=== PATIENT | female | born 1960 | race Caucasian/White ===

== ENCOUNTER 2018-10-07 18:42 | Observation (INO) | payer SELFPAY ==
[2018-10-07 23:13] LABS: Absolute Lymphocytes (CBC) 2.6 K/uL (0.7-4.9); Absolute Monocytes 0.4 K/uL (0.1-1.3); Absolute Neutrophil 4.9 K/uL (1.8-8.0); Basophils % 0.6 % (0-1.3); Eosinophils % 3.3 % (0-4.4); Hematocrit 40.5 % (36.0-45.0); Lymphocytes % 31.6 % (15.3-44.8); Monocytes % 4.4 % (3.3-12.3); RBC Red Blood Cell Count 4.73 M/uL (3.86-4.86)
[2018-10-07 23:21] LABS: Protime INR 0.96
[2018-10-07 23:35] LABS: ALT/SGPT 34 U/L (12-78); AST/SGOT 21 U/L (15-37); Alkaline Phosphatase 144 U/L (45-117); BUN Blood Urea Nitrogen 27 mg/dL (7-18); Bicarbonate 27 mmol/L (21-32); Bilirubin Direct < 0.1 mg/dL (0-0.2); Bilirubin Total 0.2 mg/dL (0.2-1.0); Glucose Level 121 mg/dL (74-106); Magnesium 2.2 mg/dL (1.8-2.4); NT PRO-BNP 126 pg/mL (<125); Protein, Total 7.8 g/dL (6.4-8.2); Sodium Level 139 mmol/L (136-145); Troponin (Emerg Dept Use Only) < 0.02 ng/mL (0.0-0.045)
[2018-10-08] MEDS ORDERED: NA CHLORIDE 0.9% 1,000 ML ONE (01:49)
--- NOTE | 2018-10-08 01:54 | ER ---
Nurse's Notes [facility] Name: Rena Santiago Age: 58 yrs Sex: Female : 1960 Arrival Date: 10/07/2018 Time: 18:43 Bed 14 Private MD: Chelita Rod Diagnosis: Chest pain, unspecified;Cardiac murmur, unspecified Presentation: 10/07 18:58 Presenting complaint: Patient states: " I was walking across the room and all of a ph sudden I got really SOB, my head is feeling weird." Pt reports dizziness, headache, and nausea, denies chest pain or wekaness. Transition of care: patient was not received from another setting of care. Onset of symptoms was October 07, 2018. Risk Assessment: Do you want to hurt yourself or someone else? Patient reports no desire to harm self or others. Initial Sepsis Screen: Does the patient meet any 2 criteria? No. Patient's initial sepsis screen is negative. Does the patient have a suspected source of infection? No. Patient's initial sepsis screen is negative. Care prior to arrival: None. 18:58 Method Of Arrival: Ambulatory 18:58 Acuity: JAYDA 3 ph Triage Assessment: 19:05 General: Appears in no apparent distress. comfortable, obese, well groomed, Behavior is ph calm, cooperative, appropriate for age, Denies fever, feeling ill. Pain: Denies pain. Neuro: Level of Consciousness is awake, alert, obeys commands, Oriented to person, place, time, situation, Reports dizziness, since 1630 headache frontal area. Cardiovascular: Reports lightheadedness, nausea, shortness of breath, denies chest pain at this time Denies syncope, vomiting, Capillary refill < 3 seconds in bilateral fingers Patient's skin is warm and dry. Respiratory: Reports shortness of breath at rest Onset: The symptoms/episode began/occurred today, the patient has mild shortness of breath Denies cough, pain with respiration. GI: Reports nausea, Patient currently denies abdominal pain, vomiting. Derm: Skin is intact, is healthy with good turgor, Skin is pink, warm \\T\\ dry. Historical: - Allergies: 21:45 No Known Allergies; jb4 - PMHx: 19:03 Anxiety; Depression; Hypertension; Hyperlipidemia; ph - PSHx: 19:03 Tonsillectomy; Appendectomy; ph - Immunization history:: Adult Immunizations unknown. - Social history:: Smoking status: Patient/guardian denies using tobacco. - Ebola Screening: : No symptoms or risks identified at this time. Screenin:45 Abuse screen: Denies threats or abuse. Nutritional screening: No deficits noted. jb4 Tuberculosis screening: No symptoms or risk factors identified. Fall Risk None identified. Assessment: 21:45 General: Appears in no apparent distress. comfortable, Behavior is calm, cooperative, jb4 appropriate for age. Pain: Complains of pain in headache Pain does not radiate. Pain currently is 6 out of 10 on a pain scale. Neuro: Level of Consciousness is awake, alert, obeys commands, Oriented to person, place, time, situation. Cardiovascular: Heart tones S1 S2 present Murmur present Patient's skin is warm and dry. Rhythm is sinus rhythm. Respiratory: Airway is patent Respiratory effort is even, unlabored, Respiratory pattern is regular, symmetrical, Breath sounds are clear bilaterally. GI: No signs and/or symptoms were reported involving the gastrointestinal system. : No signs and/or symptoms were reported regarding the genitourinary system. EENT: No signs and/or symptoms were reported regarding the EENT system. Derm: Skin is intact, Skin is pink, warm \\T\\ dry. Musculoskeletal: Circulation, motion, and sensation intact. 22:33 Reassessment: Patient appears in no apparent distress at this time. Patient and/or jb4 family updated on plan of care and expected duration. Pain level reassessed. Patient is alert, oriented x 3, equal unlabored respirations, skin warm/dry/pink. 23:46 Reassessment: Patient appears in no apparent distress at this time. Patient and/or jb4 family updated on plan of care and expected duration. Pain level reassessed. Patient is alert, oriented x 3, equal unlabored respirations, skin warm/dry/pink. 10/08 00:56 Reassessment: Patient appears in no apparent distress at this time. Patient and/or jb4 family updated on plan of care and expected duration. Pain level reassessed. Patient is alert, oriented x 3, equal unlabored respirations, skin warm/dry/pink. 01:58 Reassessment: Patient appears in no apparent distress at this time. Patient and/or jb4 family updated on plan of care and expected duration. Pain level reassessed. Patient is alert, oriented x 3, equal unlabored respirations, skin warm/dry/pink. 03:01 Reassessment: Patient appears in no apparent distress at this time. Patient and/or jb4 family updated on plan of care and expected duration. Pain level reassessed. Patient is alert, oriented x 3, equal unlabored respirations, skin warm/dry/pink. Vital Signs: 10/07 19:04 BP 103 / 73; Pulse 82; Resp 18; Temp 98.2; Pulse Ox 97% on R/A; Weight 99.79 kg; Height ph 5 ft. 3 in. (160.02 cm); 21:55 BP 154 / 64; Pulse 77; Resp 16; Pulse Ox 100% on R/A; jb4 23:00 BP 157 / 52; Pulse 72; Resp 18; Pulse Ox 98% on R/A; jb4 10/08 00:24 BP 139 / 55; Pulse 76; Resp 16; Pulse Ox 98% on R/A; jb4 01:30 BP 126 / 97; Pulse 74; Resp 16; Pulse Ox 99% on R/A; jb4 03:02 BP 155 / 70; Pulse 72; Resp 18; Temp 98.0(O); Pulse Ox 98% on R/A; jb4 10/07 19:04 Body Mass Index 38.97 (99.79 kg, 160.02 cm) ph ED Course: 10/07 18:43 Patient arrived in ED. as 18:44 Chelita Rod MD is Private Physician. as 19:01 Triage completed. ph 19:05 Arm band placed on. EKG completed in triage. Results shown to MD. ph 21:44 Dhruv Malloy MD is Attending Physician. gs 21:45 Patient has correct armband on for positive identification. Bed in low position. Call 4 light in reach. Side rails up X 1. Pulse ox on. NIBP on. 22:00 Initial lab(s) drawn, by me, by EMS personnel. Inserted saline lock: 20 gauge in right jb4 antecubital area, using aseptic technique. Blood collected. 22:18 Girma Knox, JACQUELINE is Primary Nurse. 4 22:59 Radiology exam delayed due to lab results not completed at this time. (BUN/Creatinine). vm2 23:20 X-ray completed. Portable x-ray completed in exam room. Patient tolerated procedure kw well. 23:21 XRAY Chest (1 view) In Process Unspecified. EDMS 05 00:17 CT Head Brain wo Cont In Process Unspecified. EDMS 00:39 CT Aorta for Dissection In Process Unspecified. EDMS 01:03 CT completed. Patient tolerated procedure well. Patient moved to CT via stretcher. Patient moved back from CT. 01:53 Crystal Campbell MD is Hospitalizing Provider. gs 03:10 No provider procedures requiring assistance completed. Patient admitted, IV remains in jb4 place. Administered Medications: 01:41 Drug: NS 0.9% 1000 ml Route: IV; Rate: 1 bolus; Site: right antecubital; jb4 03:33 Follow up: Response: No adverse reaction; IV Status: Infusion continued upon admission; jb4 IV Intake: 500ml Intake: 03:33 IV: 500ml; Total: 500ml. jb4 Outcome: 01:53 Decision to Hospitalize by Provider. 03:10 Admitted to Tele accompanied by nurse, via stretcher, room 404, with chart, Report jb4 called to JACQUELINE Reis 03:10 Condition: stable 03:10 Discharge instructions given to patient, family, Instructed on the need for admit, Demonstrated understanding of instructions. 03:33 Patient left the ED. jb4 Signatures: Dispatcher [employer] EDGeovanni Purdy Amelia as Whitley, Kimberlee kw Hall, Patricia, RN RN ph Bryson, James, RN RN [facility] Sharri Henry [facility] Dhruv Malloy MD MD Corrections: (The following items were deleted from the chart) 10/07 22:46 21:45 Cardiovascular: Heart tones S1 S2 present Patient's skin is warm and dry. jb4 jb4 23:47 21:45 Cardiovascular: Heart tones S1 S2 present Murmur present Patient's skin is warm jb4 and dry. jb4
--- NOTE | 2018-10-08 01:54 | EDPHYS ---
Physician Documentation [facility] Name: Rena Santiago Age: 58 yrs Sex: Female : 1960 Arrival Date: 10/07/2018 Time: 18:43 Bed 14 Private MD: Chelita Rod ED Physician Dhruv Malloy HPI: 10/08 03:32 This 58 yrs old Female presents to ER via Ambulatory with complaints of gs Shortness Of Breath. 03:32 The patient has shortness of breath at rest. Onset: The symptoms/episode began/occurred gs acutely, just prior to arrival. Duration: The symptoms are intermittent. The patient's shortness of breath has no apparent modifying factors. Associated signs and symptoms: Pertinent positives: chest pain. Severity of symptoms: At their worst the symptoms were severe in the emergency department the symptoms have improved markedly. The patient has not experienced similar symptoms in the past. says felt flushed, hot flash, mild headache, tingling in arms. Historical: - Allergies: 10/07 21:45 No Known Allergies; jb4 - PMHx: 19:03 Anxiety; Depression; Hypertension; Hyperlipidemia; ph - PSHx: 19:03 Tonsillectomy; Appendectomy; ph - Immunization history:: Adult Immunizations unknown. - Social history:: Smoking status: Patient/guardian denies using tobacco. - Ebola Screening: : No symptoms or risks identified at this time. ROS: 10/08 03:32 All other systems are negative. gs Exam: 03:32 Head/Face: Normocephalic, atraumatic. Eyes: Pupils equal round and reactive to light, gs extra-ocular motions intact. Lids and lashes normal. Conjunctiva and sclera are non-icteric and not injected. Cornea within normal limits. Periorbital areas with no swelling, redness, or edema. ENT: Nares patent. No nasal discharge, no septal abnormalities noted. Tympanic membranes are normal and external auditory canals are clear. Oropharynx with no redness, swelling, or masses, exudates, or evidence of obstruction, uvula midline. Mucous membranes moist. Neck: Trachea midline, no thyromegaly or masses palpated, and no cervical lymphadenopathy. Supple, full range of motion without nuchal rigidity, or vertebral point tenderness. No Meningismus. Chest/axilla: Normal chest wall appearance and motion. Nontender with no deformity. No lesions are appreciated. Respiratory: Lungs have equal breath sounds bilaterally, clear to auscultation and percussion. No rales, rhonchi or wheezes noted. No increased work of breathing, no retractions or nasal flaring. Abdomen/GI: Soft, non-tender, with normal bowel sounds. No distension or tympany. No guarding or rebound. No evidence of tenderness throughout. Back: No spinal tenderness. No costovertebral tenderness. Full range of motion. Skin: Warm, dry with normal turgor. Normal color with no rashes, no lesions, and no evidence of cellulitis. MS/ Extremity: Pulses equal, no cyanosis. Neurovascular intact. Full, normal range of motion. Neuro: Awake and alert, GCS 15, oriented to person, place, time, and situation. Cranial nerves II-XII grossly intact. Motor strength 5/5 in all extremities. Sensory grossly intact. Cerebellar exam normal. Normal gait. 03:32 Constitutional: The patient appears alert, awake. 03:32 Cardiovascular: Rate: normal, Rhythm: regular, Pulses: no pulse deficits are appreciated, Heart sounds: murmur, systolic, grade 3 over 6, Edema: is not appreciated. 03:32 ECG was reviewed by the Attending Physician. Vital Signs: 10/07 19:04 BP 103 / 73; Pulse 82; Resp 18; Temp 98.2; Pulse Ox 97% on R/A; Weight 99.79 kg; Height ph 5 ft. 3 in. (160.02 cm); 21:55 BP 154 / 64; Pulse 77; Resp 16; Pulse Ox 100% on R/A; jb4 23:00 BP 157 / 52; Pulse 72; Resp 18; Pulse Ox 98% on R/A; jb4 10/08 00:24 BP 139 / 55; Pulse 76; Resp 16; Pulse Ox 98% on R/A; jb4 01:30 BP 126 / 97; Pulse 74; Resp 16; Pulse Ox 99% on R/A; jb4 03:02 BP 155 / 70; Pulse 72; Resp 18; Temp 98.0(O); Pulse Ox 98% on R/A; jb4 10/07 19:04 Body Mass Index 38.97 (99.79 kg, 160.02 cm) ph MDM: 10/07 22:42 Patient medically screened. 10/08 03:32 Differential diagnosis: CHF exacerbation, Chronic Obstructive Pulmonary Disease gs Myocardial Infarction TAD. Data reviewed: vital signs, nurses notes, old medical records, lab test result(s), EKG, radiologic studies. Counseling: I had a detailed discussion with the patient and/or guardian regarding: the historical points, exam findings, and any diagnostic results supporting the discharge/admit diagnosis, the need for further work-up and treatment in the hospital. 10/07 22:44 Order name: Basic Metabolic Panel 10/07 22:44 Order name: CBC with Diff 10/07 22:44 Order name: LFT's; Complete Time: 01:22 10/07 22:44 Order name: Magnesium; Complete Time: :22 10/07 22:44 Order name: NT PRO-BNP; Complete Time: :22 10/07 22:44 Order name: PT-INR; Complete Time: 01:22 10/07 22:44 Order name: Troponin (emerg Dept Use Only); Complete Time: 01:22 10/07 22:44 Order name: XRAY Chest (1 view) 10/07 22:44 Order name: CT Aorta for Dissection 10/07 22:45 Order name: Basic Metabolic Panel; Complete Time: 01:22 [facility] 10/07 22:45 Order name: CBC with Automated Diff; Complete Time: 01:22 [facility] 10/08 01:54 Order name: Troponin (emerg Dept Use Only) 10/08 02:35 Order name: Lipid Profile [facility] 10/08 02:36 Order name: Troponin I [facility] 10/07 22:44 Order name: EKG; Complete Time: 22:45 10/07 22:44 Order name: Cardiac monitoring; Complete Time: 23:12 10/07 22:44 Order name: EKG - Nurse/Tech; Complete Time: 23:11 10/07 22:44 Order name: IV Saline Lock; Complete Time: 23:11 10/07 22:44 Order name: Labs collected and sent; Complete Time: 23:11 10/07 22:44 Order name: O2 Per Protocol; Complete Time: 23:11 10/07 22:44 Order name: O2 Sat Monitoring; Complete Time: 23:11 10/07 22:44 Order name: CT Head Brain wo Cont gs 10/08 02:36 Order name: CONS Physician Consult [facility] 10/08 02:36 Order name: Heart Healthy [facility] 10/08 02:36 Order name: Echo with Doppler [facility] 10/08 02:36 Order name: EKG Electrocardiogram [facility] EC:32 Rate is 81 beats/min. Rhythm is regular. CT interval is normal. QRS interval is normal. QT interval is normal. Q waves are Old in leads V1, V2. T waves are Normal. No ST changes noted. Clinical impression: NSR w/ Non-specific ST/T Changes and Abnormal EKG without significant change. Interpreted by me. Administered Medications: 01:41 Drug: NS 0.9% 1000 ml Route: IV; Rate: 1 bolus; Site: right antecubital; jb4 03:33 Follow up: Response: No adverse reaction; IV Status: Infusion continued upon admission; jb4 IV Intake: 500ml Disposition: 03:32 Critical Care:. Disposition: 10/08/18 01:53 Hospitalization ordered by Crystal Campbell for Observation. Preliminary diagnosis are Chest pain, unspecified, Cardiac murmur, unspecified. - Bed requested for Telemetry/MedSurg (observation). - Status is Observation. jb4 - Condition is Stable. - Problem is new. - Symptoms have improved. UTI on Admission? No Critical care time excluding procedures: 03:32 Critical care time: Bedside Care: 10 minutes, Consultation: 10 minutes, Family gs Intervention: 10 minutes. Total time: 30 minutes Signatures: Dispatcher [employer] [facility] Maddy Lockett RN RN mw Hall, Patricia, RN RN ph Bryson, James, RN RN jb4 Dhruv Malloy MD MD Corrections: (The following items were deleted from the chart) 02:41 01:53 Hospitalization Ordered by Crystal Campbell MD for Observation. Preliminary ivanna diagnosis is Chest pain, unspecified; Cardiac murmur, unspecified. Bed requested for Telemetry/MedSurg (observation). Status is Observation. Condition is Stable. Problem is new. Symptoms have improved. UTI on Admission? No. gs 03:33 02:41 10/08/2018 01:53 Hospitalization Ordered by Crystal Campbell MD for Observation. jb4 Preliminary diagnosis is Chest pain, unspecified; Cardiac murmur, unspecified. Bed requested for Telemetry/MedSurg (observation). Status is Observation. Condition is Stable. Problem is new. Symptoms have improved. UTI on Admission? No. mw
[2018-10-08] MEDS ORDERED: MORPHINE 4 MG/ML SYR IV PRN (02:28)
[2018-10-08] MEDS ORDERED: ACETAMINOPHEN 500 MG TAB PO PRN (02:28)
[2018-10-08] MEDS ORDERED: ALPRAZOLAM 0.25 MG TABLET PO PRN (02:28)
[2018-10-08 04:01] VITALS: O2SAT 98
[2018-10-08 04:38] VITALS: BMI 50.8
[2018-10-08 04:43] LABS: Urine Appearance CLEAR; Urine Bilirubin NEGATIVE (NEG); Urine Blood NEGATIVE (NEG); Urine Color YELLOW; Urine Glucose NEGATIVE (NEG); Urine Protein NEGATIVE (NEG); Urine Specific Gravity >=1.030 (1.005-1.030); Urine Urobilinogen 0.2 mg/dL (0.2-1.0)
[2018-10-08 04:45] LABS: Urine Microscopic Reflex NO UMIC
--- NOTE | 2018-10-08 06:45 | RAD REPORT ---
EXAM DESCRIPTION: RAD - Chest Single View - 10/07/2018 11:21 pm CLINICAL HISTORY: Chest pain COMPARISON: March 2017 TECHNIQUE: AP portable chest image was obtained 2309 hours . FINDINGS: Lungs are clear. Heart and vasculature are normal. No measurable pleural effusion and no p neumothorax. No acute bony abnormality seen. No acute aortic findings suspected. IMPRESSION: No acute cardiopulmonary process. No significant change from comparison.
--- NOTE | 2018-10-08 06:52 | EKG ---
Test Date: 2018-10-07 Test Time: 19:06:16 Pivot Maker: NELLY MEASUREMENT RESULTS: Intervals: Rate: 81 WV: 180 QRSD: 76 QT: 374 QTc: 434 Harrod: P: 47 WV: 180 QRS: 26 T: 77 INTERPRETIVE STATEMENTS: Normal sinus rhythm Normal ECG Compared to ECG 07/10/2015 15:37:27 no significant change from previous ECG Electronically Signed On 10-08-18 06:52:07 CDT by Timur Ramos
[2018-10-08 08:56] LABS: HDL Cholesterol 45 mg/dL (40-60); LDL Cholesterol, Calculated 119 (<130); Troponin I < 0.02 ng/mL (0.0-0.045)
[2018-10-08] MEDS ORDERED: ASPIRIN EC 81 MG TAB PO SCH (09:00)
[2018-10-08] MEDS ORDERED: METOPROLOL TAR 50 MG TAB PO SCH (09:00)
[2018-10-08] MEDS ORDERED: ENOXAPARIN 40 MG/0.4 ML SQ SCH (09:00)
[2018-10-08] MEDS ORDERED: REGADENOSON 0.4 MG/5 ML SYR IV ONE (10:51)
--- NOTE | 2018-10-08 12:24 | RAD REPORT ---
EXAM DESCRIPTION: CT - Head Brain Wo Cont - 10/08/2018 3:34 am CLINICAL HISTORY: HEADACHE COMPARISON: None Available. TECHNIQUE: Multiple helical axial tomographic images were obtained of the head without intravenous c ontrast. Coronal and sagittal reformatted images were obtained. This exam was performed according to our departmental dose-optimization program, which includes automated exposure control, adjustment of the mA and/or kV according to patient size and/or use of iterative reconstruction technique. FINDINGS: There is mild, patchy hypoattenuation in the cerebral matter which is nonspecific but sugg estive of chronic microvascular ischemic changes. There is no acute intracranial hemorrhage. No mass. No midline shift. No ventriculomegaly. Carrasquillo-white matter differentiation is maintained. Paranasal sinuses are clear. Mastoid air cells and middle ear spaces are clear. Orbits and orbital co ntents are unremarkable. Osseous structures are unremarkable. Surrounding soft tissues are unremarkable. IMPRESSION: No acute intracranial process. Electronically signed by: Dion Robledo MD 10/08/2018 12:28 AM CDT Due to temporary technical issues with the PACS/Fluency reporting system, reports are being signed by the in house radiologist as a courtesy to ensure prompt reporting. The interpreting radiologist is f ully responsible for the content of the report.
--- NOTE | 2018-10-08 12:26 | RAD REPORT ---
EXAM DESCRIPTION: CT - Angio Aorta For Dissection - 10/08/2018 3:35 am CLINICAL HISTORY: The patient is 58 years old and is Female; CHEST PAIN TECHNIQUE: Axial computed tomographic angiography images of the chest, abdomen and pelvis with intra venous contrast using CT angiography protocol. Sagittal and coronal reformatted images were created and reviewed. This CT exam was performed using one or more of the following dose reduction techniq ues: automated exposure control, adjustment of the mA and/or kV according to patient size, and/or u se of iterative reconstruction technique. MIP reconstructed images were created and reviewed. COMPARISON: No relevant prior studies available. FINDINGS: VASCULATURE: AORTA: Minimal atherosclerosis of the aorta is present. No aortic aneurysm. No dissection. PULMONARY ARTERIES: There are no obvious filling defects identified within the pulmonary arterie s to suggest pulmonary embolism. GREAT VESSELS OF AORTIC ARCH: No acute findings. No dissection. No arterial occlusion or sig nificant stenosis. CELIAC TRUNK AND MESENTERIC ARTERIES: No acute findings. No occlusion or significant stenosis. RENAL ARTERIES: No acute findings. No occlusion or significant stenosis. ILIAC ARTERIES: No acute findings. No occlusion or significant stenosis. CHEST: LUNGS: Unremarkable. No mass. No consolidation. PLEURAL SPACE: Unremarkable. No significant effusion. No pneumothorax. HEART: Unremarkable. No cardiomegaly. No significant pericardial effusion. ABDOMEN: LIVER: There is a diffuse decrease in hepatic parenchymal density, consistent with fatty infiltr ation. GALLBLADDER AND BILE DUCTS: Unremarkable. No calcified stones. No ductal dilation. PANCREAS: Unremarkable. No ductal dilation. No mass. SPLEEN: Unremarkable. No splenomegaly. ADRENALS: Unremarkable. No mass. KIDNEYS AND URETERS: Unremarkable. No hydronephrosis. No solid mass. STOMACH AND BOWEL: The stomach is minimally distended. The small bowel is relatively normal in c aliber. Stool is present throughout the colon. There is no mucosal thickening or evidence of bowel ob struction. PELVIS: APPENDIX: No findings to suggest acute appendicitis. BLADDER: The bladder is well distended. REPRODUCTIVE: Calcified uterine fibroid is present. The ovaries are unremarkable. CHEST, ABDOMEN and PELVIS: INTRAPERITONEAL SPACE: Unremarkable. No significant fluid collection. No free air. BONES/JOINTS: Minimal degenerative change of the spine is present. No acute fracture. No dis location. SOFT TISSUES: Unremarkable. LYMPH NODES: There is mild haziness of the mesenteric fat in the mid abdomen, with several subce ntimeter mesenteric lymph nodes noted in this region. IMPRESSION: 1. No evidence of aortic dissection. 2. Mild haziness of the mesenteric fat in the mid abdomen, which is nonspecific but can be seen wit h mesenteric panniculitis. 3. No evidence of pulmonary embolism. Electronically signed by: Sandra Tracy MD 10/08/2018 12:52 AM CDT Due to temporary technical issues with the PACS/Fluency reporting system, reports are being signed by the in house radiologist as a courtesy to ensure prompt reporting. The interpreting radiologist is f ully responsible for the content of the report.
--- NOTE | 2018-10-08 13:56 | CON ---
Date of Consultation: 10/08/[address] The patient admitted to Dr. Campbell's service on 10/08/2018. I saw the patient on 10/08/2018. Reason For Consultation: Chest pain. History Of Present Illness: Ms. Santiago is a 58-year-old woman with history of hypertension, depressio n, dyslipidemia, gastroesophageal reflux disease, obesity. She came in with multiple symptoms includ ing sharp stabbing chest pain that lasted for a few seconds, but she also got what felt like a hot fl flip, shortness of breath, headache. No nausea or vomiting. Denied PND, orthopnea, pedal edema, palp itations, or syncope. Past Medical History: As stated above. Allergies: NONE. Review of Systems: Negative. Social History: Negative for tobacco. Family History: Negative for heart disease. Medications: At home include Norvasc, aspirin, Prilosec, and Zoloft. Physical Examination: Vital Signs: She weighed 287 pounds. HEENT: Negative. Neck: Supple with no bruit. Chest: Clear to auscultation and percussion. Cardiac: Exam revealed a regular rhythm and rate without any murmurs, gallops, or rubs. Abdomen: Benign. Extremities: No clubbing, cyanosis, or edema. Diagnostic Data: Her EKG was normal chest x-ray was normal. CPK was normal. BNP and troponin were normal. Impression And Plan: Atypical chest pain in a patient with multiple cardiac risk factors including h ypertension, dyslipidemia, and obesity. I think an echocardiogram and a Lexiscan which were ordered by Dr. Campbell are very appropriate. I will see what those shows prior to making final decisions. Her chest pain certainly does not sound cardiac. It sounds more musculoskeletal. Her other symptoms inc luding headache and flushing sensation could be certainly related to blood pressure issues. WALESKA/MACHELLE Voice ID: [id number] Report ID: [id number]
--- NOTE | 2018-10-08 14:09 | P.SSS ---
Patient History Date of Service: 10/08/18 History of Present Illness: 58-year-old female with significant past medical history who was admitted to the hospital for chest pain ACS rule out. Please refer to the admission H and P for further information on history of present illness Allergies No Known Allergies Allergy (Verified 07/10/15 17:42) Home Medications: Amlodipine [Norvasc*] 10 mg PO DAILY 07/10/15 Ascorbic Acid [Vitamin C*] 1,000 mg PO DAILY 07/10/15 Aspirin [Aspirin EC 81 MG] 81 mg PO DAILY 07/10/15 Multivitamin [Multivitamins] 1 pill PO DAILY 07/10/15 Sertraline [Zoloft*] 100 mg PO DAILY 07/10/15 Omeprazole [Prilosec] 20 mg PO DAILY #30 capsule. 07/12/15 - Past Medical/Surgical History Has patient received pneumonia vaccine in the past: No Diabetic: No -: htn -: high cholesterol -: ovarian cyst removal -: appendectomy -: tonsillectomy - Family History Mother -: Hypertension, Cancer, Other (see notes) Notes: esophageal cancer Father -: Hypertension, Diabetes, Other (see notes) Notes: mds - Social History Smoking Status: Never smoker Alcohol use: Yes CD- Drugs: No Caffeine use: Yes Place of Residence: Home Review of Systems 10-point ROS is otherwise unremarkable Physical Examination - Vital Signs Temperature: 97.8 F Blood Pressure: 167/70 Pulse: 76 Respirations: 19 Pulse Ox (%): 95 - Physical Exam General: Alert, In no apparent distress HEENT: Atraumatic, PERRLA, Mucous membr. moist/pink, EOMI, Sclerae nonicteric Neck: Supple, 2+ carotid pulse no bruit, No LAD, Without JVD or thyroid abnormality Respiratory: Clear to auscultation bilaterally, Normal air movement Cardiovascular: Regular rate/rhythm, Normal S1 S2 Gastrointestinal: Normal bowel sounds, No tenderness Musculoskeletal: No tenderness Integumentary: No rashes Neurological: Normal gait, Normal speech, Normal strength at 5/5 x4 extr, Normal tone, Normal affect Lymphatics: No axilla or inguinal lymphadenopathy - Studies Laboratory Data (last 24 hrs) 10/07/18 23:02: PT 11.4, INR 0.96 10/07/18 23:02: WBC 8.1, Hgb 13.7, Hct 40.5, Plt Count 300 10/07/18 23:02: Sodium 139, Potassium 4.0, BUN 27 H, Creatinine 0.96, Glucose 121 H, Magnesium 2.2, Total Bilirubin 0.2, AST 21, ALT 34, Alkaline Phosphatase 144 H Treatment Summary: Overall during the hospital stay patient remained stable Patient was initially admitted to the hospital for atypical chest pain. Troponin x2 were negative. EKG was negative for any acute abnormality. Cardiology was consulted. Patient had an echocardiogram done and stress test done here in the hospital. Echocardiogram and stress test were both within normal limits. Patient at that time was discharged home and was asked to follow up with primary care provider in about 1-2 days post discharge. Patient has atypical chest pain was most likely secondary to musculoskeletal pain verses GERD. Patient did have elevated triglycerides and was asked to control it with diet and exercise. Patient stated that she rather do diet and exercise before starting any medication at this time. - Disposition Disposition: ROUTINE DISCHARGE Condition: GOOD Patient Discharge Instructions: Please f.u with PCP and Cardiology. No New medication Diet: Regular Activity: Ad leslie
--- NOTE | 2018-10-08 14:17 | RAD REPORT ---
EXAM DESCRIPTION: NM - Rest Stress Cardiac Imaging - 10/08/2018 2:04 pm CLINICAL HISTORY: Chest pain COMPARISON: July 2015 TECHNIQUE: The patient was administered approximately 10 mCi of Tc 99m Sestamibi prior to resting SP ECT imaging of the heart. The patient was then administered approximately 30 mCi of Tc 99m Sestamibi following exercise or pharmacologic stress. Multiplanar SPECT images were reviewed. FINDINGS: The end diastolic volume is 107 ml, the end systolic volume is 39 ml, and the ejection fra ction is 64 %. Volumes and ejection fraction are similar to the comparison. No stress-induced ischemia confirmed. Minimal focus of decreased activity along the inferior wall rebeca r the apex on stress imaging is believed to be attenuation artifact. Diminished activity on the anter ior wall midportion does not change between rest and stress imaging. This could be a small focus of s carring or breast attenuation artifact. This anterior wall finding is similar to the comparison stud y. IMPRESSION: No stress-induced ischemic changes confirmed. Small fixed defect anterior wall does not change between stress and rest imaging and has not changed from July 2015. Very small focus of diminished activity inferior wall near the apex on the stress sequences not suspe cted to be true ischemia. Ventricular volumes and ejection fraction are normal range in similar to 2016.
[2018-10-08 16:27] VITALS: BP 180/74; TEMP 97.6
--- NOTE | 2018-10-09 01:20 | P.HP ---
Certification for Inpatient Patient admitted to: Observation With expected LOS: <2 Midnights Patient will require the following post-hospital care: None Practitioner: I am a practitioner with admitting privileges, knowledge of patient current condition, hospital course, and medical plan of care. Services: Services provided to patient in accordance with Admission requirements found in Title 42 Section 412.3 of the Code of Federal Regulations Patient History Date of Service: 10/08/18 Reason for admission: Chest pain rule out acute coronary syndrome History of Present Illness: Patient is a 58-year-old female came to the hospital with chest pain. Pain was mainly in the sternal region. She said it started suddenly and it was not improving so after an hour she came into the ER for further evaluation. She did not have any shortness of breath. She had no nausea. She had no diaphoresis. She does have some risk factors for coronary artery disease. Her BMI is greater than 50. She will be admitted to the hospital to be ruled out for an acute coronary syndrome. As she is ruled out will go ahead and proceed with further cardiac studies as needed. Allergies No Known Allergies Allergy (Verified 07/10/15 17:42) Home Medications: Amlodipine [Norvasc] 10 mg PO DAILY 10/08/18 Ascorbic Acid [Vitamin C] 1,000 mg PO DAILY 10/08/18 Aspirin [Aspirin EC 81 MG] 81 mg PO DAILY 10/08/18 Cyclobenzaprine [Flexeril] 5 mg PO TID PRN 10/08/18 Hydroxyzine HCl [Atarax] 25 mg PO DAILY 10/08/18 Lovastatin 20 mg PO BEDTIME 10/08/18 Meloxicam [Mobic] 15 mg PO DAILY 10/08/18 Multivitamin [Daily Multiple Vitamin] 1 each PO DAILY 10/08/18 Celio/Poly/Dexa Opth [Maxitrol Ophth Susp] 3 - 4 drops EACH EYE DAILY 10/08/18 Omeprazole [Prilosec] 20 mg PO DAILY 10/08/18 Sertraline [Zoloft] 100 mg PO DAILY 10/08/18 - Past Medical/Surgical History Has patient received pneumonia vaccine in the past: No Diabetic: No -: htn -: high cholesterol -: ovarian cyst removal -: appendectomy -: tonsillectomy - Family History Mother Medical History: Hypertension, Cancer, Other (see notes) Notes: esophageal cancer Father Medical History: Hypertension, Diabetes, Other (see notes) Notes: mds - Social History Smoking Status: Never smoker Alcohol use: Yes CD- Drugs: No Caffeine use: Yes Place of Residence: Home Review of Systems 10-point ROS is otherwise unremarkable Physical Examination - Vital Signs Temperature: 97.6 F Blood Pressure: 180/74 Pulse: 66 Respirations: 17 Pulse Ox (%): 97 - Physical Exam General: Alert, In no apparent distress, Oriented x3 HEENT: Atraumatic, PERRLA, Mucous membr. moist/pink, EOMI, Sclerae nonicteric Neck: Supple, 2+ carotid pulse no bruit, No LAD, Without JVD or thyroid abnormality Respiratory: Clear to auscultation bilaterally, Normal air movement Cardiovascular: Regular rate/rhythm, Normal S1 S2, No murmurs Gastrointestinal: Normal bowel sounds, Soft and benign, Non-distended, No tenderness Musculoskeletal: No clubbing, No swelling, No tenderness Integumentary: No rashes Neurological: Normal gait, Normal speech, Normal strength at 5/5 x4 extr, Normal tone, Sensation intact, Cranial nerves 3-12 intact, Normal affect Lymphatics: No axilla or inguinal lymphadenopathy Assessment & Plan - Problems (Diagnosis) (1) Chest pain, rule out acute myocardial infarction Status: Acute (2) HTN (hypertension) Onset Date: 07/11/15 Status: Acute (3) Hyperlipemia Onset Date: 07/11/15 Status: Acute - Plan 1. Serial troponins and EKG 2. Appreciate Cardiology consultation 3. Echocardiogram and stress test if cardiology is agreeable 4. Anti-platelet therapy, anti coagulation, beta-nasima, statin, and O2 as needed 5. IV morphine for pain 6. Nitro p.r.n. Discharge Plan: Home Plan to discharge in: 24 Hours - Advance Directives Does patient have a Living Will: No Does patient have a Durable POA for Healthcare: No - Code Status/Comfort Care Code Status Assessed: Yes Code Status: Full Code Critical Care: No Time Spent Managing PTS Care (In Minutes): 45
--- NOTE | 2018-10-09 09:28 | TREADPHA ---
DX: CHEST PAIN Date of Study: 10/08/18 Ht: 5 3 Wt: 287 lb 1.6 oz Consulting Physician: GENO MEDICATIONS: TYLENOL, XANAX, ASPIRIN, LOVENOX, LOPRESSOR HISTORY: 58 YEAR OLD FEMALE, COMPLAINTS OF CHEST PAIN, HISTORY: ANXIETY, DEPRESSION, HYPERTENSION, HYPERLIPIDEMIA. NON-SMOKER, OCCASONAL DRINKER PHYSICIAL EXAMINATION: RESTING B.P.: 168/69 RESTING H.R.: 82 RESTING EKG: NORMAL PROTOCOL: LEXISCAN EXERCISE TIME: 3:30 B.P. AT PEAK STRESS: 165/83 IMPRESSION: LEXISCAN INJECTED, FOLLOWED BY CARDIOLITE PER PROTOCOL, SEE NUCLEAR MEDICNE REPORT. NO SUPRA VENTRICULAR TACHYCARDIA, VENTRICULAR TACHYCARDIA. NO PREMATURE ATRIAL COMPLEXES, PREMATURE VENTRICULAR COMPLEXES. PATIENT REPORTES NO CHEST PAIN.
--- NOTE | 2018-10-09 16:40 | ECHO ---
HEIGHT: 5 ft 3 in WEIGHT: 287 lb 1.6 oz DATE OF STUDY: 10/09/[address]: Crystal Campbell MD 2-DIMENSIONAL: YES M.MODE: YES DOPPLER: YES COLOR FLOW: YES TDS: YES PORTABLE: NO DEFINITY: NO BUBBLE STUDY: NO DIAGNOSIS: CHEST PAIN. RULE OUT ACUTE CORONARY SYNDROME CARDIAC HISTORY: CATHERIZATION: NO SURGERY: NO PROSTHETIC VALVE: NO PACEMAKER: NO MEASUREMENTS (cm) DIASTOLIC (NORMALS) SYSTOLIC (NORMALS) IVSd (0.6-1.2) LA Diam (1.9-4.0) LVEF 55-60% LVIDd (3.5-5.7) LVIDs (2.0-3.5) %FS % LVPWd (0.6-1.2) Ao Diam (2.0-3.7) 2 DIMENSIONAL ASSESSMENT: RIGHT ATRIUM: NORMAL LEFT ATRIUM: NORMAL RIGHT VENTRICLE: NORMAL LEFT VENTRICLE: NORMAL TRICUSPID VALVE: NORMAL MITRAL VALVE: MITRAL ANNULAR CALCIFICATION PULMONIC VALVE: NORMAL AORTIC VALVE: NORMAL PERICARDIAL EFFUSION: NONE AORTIC ROOT: NORMAL LEFT VENTRICULAR WALL MOTION: NORMAL DOPPLER/COLOR FLOW: NORMAL COMMENTS: TECHNICALLY DIFFICULT STUDY. GROSSLY NORMAL LEFT VENTRICULAR EJECTION FRACTION AND SIZE. NO EFFUSION. MITRAL ANNULAR CALFICATION. TECHNOLOGIST: SANDRA EDWARDS
== END 2018-10-08 18:52 | disposition home or self-care (01) ==
LOC: ER 18:42 → ERHOLD 10-08 02:57 → 4TH 10-08 03:07
PROVIDERS: ADMIT Hospitalist; ATTEND Hospitalist
DX: R07.89 Other chest pain (principal); I10 Essential (primary) hypertension; E78.5 Hyperlipidemia, unspecified; Z79.82 Long term (current) use of aspirin
CPT/HCPCS: 36415; 70450; 71045; 71275; 74175; 78452; 80048; 80061; 80076; 81003; 83735; 83880; 84484; 85025; 85610; 93005; 93017; 93306; 96360; 96361; 99285; A9500; G0378; J1650; J2785; J7030; Q9967

== ENCOUNTER 2019-01-19 19:14 | Emergency (ER) | payer SELFPAY ==
--- NOTE | 2019-01-19 20:49 | ER ---
Nurse's Notes [facility] Name: Rena Santiago Age: 58 yrs Sex: Female : 1960 Arrival Date: 01/19/2019 Time: 19:17 Bed 26 Private MD: Chelita Rod Diagnosis: Edema, unspecified Presentation: 01/19 19:26 Presenting complaint: Patient states: right ankle to right knee swelling and pain since ak1 this morning. pt stated her fingers on her right hand had swelling this morning too. Transition of care: patient was not received from another setting of care. Onset of symptoms was January 19, 2019. Risk Assessment: Do you want to hurt yourself or someone else? Patient reports no desire to harm self or others. Initial Sepsis Screen: Does the patient meet any 2 criteria? No. Patient's initial sepsis screen is negative. Does the patient have a suspected source of infection? No. Patient's initial sepsis screen is negative. Care prior to arrival: None. 19:26 Method Of Arrival: Ambulatory ak1 19:26 Acuity: JAYDA 3 ak1 Triage Assessment: 19:28 General: Appears in no apparent distress. Behavior is calm, cooperative. ak1 Historical: - Allergies: 19:28 No Known Allergies; ak1 - Home Meds: 19:28 lisinopril-hydrochlorothiazide 10-12.5 mg Oral tab 1 tab once daily [Active]; ak1 lovastatin 20 mg Oral tab 1 tab once daily [Active]; sertraline 100 mg Oral tab 2 tabs once daily [Active]; meloxicam 15 mg Oral tab 1 tab once daily [Active]; hydroxyzine HCl 25 mg Oral tab 1 tab BID [Active]; amlodipine 10 mg tab 1 tab once daily [Active]; - PMHx: 19:28 Anxiety; Depression; Hyperlipidemia; Hypertension; ak1 - PSHx: 19:28 Tonsillectomy; Appendectomy; ak1 - Immunization history:: Adult Immunizations unknown. - Social history:: Smoking status: Patient/guardian denies using tobacco. - Ebola Screening: : No symptoms or risks identified at this time. Screenin:29 Abuse screen: Denies threats or abuse. Denies injuries from another. Nutritional ak1 screening: No deficits noted. Tuberculosis screening: No symptoms or risk factors identified. Fall Risk None identified. Assessment: 19:40 General: Appears in no apparent distress. uncomfortable, Behavior is calm, cooperative, rr5 appropriate for age. 19:40 Pain: Complains of pain in right hand and right leg Pain radiates to right foot and rr5 right leg Pain currently is 8 out of 10 on a pain scale. Quality of pain is described as aching, Pain began gradually, Is intermittent. Neuro: Level of Consciousness is awake, alert, obeys commands, Oriented to person, place, time, situation, Appropriate for age. Cardiovascular: Capillary refill < 3 seconds Patient's skin is warm and dry. Respiratory: Airway is patent Respiratory effort is even, unlabored, Respiratory pattern is regular, symmetrical. GI: No signs and/or symptoms were reported involving the gastrointestinal system. : No signs and/or symptoms were reported regarding the genitourinary system. EENT: No signs and/or symptoms were reported regarding the EENT system. Derm: Skin is intact, Skin temperature is warm. Musculoskeletal: Circulation, motion, and sensation intact. Capillary refill < 3 seconds, Swelling present in right hand and right leg Reports pain in right hand and right leg. 20:15 Reassessment: Ultrasound at bedside performed. rr5 21:05 Reassessment: Patient appears in no apparent distress at this time. Patient is alert, rr5 oriented x 3, equal unlabored respirations, skin warm/dry/pink. discharge instruction given and explained without complaints made, verbalized understanding. Vital Signs: 19:28 BP 124 / 108; Pulse 106; Resp 20; Temp 97.8; Pulse Ox 100% on R/A; Weight 108.86 kg; ak1 Height 5 ft. 3 in. (160.02 cm); Pain 8/10; 20:15 BP 139 / 70; Pulse 92; Resp 19; Pulse Ox 98% on R/A; rr5 21:00 BP 125 / 85; Pulse 95; Resp 17; Pulse Ox 99% on R/A; rr5 19:28 Body Mass Index 42.51 (108.86 kg, 160.02 cm) ak1 ED Course: 19:17 Patient arrived in ED. mr 19:17 Chelita Rod MD is Private Physician. mr 19:27 Triage completed. ak1 19:28 Arm band placed on Patient placed in waiting room, Patient notified of wait time. ak1 19:40 Patient has correct armband on for positive identification. Placed in gown. Bed in low rr5 position. Call light in reach. 19:40 No provider procedures requiring assistance completed. Patient did not have IV access rr5 during this emergency room visit. 19:44 Lior Lynch, RN is Primary Nurse. rr5 20:00 Dhruv Malloy MD is Attending Physician. 20:37 US Extremity Venous Unilateral Ltd In Process Unspecified. EDMS Administered Medications: No medications were administered Outcome: 20:47 Discharge ordered by . gs 21:00 Discharged to home via wheelchair. rr5 21:00 Condition: stable 21:00 Discharge instructions given to patient, Instructed on discharge instructions, follow up and referral plans. Demonstrated understanding of instructions, follow-up care. 21:07 Patient left the ED. rr5 Signatures: Dispatcher [employer] EDNV MarshallMary arcos mr TorresShanika RN RN ak1 Dhruv Malloy MD MD Lior Lynch, RN RN rr5
--- NOTE | 2019-01-19 20:49 | EDPHYS ---
Physician Documentation [facility] Name: Rena Santiago Age: 58 yrs Sex: Female : 1960 Arrival Date: 01/19/2019 Time: 19:17 Bed 26 Private MD: Chelita Rod ED Physician Dhruv Malloy HPI: 01/19 21:02 This 58 yrs old Female presents to ER via Ambulatory with complaints of Leg gs Swelling. 21:02 The complaints affect the right montes, anterior aspect of right ankle and dorsum of gs right foot. Onset: The symptoms/episode began/occurred yesterday. Modifying factors: The symptoms are alleviated by nothing. the symptoms are aggravated by nothing. Associated signs and symptoms: Pertinent positives: calf tenderness, Pertinent negatives fever, rash, tingling. Severity of symptoms: At their worst the symptoms were moderate, in the emergency department the symptoms are unchanged. The patient has not experienced similar symptoms in the past. Historical: - Allergies: 19:28 No Known Allergies; ak1 - Home Meds: 19:28 lisinopril-hydrochlorothiazide 10-12.5 mg Oral tab 1 tab once daily [Active]; ak1 lovastatin 20 mg Oral tab 1 tab once daily [Active]; sertraline 100 mg Oral tab 2 tabs once daily [Active]; meloxicam 15 mg Oral tab 1 tab once daily [Active]; hydroxyzine HCl 25 mg Oral tab 1 tab BID [Active]; amlodipine 10 mg tab 1 tab once daily [Active]; - PMHx: 19:28 Anxiety; Depression; Hyperlipidemia; Hypertension; ak1 - PSHx: 19:28 Tonsillectomy; Appendectomy; ak1 - Immunization history:: Adult Immunizations unknown. - Social history:: Smoking status: Patient/guardian denies using tobacco. - Ebola Screening: : No symptoms or risks identified at this time. ROS: 21:02 All other systems are negative. gs Exam: 21:02 Head/Face: Normocephalic, atraumatic. Eyes: Pupils equal round and reactive to light, gs extra-ocular motions intact. Lids and lashes normal. Conjunctiva and sclera are non-icteric and not injected. Cornea within normal limits. Periorbital areas with no swelling, redness, or edema. ENT: Nares patent. No nasal discharge, no septal abnormalities noted. Tympanic membranes are normal and external auditory canals are clear. Oropharynx with no redness, swelling, or masses, exudates, or evidence of obstruction, uvula midline. Mucous membranes moist. Neck: Trachea midline, no thyromegaly or masses palpated, and no cervical lymphadenopathy. Supple, full range of motion without nuchal rigidity, or vertebral point tenderness. No Meningismus. Chest/axilla: Normal chest wall appearance and motion. Nontender with no deformity. No lesions are appreciated. Cardiovascular: Regular rate and rhythm with a normal S1 and S2. No gallops, murmurs, or rubs. Normal PMI, no JVD. No pulse deficits. Respiratory: Lungs have equal breath sounds bilaterally, clear to auscultation and percussion. No rales, rhonchi or wheezes noted. No increased work of breathing, no retractions or nasal flaring. Abdomen/GI: Soft, non-tender, with normal bowel sounds. No distension or tympany. No guarding or rebound. No evidence of tenderness throughout. Back: No spinal tenderness. No costovertebral tenderness. Full range of motion. Skin: Warm, dry with normal turgor. Normal color with no rashes, no lesions, and no evidence of cellulitis. Neuro: Awake and alert, GCS 15, oriented to person, place, time, and situation. Cranial nerves II-XII grossly intact. Motor strength 5/5 in all extremities. Sensory grossly intact. Cerebellar exam normal. Normal gait. 21:02 Constitutional: The patient appears alert, awake, obese. 21:02 Musculoskeletal/extremity: Pulses: are normal with no appreciated deficits, Sensation intact. DVT Exam: pain, of the right leg, swelling, of the right leg, tenderness, of the right leg. Vital Signs: 19:28 BP 124 / 108; Pulse 106; Resp 20; Temp 97.8; Pulse Ox 100% on R/A; Weight 108.86 kg; ak1 Height 5 ft. 3 in. (160.02 cm); Pain 8/10; 20:15 BP 139 / 70; Pulse 92; Resp 19; Pulse Ox 98% on R/A; rr5 21:00 BP 125 / 85; Pulse 95; Resp 17; Pulse Ox 99% on R/A; rr5 19:28 Body Mass Index 42.51 (108.86 kg, 160.02 cm) ak1 MDM: 20:06 Patient medically screened. gs 21:02 Differential diagnosis: DVT,PERIPHERAL EDEMA, DRUG ADVERSE EFFECT. Data reviewed: vital gs signs, nurses notes. Counseling: I had a detailed discussion with the patient and/or guardian regarding: the historical points, exam findings, and any diagnostic results supporting the discharge/admit diagnosis, radiology results, the need for outpatient follow up. Response to treatment: the patient's symptoms have markedly improved after treatment. 01/19 20:07 Order name: US Extremity Venous Unilateral Ltd; Complete Time: 21:00 Administered Medications: No medications were administered Disposition: 01/19/19 20:47 Discharged to Home. Impression: Edema, unspecified. - Condition is Stable. - Discharge Instructions: Peripheral Edema. - Medication Reconciliation Form, Thank You Letter, Antibiotic Education, Prescription Opioid Use form. - Follow up: Private Physician; When: 2 - 3 days; Reason: Re-evaluation by your physician. Signatures: Dispatcher [employer] EDOK Shanika Torres RN RN ak1 Dhruv Malloy MD MD Lior Lynch RN RN rr5 Corrections: (The following items were deleted from the chart) 21:07 20:47 01/19/2019 20:47 Discharged to Home. Impression: Edema, unspecified. Condition is rr5 Stable. Forms are Medication Reconciliation Form, Thank You Letter, Antibiotic Education, Prescription Opioid Use. Follow up: Private Physician; When: 2 - 3 days; Reason: Re-evaluation by your physician.
--- NOTE | 2019-01-19 20:57 | RAD REPORT ---
EXAM DESCRIPTION: US - Extremity Venous Uni Ltd - 01/19/2019 8:38 pm CLINICAL HISTORY: Right knee pain and swelling COMPARISON: None. TECHNIQUE: Real-time sonographic evaluation of the right lower extremity deep venous systems was per formed. FINDINGS: Normal compressibility, flow augmentation, phasic flow and spontaneous flow are identified in the right lower extremity common femoral, superficial femoral, popliteal and posterior tibial vei ns. No intraluminal filling defects seen. IMPRESSION: No DVT in the right lower extremity.
[2019-01-19 22:06] VITALS: TEMP 97.8
[2019-01-19 22:09] VITALS: BP 125/85; O2SAT 99
== END 2019-01-19 21:07 | disposition home or self-care (01) ==
LOC: ER 19:14
DX: R60.9 Edema, unspecified (principal); I10 Essential (primary) hypertension; E78.5 Hyperlipidemia, unspecified; F32.9 Major depressive disorder, single episode, unspecified; F41.9 Anxiety disorder, unspecified
CPT/HCPCS: 93971; 99283

== ENCOUNTER 2019-03-31 16:37 | Emergency (ER) | payer SELFPAY ==
[2019-03-31] MEDS ORDERED: ACETAMINOPHEN 500 MG TAB ONE (17:19)
[2019-03-31 17:36] LABS: Absolute Lymphocytes (CBC) 1.4 K/uL (0.7-4.9); Basophils % 0.3 % (0-1.3); Hematocrit 37.5 % (36.0-45.0); Lymphocytes % 10.5 % (15.3-44.8); RBC Red Blood Cell Count 4.39 M/uL (3.86-4.86)
[2019-03-31 17:39] LABS: Protime INR 1.11
[2019-03-31 17:52] LABS: Urine Blood TRACE (NEG); Urine Glucose NEGATIVE (NEG); Urine Protein NEGATIVE (NEG); Urine Specific Gravity <1.005 (1.005-1.030)
[2019-03-31 17:52] LABS: Urine Bacteria 20-50 /HPF (<20); Urine Culture Reflex Order NOT NEEDED; Urine Mucus 1+ /HPF (NONE SEEN)
[2019-03-31] MEDS ORDERED: CEFTRIAXONE/SWI 1gm 1 GM/10 ML SYR ONE (17:59)
[2019-03-31] MEDS ORDERED: NA CHLORIDE 0.9% 1,000 ML ONE ×2 (17:59→19:05)
[2019-03-31 18:07] LABS: ALT/SGPT 25 U/L (12-78); AST/SGOT 15 U/L (15-37); Albumin 3.8 g/dL (3.4-5.0); Alkaline Phosphatase 104 U/L (45-117); BUN Blood Urea Nitrogen 13 mg/dL (7-18); Bicarbonate 23 mmol/L (21-32); Bilirubin Direct 0.1 mg/dL (0-0.2); Bilirubin Total 0.6 mg/dL (0.2-1.0); CKMB Creatine Kinase MB < 1.0 ng/mL (0.3-3.6); Creatine Phosphokinase 49 U/L (26-192); Glucose Level 121 mg/dL (74-106); Lipase 37 U/L (73-393); Potassium 3.8 mmol/L (3.5-5.1); Protein, Total 8.2 g/dL (6.4-8.2); Sodium Level 127 mmol/L (136-145); Troponin (Emerg Dept Use Only) < 0.02 ng/mL (0.0-0.045)
--- NOTE | 2019-03-31 18:59 | RAD REPORT ---
EXAM DESCRIPTION: CT - Abdomen Pelvis W Contrast - 03/31/2019 6:34 pm CLINICAL HISTORY: r/o pyelonephritis;Flank pain COMPARISON: None. TECHNIQUE: Biphasic, helical CT imaging of the abdomen and pelvis was performed following 100 ml non -ionic IV contrast. Oral contrast was given. All CT scans are performed using dose optimization technique as appropriate and may include automated exposure control or mA/KV adjustment according to patient size. FINDINGS: No suspicious findings in the lung bases. Fatty infiltration of the liver is present. No focal liver lesion. Spleen and pancreas show no suspic ious findings. Gallbladder and biliary tree are also without suspicious finding. No hydronephrosis or obstructing calculus. Heterogeneous enhancement of the left renal parenchyma is present. There is a minimal amount of stranding in the perinephric fat. No abscess or focal mass lesi on. No nonobstructing calculi. No bladder wall thickening or abnormal enhancement seen. Uterus and ov autumn show no suspicious findings. Calcified fibroid along the left lateral fundus of the uterus note d. No adrenal abnormalities. No dilated bowel loops or bowel wall thickening. No free air, free fluid or inflammatory stranding. No hernia, mass or bulky lymphadenopathy. Prominent bony degenerative change. Detail is somewhat limited by large body habitus. IMPRESSION: Mild left-sided pyelonephritis. No abscess or other complicating factor.
--- NOTE | 2019-03-31 19:10 | EDPHYS ---
Physician Documentation [facility] Name: Rena Santiago Age: 59 yrs Sex: Female : 1960 Arrival Date: 03/31/2019 Time: 16:41 Bed 5 Private MD: Chelita Rod ED Physician Parth Rios HPI: 03/31 18:12 This 59 yrs old Female presents to ER via Ambulatory with complaints of kb Fever, Urinary Problem. 18:14 The patient presents with urinary symptoms, dysuria. Onset: The symptoms/episode kb began/occurred 3 day(s) ago. Modifying factors: The symptoms are alleviated by nothing, the symptoms are aggravated by urinating. Associated signs and symptoms: Pertinent positives: dysuria, fever. Severity of symptoms: At their worst the symptoms were moderate, in the emergency department the symptoms are unchanged. The patient has not experienced similar symptoms in the past. The patient has not recently seen a physician. Pt reports bloated feeling started 3 days ago, then dysuria. Started running fever last night. Historical: - Allergies: 17:01 No Known Allergies; aa5 - PMHx: 17:01 Anxiety; Depression; Hyperlipidemia; Hypertension; aa5 - PSHx: 17:01 Tonsillectomy; Appendectomy; aa5 - Immunization history:: Flu vaccine is not up to date. - Social history:: Smoking status: Patient/guardian denies using tobacco. - Ebola Screening: : No symptoms or risks identified at this time. ROS: 18:13 ENT: Negative for injury, pain, and discharge, Neck: Negative for injury, pain, and kb swelling, Cardiovascular: Negative for chest pain, palpitations, and edema, Respiratory: Negative for shortness of breath, cough, wheezing, and pleuritic chest pain, Abdomen/GI: Negative for abdominal pain, nausea, vomiting, diarrhea, and constipation, Back: Negative for injury and pain, MS/Extremity: Negative for injury and deformity, Skin: Negative for injury, rash, and discoloration, Neuro: Negative for headache, weakness, numbness, tingling, and seizure. 18:13 Constitutional: Positive for chills, fever. 18:13 : Positive for urinary symptoms, burning with urination. Exam: 18:12 Constitutional: This is a well developed, well nourished patient who is awake, alert, kb and in no acute distress. Head/Face: Normocephalic, atraumatic. ENT: Nares patent. No nasal discharge, no septal abnormalities noted. Tympanic membranes are normal and external auditory canals are clear. Oropharynx with no redness, swelling, or masses, exudates, or evidence of obstruction, uvula midline. Mucous membranes moist. Neck: Trachea midline, no thyromegaly or masses palpated, and no cervical lymphadenopathy. Supple, full range of motion without nuchal rigidity, or vertebral point tenderness. No Meningismus. Chest/axilla: Normal chest wall appearance and motion. Nontender with no deformity. No lesions are appreciated. Cardiovascular: Regular rate and rhythm with a normal S1 and S2. No gallops, murmurs, or rubs. Normal PMI, no JVD. No pulse deficits. Respiratory: Lungs have equal breath sounds bilaterally, clear to auscultation and percussion. No rales, rhonchi or wheezes noted. No increased work of breathing, no retractions or nasal flaring. Abdomen/GI: Soft, non-tender, with normal bowel sounds. No distension or tympany. No guarding or rebound. No evidence of tenderness throughout. Skin: Warm, dry with normal turgor. Normal color with no rashes, no lesions, and no evidence of cellulitis. MS/ Extremity: Pulses equal, no cyanosis. Neurovascular intact. Full, normal range of motion. Neuro: Awake and alert, GCS 15, oriented to person, place, time, and situation. Cranial nerves II-XII grossly intact. Motor strength 5/5 in all extremities. Sensory grossly intact. Cerebellar exam normal. Normal gait. 18:12 Back: CVA tenderness, that is mild, that is moderate, is noted bilaterally. Vital Signs: 17:01 BP 135 / 110; Pulse 112; Resp 22; Temp 102.7(O); Pulse Ox 97% on R/A; Weight 108.86 kg aa5 (R); Height 5 ft. 3 in. (160.02 cm) (R); Pain 0/10; 17:45 BP 140 / 85; Pulse 98; Resp 20; Pulse Ox 98% on R/A; ph 18:48 BP 151 / 47; Pulse 88; Resp 18; Temp 99.3; Pulse Ox 98% on R/A; ph 19:07 BP 129 / 54; Pulse 89; Resp 18 S; Pulse Ox 99% on R/A; jd3 17:01 Body Mass Index 42.51 (108.86 kg, 160.02 cm) aa5 MDM: 17:02 Patient medically screened. kb 18:12 Data reviewed: vital signs, nurses notes. Data interpreted: Pulse oximetry: on room air kb is 97 %. Interpretation: normal. 19:09 Counseling: I had a detailed discussion with the patient and/or guardian regarding: the kb historical points, exam findings, and any diagnostic results supporting the discharge/admit diagnosis, lab results, radiology results, the need for outpatient follow up, a family practitioner, to return to the emergency department if symptoms worsen or persist or if there are any questions or concerns that arise at home. 03/31 17:01 Order name: Urine Microscopic Only; Complete Time: 17:54 kb 03/31 17:06 Order name: Urine Culture kb 03/31 17:06 Order name: Basic Metabolic Panel; Complete Time: 18:07 kb 03/31 17:06 Order name: Blood Culture Adult (2) kb 03/31 17:06 Order name: CBC with Diff; Complete Time: 17:43 kb 03/31 17:06 Order name: Ckmb; Complete Time: 18:07 kb 03/31 17:06 Order name: CPK; Complete Time: 18:07 kb 03/31 17:06 Order name: Lactate; Complete Time: 18:07 kb 03/31 17:06 Order name: LFT's; Complete Time: 18:07 kb 03/31 17:06 Order name: Lipase; Complete Time: 18:07 kb 03/31 17:06 Order name: Procalcitonin; Complete Time: 18:12 kb 03/31 17:06 Order name: Protime (+inr); Complete Time: 17:58 kb 03/31 17:06 Order name: Ptt, Activated; Complete Time: 17:58 kb 03/31 17:06 Order name: Troponin (emerg Dept Use Only); Complete Time: 18:07 kb 03/31 17:01 Order name: Urine Dipstick-Ancillary (obtain specimen); Complete Time: 17:20 kb 03/31 17:06 Order name: Accucheck; Complete Time: 18:05 kb 03/31 17:06 Order name: Cardiac monitoring; Complete Time: 17:20 kb 03/31 17:06 Order name: EKG - Nurse/Tech; Complete Time: 17:19 kb 03/31 17:06 Order name: IV Saline Lock - Large Bore; Complete Time: 17:56 kb 03/31 17:06 Order name: Labs collected and sent; Complete Time: 17:56 kb 03/31 17:06 Order name: O2 Per Protocol; Complete Time: 17:19 kb 03/31 17:06 Order name: O2 Sat Monitoring; Complete Time: 17:19 kb 03/31 17:23 Order name: Urine Dipstick--Ancillary (enter results); Complete Time: 17:54 bd 03/31 17:58 Order name: EKG Electrocardiogram EDMS 03/31 18:08 Order name: CT Abd/Pelvis - IV Contrast Only; Complete Time: 19:08 kb Administered Medications: 17:30 Drug: Tylenol 1000 mg Route: PO; ph 18:53 Follow up: Response: No adverse reaction; Temperature is decreased ph 17:45 Drug: NS 0.9% (30 ml/kg) 30 ml/kg Route: IV; Rate: bolus; Site: left antecubital; ph 20:25 Follow up: Response: No adverse reaction; IV Status: Completed infusion; IV Intake: jd3 2000ml 18:04 Drug: Rocephin 1 grams Route: IV; Rate: calculated rate; Site: left hand; ph 18:54 Follow up: Response: No adverse reaction; IV Status: Completed infusion ph Disposition: 04/01 07:32 Co-signature as Attending Physician, Parth Rios MD I agree with the assessment and hanh plan of care. Disposition: 03/31/19 19:09 Discharged to Home. Impression: Urinary tract infection, site not specified, Acute tubulo-interstitial nephritis. - Condition is Stable. - Discharge Instructions: Pyelonephritis, Adult, [id number], Urinary Tract Infection, Adult, Ulbl-im-Hker. - Prescriptions for Cipro 500 mg Oral Tablet - take 1 tablet by ORAL route every 12 hours for 10 days; 20 tablet. - Work release form, Medication Reconciliation Form, Thank You Letter, Antibiotic Education, Prescription Opioid Use form. - Follow up: Emergency Department; When: As needed; Reason: Worsening of condition. Follow up: Private Physician; When: 2 - 3 days; Reason: Recheck today's complaints, Continuance of care, Re-evaluation by your physician. Signatures: Dispatcher [employer] Deb Cummings, PAYROLL SERVICES ANALYST-C PAYROLL SERVICES ANALYST-Parth Timmons MD MD cha Calderon, Audri, RN RN aa5 Kylee Mcdermott, RN RN ph Won Rothman RN RN jd3 Corrections: (The following items were deleted from the chart) 03/31 20:25 19:09 03/31/2019 19:09 Discharged to Home. Impression: Urinary tract infection, site jd3 not specified; Acute tubulo-interstitial nephritis. Condition is Stable. Forms are Medication Reconciliation Form, Thank You Letter, Antibiotic Education, Prescription Opioid Use. Follow up: Emergency Department; When: As needed; Reason: Worsening of condition. Follow up: Private Physician; When: 2 - 3 days; Reason: Recheck today's complaints, Continuance of care, Re-evaluation by your physician. kb
--- NOTE | 2019-03-31 19:10 | ER ---
Nurse's Notes [facility] Name: Rena Santiago Age: 59 yrs Sex: Female : 1960 Arrival Date: 03/31/2019 Time: 16:41 Bed 5 Private MD: Chelita Rod Diagnosis: Urinary tract infection, site not specified;Acute tubulo-interstitial nephritis Presentation: 03/31 16:59 Presenting complaint: Patient states: "I've been running a fever and I started with aa5 burning with urination since Friday". pt also c/o urinary urgency. Transition of care: patient was not received from another setting of care. Onset of symptoms was March 2019. Risk Assessment: Do you want to hurt yourself or someone else? Patient reports no desire to harm self or others. Care prior to arrival: None. 16:59 Method Of Arrival: Ambulatory aa5 16:59 Acuity: JAYDA 2 aa5 16:59 Initial Sepsis Screen: Does the patient meet any 2 criteria? RR > 20 per min. Temp aa5 <36.0*C (96.8*F)) or > 38.3*C (100.9*F). Yes Does the patient have a suspected source of infection? Yes: Dysuria/Frequency/Urgency/UTI. Triage Assessment: 17:04 General: Appears in no apparent distress. comfortable, Behavior is calm, cooperative, bp appropriate for age. Pain: Denies pain. EENT: No deficits noted. Neuro: No deficits noted. Cardiovascular: Rhythm is sinus tachycardia. Respiratory: No deficits noted. GI: No signs and/or symptoms were reported involving the gastrointestinal system. : Reports burning with urination, urinary frequency. Derm: No deficits noted. Musculoskeletal: No deficits noted. Historical: - Allergies: 17:01 No Known Allergies; aa5 - PMHx: 17:01 Anxiety; Depression; Hyperlipidemia; Hypertension; aa5 - PSHx: 17:01 Tonsillectomy; Appendectomy; aa5 - Immunization history:: Flu vaccine is not up to date. - Social history:: Smoking status: Patient/guardian denies using tobacco. - Ebola Screening: : No symptoms or risks identified at this time. Screenin:05 Abuse screen: Denies threats or abuse. Denies injuries from another. Nutritional bp screening: No deficits noted. Tuberculosis screening: No symptoms or risk factors identified. Fall Risk None identified. Assessment: 17:04 General: SEE TRIAGE NOTE. bp 18:00 Reassessment: ALL CURRENT ORDERS COMPLETE, PT RETURNED FROM CT. bp 18:59 Reassessment: Patient appears in no apparent distress at this time. Patient and/or ph family updated on plan of care and expected duration. Pain level reassessed. Patient is alert, oriented x 3, equal unlabored respirations, skin warm/dry/pink. Pt resting comfortably, temp decreased to 99.3 and heart rate down, negative lactate returned from lab, spoke w/ ERP about sepsis protocol bolus, pt to receive 2 liters NS total for low sodium and chloride levels, awaiting CT results. 19:08 General: Appears in no apparent distress. comfortable, Behavior is calm, cooperative, jd3 appropriate for age. Pain: Complains of pain in suprapubic area Pain does not radiate. Quality of pain is described as aching, pt refused pain medication. Neuro: Level of Consciousness is awake, alert, obeys commands, Oriented to person, place, time, situation. Cardiovascular: Denies chest pain, Capillary refill < 3 seconds Patient's skin is warm and dry. Respiratory: Airway is patent Respiratory effort is even, unlabored, Respiratory pattern is regular, symmetrical, Denies cough, shortness of breath. GI: No signs and/or symptoms were reported involving the gastrointestinal system. : No signs and/or symptoms were reported regarding the genitourinary system. EENT: No signs and/or symptoms were reported regarding the EENT system. Derm: No signs and/or symptoms reported regarding the dermatologic system. Musculoskeletal: Circulation, motion, and sensation intact. Range of motion: intact in all extremities. 20:23 Reassessment: Patient appears in no apparent distress at this time. Patient and/or jd3 family updated on plan of care and expected duration. Pain level reassessed. Patient is alert, oriented x 3, equal unlabored respirations, skin warm/dry/pink. reported understanding of discharge instructions. Patient states feeling better. Vital Signs: 17:01 BP 135 / 110; Pulse 112; Resp 22; Temp 102.7(O); Pulse Ox 97% on R/A; Weight 108.86 kg aa5 (R); Height 5 ft. 3 in. (160.02 cm) (R); Pain 0/10; 17:45 BP 140 / 85; Pulse 98; Resp 20; Pulse Ox 98% on R/A; ph 18:48 BP 151 / 47; Pulse 88; Resp 18; Temp 99.3; Pulse Ox 98% on R/A; ph 19:07 BP 129 / 54; Pulse 89; Resp 18 S; Pulse Ox 99% on R/A; jd3 17:01 Body Mass Index 42.51 (108.86 kg, 160.02 cm) aa5 ED Course: 16:41 Patient arrived in ED. mr 16:41 Chelita Rod MD is Private Physician. mr 16:59 Arm band placed on. aa5 17:00 Triage completed. aa5 17:00 [facility]-C [facility] kb 17:00 Parth Rios MD is Attending Physician. kb 17:03 Mac Forrester, JACQUELINE is Primary Nurse. bp 17:05 Patient has correct armband on for positive identification. Bed in low position. Call bp light in reach. Side rails up X2. 17:19 Urine collected: clean catch specimen, cloudy. dh3 17:40 Inserted saline lock: 22 gauge in left hand, using aseptic technique. ph 18:19 Inserted saline lock: 22 gauge in left antecubital area, using aseptic technique. ph 18:35 CT Abd/Pelvis - IV Contrast Only In Process Unspecified. EDMS 20:24 No provider procedures requiring assistance completed. IV discontinued, intact, jd3 bleeding controlled, No redness/swelling at site. Pressure dressing applied. Administered Medications: 17:30 Drug: Tylenol 1000 mg Route: PO; ph 18:53 Follow up: Response: No adverse reaction; Temperature is decreased ph 17:45 Drug: NS 0.9% (30 ml/kg) 30 ml/kg Route: IV; Rate: bolus; Site: left antecubital; ph 20:25 Follow up: Response: No adverse reaction; IV Status: Completed infusion; IV Intake: jd3 2000ml 18:04 Drug: Rocephin 1 grams Route: IV; Rate: calculated rate; Site: left hand; ph 18:54 Follow up: Response: No adverse reaction; IV Status: Completed infusion ph Intake: 20:25 IV: 2000ml; Total: 2000ml. jd3 Outcome: 19:09 Discharge ordered by . kb 20:24 Discharged to home ambulatory. jd3 20:24 Condition: stable 20:24 Discharge instructions given to patient, Instructed on discharge instructions, follow up and referral plans. medication usage, Demonstrated understanding of instructions, follow-up care, medications, Prescriptions given X 1. 20:25 Patient left the ED. jd3 Signatures: Dispatcher [employer] EDMS Deb Baird, IMPLANT COORDINATOR-C IMPLANT COORDINATOR-Kailey Mary MarshallChristy, RN RN aa5 Kylee Mcdermott, RN RN Gabriel, Dominga counts include [facility] beds at the [facility] Won Rothman RN RN jd3 Mac Forrester RN RN bp Corrections: (The following items were deleted from the chart) 17:02 16:59 Acuity: JAYDA 3 aa5 aa5 18:44 18:00 Inserted saline lock: 22 gauge in left hand, using aseptic technique. ph ph 18:45 18:04 NS 0.9% (30 ml/kg) 30 ml/kg IV at bolus in left antecubital ph ph
[2019-03-31 20:50] VITALS: TEMP 99.3
[2019-03-31 20:51] VITALS: BP 129/54; O2SAT 99
--- NOTE | 2019-04-01 09:59 | EKG ---
Test Date: 2019-03-31 Test Time: 17:11:32 Brine Tank Separator Operator: ARASH MEASUREMENT RESULTS: Intervals: Rate: 99 SC: 150 QRSD: 100 QT: 332 QTc: 426 [place]: P: 40 SC: 150 QRS: 65 T: 92 INTERPRETIVE STATEMENTS: Normal sinus rhythm Incomplete right bundle branch block Possible Anterior infarct, age undetermined Abnormal ECG Compared to ECG 10/07/2018 19:06:16 Incomplete right bundle-branch block now present Myocardial infarct finding now present Electronically Signed On 04-01-19 09:57:17 CDT by Jason Haynes
== END 2019-03-31 20:25 | disposition home or self-care (01) ==
LOC: ER 16:37
DX: N39.0 Urinary tract infection, site not specified (principal); N10 Acute pyelonephritis; I10 Essential (primary) hypertension
CPT/HCPCS: 36415; 74177; 80048; 80076; 81003; 81015; 82550; 82553; 83605; 83690; 84145; 84484; 85025; 85610; 85730; 87040; 87086; 87088; 93005; 99284; J0696; J7030; Q9967

== ENCOUNTER 2019-12-07 09:07 | Emergency (ER) | payer OTHER, SELFPAY ==
--- NOTE | 2019-12-07 09:44 | ER ---
Nurse's Notes [facility] Name: Rena Santiago Age: 59 yrs Sex: Female : 1960 Arrival Date: 12/07/2019 Time: 09:08 Bed 7 Private MD: Chelita Rod Diagnosis: Urinary tract infection, site not specified;Fever presenting with conditions classified elsewhere Presentation: 12/06 09:38 Chief complaint: Patient states: FATIGUE, FEVER AND URINARY INCONTINENCE x3 DAYS. bp Coronavirus screen: Surgical mask placed on patient. Patient moved to private room, placed in contact and droplet isolation with eye protection until further assessment. Patient reports a cough. Patient reports shortness of breath or difficulty breathing. Patient reports a measured and/or subjective temperature greater than 100.4F. Ebola Screen: No symptoms or risks identified at this time. Initial Sepsis Screen: Does the patient meet any 2 criteria? HR > 90 bpm. No. Patient's initial sepsis screen is negative. Does the patient have a suspected source of infection? No. Patient's initial sepsis screen is negative. Risk Assessment: Do you want to hurt yourself or someone else? Patient reports no desire to harm self or others. Onset of symptoms is unknown. 09:38 Method Of Arrival: Ambulatory bp 09:38 Acuity: JAYDA 4 bp 09:38 Note TMAX 103 AT HOME. bp Triage Assessment: 09:42 General: Appears in no apparent distress. uncomfortable, obese, Behavior is bp cooperative, appropriate for age, anxious. Pain: Complains of pain in pelvis. EENT: No deficits noted. Neuro: No deficits noted. Cardiovascular: No deficits noted. Respiratory: No deficits noted. GI: No signs and/or symptoms were reported involving the gastrointestinal system. : Reports. Derm: No deficits noted. Musculoskeletal: No deficits noted. Historical: - Allergies: 09:42 No Known Allergies; bp - Home Meds: 09:42 amlodipine 10 mg tab 1 tab once daily [Active]; hydroxyzine HCl 25 mg Oral tab 1 tab bp BID [Active]; lisinopril-hydrochlorothiazide 10-12.5 mg Oral tab 1 tab once daily [Active]; lovastatin 20 mg Oral tab 1 tab once daily [Active]; meloxicam 15 mg Oral tab 1 tab once daily [Active]; sertraline 100 mg Oral tab 2 tabs once daily [Active]; - PMHx: 09:42 Anxiety; Depression; Hyperlipidemia; Hypertension; bp - Immunization history:: Adult Immunizations up to date. - Social history:: Smoking status: Patient denies any tobacco usage or history of. Screenin:43 Abuse screen: Denies threats or abuse. Denies injuries from another. Nutritional bp screening: No deficits noted. Tuberculosis screening: No symptoms or risk factors identified. Fall Risk None identified. Assessment: :43 General: SEE TRIAGE NOTE. bp Vital Signs: 09:38 BP 143 / 72; Pulse 96; Resp 18; Temp 99.7; Pulse Ox 97% ; bp 10:30 BP 133 / 90; Pulse 82; Resp 17; Temp 98.1; Pulse Ox 98% ; bp ED Course: :08 Patient arrived in ED. ag5 09:08 Chelita Rod MD is Private Physician. ag5 09:14 Emily Delacruz FNP-C [facility]. snw 09:14 Jose Luna MD is Attending Physician. snw 09:29 Mac Forrester, JACQUELINE is Primary Nurse. bp 09:41 Triage completed. bp 09:42 Chelita Rod MD is Referral Physician. snw 09:43 Arm band placed on. bp 09:43 Patient has correct armband on for positive identification. Bed in low position. Call bp light in reach. Side rails up X2. 09:43 No provider procedures requiring assistance completed. Patient did not have IV access bp during this emergency room visit. Administered Medications: 09:50 Drug: Rocephin (cefTRIAXone) 1 grams Route: IM; Site: right gluteus; bp 09:50 Drug: Phenergan 25 mg Route: PO; bp 09:50 Drug: Pyridium 200 mg Route: PO; bp 09:50 Drug: HYDROcodone-acetaminophen (5 mg-500 mg) 1 tabs Route: PO; bp 09:50 Drug: Tylenol 500 mg Route: PO; bp Outcome: :43 Discharge ordered by . snw 10:42 Discharged to home ambulatory. hb 10:42 Condition: stable 10:42 Discharge instructions given to patient, Instructed on discharge instructions, follow up and referral plans. medication usage, Demonstrated understanding of instructions, follow-up care, medications, Prescriptions given X 3. 10:42 Patient left the ED. hb Addendum: 12/10/2019 08:28 Addendum: Culture Results: Positive urine culture. No further action required. Bacteria e b sensitive to prescribed antibiotic. 12/11/2019 13:58 Addendum: COVID-19 Result: Negative result given to RN to notify pt. Notified pt of e b negative COVID 19 swab results. Pt advised that even with a negative test result they should remain in isolation until symptom free for 3 days without medication. Pt also advised to return to the ED for worsening symptoms. Signatures: Emily Winn, LEARNING AND DEVELOPMENT CONSULTANT-C LEARNING AND DEVELOPMENT CONSULTANT-Csnw Kezia Cavanaugh RN RN hb Mac Forrester RN RN bp Kristina Ferrer Ajare ag5 Corrections: (The following items were deleted from the chart) 12/06 10:31 09:38 BP 143 / 72; Pulse 96bpm; Resp 18bpm; Pulse Ox 97%; Temp 103F; bp bp
--- NOTE | 2019-12-07 09:44 | EDPHYS ---
Physician Documentation [facility] Name: Rena Santiago Age: 59 yrs Sex: Female : 1960 Arrival Date: 12/07/2019 Time: 09:08 Bed 7 Private MD: Chelita Rod ED Physician Jose Luna HPI: 12/06 09:41 This 59 yrs old Female presents to ER via Unassigned with complaints of snw Possible UTI. 09:41 Onset: The symptoms/episode began/occurred suddenly, 4 day(s) ago, and became worse and snw became persistent. Associated signs and symptoms: Pertinent positives: fever, nausea, back pain, fatigue, malaise, poor po, incontinence. The patient has not experienced similar symptoms in the past. The patient has not recently seen a physician, the patient's primary care provider is Dr. Vasquez. Historical: - Allergies: 09:42 No Known Allergies; bp - Home Meds: 09:42 amlodipine 10 mg tab 1 tab once daily [Active]; hydroxyzine HCl 25 mg Oral tab 1 tab bp BID [Active]; lisinopril-hydrochlorothiazide 10-12.5 mg Oral tab 1 tab once daily [Active]; lovastatin 20 mg Oral tab 1 tab once daily [Active]; meloxicam 15 mg Oral tab 1 tab once daily [Active]; sertraline 100 mg Oral tab 2 tabs once daily [Active]; - PMHx: 09:42 Anxiety; Depression; Hyperlipidemia; Hypertension; bp - Immunization history:: Adult Immunizations up to date. - Social history:: Smoking status: Patient denies any tobacco usage or history of. ROS: 09:38 Eyes: Negative for injury, pain, redness, and discharge, ENT: Negative for injury, snw pain, and discharge, Neck: Negative for injury, pain, and swelling, Cardiovascular: Negative for chest pain, palpitations, and edema. 09:38 Abdomen/GI: Negative for abdominal pain, nausea, vomiting, diarrhea, and constipation. 09:38 MS/Extremity: Negative for injury and deformity, Skin: Negative for injury, rash, and discoloration, Neuro: Negative for headache, weakness, numbness, tingling, and seizure, Psych: Negative for depression, anxiety, suicide ideation, homicidal ideation, and hallucinations. 09:38 Constitutional: Positive for body aches, fatigue, malaise, poor PO intake, temp to 103. 09:38 Respiratory: Positive for shortness of breath, on exertion. 09:38 Back: Positive for pain at rest, low middle back . 09:38 : Positive for urinary symptoms, urinary frequency, small amounts, burning with urination. Exam: 09:38 Head/Face: Normocephalic, atraumatic. Eyes: Pupils equal round and reactive to light, snw extra-ocular motions intact. Lids and lashes normal. Conjunctiva and sclera are non-icteric and not injected. Cornea within normal limits. Periorbital areas with no swelling, redness, or edema. ENT: Nares patent. No nasal discharge, no septal abnormalities noted. Tympanic membranes are normal and external auditory canals are clear. Oropharynx with no redness, swelling, or masses, exudates, or evidence of obstruction, uvula midline. Mucous membranes moist. Neck: Trachea midline, no thyromegaly or masses palpated, and no cervical lymphadenopathy. Supple, full range of motion without nuchal rigidity, or vertebral point tenderness. No Meningismus. Chest/axilla: Normal chest wall appearance and motion. Nontender with no deformity. No lesions are appreciated. Cardiovascular: Regular rate and rhythm with a normal S1 and S2. No gallops, murmurs, or rubs. Normal PMI, no JVD. No pulse deficits. Respiratory: Lungs have equal breath sounds bilaterally, clear to auscultation and percussion. No rales, rhonchi or wheezes noted. No increased work of breathing, no retractions or nasal flaring. Abdomen/GI: Soft, non-tender, with normal bowel sounds. No distension or tympany. No guarding or rebound. No evidence of tenderness throughout. Back: No spinal tenderness. No costovertebral tenderness. Full range of motion. Skin: Warm, dry with normal turgor. Normal color with no rashes, no lesions, and no evidence of cellulitis. MS/ Extremity: Pulses equal, no cyanosis. Neurovascular intact. Full, normal range of motion. Neuro: Awake and alert, GCS 15, oriented to person, place, time, and situation. Cranial nerves II-XII grossly intact. Motor strength 5/5 in all extremities. Sensory grossly intact. Cerebellar exam normal. Normal gait. Psych: Awake, alert, with orientation to person, place and time. Behavior, mood, and affect are within normal limits. 09:38 Constitutional: The patient appears alert, awake, obese, short of breath on walking to exam room Vital Signs: 09:38 BP 143 / 72; Pulse 96; Resp 18; Temp 99.7; Pulse Ox 97% ; bp 10:30 BP 133 / 90; Pulse 82; Resp 17; Temp 98.1; Pulse Ox 98% ; bp MDM: 09:43 Patient medically screened. snw 09:46 Data reviewed: vital signs, nurses notes. Data interpreted: Pulse oximetry: on room air snw is 97 %. Interpretation: normal. Counseling: I had a detailed discussion with the patient and/or guardian regarding: the historical points, exam findings, and any diagnostic results supporting the discharge/admit diagnosis, lab results, the need for outpatient follow up, to return to the emergency department if symptoms worsen or persist or if there are any questions or concerns that arise at home. Special discussion: I have referred the patient to see his PCP for further evaluation of high blood pressure. Based on the history and exam findings, there is no indication for further emergent testing or inpatient evaluation. I discussed with the patient/guardian the need to see the primary care provider for further evaluation of the symptoms. 12/06 09:34 Order name: Urine Culture [facility] 12/06 09:34 Order name: COVID-19 [facility] 12/06 09:36 Order name: Urine Dipstick--Ancillary (enter results); Complete Time: 10:32 em1 12/06 09:34 Order name: Urine Dipstick-Ancillary (obtain specimen); Complete Time: 10:22 snw Administered Medications: 09:50 Drug: Rocephin (cefTRIAXone) 1 grams Route: IM; Site: right gluteus; bp 09:50 Drug: Phenergan 25 mg Route: PO; bp 09:50 Drug: Pyridium 200 mg Route: PO; bp 09:50 Drug: HYDROcodone-acetaminophen (5 mg-500 mg) 1 tabs Route: PO; bp 09:50 Drug: Tylenol 500 mg Route: PO; bp Disposition: 12/07/19 09:43 Discharged to Home. Impression: Urinary tract infection, site not specified, Fever presenting with conditions classified elsewhere. - Condition is Stable. - Discharge Instructions: Dysuria, Fever, Adult, Hypertension, Urinary Tract Infection, Adult, Rehydration, Adult. - Prescriptions for Pyridium 200 mg Oral Tablet - take 1 tablet by ORAL route every 8 hours As needed; 6 tablet. Zofran 4 mg Oral Tablet - take 1 tablet by ORAL route every 12 hours As needed; 6 tablet. cefpodoxime 200 mg Oral Tablet - take 1 tablet by ORAL route every 12 hours for 10 days with food; 20 tablet. - Work release form, Medication Reconciliation Form, Thank You Letter, Antibiotic Education, Prescription Opioid Use form. - Follow up: Chelita Rod MD; When: Tomorrow; Reason: Recheck today's complaints, Continuance of care, Re-evaluation by your physician. Follow up: Emergency Department; When: As needed; Reason: Worsening of condition. Addendum: 12/09/2019 21:10 Co-signature as Attending Physician, Jose Luna MD Did not see or evaluate patient. p s1 I was available in the ED for consultation. Signature for administrative purposes. . Signatures: Dispatcher [employer] EDMS Emily Winn, CIRCUIT BREAKER MECHANIC-C CIRCUIT BREAKER MECHANIC-Csnw Kezia Cavanaugh RN RN Mac Swan, RN RN bp Jose Luna MD MD ps1 Corrections: (The following items were deleted from the chart) 12/06 10:42 09:43 12/07/2019 09:43 Discharged to Home. Impression: Urinary tract infection, site hb not specified; Fever presenting with conditions classified elsewhere. Condition is Stable. Forms are Medication Reconciliation Form, Thank You Letter, Antibiotic Education, Prescription Opioid Use. Follow up: Chelita Rod; When: Tomorrow; Reason: Recheck today's complaints, Continuance of care, Re-evaluation by your physician. Follow up: Emergency Department; When: As needed; Reason: Worsening of condition. snw
[2019-12-07] MEDS ORDERED: PHENAZOPYRIDINE 100MG TAB PO ONE (10:10)
[2019-12-07] MEDS ORDERED: HYDROCODONE/APAP 5/325 MG TAB ONE (10:11)
[2019-12-07] MEDS ORDERED: LIDOCAINE 1% MPF 2 ML AMPULE ONE (10:11)
[2019-12-07] MEDS ORDERED: PROMETHAZINE 25 MG TABLET ONE (10:11)
[2019-12-07] MEDS ORDERED: CEFTRIAXONE 1000 MG/VIAL ONE (10:12)
[2019-12-07] MEDS ORDERED: ACETAMINOPHEN 500 MG TAB ONE (10:12)
[2019-12-07 10:32] LABS: Urine Blood 2+ (NEG); Urine Glucose NEGATIVE (NEG); Urine Protein 1+ (NEG); Urine Specific Gravity 1.025 (1.005-1.030)
[2019-12-07 11:20] VITALS: BP 133/90; TEMP 98.1; O2SAT 98
== END 2019-12-07 10:42 | disposition home or self-care (01) ==
LOC: ER 09:07
DX: N39.0 Urinary tract infection, site not specified (principal); Z20.828 Contact with and (suspected) exposure to other viral communicable diseases; I10 Essential (primary) hypertension; F34.1 Dysthymic disorder; E78.5 Hyperlipidemia, unspecified
CPT/HCPCS: 87088; 87086; 87077; 87186; 81003; 96372; 99283; U0001; J2001; Q0169

== ENCOUNTER 2020-01-24 08:59 | Inpatient (IN) | payer SELFPAY ==
[2020-01-24] MEDS ORDERED: CEFTRIAXONE/SWI 1gm 1 GM/10 ML SYR ONE (09:43)
[2020-01-24] MEDS ORDERED: ACETAMINOPHEN 500 MG TAB ONE (09:47)
[2020-01-24 09:54] LABS: Absolute Lymphocytes (CBC) 1.1 K/uL (0.7-4.9); Basophils % 0.2 % (0-1.3); Hematocrit 31.8 % (36.0-45.0); Lymphocytes % 9.6 % (15.3-44.8); MPV 9.3 fL (7.6-11.3); RBC Red Blood Cell Count 3.69 M/uL (3.86-4.86)
[2020-01-24 09:57] LABS: Protime INR 1.14
[2020-01-24 10:14] LABS: ALT/SGPT 41 U/L (12-78); AST/SGOT 34 U/L (15-37); Albumin 2.8 g/dL (3.4-5.0); Alkaline Phosphatase 121 U/L (45-117); Amylase 19 U/L (25-115); BUN Blood Urea Nitrogen 30 mg/dL (7-18); Bicarbonate 25 mmol/L (21-32); Bilirubin Direct 0.2 mg/dL (0-0.2); Bilirubin Total 0.6 mg/dL (0.2-1.0); CKMB Creatine Kinase MB < 1.0 ng/mL (0.3-3.6); Creatine Phosphokinase 131 U/L (26-192); Glucose Level 146 mg/dL (74-106); Lipase 50 U/L (73-393); Potassium 2.8 mmol/L (3.5-5.1); Protein, Total 7.9 g/dL (6.4-8.2); Sodium Level 128 mmol/L (136-145); Troponin (Emerg Dept Use Only) 0.23 ng/mL (0.0-0.045)
--- NOTE | 2020-01-24 10:30 | EDPHYS ---
Physician Documentation [facility] Name: Rena Santiago Age: 59 yrs Sex: Female : 1960 Arrival Date: 01/24/2020 Time: 09:02 Bed 5 Private MD: Chelita Rod ED Physician Mookie Carrero HPI: 01/23 09:31 This 59 yrs old Female presents to ER via Ambulatory with complaints of Chest kdr Pain, Breathing Difficulty. 09:31 The patient or guardian reports chest pain that is located primarily in the substernal kdr area. Onset: this morning, Awoke her from sleep. The pain does not radiate. Associated signs and symptoms: Pertinent positives: nausea, shortness of breath, Pertinent negatives: abdominal pain, cough, diaphoresis, dizziness, lower extremity pain, lower extremity swelling, lightheadedness, near syncope, palpitations, recent travel, syncope, vomiting. The chest pain is described as aching, dull, a pressure. Duration: The patient or guardian reports multiple episodes, that are intermittent, that wax and wane, with no pattern. Severity of pain: At its worst the pain was mild just prior to arrival, moderate in the emergency department the pain is unchanged. The patient has not experienced similar symptoms in the past. has had fever and SOB without cough since Friday and only today had the CP. 10:26 The patient awoke at 4:30 AM today with the pain. kdr Historical: - Allergies: 09:13 No Known Allergies; hb - PMHx: 09:13 Anxiety; Depression; Hyperlipidemia; Hypertension; hb - Immunization history:: Adult Immunizations up to date. - Social history:: Smoking status: Patient denies any tobacco usage or history of. ROS: 09:31 Constitutional: Negative for chills, and weight loss - hsa had fever intermittently kdr since Friday Eyes: Negative for injury, pain, redness, and discharge, ENT: Negative for injury, pain, and discharge, Neck: Negative for injury, pain, and swelling, Abdomen/GI: Negative for abdominal pain, nausea, vomiting, diarrhea, and constipation, Back: Negative for injury and pain, : Negative for injury, bleeding, discharge, and swelling, MS/Extremity: Negative for injury and deformity, Skin: Negative for injury, rash, and discoloration, Neuro: Negative for headache, weakness, numbness, tingling, and seizure activity. Psych: Negative for depression, anxiety, suicide ideation, homicidal ideation, and hallucinations, Allergy/Immunology: Negative for hives, rash, and allergies, Endocrine: Negative for neck swelling, polydipsia, polyuria, polyphagia, and marked weight changes, Hematologic/Lymphatic: Negative for swollen nodes, abnormal bleeding, and unusual bruising. 09:31 Cardiovascular: Positive for chest pain, of the mid-sternal area, Negative for edema, orthopnea, palpitations, paroxysmal nocturnal dyspnea. 09:31 Respiratory: Positive for shortness of breath, at rest. Negative for cough, hemoptysis, orthopnea, pleurisy. Exam: 09:30 Constitutional: This is a well developed, well nourished patient who is awake, alert, kdr and in no acute distress. Head/Face: Normocephalic, atraumatic. Eyes: Pupils equal round and reactive to light, extra-ocular motions intact. Lids and lashes normal. Conjunctiva and sclera are non-icteric and not injected. Cornea within normal limits. Periorbital areas with no swelling, redness, or edema. Neck: Trachea midline, no thyromegaly or masses palpated, and no cervical lymphadenopathy. Supple, full range of motion without nuchal rigidity, or vertebral point tenderness. No Meningismus. Chest/axilla: Normal chest wall appearance and motion. Nontender with no deformity. No lesions are appreciated. Respiratory: Lungs have equal breath sounds bilaterally, clear to auscultation and percussion. No rales, rhonchi or wheezes noted. No increased work of breathing, no retractions or nasal flaring. Abdomen/GI: Soft, non-tender, with normal bowel sounds. No distension or tympany. No guarding or rebound. No evidence of tenderness throughout. Back: No spinal tenderness. No costovertebral tenderness. Full range of motion. Skin: Warm, dry with normal turgor. Normal color with no rashes, no lesions, and no evidence of cellulitis. MS/ Extremity: Pulses equal, no cyanosis. Neurovascular intact. Full, normal range of motion. Neuro: Awake and alert, GCS 15, oriented to person, place, time, and situation. Cranial nerves II-XII grossly intact. Motor strength 5/5 in all extremities. Sensory grossly intact. Cerebellar exam normal. Normal gait. Psych: Awake, alert, with orientation to person, place and time. Behavior, mood, and affect are within normal limits. 09:30 Cardiovascular: Rate: normal, Rhythm: regular, Pulses: no pulse deficits are appreciated, Heart sounds: murmur, systolic, grade 2 over 6, Edema: is not appreciated. 09:30 ECG was reviewed by the Attending Physician. Vital Signs: 09:10 BP 126 / 67; Pulse 93; Resp 16; Temp 103.2(O); Pulse Ox 99% on R/A; Weight 117.93 kg; hb Height 5 ft. 3 in. (160.02 cm); Pain 7/10; 10:49 BP 124 / 60; Pulse 84; Resp 18; Temp 100.0(O); Pulse Ox 96% on R/A; em 11:30 BP 112 / 60; Pulse 77; Resp 18; Pulse Ox 97% on R/A; em 12:30 BP 123 / 68; Pulse 76; Resp 18; Pulse Ox 96% on R/A; em 13:33 BP 111 / 94; Pulse 77; Resp 18; Temp 99.1(O); Pulse Ox 97% on R/A; Pain 0/10; em 09:10 Body Mass Index 46.06 (117.93 kg, 160.02 cm) hb MDM: 09:30 Data reviewed: vital signs, nurses notes, lab test result(s), EKG, radiologic studies. kdr Counseling: I had a detailed discussion with the patient and/or guardian regarding: the historical points, exam findings, and any diagnostic results supporting the discharge/admit diagnosis, lab results, radiology results. 10:29 Patient medically screened. kdr 10:34 Physician consultation: Cyrstal Campbell MD was called at 10:34, was contacted at 10:34, kdr regarding admission, and will see patient in inpatient room, shortly. 01/23 09:25 Order name: Amylase, Serum; Complete Time: 10:17 kdr 01/23 09:25 Order name: Basic Metabolic Panel; Complete Time: 10:17 kdr 01/23 09:25 Order name: Blood Culture Adult (2) kdr 01/23 09:25 Order name: CBC with Diff; Complete Time: 10:17 kdr 01/23 09:25 Order name: Ckmb; Complete Time: 10:17 kdr 01/23 09:25 Order name: CPK; Complete Time: 10: [facility] 01/23 09:25 Order name: Lactate; Complete Time: 10: [facility] 01/23 09:25 Order name: LFT's; Complete Time: 10: [facility] 01/23 09:25 Order name: Lipase; Complete Time: 10: [facility] 01/23 09:25 Order name: Procalcitonin; Complete Time: 10:33 [facility] 01/23 09:25 Order name: Protime (+inr); Complete Time: 10: [facility] 01/23 09:25 Order name: Ptt, Activated; Complete Time: 10: [facility] 01/23 09:25 Order name: Troponin (emerg Dept Use Only); Complete Time: 10: [facility] 01/23 09:25 Order name: Urine Microscopic Only [facility] 01/23 09:25 Order name: Chest Single View XRAY [facility] 01/23 11:32 Order name: Urine Dipstick--Ancillary (enter results) 01/23 12:01 Order name: Urine Culture [facility] 01/23 12:12 Order name: Echo with Doppler [facility] 01/23 12:12 Order name: Basic Metabolic Panel [facility] 01/23 12:12 Order name: Basic Metabolic Panel [facility] 01/23 12:12 Order name: CBC with Automated Diff [facility] 01/23 12:12 Order name: CBC with Automated Diff [facility] 01/23 12:12 Order name: Lipid Profile [facility] 01/23 12:12 Order name: Lipid Profile [facility] 01/23 12:12 Order name: Troponin I [facility] 01/23 12:12 Order name: Troponin I [facility] 01/23 12:12 Order name: Troponin I [facility] 01/23 09:25 Order name: Accucheck; Complete Time: 09:31 [facility] 01/23 09:25 Order name: Cardiac monitoring; Complete Time: 09:31 [facility] 01/23 09:25 Order name: EKG - Nurse/Tech; Complete Time: 09:31 [facility] 01/23 09:25 Order name: IV Saline Lock - Large Bore; Complete Time: 09:47 [facility] 01/23 09:25 Order name: Labs collected and sent; Complete Time: 09:47 [facility] 01/23 09:25 Order name: O2 Per Protocol; Complete Time: 09:30 [facility] 01/23 09:25 Order name: O2 Sat Monitoring; Complete Time: 09:30 kdr 01/23 09:25 Order name: Urine Dipstick-Ancillary (obtain specimen); Complete Time: 11:41 kdr 01/23 11:29 Order name: Straight Cath - Urine; Complete Time: 11:29 em 01/23 12:12 Order name: CONS Physician Consult [facility] 01/23 12:12 Order name: Heart Healthy [facility] 01/23 12:12 Order name: EKG Electrocardiogram [facility] 01/23 12:12 Order name: EKG Electrocardiogram [facility] EC: Rate is 87 beats/min. Rhythm is regular, Sinus Rhythm with Right bundle branch block. kdr QRS Alligator is Normal. MN interval is normal. QRS interval is normal. QT interval is normal. Clinical impression: NSR w/ Non-specific ST/T Changes. Administered Medications: 09:40 Drug: Tylenol 1000 mg Route: PO; em 10:51 Follow up: Response: No adverse reaction; Temperature is decreased em 09:47 Drug: Rocephin - (cefTRIAXone) 1 grams Route: IVPB; Infused Over: 30 mins; Site: right em antecubital; 10:51 Follow up: Response: No adverse reaction; IV Status: Completed infusion; IV Intake: 10mlem 10:28 Drug: Pepcid 20 mg Route: IVP; Site: right antecubital; em 10:51 Follow up: Response: No adverse reaction em 10:29 Drug: Aspirin Chewable Tablet 324 mg Route: PO; em 10:51 Follow up: Response: No adverse reaction em 10:30 Drug: Potassium Chloride 20 mEq Route: IV; Rate: calculated rate; Site: right em antecubital; 13:35 Follow up: Response: No adverse reaction; IV Status: Completed infusion; IV Intake: em 100ml 10:30 Drug: Potassium Chloride 40 mEq Route: PO; em 10:51 Follow up: Response: No adverse reaction em 11:40 Drug: NS 0.9% 250 ml Route: IV; Rate: bolus; Site: right antecubital; em 13:35 Follow up: IV Status: Completed infusion; IV Intake: 250ml em Disposition: 01/24/20 10:29 Hospitalization ordered by Crystal Campbell for Observation. Preliminary diagnosis are Non-ST elevation (NSTEMI) myocardial infarction, Dehydration, Renal Insuuficiency, Hypokalemia, Fever, unspecified. - Bed requested for Telemetry/MedSurg (observation). - Status is Observation. em - Condition is Fair. - Problem is new. - Symptoms have improved. Signatures: Dispatcher [employer] [facility] Mookie Carrero MD MD [facility] Mitchell Vega, RN RN Kezia Cavanaugh, RN RN Warren Petty RN RN ja1 Corrections: (The following items were deleted from the chart) 10:30 10:29 Hospitalization Ordered by Crystal Campbell MD for Observation. Preliminary kdr diagnosis is Non-ST elevation (NSTEMI) myocardial infarction; Dehydration; Renal Insuuficiency; Hypokalemia. Bed requested for Telemetry/MedSurg (observation). Status is Observation. Condition is Fair. Problem is new. Symptoms have improved. kdr 11:09 09:27 TROPONIN (EMERG DEPT USE ONLY)+[id number].LAB.BRZ ordered. [facility] 13:22 10:30 01/24/2020 10:29 Hospitalization Ordered by Crystal Campbell MD for Observation. ja1 Preliminary diagnosis is Non-ST elevation (NSTEMI) myocardial infarction; Dehydration; Renal Insuuficiency; Hypokalemia; Fever, unspecified. Bed requested for Telemetry/MedSurg (observation). Status is Observation. Condition is Fair. Problem is new. Symptoms have improved. kdr 14:32 13:22 01/24/2020 10:29 Hospitalization Ordered by Crystal Campbell MD for Observation. em Preliminary diagnosis is Non-ST elevation (NSTEMI) myocardial infarction; Dehydration; Renal Insuuficiency; Hypokalemia; Fever, unspecified. Bed requested for Telemetry/MedSurg (observation). Status is Observation. Condition is Fair. Problem is new. Symptoms have improved. ja1
--- NOTE | 2020-01-24 10:30 | ER ---
Nurse's Notes [facility] Name: Rena Santiago Age: 59 yrs Sex: Female : 1960 Arrival Date: 01/24/2020 Time: 09:02 Bed 5 Private MD: Chelita Rod Diagnosis: Non-ST elevation (NSTEMI) myocardial infarction;Dehydration;Renal Insuuficiency;Hypokalemia;Fever, unspecified Presentation: 01/23 09:10 Chief complaint: Malaise, subjective fever, and nausea x 4 days, substernal chest pain hb and SOB upon waking today. Denies cough. Coronavirus screen: difficulty breathing, fatigue, fever, shortness of breath, Client presents with at least one sign or symptom that may indicate coronavirus-19. Standard/surgical mask placed on the client. Provider contacted for isolation considerations. Ebola Screen: No symptoms or risks identified at this time. Initial Sepsis Screen: Does the patient meet any 2 criteria? Temp <36.0*C (96.8*F)) or > 38.3*C (100.9*F). HR > 90 bpm. Does the patient have a suspected source of infection? No. Patient's initial sepsis screen is negative. Risk Assessment: Do you want to hurt yourself or someone else? Patient reports no desire to harm self or others. Onset of symptoms was January 20, 2020. 09:10 Method Of Arrival: Ambulatory hb 09:10 Acuity: JAYDA 2 hb Historical: - Allergies: 09:13 No Known Allergies; hb - PMHx: 09:13 Anxiety; Depression; Hyperlipidemia; Hypertension; hb - Immunization history:: Adult Immunizations up to date. - Social history:: Smoking status: Patient denies any tobacco usage or history of. Screenin:25 Abuse screen: Denies threats or abuse. Nutritional screening: No deficits noted. em Tuberculosis screening: No symptoms or risk factors identified. Fall Risk None identified. Assessment: 09:25 General: Appears in no apparent distress. comfortable, Behavior is calm, cooperative, em appropriate for age. Pain: Complains of pain in mid-sternal area Pain does not radiate. Pain currently is 7 out of 10 on a pain scale. Pain began 4 hours ago. Neuro: Level of Consciousness is awake, alert, obeys commands, Oriented to person, place, time, situation, Appropriate for age. Cardiovascular: Reports shortness of breath, Capillary refill < 3 seconds Patient's skin is warm and dry. Rhythm is sinus rhythm. Respiratory: Reports shortness of breath at rest Airway is patent Respiratory effort is even, unlabored, Respiratory pattern is regular, symmetrical, Breath sounds are clear bilaterally. Denies cough. GI: Abdomen is round non-distended, Reports nausea, Patient currently denies vomiting. : Reports. Derm: Skin is intact, is healthy with good turgor, Skin is pink, warm \T\ dry. Musculoskeletal: Capillary refill < 3 seconds, Range of motion: intact in all extremities. 10:00 Reassessment: unable to give UA at this time, pt states she can't go. em 10:51 Reassessment: Patient appears in no apparent distress at this time. Patient and/or em family updated on plan of care and expected duration. Pain level reassessed. Patient is alert, oriented x 3, equal unlabored respirations, skin warm/dry/pink. 11:30 Reassessment: Patient and/or family updated on plan of care and expected duration. Pain em level reassessed. Patient is alert, oriented x 3, equal unlabored respirations, skin warm/dry/pink. 12:30 Reassessment: Patient appears in no apparent distress at this time. Patient and/or em family updated on plan of care and expected duration. Pain level reassessed. Patient is alert, oriented x 3, equal unlabored respirations, skin warm/dry/pink. 13:30 Reassessment: Patient appears in no apparent distress at this time. Patient and/or em family updated on plan of care and expected duration. Pain level reassessed. Patient is alert, oriented x 3, equal unlabored respirations, skin warm/dry/pink. Vital Signs: 09:10 BP 126 / 67; Pulse 93; Resp 16; Temp 103.2(O); Pulse Ox 99% on R/A; Weight 117.93 kg; hb Height 5 ft. 3 in. (160.02 cm); Pain 7/10; 10:49 BP 124 / 60; Pulse 84; Resp 18; Temp 100.0(O); Pulse Ox 96% on R/A; em 11:30 BP 112 / 60; Pulse 77; Resp 18; Pulse Ox 97% on R/A; em 12:30 BP 123 / 68; Pulse 76; Resp 18; Pulse Ox 96% on R/A; em 13:33 BP 111 / 94; Pulse 77; Resp 18; Temp 99.1(O); Pulse Ox 97% on R/A; Pain 0/10; em 09:10 Body Mass Index 46.06 (117.93 kg, 160.02 cm) hb ED Course: 09:02 Patient arrived in ED. mr 09:02 Chelita Rod MD is Private Physician. mr 09:12 Triage completed. hb 09:13 Arm band placed on. hb 09:15 Mookie Carrero MD is Attending Physician. kdr 09:15 Mitchell Vega, RN is Primary Nurse. em 09:25 Patient has correct armband on for positive identification. Placed in gown. Bed in low em position. Call light in reach. Side rails up X2. classroom monitor on. Pulse ox on. NIBP on. 09:29 EKG done, by ED staff, reviewed by Mookie Carrero MD. Patient maintains SpO2 saturation em greater than 95% on room air. 09:40 Initial lab(s) drawn, by md, sent to lab. First set of blood cultures drawn by me. 3 Inserted saline lock: 20 gauge in right antecubital area, using aseptic technique. Blood collected. 09:42 Second set of blood cultures drawn by md. dh3 10:28 Crystal Campbell MD is Hospitalizing Provider. kdr 10:54 Mitchell Vega, RN is Primary Nurse. em 10:59 Chest Single View XRAY In Process Unspecified. EDMS 11:35 Straight cath inserted, using sterile technique, 14 Fr. Returned cloudy urine. Patient 3 tolerated well. returned 30mL. 11:40 Bladder scan completed. 27mL. dh3 14:03 No provider procedures requiring assistance completed. Patient admitted, IV remains in em place. Administered Medications: 09:40 Drug: Tylenol 1000 mg Route: PO; em 10:51 Follow up: Response: No adverse reaction; Temperature is decreased em 09:47 Drug: Rocephin - (cefTRIAXone) 1 grams Route: IVPB; Infused Over: 30 mins; Site: right em antecubital; 10:51 Follow up: Response: No adverse reaction; IV Status: Completed infusion; IV Intake: 10mlem 10:28 Drug: Pepcid 20 mg Route: IVP; Site: right antecubital; em 10:51 Follow up: Response: No adverse reaction em 10:29 Drug: Aspirin Chewable Tablet 324 mg Route: PO; em 10:51 Follow up: Response: No adverse reaction em 10:30 Drug: Potassium Chloride 20 mEq Route: IV; Rate: calculated rate; Site: right em antecubital; 13:35 Follow up: Response: No adverse reaction; IV Status: Completed infusion; IV Intake: em 100ml 10:30 Drug: Potassium Chloride 40 mEq Route: PO; em 10:51 Follow up: Response: No adverse reaction em 11:40 Drug: NS 0.9% 250 ml Route: IV; Rate: bolus; Site: right antecubital; em 13:35 Follow up: IV Status: Completed infusion; IV Intake: 250ml em Intake: 10:51 IV: 10ml; Total: 10ml. em 13:35 IV: 250ml; Total: 260ml. em 13:35 IV: 100ml; Total: 360ml. em Outcome: 10:29 Decision to Hospitalize by Provider. kdr 14:03 Admitted to Med/surg accompanied by tech, via wheelchair, room 221, with chart, Report em called to JACQUELINE NICHOLS 14:03 Condition: improved 14:03 Instructed on discharge instructions, Demonstrated understanding of instructions. 14:32 Patient left the ED. em Signatures: Dispatcher [employer] EDMS Mookie Carrero MD MD [facility] Marshall, Mitchell Vega RN RN em Baxter, Heather, RN RN Dominga Rios formerly [facility] Corrections: (The following items were deleted from the chart) 11:40 11:35 Straight cath inserted, using sterile technique, 14 Fr. Returned cloudy urine. dh3 Patient tolerated well. 3
[2020-01-24] MEDS ORDERED: POTASSIUM CL SA 10 MEQ TAB PO ONE ×2 (10:34→18:00)
[2020-01-24] MEDS ORDERED: ASPIRIN 81 MG CHEWABLE TABLET ONE (10:34)
[2020-01-24] MEDS ORDERED: FAMOTIDINE 20 MG/2 ML VIAL IV ONE (10:35)
[2020-01-24] MEDS ORDERED: KCL 20 MEQ/100 mL IVPB 20 MEQ/100 ML BAG IV ONE (10:35)
[2020-01-24] MEDS ORDERED: NA CHLORIDE 0.9% 250 ML ONE (11:18)
--- NOTE | 2020-01-24 11:26 | RAD REPORT ---
EXAM DESCRIPTION: RAD - Chest Single View - 01/24/2020 10:59 am CLINICAL HISTORY: Fever;Chest pain Chest pain. COMPARISON: Chest Single View dated 10/07/2018; Chest Pa And Lat (2 Views) dated 03/24/2017; CHEST SIN GLE VIEW dated 07/10/2015; CHEST PA AND LAT 2 VIEW dated 10/07/2014 FINDINGS: Portable technique limits examination quality. The lungs are grossly clear. The heart is normal in size. No displaced fractures. IMPRESSION: No acute intrathoracic process suspected.
[2020-01-24 11:59] LABS: Urine Bacteria >50 /HPF (<20); Urine Culture Reflex Order REFLEXED; Urine RBC <5 /HPF (NONE SEEN)
[2020-01-24 12:00] LABS: Urine Blood 2+ (NEG); Urine Glucose NEGATIVE (NEG); Urine Protein 1+ (NEG); Urine Specific Gravity 1.015 (1.005-1.030); Urine pH 5.5 (5.0-7.0)
[2020-01-24] MEDS ORDERED: ALPRAZOLAM 0.25 MG TABLET PO PRN (12:08)
[2020-01-24 14:49] VITALS: BMI 44.2
--- NOTE | 2020-01-24 15:37 | P.HP ---
Certification for Inpatient Patient admitted to: Observation With expected LOS: <2 Midnights Patient will require the following post-hospital care: None Practitioner: I am a practitioner with admitting privileges, knowledge of patient current condition, hospital course, and medical plan of care. Services: Services provided to patient in accordance with Admission requirements found in Title 42 Section 412.3 of the Code of Federal Regulations Patient History Date of Service: 01/24/20 Reason for admission: CP r/o ACS History of Present Illness: PATIENT IS A 59-YEAR-OLD FEMALE WHO PRESENTS TO THE HOSPITAL WITH CHEST DISCOMFORT. PAIN IS MAINLY IN THE STERNAL REGION AND SHE SAID IT RADIATES TO THE BACK. SHE STATES SHE NEVER HAD PAIN LIKE THIS BEFORE. SHE HAD A STRESS TEST DONE A FEW YEARS AGO WHICH SHE SAID WAS UNREMARKABLE. SHE COMES INTO THE EMERGENCY ROOM WITH PAIN NOT IMPROVING. DECISION WAS MADE TO ADMIT THE PATIENT TO THE HOSPITAL FOR FURTHER EVALUATION. PATIENT HAS SOME SHORTNESS OF BREATH ASSOCIATED WITH PAIN. SHE DENIES ANY DIAPHORESIS. SHE DID NOT HAVE ANY LIGHTHEADEDNESS OR PALPITATIONS. SHE DOES NOT HAVE A HISTORY OF HEART DISEASE. SHE DOES HAVE HYPERTENSION. SHE DOES HAVE A FAMILY HISTORY OF HEART DISEASE WELL. SHE WILL NEED TO BE ADMITTED AND WILL EITHER DO STRESS TEST. WILL DISCUSS WITH CARDIOLOGY REGARDING FURTHER PLAN OF CARE. Allergies No Known Allergies Allergy (Verified 07/10/15 17:42) Home Medications: Amlodipine [Norvasc] 10 mg PO DAILY 10/08/18 Aspirin [Aspirin EC 81 MG] 81 mg PO DAILY 10/08/18 Cyclobenzaprine [Flexeril] 5 mg PO TID PRN 10/08/18 Hydroxyzine HCl [Atarax] 25 mg PO DAILY PRN 10/08/18 Lovastatin 20 mg PO BEDTIME 10/08/18 Meloxicam [Mobic] 15 mg PO DAILY 10/08/18 Multivitamin [Daily Multiple Vitamin] 1 each PO DAILY 10/08/18 Omeprazole [Prilosec] 20 mg PO DAILY 10/08/18 Sertraline [Zoloft] 100 mg PO DAILY 10/08/18 - Past Medical/Surgical History Diabetic: No -: htn -: high cholesterol -: ovarian cyst removal -: appendectomy -: tonsillectomy - Family History Mother Medical History: Hypertension, Cancer, Other (see notes) Notes: esophageal cancer Father Medical History: Hypertension, Diabetes, Other (see notes) Notes: mds - Social History Smoking Status: Never smoker Review of Systems 10-point ROS is otherwise unremarkable Physical Examination - Vital Signs Temperature: 98 F Blood Pressure: 140/80 Pulse: 80 Respirations: 16 Pulse Ox (%): 98 - Physical Exam General: Alert, In no apparent distress, Oriented x3 HEENT: Atraumatic, PERRLA, Mucous membr. moist/pink, EOMI, Sclerae nonicteric Neck: Supple, 2+ carotid pulse no bruit, No LAD, Without JVD or thyroid abnormality Respiratory: Clear to auscultation bilaterally, Normal air movement Cardiovascular: Regular rate/rhythm, Normal S1 S2, No murmurs Gastrointestinal: Normal bowel sounds, Soft and benign, Non-distended, No tenderness Musculoskeletal: No clubbing, No swelling, No tenderness Integumentary: No rashes Neurological: Normal gait, Normal speech, Normal strength at 5/5 x4 extr, Normal tone, Normal affect Lymphatics: No axilla or inguinal lymphadenopathy - Studies Laboratory Data (last 24 hrs) 01/24/20 09:40: PT 13.4 H, INR 1.14, APTT 34.9 01/24/20 09:40: WBC 11.7 H, Hgb 11.1 L, Hct 31.8 L, Plt Count 188 01/24/20 09:40: Sodium 128 L, Potassium 2.8 L*, BUN 30 H, Creatinine 1.44 H, Glucose 146 H, Total Bilirubin 0.6, AST 34, ALT 41, Alkaline Phosphatase 121 H, Amylase 19 L, Lipase 50 L Assessment & Plan - Problems (Diagnosis) (1) Chest pain, rule out acute myocardial infarction Current Visit: No Status: Acute (2) HTN (hypertension) Onset Date: 07/11/15 Current Visit: No Status: Acute (3) Hyperlipemia Onset Date: 07/11/15 Current Visit: No Status: Acute - Plan 1. SERIAL TROPONINS AND EKG 2. CARDIOLOGY CONSULTATION 3. ECHOCARDIOGRAM AND ADDITIONAL TESTING PENDING CARDIOLOGY EVALUATION 4. ANTI-PLATELET THERAPY, ANTI COAGULATION, BETA-MARIANO, STATIN, AND O2 NEEDED 5. IV MORPHINE FOR PAIN 6. NITRO P.R.N. Discharge Plan: Home Plan to discharge in: Greater than 2 days - Advance Directives Does patient have a Living Will: No Does patient have a Durable POA for Healthcare: No - Code Status/Comfort Care Code Status Assessed: Yes Code Status: Full Code Critical Care: No Time Spent Managing PTS Care (In Minutes): 45
[2020-01-24] MEDS: METOPROLOL TAR 25 MG TAB PO SCH ×2 (16:28→21:10)
[2020-01-24] MEDS: ACETAMINOPHEN 500 MG TAB PO PRN (17:51)
[2020-01-24] MEDS ORDERED: NITROGLYCERIN 1 GM PKT TD ONE (18:00)
[2020-01-24] MEDS: D5W 1,000 ML with NA BICARB 8.4% 50 MEQ IV SCH ×2 (18:27)
[2020-01-24] MEDS: ACETYLCYST 20% 800 MG/4 ML VIAL PO SCH (18:28)
[2020-01-24] MEDS: HEPARIN/D5W 25,000 UNIT/500 ML BAG IV SCH (18:43)
[2020-01-24] MEDS ORDERED: HEPARIN 5000 UNIT/ML 1 ML VIAL IV ONE (19:00)
[2020-01-25] MEDS: ACETAMINOPHEN 500 MG TAB PO PRN ×2 (01:07→08:45)
[2020-01-25 04:43] LABS: Absolute Lymphocytes (CBC) 1.3 K/uL (0.7-4.9); Basophils % 0.2 % (0-1.3); Hematocrit 29.6 % (36.0-45.0); Lymphocytes % 10.4 % (15.3-44.8); MPV 9.8 fL (7.6-11.3); RBC Red Blood Cell Count 3.41 M/uL (3.86-4.86)
[2020-01-25 04:54] LABS: Potassium 3.2 mmol/L (3.5-5.1)
[2020-01-25] MEDS: METOPROLOL TAR 25 MG TAB PO SCH ×2 (05:02→20:53)
[2020-01-25] MEDS: ASPIRIN EC 81 MG TAB PO SCH (05:02)
[2020-01-25] MEDS: ACETYLCYST 20% 800 MG/4 ML VIAL PO SCH ×2 (05:20→20:53)
[2020-01-25] MEDS: CEFTRIAXONE/SWI 1gm 1 GM/10 ML SYR IV SCH (08:07)
[2020-01-25] MEDS: D5W 1,000 ML with NA BICARB 8.4% 50 MEQ IV SCH ×2 (08:13)
[2020-01-25] MEDS ORDERED: ENOXAPARIN 40 MG/0.4 ML SQ SCH (09:00)
[2020-01-25] MEDS ORDERED: CEFTRIAXONE 1 GM/NS 50 ML 1 GM/50 ML BAG IV SCH (09:00)
[2020-01-25] MEDS ORDERED: Levofloxacin500mg IV 500 MG/100 ML BAG IV SCH (13:00)
[2020-01-25] MEDS: HEPARIN/D5W 25,000 UNIT/500 ML BAG IV SCH (17:50)
[2020-01-25] MEDS: ACETAMINOPHEN 500 MG TAB PO SCH (17:51)
[2020-01-25] MEDS: MORPHINE 4 MG/ML SYR IV PRN (20:53)
[2020-01-26] MEDS: ACETAMINOPHEN 500 MG TAB PO SCH ×3 (00:11→10:08)
[2020-01-26] MEDS: D5W 1,000 ML with NA BICARB 8.4% 50 MEQ IV SCH ×4 (00:51→16:14)
[2020-01-26] MEDS: MORPHINE 4 MG/ML SYR IV PRN (00:51)
[2020-01-26] MEDS: METOPROLOL TAR 25 MG TAB PO SCH (06:31)
[2020-01-26] MEDS: ASPIRIN EC 81 MG TAB PO SCH (06:31)
[2020-01-26] MEDS: ACETYLCYST 20% 800 MG/4 ML VIAL PO SCH (06:32)
[2020-01-26] MEDS ORDERED: HEPA 1000U/500MLS 1,000 UNIT/500 ML BAG IV ONE (06:58)
[2020-01-26] MEDS ORDERED: LIDOCAINE 1% 20 ML MDV ONE (06:58)
[2020-01-26 06:59] LABS: Platelet Estimate ADEQ; Platelets, Giant NOTED
[2020-01-26] MEDS ORDERED: ATROPINE SULF 1 MG/10 ML SYR IV ONE (06:59)
[2020-01-26] MEDS ORDERED: NA CHLORIDE 0.9% 0 ML ONE (06:59)
[2020-01-26] MEDS ORDERED: NA CHLORIDE 0.9% 500 ML ONE (07:02)
[2020-01-26] MEDS ORDERED: MIDAZOLAM HCL 2 MG/2 ML INJ ONE ×2 (07:30→07:38)
[2020-01-26] MEDS ORDERED: FENTANYL CITR 100 MCG/2 ML ONE (07:31)
--- NOTE | 2020-01-26 07:35 | EKG ---
Test Date: 2020-01-24 Test Time: 09:29:12 Envelope Patternmaker: SMOOTH MEASUREMENT RESULTS: Intervals: Rate: 87 ID: [id number] QRSD: 102 QT: 362 QTc: 435 [place]: P: 14 ID: [id number] QRS: 50 T: 47 INTERPRETIVE STATEMENTS: Normal sinus rhythm Incomplete right bundle branch block Borderline ECG Compared to ECG 03/31/2019 17:11:32 Myocardial infarct finding no longer present Electronically Signed On 01-26-20 07:32:44 CDT by Jason Haynes
[2020-01-26] MEDS: CEFTRIAXONE/SWI 1gm 1 GM/10 ML SYR IV SCH (09:00)
--- NOTE | 2020-01-26 09:13 | P.PN ---
Subjective Date of Service: 01/25/20 PATIENT SPIKED TEMP OF A 103. CARDIAC CATHETERIZATION WAS PLACED ON HOLD. WILL RE-ATTEMPT TOMORROW. Review of Systems 10-point ROS is otherwise unremarkable Physical Examination - Vital Signs Temperature: 99.0 F Blood Pressure: 139/67 Pulse: 65 Respirations: 14 Pulse Ox (%): 94 - Physical Exam General: Alert, In no apparent distress, Oriented x3 Respiratory: Clear to auscultation bilaterally, Normal air movement Cardiovascular: Regular rate/rhythm, Normal S1 S2 Gastrointestinal: Normal bowel sounds, Soft and benign, Non-distended, No tenderness Musculoskeletal: No clubbing, No swelling, No tenderness Neurological: Normal speech, Normal tone, Normal affect - Studies Medications List Reviewed: Yes Assessment & Plan - Problems (Diagnosis) (1) Chest pain, rule out acute myocardial infarction Current Visit: No Status: Acute (2) HTN (hypertension) Onset Date: 07/11/15 Current Visit: No Status: Acute (3) Hyperlipemia Onset Date: 07/11/15 Current Visit: No Status: Acute (4) Pyelonephritis Current Visit: Yes Status: Acute - Plan 1. SERIAL TROPONINS AND EKG 2. CARDIOLOGY CONSULTATION APPRECIATED 3. CONTINUE WITH IV ANTIBIOTIC THERAPY 4. ANTI-PLATELET THERAPY, ANTI COAGULATION, BETA-MARIANO, STATIN, AND O2 NEEDED 5. IV MORPHINE FOR PAIN 6. NITRO P.R.N. Discharge Plan: Home Plan to discharge in: Greater than 2 days - Advance Directives Does patient have a Living Will: No Does patient have a Durable POA for Healthcare: No - Code Status/Comfort Care Code Status: Full Code Critical Care: No Time Spent Managing PTS Care (In Minutes): 30
--- NOTE | 2020-01-26 09:16 | P.PN ---
Subjective Date of Service: 01/26/20 PATIENT IS SCHEDULED TO HAVE CARDIAC CATHETERIZATION THIS MORNING. PATIENT STILL FEBRILE LAST NIGHT OF 101. Review of Systems 10-point ROS is otherwise unremarkable Physical Examination - Vital Signs Temperature: 99.0 F Blood Pressure: 139/67 Pulse: 65 Respirations: 14 Pulse Ox (%): 94 - Physical Exam General: Alert, In no apparent distress, Oriented x3 Respiratory: Clear to auscultation bilaterally, Normal air movement Cardiovascular: Regular rate/rhythm, Normal S1 S2, No murmurs Gastrointestinal: Normal bowel sounds, Soft and benign, Non-distended, No tenderness Musculoskeletal: No clubbing, No swelling, No tenderness - Studies Medications List Reviewed: Yes Assessment & Plan - Problems (Diagnosis) (1) Chest pain, rule out acute myocardial infarction Current Visit: No Status: Acute (2) HTN (hypertension) Onset Date: 07/11/15 Current Visit: No Status: Acute (3) Hyperlipemia Onset Date: 07/11/15 Current Visit: No Status: Acute (4) Pyelonephritis Current Visit: Yes Status: Acute - Plan CONTINUE WITH PLAN OF CARE MENTIONED BELOW 1. SCHEDULED FOR CARDIAC CATHETERIZATION IN THE MORNING 2. CARDIOLOGY CONSULTATION APPRECIATED 3. CONTINUE WITH IV ANTIBIOTIC THERAPY 4. ANTI-PLATELET THERAPY, ANTI COAGULATION, BETA-MARIANO, STATIN, AND O2 NEEDED 5. IV MORPHINE FOR PAIN 6. NITRO P.R.N. Discharge Plan: Home Plan to discharge in: Greater than 2 days - Advance Directives Does patient have a Living Will: No Does patient have a Durable POA for Healthcare: No - Code Status/Comfort Care Code Status: Full Code Critical Care: No Time Spent Managing PTS Care (In Minutes): 30
[2020-01-26] MEDS ORDERED: Levofloxacin 250mg IV 250 MG/50 ML BAG IV SCH (13:00)
[2020-01-26 17:39] VITALS: O2SAT 97
--- NOTE | 2020-01-27 00:48 | PN ---
Date of Progress Note: 01/25/2020 Ms. Santiago is a 59-year-old, came in with acute coronary syndrome. Has a history of hypertension, dys lipidemia, and obesity. Creatinine is 1.37. Troponin was 0.14. Her D-dimer was 1007. Catheterizat ion was planned for today, 01/25/2020. However, the patient developed a temperature of 103, was foun d to have UTI. She was started on antibiotics. We will delay the catheterization at least 1 more da y. WALESKA/ALISEL Voice ID: [id number] Report ID: [id number]
--- NOTE | 2020-01-27 05:28 | OP ---
Date of Procedure: 01/26/2020 Surgeon: Jason Haynes MD Scheduler Conveyor: Celi Alan. The patient will be at 4 hours of bedrest. Medication will be continued as is, it should include asp irin, beta blockers, and statin. Procedure: Left heart catheterization, selective coronary arteriogram. Indication: Non-ST elevation myocardial infarction. Ms. Santiago is a 59-year-old woman has a history of hypertension, dyslipidemia, was admitted with non-S T elevation myocardial infarction. Her creatinine is 1.37. She had a UTI with fever yesterday, elizabeth poornima with antibiotics. The case was delayed until today. She is doing much better today. Afebrile, asymptomatic. Procedure In Detail: Brought to the veterinarian laboratory animal care as an inpatient. Prepped and draped in the routine nisha rile fashion. Given Versed and fentanyl for sedation. A 6-Mosotho sheath introduced in the right com mon femoral artery using the Seldinger technique, after 10 cc of xylocaine successfully. Angiography there was normal, StarClose was used to close the case. A 6-Mosotho catheters, JL4 and JR4 was used to do the coronary arteriogram. She had a normal RCA. She had some plaquing in the circumflex. She was right dominant. Her left main had about 30% stenosis. She had a very long ostial LAD all the w ay to the mid LAD, 80% to 90% stenosis with very good target vessel distally. Complications: There were no complications. Estimated Blood Loss: 5 mL. Anesthesia: Total conscious sedation was 30 minutes. Final Diagnosis: Severe coronary artery disease. Plan: For her to undergo a CULVER to the LAD. She will be sent to [facility] today for further treatment and for her surgery. The case was discussed with her in detail. She will be going to Dr. Girma spencer today as a transfer. She has not had any Plavix. She has been on heparin, which will be stoppe dAmerico GALEANO/MACHELLE Voice ID: [id number] Report ID: [id number]
--- NOTE | 2020-01-27 08:28 | ECHO ---
HEIGHT: 5 ft 3 in WEIGHT: 250 lb 0 oz DATE OF STUDY: 01/26/[address]: Crystal Campbell MD 2-DIMENSIONAL: YES M.MODE: YES DOPPLER: YES COLOR FLOW: YES TDS: YES PORTABLE: NO DEFINITY: NO BUBBLE STUDY: NO DIAGNOSIS: CHEST PAIN CARDIAC HISTORY: CATHERIZATION: YES SURGERY: NO PROSTHETIC VALVE: NO PACEMAKER: NO MEASUREMENTS (cm) DIASTOLIC (NORMALS) SYSTOLIC (NORMALS) IVSd 1.1 (0.6-1.2) LA Diam 3.3 (1.9-4.0) LVEF 63% LVIDd 4.1 (3.5-5.7) LVIDs 2.7 (2.0-3.5) %FS 34% LVPWd 1.2 (0.6-1.2) Ao Diam 2.6 (2.0-3.7) 2 DIMENSIONAL ASSESSMENT: RIGHT ATRIUM: NORMAL LEFT ATRIUM: NORMAL RIGHT VENTRICLE: NORMAL LEFT VENTRICLE: NORMAL TRICUSPID VALVE: NORMAL MITRAL VALVE: MITRAL ANNULAR CALCIFICATION PULMONIC VALVE: NORMAL AORTIC VALVE: STENOTIC PERICARDIAL EFFUSION: NONE AORTIC ROOT: NORMAL LEFT VENTRICULAR WALL MOTION: NORMAL. DOPPLER/COLOR FLOW: SEVERE AORTIC STENOSIS - 0.8 CENTIMETERS SQUARED. COMMENTS: SEVERE AORTIC STENOSIS - 0.8 CENTIMETERS SQUARED. NORMAL LEFT VENTRICULAR SIZE AND FUNCTION. NO WALL MOTION ABNORMALITY. NO EFFUSION. TECHNOLOGIST: SANDRA EDWARDS
[2020-01-29 00:46] VITALS: BP 139/67; TEMP 99
--- NOTE | 2020-01-29 00:47 | P.DS ---
Discharge Date: 01/26/20 Disposition: TRANSFER TO [facility] Discharge Condition: GOOD Reason for Admission: CP r/o ACS Consultations: CARDIOLOGY CONSULTATION - Problems (1) Chest pain, rule out acute myocardial infarction Status: Acute (2) HTN (hypertension) Onset Date: 07/11/15 Status: Acute (3) Hyperlipemia Onset Date: 07/11/15 Status: Acute (4) Pyelonephritis Status: Acute Brief History of Present Illness: PATIENT IS A 59-YEAR-OLD FEMALE WHO PRESENTS TO THE HOSPITAL WITH CHEST DISCOMFORT. PAIN IS MAINLY IN THE STERNAL REGION AND SHE SAID IT RADIATES TO THE BACK. SHE STATES SHE NEVER HAD PAIN LIKE THIS BEFORE. SHE HAD A STRESS TEST DONE A FEW YEARS AGO WHICH SHE SAID WAS UNREMARKABLE. SHE COMES INTO THE EMERGENCY ROOM WITH PAIN NOT IMPROVING. DECISION WAS MADE TO ADMIT THE PATIENT TO THE HOSPITAL FOR FURTHER EVALUATION. PATIENT HAS SOME SHORTNESS OF BREATH ASSOCIATED WITH PAIN. SHE DENIES ANY DIAPHORESIS. SHE DID NOT HAVE ANY LIGHTHEADEDNESS OR PALPITATIONS. SHE DOES NOT HAVE A HISTORY OF HEART DISEASE. SHE DOES HAVE HYPERTENSION. SHE DOES HAVE A FAMILY HISTORY OF HEART DISEASE WELL. SHE WILL NEED TO BE ADMITTED AND WILL EITHER DO STRESS TEST. WILL DISCUSS WITH CARDIOLOGY REGARDING FURTHER PLAN OF CARE. Hospital Course: PATIENT HAS DONE WELL DURING HOSPITAL STAY. HOWEVER, CARDIAC CATHETERIZATION REVEALED MULTIVESSEL DISEASE. RECOMMENDATION FOR CORONARY ARTERY BYPASS GRAFTING. PATIENT WILL GET TRANSFER TO TERTIARY CARE FACILITY TO GET THIS DONE. CARDIOLOGY HAS MADE ARRANGEMENTS WITH [facility] AND WE WILL BE TR ANSFERRING PATIENT SHORTLY. Vital Signs/Physical Exam: Temp Pulse Resp BP Pulse Ox 99.0 F 65 14 139/67 94 01/29/20 00:46 01/29/20 00:46 01/29/20 00:46 01/29/20 00:46 01/29/20 00:46 General: Alert, In no apparent distress, Oriented x3 Laboratory Data at Discharge: WBC 12.6 K/uL (4.3-10.9) H 01/25/20 04:16 Hgb 10.3 g/dL (12.0-15.0) L 01/25/20 04:16 Hct 29.6 % (36.0-45.0) L 01/25/20 04:16 Plt Count 211 K/uL (152-406) 01/26/20 06:20 PT 13.4 SECONDS (9.5-12.5) H 01/24/20 09:40 INR 1.14 01/24/20 09:40 APTT 50.1 SECONDS (24.3-36.9) H 01/26/20 02:00 Sodium 129 mmol/L (136-145) L 01/25/20 04:16 Potassium 3.2 mmol/L (3.5-5.1) L 01/25/20 04:16 BUN 25 mg/dL (7-18) H 01/25/20 04:16 Creatinine 1.37 mg/dL (0.55-1.3) H 01/25/20 04:16 Glucose 151 mg/dL (74-106) H 01/25/20 04:16 Total Bilirubin 0.6 mg/dL (0.2-1.0) 01/24/20 09:40 AST 34 U/L (15-37) 01/24/20 09:40 ALT 41 U/L (12-78) 01/24/20 09:40 Alkaline Phosphatase 121 U/L (45-117) H 01/24/20 09:40 Troponin I 0.14 ng/mL (0.0-0.045) H 01/24/20 22:00 Triglycerides Cancelled 01/25/20 06:00 Cholesterol Cancelled 01/25/20 06:00 HDL Cholesterol Cancelled 01/25/20 06:00 Cholesterol/HDL Ratio Cancelled 01/25/20 06:00 Amylase 19 U/L (25-115) L 01/24/20 09:40 Lipase 50 U/L (73-393) L 01/24/20 09:40 Home Medications: Amlodipine [Norvasc] 10 mg PO DAILY 10/08/18 Aspirin [Aspirin EC 81 MG] 81 mg PO DAILY 10/08/18 Cyclobenzaprine [Flexeril] 5 mg PO TID PRN 10/08/18 Hydroxyzine HCl [Atarax] 25 mg PO DAILY PRN 10/08/18 Lovastatin 20 mg PO BEDTIME 10/08/18 Meloxicam [Mobic] 15 mg PO DAILY 10/08/18 Multivitamin [Daily Multiple Vitamin] 1 each PO DAILY 10/08/18 Omeprazole [Prilosec] 20 mg PO DAILY 10/08/18 Sertraline [Zoloft] 100 mg PO DAILY 10/08/18 Patient Discharge Instructions: Transfer to [facility] for Coronary artery bypass grafting Diet: AHA Activity: Fall precautions Time spent managing pt's care (in minutes): 25
== END 2020-01-26 17:56 | disposition short-term general hospital (02) | DRG 281 ==
LOC: ER 08:59 → ERHOLD 12:08 → 2ND 14:07 → OBSVTOIN 01-25 08:14
PROVIDERS: ADMIT Hospitalist; ATTEND Hospitalist
PROC: 4A023N7 Measurement of Cardiac Sampling and Pressure, Left Heart, Percutaneous Approach (ICD-10-PCS; principal; 2020-01-26)
PROC: B2111ZZ Fluoroscopy of Multiple Coronary Arteries using Low Osmolar Contrast (ICD-10-PCS; 2020-01-26)
DX: I21.4 Non-ST elevation (NSTEMI) myocardial infarction (principal); N10 Acute pyelonephritis; E78.5 Hyperlipidemia, unspecified; I25.10 Atherosclerotic heart disease of native coronary artery without angina pectoris; I10 Essential (primary) hypertension; Z79.899 Other long term (current) drug therapy; Z90.49 Acquired absence of other specified parts of digestive tract; Z79.82 Long term (current) use of aspirin
CPT/HCPCS: 36415; 51702; 71045; 80048; 80061; 80076; 81003; 81015; 82150; 82550; 82553; 83605; 83690; 84132; 84145; 84484; 85025; 85049; 85379; 85610; 85730; 87040; 87077; 87086; 87088; 87186; 93005; 93306; 93454; 96365; 96366; 96367; 96375; 99285; C1893; G0378; J0583; J0696; J1644; J2250; J3010; J3480; J7040; J7050; U0003

== ENCOUNTER 2020-02-17 20:15 | Emergency (ER) | payer SELFPAY ==
--- OUTSIDE RECORDS SUMMARY | 2020-02-17 20:19 | XMS REPORT | Clinical Summary ---
:1960 Author Organization [facility] Address [address] [place] [address] Care Team Providers Name Role Phone Pieter Chi Unavailable Allergies No Known Allergies Medications Medication Sig Dispensed Refills Start Date End Date Status amLODIPine (NORVASC) Take 10 mg by 0 Active 10 MG tablet mouth daily. aspirin 81 MG EC Take 81 mg by 0 Active tablet mouth daily. cyclobenzaprine Take 5 mg by 0 A ctive (FLEXERIL) 5 MG mouth 3 tablet (three) times daily as needed for Muscle spasms. lovastatin (MEVACOR) Take 20 mg by 0 Active 20 MG mouth tabletIndications: nightly. high cholesterol multivitamin per Take 1 tablet 0 Active tablet by mouth daily. omeprazole (PRILOSEC) Take 20 mg by 0 Active 20 MG capsule mouth daily. sertraline (ZOLOFT) Take 100 mg 0 Active 100 MG tablet by mouth daily. clopidogreL (PLAVIX) Take 1 tablet 30 tablet 1 02/14/202001/31 Active 75 mg tablet (75 mg total) 1 by mouth daily. furosemide (LASIX) 40 Take 1 tablet 5 tablet 0 02/14/2020 Active MG tablet (40 mg total) 0 by mouth daily for 5 days. ferrous sulfate 325 Take 1 tablet 60 tablet 1 02/14/202002/13 Active (65 FE) MG tablet (325 mg 1 total) by mouth 2 (two) times daily. gabapentin Take 1 90 capsule 1 02/14/2020 Active (NEURONTIN) 300 MG capsule (300 1 capsule mg total) by mouth 3 (three) times daily. HYDROcodone-acetamino Take 1 tablet 30 tablet 0 02/14/2020 Active phen (NORCO 5-325) by mouth 0 5-325 mg per tablet every 6 (six) hours as needed for up to 10 days. Max Daily Amount: 4 tablets metoprolol tartrate Take 1 tablet 60 tablet 1 02/14/202002/13 Active (LOPRESSOR) 25 MG (25 mg total) 1 tablet by mouth 2 (two) times daily. mINOCYCLine Take 1 14 capsule 0 02/14/2020 Active (MINOCIN,DYNACIN) 100 capsule (100 0 MG capsule mg total) by mouth every 12 (twelve) hours for 7 days. hydrOXYzine (ATARAX) Take 25 mg by 0 02/13 Discontinued 25 MG tablet mouth daily 0 as needed for Anxiety. meloxicam (MOBIC) 15 Take 15 mg by 0 02/13 Discontinued MG tabletIndications: mouth daily. 0 rheumatoid arthritis Active Problems Problem Noted Date Transient ischemic attack 02/08/2020 Acute prerenal azotemia 02/08/2020 Hyponatremia 02/08/2020 s/p AVR (tissue) and ACBx1 (CULVER to LAD) by 02/05/20. 02/05/2020 S/P carotid endarterectomy by Jarod -01/31/202019 Severe aortic stenosis Essential hypertension Coronary artery disease involving [place] coronary kain ry of [place] heart without angina pectoris Diastolic dysfunction Acute respiratory insufficiency Acute blood loss anemia Hyperglycemia Morbid obesity with BMI of 45.0-49.9, adult Vasogenic shock Encounters Date Type Specialty Care Team Description 02/05/2020 Anesthesia Event Girma Padgett 02/05/2020 Surgery Girma Olivera REPLACEMENT,V YANN Martínez MD AORTIC 01/31/2020 Surgery Girma Olivera ENDARTERECTOM Y,QUAN Martínez MD TID 01/31/2020 Anesthesia Event Kulwant Baird Jr., MD 01/26/2020 - Hospital Encounter Cardiology Aureliano Harrison ACS (acut e coronary syndrome) (HCC) (Primary Dx); 02/14/2020 MD Patrick Acute encephalopathy; Rao Gonzalez, Acute blood loss anemia; Acute prerenal azotemia; Acute respirato ry insufficiency; Coronary artery disease involving [place] coronary artery of [place] heart without angina pectoris; Hyponatremia; S/P AVR (aortic valve replacement); Transient ische jairo attack 01/26/2020 Orders Only General Internal Medicine after 02/16/2019 Social History Tobacco Use Types Packs/Day Years Used Date Never Assessed Sex Assigned at Date Recorded Not on file Job Start Date Occupation Industry Not on file Not on file Not on file Travel History Travel Start Travel End No recent travel history available. Last Filed Vital Signs Vital Sign Reading Time Taken Blood Pressure 121/58 02/14/2020 7:32 AM CDT Pulse 77 02/14/2020 7:32 AM CDT Temperature 37.4 C (99.4 F) 02/14/2020 7:32 AM CDT Respiratory Rate 20 02/14/2020 7:32 AM CDT Oxygen Saturation 93% 02/14/2020 7:32 AM CDT Inhaled Oxygen Concentration 21% 02/13/2020 1:09 PM CDT Weight 123.7 kg (272 lb 12.8 oz) 02/14/2020 1: 35 AM CDT Height 160 cm (5' 3") 01/27/2020 1:15 AM CDT Body Mass Index 48.32 02/14/2020 1:35 AM CDT Plan of Treatment Date Type Specialty Care Team Description 02/22/2020 Video - Telemedicine Cardiology Aureliano Harrison MD [address] [facility] [address] [place] [address] [phone] Rao Gonzalez MD [address] [facility] [address] [place] [address] [phone] Eleanor Gomes, DIMITRIS [address] [facility] [place], [place] [id number] 02/22/2020 Office Visit Cardiology Girma Olivera MD [address] [facility] [phone] [place], [place] [address] [phone] Health Maintenance Due Date Last Done Comments BREAST CANCER SCREENING 1960 COLON CANCER SCREENING COLONOSCOPY 1960 PNEUMOCOCCAL VACCINE 2-64 YEARS AT 02/19/1964 RISK (1 of 1 - PPSV23) CERVICAL CANCER SCREENING PAP ONLY 1979 (Age 21-65) INFLUENZA VACCINE (#1) 2020 07/12/2015 LIPID PANEL 02/03/2023 02/04/2020, 01/30/2020, 01/27/2020 Implants Implanted Type Area Evening Or Night Nurse Supervisor Device Shelf Model / Identifier Expiration Serial / Lot Date Patch Periph Vascu-Grd 0.8x8cm [id number] - [id number] IMPLANTS Le ft: SYNOVIS LIFE 08/24/2024 [id number] / Implanted: Qty: 1 on 01/31/2020 by Girma Olivera MD Carotid TECH:SURG / Artery INNOV [id number] Vlv Aort Inspiris Resilia 23mm [id number] - [id number] IMPLANTS Ao rta CHUNG [id number] 04/06/2024 [id number] / Implanted: Qty: 1 on 02/05/2020 by Girma Olivera MD LIFESCI [id number] / Material Bone Hemostasis 2.5g [id number] - [id number] IMPLANTS N/A : VALDEZ:BIOSCI [id number] 04/01/2024 [id number] / Implanted: Qty: 4 on 02/05/2020 by Girma Olivera MD Sternum / [id number] W Pledget Pre Punched Sft 7x8mm [id number] - [id number] IMPLANTS Aorta COVIDIEN:US [id number] 05/01/2024 [id number] / Implanted: Qty: 3 on 02/05/2020 by Girma Olivera MD SURG:SYNETURE / [id number] Sternal Zipfix Ndl Strl [id number] - [id number] IMPLANTS Sternum SYNTHES:SYNTHE 07/02/2023 [id number] / Implanted: Qty: 2 on 02/05/2020 by Girma Olivera MD [facility] / [id number] Supple Periguard Pericardium W/ [place] Processing Patch N/A: SYNOVIS 09/08/2023 [id number] / Implanted: Qty: 1 on 02/05/2020 by Girma Olivera MD Aorta SURGICAL / INNOVATIONS [id number] Procedures Procedure Name Priority Date/Time Associated Comments Diagnosis REPORT OF PROCEDURE - 02/16/2020 ENDOSCOPY SCAN 11:00 AM CDT RHYTHM STRIP - SCAN 02/16/2020 11:00 AM CDT XR CHEST 1 VIEW Routine 02/14/2020 Results for PORTABLE/BEDSIDE 10:38 AM CDT this proced ure are in the results section. MAGNESIUM Routine 02/14/2020 Results for 4:59 AM CDT this procedure are in the results section. BASIC METABOLIC PANEL Routine 02/14/2020 Result s for (7) 4:59 AM CDT this procedure are in the results section. POCT-GLUCOSE METER Routine 02/13/2020 Results f or 10:10 PM CDT this procedure are in the results section. CBC (HEMOGRAM ONLY) Routine 02/13/2020 Results for 2:42 AM CDT this procedure are in the results section. PHOSPHORUS Routine 02/12/2020 Results for 4:49 AM CDT this procedure are in the results section. MAGNESIUM Routine 02/12/2020 Results for 4:49 AM CDT this procedure are in the results section. CBC (HEMOGRAM ONLY) Routine 02/12/2020 Results for 4:49 AM CDT this procedure are in the results section. BASIC METABOLIC PANEL Routine 02/12/2020 Result s for (7) 4:49 AM CDT this procedure are in the results section. RHYTHM STRIP - SCAN 02/11/2020 12:00 PM CDT POCT-GLUCOSE METER Routine 02/11/2020 Results f or 7:01 AM CDT this procedure are in the results section. CBC (HEMOGRAM ONLY) Routine 02/11/2020 Results for 5:04 AM CDT this procedure are in the results section. PHOSPHORUS Routine 02/11/2020 Results for 5:03 AM CDT this procedure are in the results section. MAGNESIUM Routine 02/11/2020 Results for 5:03 AM CDT this procedure are in the results section. BASIC METABOLIC PANEL Routine 02/11/2020 Result s for (7) 5:03 AM CDT this procedure are in the results section. POCT-GLUCOSE METER Routine 02/10/2020 Results f or 9:23 PM CDT this procedure are in the results section. POCT-GLUCOSE METER Routine 02/10/2020 Results f or 3:43 PM CDT this procedure are in the results section. POCT-GLUCOSE METER Routine 02/10/2020 Results f or 11:03 AM CDT this procedure are in the results section. POCT-GLUCOSE METER Routine 02/10/2020 Results f or 8:00 AM CDT this procedure are in the results section. PHOSPHORUS Routine 02/10/2020 Results for 6:14 AM CDT this procedure are in the results section. MAGNESIUM Routine 02/10/2020 Results for 6:14 AM CDT this procedure are in the results section. CBC (HEMOGRAM ONLY) Routine 02/10/2020 Results for 6:14 AM CDT this procedure are in the results section. BASIC METABOLIC PANEL Routine 02/10/2020 Result s for (7) 6:14 AM CDT this procedure are in the results section. SARS-COV2/RT-PCR ([facility] & Routine 02/09/2020 Res ults for REF LABS) 11:04 PM CDT this procedure are in the results section. POCT-GLUCOSE METER Routine 02/09/2020 Results f or 11:01 PM CDT this procedure are in the results section. POCT-GLUCOSE METER Routine 02/09/2020 Results f or 5:41 PM CDT this procedure are in the results section. POCT-GLUCOSE METER Routine 02/09/2020 Results f or 12:47 PM CDT this procedure are in the results section. POCT-GLUCOSE METER Routine 02/09/2020 Results f or 7:35 AM CDT this procedure are in the results section. CBC (HEMOGRAM ONLY) Routine 02/09/2020 Results for 5:05 AM CDT this procedure are in the results section. PHOSPHORUS Routine 02/09/2020 Results for 5:05 AM CDT this procedure are in the results section. MAGNESIUM Routine 02/09/2020 Results for 5:05 AM CDT this procedure are in the results section. BASIC METABOLIC PANEL Routine 02/09/2020 Result s for (7) 5:05 AM CDT this procedure are in the results section. POCT-GLUCOSE METER Routine 02/08/2020 Results f or 10:03 PM CDT this procedure are in the results section. TRANSFUSION SERVICE 02/08/2020 REPORT - SCAN 6:21 PM CDT POCT-GLUCOSE METER Routine 02/08/2020 Results f or 4:53 PM CDT this procedure are in the results section. POCT-GLUCOSE METER Routine 02/08/2020 Results f or 11:44 AM CDT this procedure are in the results section. POCT-GLUCOSE METER Routine 02/08/2020 Results f or 8:04 AM CDT this procedure are in the results section. POCT-GLUCOSE METER Routine 02/08/2020 Results f or 6:00 AM CDT this procedure are in the results section. CBC (HEMOGRAM ONLY) Routine 02/08/2020 Results for 2:57 AM CDT this procedure are in the results section. CALCIUM, IONIZED Routine 02/08/2020 Results for 2:57 AM CDT this procedure are in the results section. BLOOD GAS, ARTERIAL Routine 02/08/2020 Results for 2:57 AM CDT this procedure are in the results section. PHOSPHORUS Routine 02/08/2020 Results for 2:57 AM CDT this procedure are in the results section. MAGNESIUM Routine 02/08/2020 Results for 2:57 AM CDT this procedure are in the results section. BASIC METABOLIC PANEL Routine 02/08/2020 Result s for (7) 2:57 AM CDT this procedure are in the results section. XR CHEST 1 VIEW Routine 02/08/2020 Results for PORTABLE/BEDSIDE 1:13 AM CDT this proced ure are in the results section. PREPARE LEUKO-REDUCED Routine 02/07/2020 Result s for RBC 11:54 PM CDT this procedure are in the results section. TRANSFUSION SERVICE 02/07/2020 REPORT - SCAN 6:01 PM CDT POCT-GLUCOSE METER Routine 02/07/2020 Results f or 1:39 PM CDT this procedure are in the results section. CT BRAIN/STROKE TEST Routine 02/07/2020 Results for DESIGN 12:27 PM CDT this procedure are in the results section. CT/CTA CAROTID STAT 02/07/2020 Results for 12:27 PM CDT this procedure are in the results section. CTA BRAIN STAT 02/07/2020 Results for 12:27 PM CDT this procedure are in the results section. CBC (HEMOGRAM ONLY) Routine 02/07/2020 Results for 4:40 AM CDT this procedure are in the results section. CALCIUM, IONIZED Routine 02/07/2020 Results for 4:40 AM CDT this procedure are in the results section. BLOOD GAS, ARTERIAL Routine 02/07/2020 Results for 4:40 AM CDT this procedure are in the results section. PHOSPHORUS Routine 02/07/2020 Results for 4:40 AM CDT this procedure are in the results section. MAGNESIUM Routine 02/07/2020 Results for 4:40 AM CDT this procedure are in the results section. BASIC METABOLIC PANEL Routine 02/07/2020 Result s for (7) 4:40 AM CDT this procedure are in the results section. XR CHEST 1 VIEW Routine 02/07/2020 Results for PORTABLE/BEDSIDE 1:53 AM CDT this proced ure are in the results section. PREPARE CRYOPRECIPITATE STAT 02/06/2020 Resu lts for 11:54 PM CDT this procedure are in the results section. PREPARE PLATELETS Routine 02/06/2020 Results fo r 11:54 PM CDT this procedure are in the results section. PREPARE RBC STAT 02/06/2020 Results for 11:54 PM CDT this procedure are in the results section. POCT-GLUCOSE METER Routine 02/06/2020 Results f or 6:13 PM CDT this procedure are in the results section. TRANSFUSION SERVICE 02/06/2020 REPORT - SCAN 6:01 PM CDT POCT-GLUCOSE METER Routine 02/06/2020 Results f or 3:56 PM CDT this procedure are in the results section. CBC (HEMOGRAM ONLY) STAT 02/06/2020 Results for 2:12 PM CDT this procedure are in the results section. BASIC METABOLIC PANEL Routine 02/06/2020 Result s for (7) 2:12 PM CDT this procedure are in the results section. MAGNESIUM Routine 02/06/2020 Results for 2:12 PM CDT this procedure are in the results section. TRANSFUSE LEUKO-REDUCED Routine 02/06/2020 RED BLOOD CELLS 10:18 AM CDT CBC W/PLT COUNT & AUTO Routine 02/06/2020 Resul ts for DIFFERENTIAL 4:20 AM CDT this procedure are in the results section. CALCIUM, IONIZED Routine 02/06/2020 Results for 4:20 AM CDT this procedure are in the results section. BLOOD GAS, ARTERIAL Routine 02/06/2020 Results for 4:20 AM CDT this procedure are in the results section. PHOSPHORUS Routine 02/06/2020 Results for 4:20 AM CDT this procedure are in the results section. MAGNESIUM Routine 02/06/2020 Results for 4:20 AM CDT this procedure are in the results section. BASIC METABOLIC PANEL Routine 02/06/2020 Result s for (7) 4:20 AM CDT this procedure are in the results section. CBC W/PLT COUNT & AUTO Routine 02/06/2020 Resul ts for DIFFERENTIAL 4:20 AM CDT this procedure are in the results section. XR CHEST 1 VIEW Routine 02/06/2020 Results for PORTABLE/BEDSIDE 12:42 AM CDT this proced ure are in the results section. LACTIC ACID, ARTERIAL STAT 02/05/2020 Result s for 10:24 PM CDT this procedure are in the results section. CALCIUM, IONIZED Routine 02/05/2020 Results for 10:24 PM CDT this procedure are in the results section. BLOOD GAS, ARTERIAL Routine 02/05/2020 Results for 10:24 PM CDT this procedure are in the results section. MAGNESIUM Routine 02/05/2020 Results for 10:23 PM CDT this procedure are in the results section. BASIC METABOLIC PANEL Routine 02/05/2020 Result s for (7) 10:23 PM CDT this procedure are in the results section. BLOOD GAS, ARTERIAL RAMIREZ 02/05/2020 Results for 8:39 PM CDT this procedure are in the results section. 2D ECHO W/ DOPPLER STAT(After 02/05/2020 Results f or (CW/PW/COLOR) Hours Page 7:50 PM CDT this procedure Staff) are in the results section. OXYGEN SATURATION, STAT 02/05/2020 Results f or MEASURED 7:18 PM CDT this procedure are in the results section. HGB/HCT (H&H) - STAT LAB STAT 02/05/2020 Res ults for 7:17 PM CDT this procedure are in the results section. GLUCOSE-STAT LAB STAT 02/05/2020 Results for 7:17 PM CDT this procedure are in the results section. POTASSIUM-STAT LAB STAT 02/05/2020 Results f or 7:17 PM CDT this procedure are in the results section. SODIUM NA-STAT LAB STAT 02/05/2020 Results f or 7:17 PM CDT this procedure are in the results section. BLOOD GAS, ARTERIAL STAT 02/05/2020 Results for 7:17 PM CDT this procedure are in the results section. LACTIC ACID, ARTERIAL STAT 02/05/2020 Result s for 7:17 PM CDT this procedure are in the results section. PT/APTT STAT 02/05/2020 Results for 7:17 PM CDT this procedure are in the results section. CALCIUM, IONIZED STAT 02/05/2020 Results for 7:17 PM CDT this procedure are in the results section. RRL CRITICAL LABS STAT 02/05/2020 Results fo r (ABG,NA,K,H&H,GLUCOSE) 7:17 PM CDT this procedure are in the results section. PREPARE PLASMA Routine 02/05/2020 Results for 6:17 PM CDT this procedure are in the results section. TRANSFUSION SERVICE 02/05/2020 REPORT - SCAN 6:00 PM CDT CBC (HEMOGRAM ONLY) STAT 02/05/2020 Results for 3:48 PM CDT this procedure are in the results section. XR CHEST 1 VIEW STAT 02/05/2020 Results for PORTABLE/BEDSIDE 3:45 PM CDT this proced ure are in the results section. LACTIC ACID, ARTERIAL STAT 02/05/2020 Result s for 3:43 PM CDT this procedure are in the results section. OXYGEN SATURATION, STAT 02/05/2020 Results f or MEASURED 3:43 PM CDT this procedure are in the results section. CALCIUM, IONIZED STAT 02/05/2020 Results for 3:43 PM CDT this procedure are in the results section. FIBRINOGEN STAT 02/05/2020 Results for 3:43 PM CDT this procedure are in the results section. APTT STAT 02/05/2020 Results for 3:43 PM CDT this procedure are in the results section. PROTHROMBIN TIME/INR STAT 02/05/2020 Results for 3:43 PM CDT this procedure are in the results section. BLOOD GAS, ARTERIAL STAT 02/05/2020 Results for 3:43 PM CDT this procedure are in the results section. PHOSPHORUS STAT 02/05/2020 Results for 3:43 PM CDT this procedure are in the results section. MAGNESIUM STAT 02/05/2020 Results for 3:43 PM CDT this procedure are in the results section. BASIC METABOLIC PANEL STAT 02/05/2020 Result s for (7) 3:43 PM CDT this procedure are in the results section. POCT-ACT Routine 02/05/2020 Results for 2:22 PM CDT this procedure are in the results section. HGB/HCT (H&H) - STAT LAB STAT 02/05/2020 Res ults for 2:15 PM CDT this procedure are in the results section. GLUCOSE-STAT LAB STAT 02/05/2020 Results for 2:15 PM CDT this procedure are in the results section. POTASSIUM-STAT LAB STAT 02/05/2020 Results f or 2:15 PM CDT this procedure are in the results section. SODIUM NA-STAT LAB STAT 02/05/2020 Results f or 2:15 PM CDT this procedure are in the results section. BLOOD GAS, ARTERIAL STAT 02/05/2020 Results for 2:15 PM CDT this procedure are in the results section. CALCIUM, IONIZED STAT 02/05/2020 Results for 2:15 PM CDT this procedure are in the results section. RRL CRITICAL LABS STAT 02/05/2020 Results fo r (ABG,NA,K,H&H,GLUCOSE) 2:15 PM CDT this procedure are in the results section. TRANSFUSE Routine 02/05/2020 CRYOPRECIPITATE 1:37 PM CDT TRANSFUSE LEUKO-REDUCED Routine 02/05/2020 RED BLOOD CELLS 1:37 PM CDT TISSUE EXAM AP Routine 02/05/2020 Results for 1:35 PM CDT this procedure are in the results section. POCT-ACT Routine 02/05/2020 Results for 1:34 PM CDT this procedure are in the results section. TRANSFUSE LEUKO-REDUCED Routine 02/05/2020 PLATELETS 1:29 PM CDT TRANSFUSE LEUKO-REDUCED Routine 02/05/2020 PLATELETS 1:27 PM CDT HGB/HCT (H&H) - STAT LAB Routine 02/05/2020 Res ults for 1:26 PM CDT this procedure are in the results section. GLUCOSE-STAT LAB Routine 02/05/2020 Results for 1:26 PM CDT this procedure are in the results section. POTASSIUM-STAT LAB Routine 02/05/2020 Results f or 1:26 PM CDT this procedure are in the results section. SODIUM NA-STAT LAB Routine 02/05/2020 Results f or 1:26 PM CDT this procedure are in the results section. BLOOD GAS, ARTERIAL Routine 02/05/2020 Results for 1:26 PM CDT this procedure are in the results section. PLATELET COUNT Routine 02/05/2020 Results for 1:26 PM CDT this procedure are in the results section. THROMBOELASTOGRAPH (TEG) STAT 02/05/2020 Res ults for 1:26 PM CDT this procedure are in the results section. FIBRINOGEN STAT 02/05/2020 Results for 1:26 PM CDT this procedure are in the results section. APTT STAT 02/05/2020 Results for 1:26 PM CDT this procedure are in the results section. PROTHROMBIN TIME/INR STAT 02/05/2020 Results for 1:26 PM CDT this procedure are in the results section. CALCIUM, IONIZED Routine 02/05/2020 Results for 1:26 PM CDT this procedure are in the results section. RRL CRITICAL LABS Routine 02/05/2020 Results fo r (ABG,NA,K,H&H,GLUCOSE) 1:26 PM CDT this procedure are in the results section. CBC W/PLT COUNT & AUTO Routine 02/05/2020 Resul ts for DIFFERENTIAL 1:26 PM CDT this procedure are in the results section. CBC W/PLT COUNT & AUTO STAT Add-on 02/05/2020 Resul ts for DIFFERENTIAL 1:26 PM CDT this procedure are in the results section. POCT-ACT Routine 02/05/2020 Results for 1:06 PM CDT this procedure are in the results section. POCT-ACT Routine 02/05/2020 Results for 12:41 PM CDT this procedure are in the results section. HGB/HCT (H&H) - STAT LAB STAT 02/05/2020 Res ults for 12:39 PM CDT this procedure are in the results section. GLUCOSE-STAT LAB STAT 02/05/2020 Results for 12:39 PM CDT this procedure are in the results section. POTASSIUM-STAT LAB STAT 02/05/2020 Results f or 12:39 PM CDT this procedure are in the results section. SODIUM NA-STAT LAB STAT 02/05/2020 Results f or 12:39 PM CDT this procedure are in the results section. BLOOD GAS, ARTERIAL STAT 02/05/2020 Results for 12:39 PM CDT this procedure are in the results section. RRL CRITICAL LABS STAT 02/05/2020 Results fo r (ABG,NA,K,H&H,GLUCOSE) 12:39 PM CDT this procedure are in the results section. POCT-ACT Routine 02/05/2020 Results for 12:17 PM CDT this procedure are in the results section. HGB/HCT (H&H) - STAT LAB STAT 02/05/2020 Res ults for 12:13 PM CDT this procedure are in the results section. GLUCOSE-STAT LAB STAT 02/05/2020 Results for 12:13 PM CDT this procedure are in the results section. POTASSIUM-STAT LAB STAT 02/05/2020 Results f or 12:13 PM CDT this procedure are in the results section. SODIUM NA-STAT LAB STAT 02/05/2020 Results f or 12:13 PM CDT this procedure are in the results section. BLOOD GAS, ARTERIAL STAT 02/05/2020 Results for 12:13 PM CDT this procedure are in the results section. RRL CRITICAL LABS STAT 02/05/2020 Results fo r (ABG,NA,K,H&H,GLUCOSE) 12:13 PM CDT this procedure are in the results section. POCT-ACT Routine 02/05/2020 Results for 11:45 AM CDT this procedure are in the results section. HGB/HCT (H&H) - STAT LAB STAT 02/05/2020 Res ults for 11:44 AM CDT this procedure are in the results section. GLUCOSE-STAT LAB STAT 02/05/2020 Results for 11:44 AM CDT this procedure are in the results section. POTASSIUM-STAT LAB STAT 02/05/2020 Results f or 11:44 AM CDT this procedure are in the results section. SODIUM NA-STAT LAB STAT 02/05/2020 Results f or 11:44 AM CDT this procedure are in the results section. BLOOD GAS, ARTERIAL STAT 02/05/2020 Results for 11:44 AM CDT this procedure are in the results section. RRL CRITICAL LABS STAT 02/05/2020 Results fo r (ABG,NA,K,H&H,GLUCOSE) 11:44 AM CDT this procedure are in the results section. POCT-ACT Routine 02/05/2020 Results for 11:13 AM CDT this procedure are in the results section. HGB/HCT (H&H) - STAT LAB STAT 02/05/2020 Res ults for 11:10 AM CDT this procedure are in the results section. GLUCOSE-STAT LAB STAT 02/05/2020 Results for 11:10 AM CDT this procedure are in the results section. POTASSIUM-STAT LAB STAT 02/05/2020 Results f or 11:10 AM CDT this procedure are in the results section. SODIUM NA-STAT LAB STAT 02/05/2020 Results f or 11:10 AM CDT this procedure are in the results section. BLOOD GAS, ARTERIAL STAT 02/05/2020 Results for 11:10 AM CDT this procedure are in the results section. RRL CRITICAL LABS STAT 02/05/2020 Results fo r (ABG,NA,K,H&H,GLUCOSE) 11:10 AM CDT this procedure are in the results section. POCT-ACT Routine 02/05/2020 Results for 10:42 AM CDT this procedure are in the results section. HGB/HCT (H&H) - STAT LAB STAT 02/05/2020 Res ults for 10:40 AM CDT this procedure are in the results section. GLUCOSE-STAT LAB STAT 02/05/2020 Results for 10:40 AM CDT this procedure are in the results section. POTASSIUM-STAT LAB STAT 02/05/2020 Results f or 10:40 AM CDT this procedure are in the results section. SODIUM NA-STAT LAB STAT 02/05/2020 Results f or 10:40 AM CDT this procedure are in the results section. BLOOD GAS, ARTERIAL STAT 02/05/2020 Results for 10:40 AM CDT this procedure are in the results section. [facility] CRITICAL LABS STAT 02/05/2020 Results fo r (ABG,NA,K,H&H,GLUCOSE) 10:40 AM CDT this procedure are in the results section. POCT-ACT Routine 02/05/2020 Results for 10:25 AM CDT this procedure are in the results section. ANESTHESIA HEIDI Routine 02/05/2020 Results for 9:56 AM CDT this procedure are in the results section. HGB/HCT (H&H) - STAT LAB Routine 02/05/2020 Res ults for 9:25 AM CDT this procedure are in the results section. GLUCOSE-STAT LAB Routine 02/05/2020 Results for 9:25 AM CDT this procedure are in the results section. POTASSIUM-STAT LAB Routine 02/05/2020 Results f or 9:25 AM CDT this procedure are in the results section. SODIUM NA-STAT LAB Routine 02/05/2020 Results f or 9:25 AM CDT this procedure are in the results section. BLOOD GAS, ARTERIAL Routine 02/05/2020 Results for 9:25 AM CDT this procedure are in the results section. CALCIUM, IONIZED Routine 02/05/2020 Results for 9:25 AM CDT this procedure are in the results section. [facility] CRITICAL LABS Routine 02/05/2020 Results fo r (ABG,NA,K,H&H,GLUCOSE) 9:25 AM CDT this procedure are in the results section. HEIDI 02/05/2020 Aortic valve 8:00 AM CDT stenosis, etiology of cardiac valve disease unspecified Coronary artery disease with angina pectoris, unspecified vessel or lesion type, unspecified whether [place] or transplanted heart (HCC) BYPASS,AORTO CORONARY 02/05/2020 Aortic valve TERESA/SVG 8:00 AM CDT stenosis, etiology of cardiac valve disease unspecified Coronary artery disease with angina pectoris, unspecified vessel or lesion type, unspecified whether [place] or transplanted heart (HCC) REPLACEMENT,VALVE AORTIC 02/05/2020 Aortic valve 8:00 AM CDT stenosis, etiology of cardiac valve disease unspecified Coronary artery disease with angina pectoris, unspecified vessel or lesion type, unspecified whether [place] or transplanted heart (HCC) CBC W/PLT COUNT & AUTO Routine 02/05/2020 Resul ts for DIFFERENTIAL 4:05 AM CDT this procedure are in the results section. PHOSPHORUS Routine 02/05/2020 Results for 4:05 AM CDT this procedure are in the results section. MAGNESIUM Routine 02/05/2020 Results for 4:05 AM CDT this procedure are in the results section. BASIC METABOLIC PANEL Routine 02/05/2020 Result s for (7) 4:05 AM CDT this procedure are in the results section. CBC W/PLT COUNT & AUTO Routine 02/05/2020 Resul ts for DIFFERENTIAL 4:05 AM CDT this procedure are in the results section. SCREEN, URINE STAT 02/05/2020 Resu lts for 3:54 AM CDT this procedure are in the results section. SARS-COV2/RT-PCR ([facility] & Routine 02/04/2020 Res ults for REF LABS) 4:19 PM CDT this procedure are in the results section. TYPE AND SCREEN, Routine 02/04/2020 Results for AUTOMATED 2:13 PM CDT this procedure are in the results section. APTT Routine 02/04/2020 Results for 2:13 PM CDT this procedure are in the results section. PROTHROMBIN TIME/INR Routine 02/04/2020 Results for 2:13 PM CDT this procedure are in the results section. LIPID PANEL Routine 02/04/2020 Results for 2:13 PM CDT this procedure are in the results section. HEMOGLOBIN A1C Routine 02/04/2020 Results for 2:13 PM CDT this procedure are in the results section. CBC W/PLT COUNT & AUTO Routine 02/04/2020 Resul ts for DIFFERENTIAL 3:43 AM CDT this procedure are in the results section. PHOSPHORUS Routine 02/04/2020 Results for 3:43 AM CDT this procedure are in the results section. MAGNESIUM Routine 02/04/2020 Results for 3:43 AM CDT this procedure are in the results section. BASIC METABOLIC PANEL Routine 02/04/2020 Result s for (7) 3:43 AM CDT this procedure are in the results section. CBC W/PLT COUNT & AUTO Routine 02/04/2020 Resul ts for DIFFERENTIAL 3:43 AM CDT this procedure are in the results section. CBC W/PLT COUNT & AUTO Routine 02/03/2020 Resul ts for DIFFERENTIAL 11:49 AM CDT this procedure are in the results section. MAGNESIUM Routine 02/03/2020 Results for 11:49 AM CDT this procedure are in the results section. BASIC METABOLIC PANEL Routine 02/03/2020 Result s for (7) 11:49 AM CDT this procedure are in the results section. CBC W/PLT COUNT & AUTO Routine 02/03/2020 Resul ts for DIFFERENTIAL 11:49 AM CDT this procedure are in the results section. TROPONIN I Routine 02/03/2020 Results for 11:49 AM CDT this procedure are in the results section. XR CHEST 1 VIEW Routine 02/03/2020 Results for PORTABLE/BEDSIDE 5:12 AM CDT this proced ure are in the results section. TROPONIN I Routine 02/02/2020 Results for 8:34 AM CDT this procedure are in the results section. XR CHEST 1 VIEW Routine 02/02/2020 Results for PORTABLE/BEDSIDE 5:09 AM CDT this proced ure are in the results section. LACTIC ACID, ARTERIAL Routine 02/02/2020 Result s for 4:23 AM CDT this procedure are in the results section. CBC W/PLT COUNT & AUTO Routine 02/02/2020 Resul ts for DIFFERENTIAL 1:58 AM CDT this procedure are in the results section. MAGNESIUM Routine 02/02/2020 Results for 1:58 AM CDT this procedure are in the results section. PHOSPHORUS Routine 02/02/2020 Results for 1:58 AM CDT this procedure are in the results section. BASIC METABOLIC PANEL Routine 02/02/2020 Result s for (7) 1:58 AM CDT this procedure are in the results section. CBC W/PLT COUNT & AUTO Routine 02/02/2020 Resul ts for DIFFERENTIAL 1:58 AM CDT this procedure are in the results section. CALCIUM, IONIZED Routine 02/02/2020 Results for 1:58 AM CDT this procedure are in the results section. TROPONIN I Routine 02/02/2020 Results for 1:58 AM CDT this procedure are in the results section. TRANSFUSION SERVICE 02/01/2020 REPORT - SCAN 6:13 PM CDT TROPONIN I Routine 02/01/2020 Results for 5:53 PM CDT this procedure are in the results section. ECG 12-LEAD Routine 02/01/2020 Results for 1:25 PM CDT this procedure are in the results section. XR CHEST 1 VIEW Routine 02/01/2020 Results for PORTABLE/BEDSIDE 4:54 AM CDT this proced ure are in the results section. (CELLAVISION MANUAL Routine 02/01/2020 Results for DIFF) 3:13 AM CDT this procedure are in the results section. CBC W/PLT COUNT & AUTO Routine 02/01/2020 Resul ts for DIFFERENTIAL 3:13 AM CDT this procedure are in the results section. BLOOD GAS, ARTERIAL Routine 02/01/2020 Results for 3:13 AM CDT this procedure are in the results section. LACTIC ACID, ARTERIAL Routine 02/01/2020 Result s for 3:13 AM CDT this procedure are in the results section. MAGNESIUM Routine 02/01/2020 Results for 3:13 AM CDT this procedure are in the results section. PHOSPHORUS Routine 02/01/2020 Results for 3:13 AM CDT this procedure are in the results section. BASIC METABOLIC PANEL Routine 02/01/2020 Result s for (7) 3:13 AM CDT this procedure are in the results section. CBC W/PLT COUNT & AUTO Routine 02/01/2020 Resul ts for DIFFERENTIAL 3:13 AM CDT this procedure are in the results section. CALCIUM, IONIZED Routine 02/01/2020 Results for 3:13 AM CDT this procedure are in the results section. POCT-GLUCOSE METER Routine 02/01/2020 Results f or 12:54 AM CDT this procedure are in the results section. ECG 12-LEAD Routine 01/31/2020 Results for 8:01 PM CDT this procedure are in the results section. BLOOD GAS, ARTERIAL Routine 01/31/2020 Results for 6:24 PM CDT this procedure are in the results section. (CELLAVISION MANUAL Routine 01/31/2020 Results for DIFF) 6:18 PM CDT this procedure are in the results section. CBC W/PLT COUNT & AUTO Routine 01/31/2020 Resul ts for DIFFERENTIAL 6:18 PM CDT this procedure are in the results section. MAGNESIUM Routine 01/31/2020 Results for 6:18 PM CDT this procedure are in the results section. PT/APTT Routine 01/31/2020 Results for 6:18 PM CDT this procedure are in the results section. PHOSPHORUS Routine 01/31/2020 Results for 6:18 PM CDT this procedure are in the results section. BASIC METABOLIC PANEL Routine 01/31/2020 Result s for (7) 6:18 PM CDT this procedure are in the results section. CBC W/PLT COUNT & AUTO Routine 01/31/2020 Resul ts for DIFFERENTIAL 6:18 PM CDT this procedure are in the results section. CALCIUM, IONIZED Routine 01/31/2020 Results for 6:18 PM CDT this procedure are in the results section. TRANSFUSION SERVICE 01/31/2020 REPORT - SCAN 6:00 PM CDT TISSUE EXAM AP Routine 01/31/2020 Results for 3:39 PM CDT this procedure are in the results section. ENDARTERECTOMY,CAROTID 01/31/2020 Aortic valve 1:49 PM CDT stenosis, etiology of cardiac valve disease unspecified Coronary artery disease involving [place] coronary artery of [place] heart without angina pectoris Special Needs (ICU BED) ABORH, MANUAL STAT 01/31/2020 3:31 AM CDT Res ults for this procedure are i n the results section . PHOSPHORUS STAT Add-on 01/31/2020 3:31 AM CDT Resu lts for this procedure are i n the results section . MAGNESIUM STAT Add-on 01/31/2020 3:31 AM CDT Resu lts for this procedure are i n the results section . APTT Routine 01/31/2020 3:31 AM CDT Resu lts for this procedure are i n the results section . BASIC METABOLIC PANEL Routine 01/31/2020 3:31 AM CDT Results for this (7) procedure are i n the results section . ECG 12-LEAD Routine 01/30/2020 6:20 PM CDT Procedure Note - Interface, External Ris In - 01/30/2020 6:30 PM CDT Ventricular Rate 77 BPM Atrial Rate 77 BPM P-R Interval 182 ms QRS Duration 94 ms Q-T Interval 400 ms QTC Calculation(Bazett) 452 ms P Drain 20 degrees R Drain 27 degrees T Drain 72 degrees Normal sinus rhythm Incomplete right bundle bran ch block Borderline ECG When compared with ECG of 21:17, No significant change was fo und ECG 12-LEAD Routine 01/30/2020 6:20 PM CDT Resu lts for this procedure are i n the results section . CBC W/PLT COUNT & AUTO Routine 01/30/2020 6:12 PM CDT Results for this DIFFERENTIAL procedure are i n the results section . TYPE AND SCREEN, AUTOMATED Routine 01/30/2020 6:12 PM CDT Results for this procedure are i n the results section . APTT Routine 01/30/2020 6:12 PM CDT Resu lts for this procedure are i n the results section . PROTHROMBIN TIME/INR Routine 01/30/2020 6:12 PM CDT Results for this procedure are i n the results section . CBC W/PLT COUNT & AUTO Routine 01/30/2020 6:12 PM CDT Results for this DIFFERENTIAL procedure are i n the results section . LIPID PANEL Routine 01/30/2020 6:12 PM CDT Resu lts for this procedure are i n the results section . HEMOGLOBIN A1C AP Routine 01/30/2020 6:12 PM CDT Re sults for this procedure are i n the results section . COMPREHENSIVE METABOLIC Routine 01/30/2020 6:12 PM CDT Results for this PANEL procedure are i n the results section . MAGNESIUM Routine 01/30/2020 6:12 PM CDT Resu lts for this procedure are i n the results section . SARS-COV2/RT-PCR ([facility] & Routine 01/30/2020 5:18 AM CDT Results for this REF LABS) procedure are i n the results section . APTT Routine 01/30/2020 3:42 AM CDT Resu lts for this procedure are i n the results section . BASIC METABOLIC PANEL (7) Routine 01/30/2020 3:42 AM CDT Results for this procedure are i n the results section . APTT Routine 01/29/2020 8:20 PM CDT Resu lts for this procedure are i n the results section . APTT Routine 01/29/2020 2:36 PM CDT Resu lts for this procedure are i n the results section . CT/CTA CAROTID Routine 01/29/2020 9:22 AM CDT Re sults for this procedure are i n the results section . CBC W/PLT COUNT & AUTO Routine 01/29/2020 5:44 AM CDT Results for this DIFFERENTIAL procedure are i n the results section . APTT Routine 01/29/2020 5:44 AM CDT Resu lts for this procedure are i n the results section . BASIC METABOLIC PANEL (7) Routine 01/29/2020 5:44 AM CDT Results for this procedure are i n the results section . CBC W/PLT COUNT & AUTO Routine 01/29/2020 5:44 AM CDT Results for this DIFFERENTIAL procedure are i n the results section . CREATININE, RANDOM URINE Routine 01/28/2020 2:43 PM CDT Results for this procedure are i n the results section . OSMOLALITY, SERUM Routine 01/28/2020 2:43 PM CDT Results for this procedure are i n the results section . OSMOLALITY, URINE Routine 01/28/2020 2:43 PM CDT Results for this procedure are i n the results section . SODIUM, RANDOM URINE Routine 01/28/2020 2:43 PM CDT Results for this procedure are i n the results section . APTT Routine 01/28/2020 7:13 AM CDT Resu lts for this procedure are i n the results section . CBC W/PLT COUNT & AUTO Routine 01/28/2020 1:39 AM CDT Results for this DIFFERENTIAL procedure are i n the results section . APTT Routine 01/28/2020 1:39 AM CDT Resu lts for this procedure are i n the results section . MAGNESIUM Routine 01/28/2020 1:39 AM CDT Resu lts for this procedure are i n the results section . BASIC METABOLIC PANEL (7) Routine 01/28/2020 1:39 AM CDT Results for this procedure are i n the results section . CBC W/PLT COUNT & AUTO Routine 01/28/2020 1:39 AM CDT Results for this DIFFERENTIAL procedure are i n the results section . US RENAL COMPLETE Routine 01/28/2020 12:28 AM CDT Results for this procedure are i n the results section . XR CHEST 1 VIEW Routine 01/27/2020 7:32 PM CDT R esults for this PORTABLE/BEDSIDE procedure a re in the results section . APTT Routine 01/27/2020 5:59 PM CDT Resu lts for this procedure are i n the results section . CAROTID DOPPLER BILATERAL Routine 01/27/2020 4:54 PM CDT Results for this procedure are i n the results section . 2D ECHO W/ DOPPLER STAT 01/27/2020 11:14 AM CDT Results for this (CW/PW/COLOR) procedure are in the results section . APTT Routine 01/27/2020 10:49 AM CDT Resu lts for this procedure are i n the results section . CBC W/PLT COUNT & AUTO Routine 01/27/2020 4:00 AM CDT Results for this DIFFERENTIAL procedure are i n the results section . TSH/FREE T4 IF INDICATED Add-On 01/27/2020 4:00 AM CDT Results for this procedure are i n the results section . VITAMIN B12 AND FOLATE Routine 01/27/2020 4:00 AM CDT Results for this procedure are i n the results section . IRON, TIBC, % SAT. (WITHOUT Routine 01/27/2020 4:00 AM CDT Results for this FERRITIN) procedure are i n the results section . FERRITIN Routine 01/27/2020 4:00 AM CDT Resu lts for this procedure are i n the results section . TROPONIN I Routine 01/27/2020 4:00 AM CDT Resu lts for this procedure are i n the results section . LIPID PANEL Routine 01/27/2020 4:00 AM CDT Resu lts for this procedure are i n the results section . HEMOGLOBIN A1C Routine 01/27/2020 4:00 AM CDT Re sults for this procedure are i n the results section . MAGNESIUM Routine 01/27/2020 4:00 AM CDT Resu lts for this procedure are i n the results section . BASIC METABOLIC PANEL (7) Routine 01/27/2020 4:00 AM CDT Results for this procedure are i n the results section . CBC W/PLT COUNT & AUTO Routine 01/27/2020 4:00 AM CDT Results for this DIFFERENTIAL procedure are i n the results section . APTT Routine 01/27/2020 3:59 AM CDT Resu lts for this procedure are i n the results section . PROTHROMBIN TIME/INR Routine 01/27/2020 3:59 AM CDT Results for this procedure are i n the results section . PLATELET AGGREGATION: AP Routine 01/27/2020 3:59 AM CDT Results for this FUNCTION SCREEN procedure ar e in the results section . SARS-COV2/RT-PCR ([facility] & Routine 01/26/2020 10:38 PM CDT Results for this REF LABS) procedure are i n the results section . URINALYSIS W/ REFLEX URINE Routine 01/26/2020 10:37 PM CDT Results for this CULTURE procedure are i n the results section . URINE CULTURE Routine 01/26/2020 10:37 PM CDT Res ults for this procedure are i n the results section . ECG 12-LEAD Routine 01/26/2020 9:17 PM CDT Procedure Note - Interface, External Ris In - 01/26/2020 9:27 PM CDT Ventricular Rate 77 BPM Atrial Rate 77 BPM P-R Interval 152 ms QRS Duration 114 ms Q-T Interval 402 ms QTC Calculation(Bazett) 454 ms P Drain 16 degrees R Drain 72 degrees T Drain 63 degrees Normal sinus rhythm Incomplete right bundle bran ch block Borderline ECG No previous ECGs available ECG 12-LEAD Routine 01/26/2020 9:17 PM CDT Resu lts for this procedure are i n the results section . APTT Routine 01/26/2020 9:00 PM CDT Resu lts for this procedure are i n the results section . TROPONIN I Routine 01/26/2020 9:00 PM CDT Resu lts for this procedure are i n the results section . MAGNESIUM Routine 01/26/2020 9:00 PM CDT Resu lts for this procedure are i n the results section . BASIC METABOLIC PANEL (7) Routine 01/26/2020 9:00 PM CDT Results for this procedure are i n the results section . after 02/16/2019 Results EKG-SCANNED (02/16/2020 11:00 AM CDT) Narrative Performed At This result has an attachment that is no t available. RHYTHM STRIP - SCAN (02/16/2020 11:00 AM CDT)Only the most recent of2 results within the time period is included. Narrative Performed At This result has an attachment that is no t available. XR chest 1 view portable / bedside (02/14/2020 10:38 AM CDT)Only the most recent of9 resultswithin the time period is included. Specimen Narrative Performed At FINAL REPORT [facility] CLINICAL HISTORY: fever TECHNIQUE: 1 view of the chest. COMPARISON: 02/08/2020 IMPRESSION: The right central line has been removed. Left upper lung opacities have decreased. Left mid and lower lung bandlike opacities are unchanged. There is blunting of the left costophrenic angle. The right lung remains clear. The cardiomedi astinal silhouette is magnified by technique with sternotomy w ires. Signed: Jolly Ferguson MD Report Verified Date/Time:02/14/2020 10:54:04 Reading Location: [facility] Reading Room Procedure Note Interface, External Ris In - 02/14/2020 11:01 AM CDT FINAL REPORT CLINICAL HISTORY: fever TECHNIQUE: 1 view of the chest. COMPARISON: 02/08/2020 IMPRESSION: The right central line has been removed. Left upper lung opacities have decreased. Left mid and lower lung bandlike opacities are unchanged. There is blunting of the left costophrenic angle. The right lung remains clear. The cardiomedi astinal silhouette is magnified by technique with sternotomy w ires. Signed: Jolly Ferguson MD Report Verified Date/Time: 02/14/2020 1 0:54:04 Reading Location: [facility] Reading Room Performing Organization Address City/[facility] Phone Number RIS Magnesium (02/14/2020 4:59 AM CDT)Only the most recent of22 resultswithin the time period is included. Magnesium 1.9 1.6 - 2.6 mg/dL [facility] Specimen Blood Narrative Performed At [facility] Performing Organization Address City/State/Zipcode Phone Number [place] [phone] [place] [address] CENTER Basic Metabolic Panel (02/14/2020 4:59 AM CDT)Only the most recent of23 results within the time period is included. Sodium 134 (L) 136 - 145 meq/L [facility] Potassium 3.9 3.5 - 5.1 meq/L [facility] Chloride 98 98 - 107 meq/L [facility] CO2 24 22 - 29 meq/L [facility] BUN 9 7 - 21 mg/dL [facility] Creatinine 0.84 0.57 - 1.25 mg/dL [facility] Glucose 88 70 - 105 mg/dL [facility] Calcium 8.5 8.4 - 10.2 mg/dL [facility] EGFR 69Comment: ESTIMATED GFR IS mL/min/1.73 sq m [facility] NOT ACCURATE CREATININE ME DICAL CENTER CLEARANCE IN PREDICTING GLOMERULAR FILTRATION RATE. ESTIMATED GFR IS NOT APPLICABLE FOR DIALYSIS PATIENTS. Specimen Blood Narrative Performed At [facility] Performing Organization Address City/State/Zipcode Phone Number [address] [address] CENTER POC-Glucose meter (02/13/2020 10:10 PM CDT)Only the most recent of19 results within the time period is included. POC-Glucose Meter 106Comment: : TESTED AT 70 - 110 mg/dL [address], [id number]: [facility]/Home Visit Field Care Manager ID = [id number] for TIKA DAWN Specimen Blood Performing Organization Address City/[facility]/Zipcode Phone Number [address] [address] [place] CBC (Hemogram only) (02/13/2020 2:42 AM CDT)Only the most recent of9 results within the time period is included. WBC 7.8 3.5 - 10.5 K/L [facility] RBC 2.83 (L) 3.93 - 5.22 M/L [facility] Hemoglobin 8.3 (L) 11.2 - 15.7 GM/DL [facility] Hematocrit 26.6 (L) 34.1 - 44.9 % [facility] MCV 94.0 79.4 - 94.8 fL [facility] MCH 29.3 25.6 - 32.2 pg [facility] MCHC 31.2 (L) 32.2 - 35.5 GM/DL [facility] RDW 14.6 (H) 11.7 - 14.4 % [facility] Platelets 368 150 - 450 K/CU MM [facility] MPV 10.7 9.4 - 12.3 fL [facility] nRBC 0 0 - 0 /100 WBC [facility] Specimen Blood Performing Organization Address City/State/Zipcode Phone Number [address] [address] CENTER Phosphorus (02/12/2020 4:49 AM CDT)Only the most recent of14 resultswithin the time period is included. Phosphorus 3.8 2.3 - 4.7 mg/dL [facility] Specimen Blood Narrative Performed At [facility] - BABITA Kim [facility] Performing Organization Address City/State/Zipcode Phone Number [address] [address] CENTER SARS-CoV2/RT-PCR (Asymptomatic ONLY) (02/09/2020 11:04 PM CDT)Only the most recent of4 resultswithin the time period is included. SARS-COV2/RT-PCR Negative Not Detected, Negative, [facility] See external report for MEDICAL CENTER linked test SARS-COV-[address] [facility] Specimen Other Narrative Performed At Negative result for this test determines that [facility] SARS-CoV-2 RNA was not present in the specimen above the Limit of Detection (LOD).However, Negative results do not preclude SARS-CoV-2 infection and should not be used as the sole basis for treatment or patient management decisions. Negative results must be combined with clinical observations, patient history, and epidemiological information. A false negative result may occur if a specimen is improperly collected, transported or handled.A false negative result should be considered if patient's recent exposures or clinical presentation indicate that COVID-19 (SARS-CoV-2) is likely and diagnostic tests for other causes of illness are negative.Re-testing should be considered in cases of suspected false negatives. The limit of detection for this assay is 800 copies/mL. This SARS CoV-2 test is a real-time RT-PCR test intended for the qualitative detection of nucleic acid from SARS-CoV-2 in a nasopharyngeal swab specimen collected from individuals suspected of COVID-19 by their healthcare provider. This test has not been Food and Drug Administration (FDA) cleared or approved.This is a modified version of an approved Emergency Use Authorization (EUA) and is in the process of review by the FDA. Once authorized by the FDA, the issued EUA will be effective until the declaration that circumstances exist justifying the authorization of the emergency use of in vitro diagnostic tests for detection and/or diagnosis of COVID-19 is terminated under Section 564(b)(2) of the Act or the EUA is revoked under Section 564(g) of the Act. Fact Sheet for Healthcare Providers: https://www.Zesty.itembase/sites/default/files/pro duct/documents/Fact_Sheet_HC_Providers_Lyra_SA RS-CoV-2.pdf Fact Sheet for Healthcare Patients: https://www.Zesty.itembase/sites/default/files/pro duct/documents/Fact_Sheet_Patients_Lyra_SARS-C oV-2.pdf Performing Laboratory: [address] [place] [address] Performing Organization Address City/State/Zipcode Phone Number [facility] [address] [place] [address] CENTER TRANSFUSION SERVICE REPORT - SCAN (02/08/2020 6:21 PM CDT)Only the most recent of6 resultswithin the time period is included. Narrative Performed At This result has an attachment that is no t available. Calcium, Ionized (02/08/2020 2:57 AM CDT)Only the most recent of12 results within the time period is included. Calcium, Ion 1.10 (L) 1.12 - 1.27 mmol/L [facility] pH, Blood 7.48 [facility] [facility] Specimen Blood Performing Organization Address [facility] Centercode Phone Number [address] [address] [place] Blood gas, arterial (02/08/2020 2:57 AM CDT)Only the most recent of17 results within the time period is included. pH, Arterial 7.48 (H) 7.35 - 7.45 [facility] pCO2, Arterial 32 (L) 35 - 45 mmHg [facility] pO2, Arterial 80 80 - 90 mmHg [facility] O2 Sat, Arterial 96.9 96.0 - 97.0 % [facility] HCO3, Arterial 23 21 - 29 mmol/L [facility] Base Excess, Arterial 0.1 -2.0 - 3.0 mmol/L [facility] Patient Temperature 36.5 C [facility] FIO2 32.0 % [facility] Specimen Blood, Arterial Performing Organization Address [facility] Phone Number [address] [address] [place] Prepare Leuko-Red RBC (02/07/2020 11:54 PM CDT) CROSSMATCH COMPATIBLE SAFETRACE TX Unit ABO O Pos SAFETRACE TX UNIT NUMBER [id number] SAFETRACE TX Status TX_TIMEINCHART SAFETRACE TX Blood Bank Product RED BLOOD CELLS SAFETRACE TX PRODUCT CODE [id number] SAFETRACE TX Specimen Other Performing Organization Address [facility] Cent[facility]ode Phone Number SAFETRACE TX CT brain/stroke test design (02/07/2020 12:27 PM CDT) Specimen Narrative Performed At FINAL REPORT [facility], BRAIN/STROKE PROTOCOL INDICATION: Ataxia, stroke suspected TECHNIQUE: Noncontrast axial imaging was obtained from the vertex to the skull base. Axial images were recons tructed using a bone algorithm. DOSE REDUCTION: Dose modulation, iterati ve reconstruction, and/or weight-based adjustment of the mA/kV was utilized to reduce the radiation dose to as low as reasonably a chievable. COMPARISON: None. FINDINGS: Intracranial: No intracranial hemorrhage or abnormal extra-axial collection. No evidence of acute territo rial infarct. No mass effect. No hydrocephalus. Osseous structures: No fracture. No susp icious lesion. Paranasal sinuses and mastoid air cells: No evidence of sinusitis. Mastoids are clear. Orbital contents: Globes are intact. IMPRESSION: No acute intracranial hemorrhage or CT e vidence of territorial infarct. If there is persistent clinical concern for intracranial pathology, MR examination is recommended for furthe r characterization. The findings were discussed with the cara efeogy resident on 02/07/2020 12:26 PM. Signed: Alisson Patino MD Report Verified Date/Time:02/07/2020 12:26:21 Procedure Note Interface, External Ris In - 02/07/2020 12:28 PM CDT FINAL REPORT CT, BRAIN/STROKE PROTOCOL INDICATION: Ataxia, stroke suspected TECHNIQUE: Noncontrast axial imaging was obtained from the vertex to the skull base. Axial images were recons tructed using a bone algorithm. DOSE REDUCTION: Dose modulation, iterati ve reconstruction, and/or weight-based adjustment of the mA/kV was utilized to reduce the radiation dose to as low as reasonably a chievable. COMPARISON: None. FINDINGS: Intracranial: No intracranial hemorrhage or abnormal extra-axial collection. No evidence of acute territo rial infarct. No mass effect. No hydrocephalus. Osseous structures: No fracture. No susp icious lesion. Paranasal sinuses and mastoid air cells: No evidence of sinusitis. Mastoids are clear. Orbital contents: Globes are intact. IMPRESSION: No acute intracranial hemorrhage or CT e vidence of territorial infarct. If there is persistent clinical concern for intracranial pathology, MR examination is recommended for furthe r characterization. The findings were discussed with the cara rology resident on 02/07/2020 12:26 PM. Signed: Alisson Patino MD Report Verified Date/Time: 02/07/2020 1 2:26:21 Performing Organization Address City/State/Zipcode Phone Number [facility] CTA carotid (02/07/2020 12:27 PM CDT)Only the most recent of2 resultswithin the time period is included. Specimen Narrative Performed At FINAL REPORT [facility] CLINICAL HISTORY: Unlisted Reason for Ex am new stroke symptoms TECHNIQUE: Contiguous contrast-enhanced axial images through the neck followed by axial images through the hea d with coronal and sagittal reformations to assess the arterial circ ulation. 3-D reconstructions were performed using a volume rendered t echnique separately on a workstation. This exam was performed according to the departmental dose optimization program which includes auto mated exposure control, adjustment of the mA and/or kV according to the patient size, and/or use of an iterative reconstruction techn ique. Stenosis evaluation reported in complian ce with NASCET criteria. COMPARISON: Same day noncontrast head CT . FINDINGS: CTA head: There is no CT evidence of acute infarct or hemorrhage. There is no hydrocephalus or midline shift. The skul l is intact. There is no evidence of intracranial ane urysm. No major branch vessel occlusion or high-grade focal stenosis. Atherosclerosis of the bilateral cavernous and paraclinoid ICAs without flow-limiting stenosis. The major intradural venous sinuses are patent. CTA neck: Great vessel origins: No occlusion or hi gh-grade stenosis. Carotid arteries: Medialized retropharyn geal course of the right internal carotid artery. Atherosclerosis at the bifurcation results in less than 50% focal stenosis. No sign ificant stenosis of the left ICA. Vertebral arteries: No occlusion or high -grade stenosis. No fracture or suspicious osseous lesion . There has been a recent sternotomy with overlying soft tissue ai r. Small left apical pneumothorax. Bilateral pleural effusion s. IMPRESSION: 1.No proximal branch arterial occlusion or high-grade focal stenosis. 2.Recent sternotomy with small left apic al pneumothorax. Signed: Alisson Patino MD Report Verified Date/Time:02/07/2020 12:38:47 Procedure Note Interface, External Ris In - 02/07/2020 12:41 PM CDT FINAL REPORT CLINICAL HISTORY: Unlisted Reason for Ex am new stroke symptoms TECHNIQUE: Contiguous contrast-enhanced axial images through the neck followed by axial images through the hea d with coronal and sagittal reformations to assess the arterial circ ulation. 3-D reconstructions were performed using a volume rendered t echnique separately on a workstation. This exam was performed according to the departmental dose optimization program which includes auto mated exposure control, adjustment of the mA and/or kV according to the patient size, and/or use of an iterative reconstruction techn ique. Stenosis evaluation reported in complian ce with NASCET criteria. COMPARISON: Same day noncontrast head CT . FINDINGS: CTA head: There is no CT evidence of acute infarct or hemorrhage. There is no hydrocephalus or midline shift. The skul l is intact. There is no evidence of intracranial ane urysm. No major branch vessel occlusion or high-grade focal stenosis. Atherosclerosis of the bilateral cavernous and paraclinoid ICAs without flow-limiting stenosis. The major intradural venous sinuses are patent. CTA neck: Great vessel origins: No occlusion or hi gh-grade stenosis. Carotid arteries: Medialized retropharyn geal course of the right internal carotid artery. Atherosclerosis at the bifurcation results in less than 50% focal stenosis. No sign ificant stenosis of the left ICA. Vertebral arteries: No occlusion or high -grade stenosis. No fracture or suspicious osseous lesion . There has been a recent sternotomy with overlying soft tissue ai r. Small left apical pneumothorax. Bilateral pleural effusion s. IMPRESSION: 1.No proximal branch arterial occlusion or high-grade focal stenosis. 2.Recent sternotomy with small left apic al pneumothorax. Signed: Alisson Patino MD Report Verified Date/Time: 02/07/2020 1 2:38:47 Performing Organization Address City/State/Zipcode Phone Number [facility] CTA brain (02/07/2020 12:27 PM CDT) Specimen Narrative Performed At FINAL REPORT [facility] CLINICAL HISTORY: Unlisted Reason for Ex am new stroke symptoms TECHNIQUE: Contiguous contrast-enhanced axial images through the neck followed by axial images through the hea d with coronal and sagittal reformations to assess the arterial circ ulation. 3-D reconstructions were performed using a volume rendered t echnique separately on a workstation. This exam was performed according to the departmental dose optimization program which includes auto mated exposure control, adjustment of the mA and/or kV according to the patient size, and/or use of an iterative reconstruction techn ique. Stenosis evaluation reported in complian ce with NASCET criteria. COMPARISON: Same day noncontrast head CT . FINDINGS: CTA head: There is no CT evidence of acute infarct or hemorrhage. There is no hydrocephalus or midline shift. The skul l is intact. There is no evidence of intracranial ane urysm. No major branch vessel occlusion or high-grade focal stenosis. Atherosclerosis of the bilateral cavernous and paraclinoid ICAs without flow-limiting stenosis. The major intradural venous sinuses are patent. CTA neck: Great vessel origins: No occlusion or hi gh-grade stenosis. Carotid arteries: Medialized retropharyn geal course of the right internal carotid artery. Atherosclerosis at the bifurcation results in less than 50% focal stenosis. No sign ificant stenosis of the left ICA. Vertebral arteries: No occlusion or high -grade stenosis. No fracture or suspicious osseous lesion . There has been a recent sternotomy with overlying soft tissue ai r. Small left apical pneumothorax. Bilateral pleural effusion s. IMPRESSION: 1.No proximal branch arterial occlusion or high-grade focal stenosis. 2.Recent sternotomy with small left apic al pneumothorax. Signed: Alisson Patino MD Report Verified Date/Time:02/07/2020 12:38:47 Procedure Note Interface, External Ris In - 02/09/2020 8:06 AM CDT FINAL REPORT CLINICAL HISTORY: Unlisted Reason for Ex am new stroke symptoms TECHNIQUE: Contiguous contrast-enhanced axial images through the neck followed by axial images through the hea d with coronal and sagittal reformations to assess the arterial circ ulation. 3-D reconstructions were performed using a volume rendered t echnique separately on a workstation. This exam was performed according to the departmental dose optimization program which includes auto mated exposure control, adjustment of the mA and/or kV according to the patient size, and/or use of an iterative reconstruction techn ique. Stenosis evaluation reported in complian ce with NASCET criteria. COMPARISON: Same day noncontrast head CT . FINDINGS: CTA head: There is no CT evidence of acute infarct or hemorrhage. There is no hydrocephalus or midline shift. The skul l is intact. There is no evidence of intracranial ane urysm. No major branch vessel occlusion or high-grade focal stenosis. Atherosclerosis of the bilateral cavernous and paraclinoid ICAs without flow-limiting stenosis. The major intradural venous sinuses are patent. CTA neck: Great vessel origins: No occlusion or hi gh-grade stenosis. Carotid arteries: Medialized retropharyn geal course of the right internal carotid artery. Atherosclerosis at the bifurcation results in less than 50% focal stenosis. No sign ificant stenosis of the left ICA. Vertebral arteries: No occlusion or high -grade stenosis. No fracture or suspicious osseous lesion . There has been a recent sternotomy with overlying soft tissue ai r. Small left apical pneumothorax. Bilateral pleural effusion s. IMPRESSION: 1.No proximal branch arterial occlusion or high-grade focal stenosis. 2.Recent sternotomy with small left apic al pneumothorax. Signed: Alisson Patino MD Report Verified Date/Time: 02/07/2020 1 2:38:47 Performing Organization Address City/State/[facility] Cent[facility]ode Phone Number GE RIS Prepare PLT (02/06/2020 11:54 PM CDT) Unit ABO B Pos SAFETRACE TX UNIT NUMBER [id number] SAFETRACE TX Status TX_TIMEINCHART SAFETRACE TX Blood Bank Product PLATELETS SAFETRACE TX PRODUCT CODE [id number] SAFETRACE TX Unit ABO O Pos SAFETRACE TX UNIT NUMBER [id number] SAFETRACE TX Status TX_TIMEINCHART SAFETRACE TX Blood Bank Product PLATELETS SAFETRACE TX PRODUCT CODE [id number] SAFETRACE TX Performing Organization Address City/State/[facility] Centercode Phone Number SAFETRACE TX Prepare cryoprecipitate (02/06/2020 11:54 PM CDT) Unit ABO A Pos SAFETRACE TX UNIT NUMBER [id number] SAFETRACE TX Status TX_TIMEINCHART SAFETRACE TX Blood Bank Product CRYOPRECIPITATE SAFETRACE TX PRODUCT CODE [id number] SAFETRACE TX Performing Organization Address [facility] Phone Number SAFETRACE TX Prepare RBC (02/06/2020 11:54 PM CDT) CROSSMATCH COMPATIBLE SAFETRACE TX Unit ABO O Pos SAFETRACE TX UNIT NUMBER [id number] SAFETRACE TX Status TX_TIMEINCHART SAFETRACE TX Blood Bank Product RED BLOOD CELLS SAFETRACE TX PRODUCT CODE [id number] SAFETRACE TX CROSSMATCH COMPATIBLE SAFETRACE TX Unit ABO O Pos SAFETRACE TX UNIT NUMBER [id number] SAFETRACE TX Status RETURNED FROM ISSUE SAFETRACE TX Blood Bank Product RED BLOOD CELLS SAFETRACE TX PRODUCT CODE [id number] SAFETRACE TX CROSSMATCH COMPATIBLE SAFETRACE TX Unit ABO O Pos SAFETRACE TX UNIT NUMBER [id number] SAFETRACE TX Status RETURNED FROM ISSUE SAFETRACE TX Blood Bank Product RED BLOOD CELLS SAFETRACE TX PRODUCT CODE [id number] SAFETRACE TX CROSSMATCH COMPATIBLE SAFETRACE TX Unit ABO O Pos SAFETRACE TX UNIT NUMBER [id number] SAFETRACE TX Status RETURNED FROM ISSUE SAFETRACE TX Blood Bank Product RED BLOOD CELLS SAFETRACE TX PRODUCT CODE [id number] SAFETRACE TX Performing Organization Address [facility] Phone Number SAFETRACE TX Transfuse Leuko-Red RBC (02/06/2020 10:18 AM CDT)Only the most recent of3 resultswithin the time period is included.CBC with platelet count + automated diff (02/06/2020 4:20 AM CDT)Only the most recent of12 resultswithin the time period is included. WBC 9.6 3.5 - 10.5 K/L [facility] RBC 2.36 (L) 3.93 - 5.22 M/L [facility] Hemoglobin 7.2 (L) 11.2 - 15.7 GM/DL [facility] Hematocrit 22.1 (L) 34.1 - 44.9 % [facility] MCV 93.6 79.4 - 94.8 fL [facility] MCH 30.5 25.6 - 32.2 pg [facility] MCHC 32.6 32.2 - 35.5 GM/DL [facility] RDW 14.5 (H) 11.7 - 14.4 % [facility] Platelets 248 150 - 450 K/CU MM [facility] MPV 10.4 9.4 - 12.3 fL [facility] nRBC 0 0 - 0 /100 WBC [facility] % Neutros 87 % [facility] % Lymphs 7 % [facility] % Monos 6 % [facility] % Eos 0 % [facility] % Baso 0 % [facility] # Neutros 8.34 (H) 1.56 - 6.13 K/L [facility] # Lymphs 0.65 (L) 1.18 - 3.74 K/L [facility] # Monos 0.54 (H) 0.24 - 0.36 K/L [facility] # Eos 0.00 (L) 0.04 - 0.36 K/L [facility] # Baso 0.03 0.01 - 0.08 K/L [facility] Immature Granulocytes-Relative 1 0 - 1 % C [facility] Specimen Blood Performing Organization Address City/State/Zipcode Phone Number [facility] [address] [place] [address] CENTER Lactic Acid, Arterial (02/05/2020 10:24 PM CDT)Only the most recent of5 results within the time period is included. Lactate, Art 0.9Comment: Specimen 0.5 - 2.2 mmol/L [facility] slightly hemolyzed [facility] Specimen Blood, Arterial Narrative Performed At [facility] - [id number] [facility] Performing Organization Address City/State/Zipcode Phone Number [facility] [address] [place] [address] CENTER 2D Echo W/Doppler(CW/PW/Color) (02/05/2020 7:50 PM CDT) Ejection Fraction [facility] Specimen Narrative Performed At Transthoracic Echocardiography Report (T TE) [facility] Demographics Patient Name Carrie SANTIAGO of Study 02/05/2020 ANA CRISTINA [id number] Gender Female Visit Number [id number] RaceCauc [id number] Room Number 2C22 Number Date of Birth1960 Referring Physician MD Lalo Freeman MD Age59 year(s) Take Down Inspector Murray william, Physician Fellow Layo Lisa MD Procedure Type of Study TTE procedure:2DECHO W DOPPLER(CW/PW/COLOR) (STAT) Indications:Hypotension or hemodynamic instability. Clinical History HGB 8.7 HCT 26.0 % CAD, HTN, S/P SAVR AND ACB X1 02/05/2020 Contrast Medium: Definity. Amount - 3 ml Height: 64 inches Weight: 120.66 kg (266 lbs) BSA: 2.21 m^2 BMI: 45.66 kg/m^2 HR: 65 bpm BP: 100/33 mmHg Summary TECHNICALLY DIFFICULT STUDY Parasternal long axis measurements not possible. LV endocardium is adequately visualized with IV ultrasound enhancing agent. The left ventricle is chamber size (by vol index) is normal (female - LVED vol - 29-61ml/m2). All of the LV segments contract normally . LVEF by Blanca's method of disk assessment is increased (>70%) . LV diastolic function is indeterminate. A biologic AoV prosthesis is poorly visualized . Prosthetic AoV regurgitaton is not demonstrated . AoV prosthesis function appears normal . Mean AVR gradient = 11mmHg. Unable to obtain DOI due to poor LVOT signial. Estimated peak systolic PA pressure is cannot be determined due to inadequate TR velocity signal . Signature Findings Technical Quality: Technically difficult exam. Rhythm/BPRegular sinus rhythm during the exam. Left Ventricle Parasternal long axis measurements not possible. LV en docardium is adequately visualized with IV ul trasound enhancing agent. The left ventr icle is ch teena size (by vol index) is normal (fem bethany - LV ED vol - 29-61ml/m2). All of the LV segm ents co ntract normally . LVEF by Blanca's meth od of di sk assessment is increased (>70%) . LV diastolic function is indeterminate. Left AtriumLA size is normal (16-34 ml/m2) . Right VentricleThe right ventricle is not well visualized but ap pears normal in size. Right Atrium RA size is partially visualized but appears normal. Atrial SeptumNormal interatrial septum by available views. Aortic Valve A biologic AoV prosthesis is poorly visualized . Pr osthetic AoV regurgitaton is not demonst rated . Ao V prosthesis function appears normal . M taisha AVR gr adient = 11mmHg. Unable to obtain DOI du e to poor LV OT signial. Mitral Valve Moderate mitral annular calcification. Tricuspid ValveTV is not well visualized. Es timated peak systolic PA pressure is can not be de termined due to inadequate TR velocity s ignal . Pulmonic Valve PV is not well visualized. AortaThe aorta is not well visualized. PericardiumNo significant pericardial effusion is visualized. IVC/SVC/PA/PV/PleuralThe estimated RA pressure by IVC dynamics 11-15mmHg . Chambers/Structures Left Atrium LA Volume: 59.29 ml LA Area: 21.38 cm^2 LA Vol. Index: 27 ml/m^2 Left Ventricle LVEDV Blanca's:89.65 ml LVESV Blanca's:22.65 ml LVEF Blanca's: 74.7 % LVEDVI: 4 1 ml/m^2 LVESVI: 1 0 ml/m^2 Right Ventricle TAPSE: 2 cm Doppler/Quantitative Measurements Mitral Valve MV Robert. Peak: Tissue Doppler E' Septal Velocity: 0.05 m/s E' Lateral Velocity: 0.1 m/s Aortic Valve Peak Velocity: 2.55 m/sMean Velocity: 1.53 m/s Peak Gradient: 25.92 mmHgMean Gradient: 11.75 mmHg AV VTI: 43.65 cm Procedure Note Interface, External Ris In - 02/06/2020 4:16 PM CDT Transthoracic Echocardiography Report (TTE) Demographics Patient Name RENA SANTIAGO Date of Study 02/05/2020 ANA CRISTINA Gende r Female Visit Number [id number] Race Room Number 2C22 Number Date of 1960 Refer ring Physician MD Lalo Freeman MD Age 59 year(s) Sonog rapher Gilbert Torres MD Fellow Layo Lisa MD Procedure Type of Study TTE procedure:2DECHO W DOPPLE R(CW/PW/COLOR) (STAT) Indications:Hypotension or hemodynamic i nstability. Clinical History HGB 8.7 HCT 26.0 % CAD, HTN, S/P SAVR AND ACB X1 02/05/2020 Contrast Medium: Definity. Amount - 3 ml Height: 64 inches Weight: 120.66 kg (266 lbs) BSA: 2.21 m^2 BMI: 45.66 kg/m^2 HR: 65 bpm BP: 100/33 mmHg Summary TECHNICALLY DIFFICULT STUDY Parasternal long axis measurements not possible. LV endocardium is adequately visualized with IV ultrasoun d enhancing agent. The left ventricle is chamber size (by vol index) is normal (female - LVED vol - 29-61ml/m2). All of the LV segmen ts contract normally . LVEF by Blanca's method of disk assessment is increased (>70%) . LV diastolic function is indeterminate. A biologic AoV prosthesis is poorly vis ualized . Prosthetic AoV regurgitaton is not demonstrated . AoV prosthesis function appears normal . Mean AVR gradient = 11mmHg. Unable to obtain DOI due to poor LVOT signial. Estimated peak systolic PA pressure is cannot be determined due to inadequate TR velocity signal . Signature Findings Technical Quality: Technically difficult exam. Rhythm/BP Regular sinus rh ythm during the exam. Left Ventricle Parasternal long axis measurements not possible. LV endocardium is a dequately visualized with IV ultrasound enhan cing agent. The left ventricle is chamber size (by vol index) is normal (female - LVED vol - 29-61 ml/m2). All of the LV segments contract normall y . LVEF by Blanca's method of disk assessment is increased (>70%) . LV diastolic fun ction is indeterminate. Left Atrium LA size is sahil l (16-34 ml/m2) . Right Ventricle The right ventri ana is not well visualized but appears normal i n size. Right Atrium RA size is parti ally visualized but appears normal. Atrial Septum Normal interatri al septum by available views. Aortic Valve A biologic AoV p rosthesis is poorly visualized . Prosthetic AoV r egurgitaton is not demonstrated . AoV prosthesis f unction appears normal . Mean AVR gradient = 11mmH g. Unable to obtain DOI due to poor LVOT signial. Mitral Valve Moderate mitral annular calcification. Tricuspid Valve TV is not well v isualized. Estimated peak s ystolic PA pressure is cannot be determined due t o inadequate TR velocity signal . Pulmonic Valve PV is not well v isualized. Aorta The aorta is not well visualized. Pericardium No significant p ericardial effusion is visualized. IVC/SVC/PA/PV/Pleural The estimated RA pressure by IVC dynamics 11-15mmHg . Chambers/Structures Left Atrium LA Volume: 59.29 ml LA Area: 21.38 cm^2 LA Vol. Index: 27 ml/m^2 Left Ventricle LVEDV Blanca's:89.65 ml LVESV Blanca's:22.65 ml LVEF Blanca's: 74.7 % LVEDVI: 41 ml/m^2 LVESVI: 10 ml/m^2 Right Ventricle TAPSE: 2 cm Doppler/Quantitative Measurements Mitral Valve MV Robert. Peak: Tissue Doppler E' Septal Velocity: 0.05 m/s E' Lateral Velocity: 0.1 m/s Aortic Valve Peak Velocity: 2.55 m/s Me an Velocity: 1.53 m/s Peak Gradient: 25.92 mmHg Me an Gradient: 11.75 mmHg AV VTI: 43.65 cm Performing Organization Address City/[facility] Cent[facility]ode Phone Number [facility] Oxygen saturation, measured (02/05/2020 7:18 PM CDT)Only the most recent of2 resultswithin the time period is included. O2 Saturation (Measured) 53.9 % [facility] Specimen Blood Performing Organization Address City/[facility] Center[facility]il Phone Number [address] [address] CENTER Potassium-Stat Lab (02/05/2020 7:17 PM CDT)Only the most recent of9 results within the time period is included. Potassium 5.0 3.6 - 5.5 meq/L [facility] Specimen Blood, Arterial Performing Organization Address [facility] Centercode Phone Number [address] [address] CENTER Sodium Na-Stat Lab (02/05/2020 7:17 PM CDT)Only the most recent of9 results within the time period is included. Sodium 136 136 - 145 meq/L [facility] Specimen Blood, Arterial Performing Organization Address [facility] Phone Number [address] [address] [place] Glucose-Stat Lab (02/05/2020 7:17 PM CDT)Only the most recent of9 resultswithin the time period is included. Glucose 139 (H) 70 - 110 mg/dL [facility] Specimen Blood, Arterial Performing Organization Address [facility] Phone Number [address] [address] [place] PT/aPTT (02/05/2020 7:17 PM CDT)Only the most recent of2 resultswithin the time period is included. Protime 15.5 (H) 11.9 - 14.2 seconds [facility] INR 1.26 <=5.90 [facility] PTT 65.6 (H) 22.5 - 36.0 seconds [facility] Specimen Blood Narrative Performed At Effective 10/28/2018: PT Reference Range [facility] Change New: 11.9-14.2Previous: 11.7-14.7 RECOMMENDED COUMADIN/WARFARIN INR THERAPY RANGES STANDARD DOSE: 2.0-3.0Includes: PROPHYLAXIS for venous thrombosis, systemic embolization; TREATMENT for venous thrombosis and/or pulmonary embolus. HIGH RISK: Target INR is 2.5-3.5 for patients wiht mechanical heart valves. Performing Organization Address [facility] Phone Number [address] [address] [place] HGB/HCT (H&H)-Stat Lab (02/05/2020 7:17 PM CDT)Only the most recent of9 resultswithin the time period is included. Hemoglobin 8.7 (L) 12.0 - 15.0 g/dL [facility] Hematocrit 26.0 (L) 36.0 - 45.0 % [facility] Specimen Blood, Arterial Performing Organization Address [facility] Phone Number [address] [address] CENTER Prepare plasma (02/05/2020 6:17 PM CDT) Unit ABO O Pos SAFETRACE TX UNIT NUMBER [id number] SAFETRACE TX Status RETURNED FROM ISSUE SAFETRACE TX Blood Bank Product FFP SAFETRACE TX PRODUCT CODE [id number] SAFETRACE TX Unit ABO O Pos SAFETRACE TX UNIT NUMBER [id number] SAFETRACE TX Status RETURNED FROM ISSUE SAFETRACE TX Blood Bank Product FFP SAFETRACE TX PRODUCT CODE [id number] SAFETRACE TX Performing Organization Address [facility] Phone Number SAFETRACE TX aPTT (02/05/2020 3:43 PM CDT)Only the most recent of15 resultswithin the time period is included. PTT 53.9 (H) 22.5 - 36.0 seconds [facility] Specimen Blood Performing Organization Address [facility] Phone Number [address] [phone] CENTER Prothrombin time/INR (02/05/2020 3:43 PM CDT)Only the most recent of5 results within the time period is included. Protime 15.8 (H) 11.9 - 14.2 seconds [facility] INR 1.30 <=5.90 [facility] Specimen Blood Narrative Performed At Effective 10/28/2018: PT Reference Range [facility] Change New: 11.9-14.2Previous: 11.7-14.7 RECOMMENDED COUMADIN/WARFARIN INR THERAPY RANGES STANDARD DOSE: 2.0-3.0Includes: PROPHYLAXIS for venous thrombosis, systemic embolization; TREATMENT for venous thrombosis and/or pulmonary embolus. HIGH RISK: Target INR is 2.5-3.5 for patients wiht mechanical heart valves. Performing Organization Address [facility]/Zipcode Phone Number [address] [address] CENTER Fibrinogen (02/05/2020 3:43 PM CDT)Only the most recent of2 resultswithin the time period is included. Fibrinogen 521 (H) 225 - 434 mg/dl [facility] Specimen Blood Performing Organization Address City/[facility]/Zipcode Phone Number [address] [address] CENTER POC ACTIVATED CLOTTING TIME (02/05/2020 2:22 PM CDT)Only the most recent of9 resultswithin the time period is included. Activated Clotting Time 125Comment: : 74-137 sec [facility] seconds, Baseline: [facility]ED [facility] [address], [id number]: [facility]/Home Visit Field Care Manager ID = [id number] for JOHANNA DAVISON Specimen Blood Performing Organization Address [facility] Phone Number [address] [address] CENTER Transfuse cryoprecipitate (02/05/2020 1:37 PM CDT)Tissue Exam (02/05/2020 1:35 PM CDT)Only the most recent of2 resultswithin the time period is included. Case Report Surgical Pathology Report Case: [id number] [facility] Authorizing Provider:Girma Ashley MD Collected: 02/05/2020 01:[address] [facility] Ordering Location: [address] Received:02/08/2020 08:28 AM Service Pathologist: Steve Walker MD Specimen:Aortic Valv e, AORTIC VALVE LEAFLET DIAGNOSIS HEART, AORTIC VALVE, VALVULECTOMY: [facility] TWO FUSED LEAFLETS WITH NODULAR CALCIFIC ATHEROS CLEROTIC THICKENING [facility] ONE SEPARATE LEAFLET WITH FO EDVIN FENESTRATION AND NODULAR CALCIFIC ATHEROSCLEROTIC THICKENING Signing Pathologist Direct Phone Line: [phone] CPT Code(s) 69599; 97163 [facility] ER CLINICAL HISTORY Aortic valve stenosis, [facility] Vincenzo [facility] etiology of cardiac valve [facility] disease unspecified, coronary artery disease with angina pectoris SPECIMEN SOURCE Aortic valve [facility] GROSS DESCRIPTION Received in formalin labeled C [facility] with the patient's name, [facility] accession number and "aortic valve leaflet" are two fused aortic cusps measuring 3.0 x 1.3 x 0.2 cm, and a 2.2 x 1.2 x 0.3 cm unfused aortic cusp displaying a 0.3 cm fenestration. The surface is smooth to focally nodular and devoid of vegetations. The cut surface is abernathy-yellow, focally calcified and fibrous. Cigarette Tipper sections are submitted in A1 following decalcification. PA/pl MICROSCOPIC DESCRIPTION Performed [facility] Specimen Tissue Performing Organization Address City/[facility] Phone Number [address] [address] CENTER Transfuse Leuko-Red PLT (02/05/2020 1:29 PM CDT)Only the most recent of2 resultswithin the time period is included.Thromboelastograph (TEG) (02/05/2020 1:26 PM CDT) TEG Activated Clotting Time 6.8 4.0 - 7.0 minutes [facility] TEG Fibrinogen Activity 79.9 (H) 61.0 - 73.0 degrees [facility] TEG Platelet Aggregation 73.5 (H) 55.0 - 65.0 MM [facility] TEG-H Activated Clotting Time 6.8 4.0 - 7.0 minutes [facility] TEG-H Fibrinogen Activity 80.3 (H) 61.0 - 73.0 degrees [facility] TEG-H Platelet Aggregation 77.0 (H) 55.0 - 65.0 MM [facility] Specimen Blood Performing Organization Address City/[facility] Phone Number [address] [address] CENTER Platelet count (02/05/2020 1:26 PM CDT) Platelets 253 150 - 450 K/CU MM [facility] Specimen Blood Narrative Performed At [facility] - [id number] [facility]ENTER Performing Organization Address City/State/Zipcode Phone Number [address] [address] C[address] HEIDI (02/05/2020 9:56 AM CDT) Narrative Performed At Girma Varner MD 02:30 PM HEIDI Date: 02/05/2020 9:56 AM Sex: Female Locat ion: OR Requesting Physician: Girma Olivera MD Examiner: Girma Varner MD Rutherford, Lerin Elise Intubated Sedated Patient screened for esoph disease: Yes Insertion: easy Probe Type: multiplane Modalities: 2D, CFM, CWD and PWD Pre Intervention Summary: Aorta: No aneu rysm, no dissection, no mobile plaques, there are plaques <.03cm presen t in the descending AV: trileaflet morphology, heavily calcified, severe a ortic stenosis, SUSAN .72 cm2,Peak gradient of 60 mmHg, mo derate aortic regurgitation by AI/LVOT diameter, LVOT 1.94, Annulus 2.0, sinus 2.87, STJ 2.49, ascending 3.37 LV: normal chamber size , no LVH, normal systolic func tion (EF 55-60% by Blanca's), no RWMA, no thrombus MV: normal morphology, mild mitral regur gitation by vena contracta, no mitral stenosis LA: no AVERY thrombus, normal size and fun ction PV: limited visualization RV: normal sized chamber, normal functio n by TAPSE, no thrombus TV: normal morphology, mild tricuspid re gurgitation by qualitative assessment RA: no thrombus No PFO by color dopper flow. No pericard ial effusion All findings communicated to surgical te am. Post Intervention Summary:S/p inspirus 23 mmbi oprosthetic with aortic root enlargement Aorta: No aneurysm, no dissection, no mo bile plaques, there are plaques <.03cm present in the descending AV: bioprosthetic valve is seated well, trileaflet, op ening well. There is a small perivalvular leak at the non-coronary cusp. Gutiérrez rgical team aware. Mean gradient 9 mmHg, SUSAN 1.42 cm2, no r egurgitation LV: normal chamber size , no LVH, normal systolic function (EF normal, unchanged by qualitative assessment), no RWMA, no thrombus normal sized chamber, normal function, n o thrombus No pericardial effusion. Findings communicated to surgical team. Procedure Note Girma Varner MD - 02/05/2020 9 :56 AM CDT HEIDI Date: 02/05/2020 9:56 AM Sex: Female Locat ion: OR Requesting Physician: Girma Olivera MD Examiner: Girma Varner MD Rutherford, Lerin Elise Intubated Sed ated Patient screened for esoph disease: Yes Insertion: easy Probe Type: multiplane Modalities: 2D, CFM, CWD and PWD Pre Intervention Summary: Aorta: No aneu rysm, no dissection, no mobile plaques, there are plaques <.03cm present in the descending AV: trileaflet morphology, heavily calci fied, severe aortic stenosis, SUSAN .72 cm2, Peak gradient of 60 mmHg, moderate aortic regurgitation by AI/LVOT diameter, LVOT 1.94, Annulus 2.0, sinus 2.87, STJ 2.49, ascending 3.37 LV: normal chamber size , no LVH, normal systolic function (EF 55-60% by Blanca's), no RWMA, no thrombus MV: normal morphology, mild mitral regur gitation by vena contracta, no mitral stenosis LA: no AVERY thrombus, normal size and fun ction PV: limited visualization RV: normal sized chamber, normal functio n by TAPSE, no thrombus TV: normal morphology, mild tricuspid re gurgitation by qualitative assessment RA: no thrombus No PFO by color dopper flow. No pericard ial effusion All findings communicated to surgical te am. Post Intervention Summary: S/p inspirus 23 mm bioprosthetic with aortic root enlargement Aorta: No aneurysm, no dissection, no mo bile plaques, there are plaques <.03cm present in the descending AV: bioprosthetic valve is seated well, trileaflet, opening well. There is a small perivalvular leak at the non-coronary cusp. Surgical team aware. Mean gradient 9 mmHg, SUSAN 1.42 cm2, no regurgitation LV: normal chamber size , no LVH, normal systolic function (EF normal, unchanged by qualitative assessment), no RWMA, no thrombus normal sized chamber, normal function, n o thrombus No pericardial effusion. Findings communicated to surgical team. Screen, urine (02/05/2020 3:54 AM CDT) Preg Test, Ur Negative [facility] Specimen Urine Performing Organization Address [facility] Phone Number [address] [address] CENTER Type and screen, automated (02/04/2020 2:13 PM CDT)Only the most recent of2 resultswithin the time period is included. ABO/RH AUTOMATED (BEAKER) O POSITIVE [facility] Ab Scrn NEGATIVE [facility] Specimen Blood Performing Organization Address [facility] Phone Number [address] [address] Hemoglobin A1c (02/04/2020 2:13 PM CDT)Only the most recent of3 resultswithin the time period is included. Hemoglobin A1C 5.8 4.3 - 6.1 % [facility] Specimen Blood Performing Organization Address City/[facility] Phone Number [address] [address] CENTER Lipid panel (02/04/2020 2:13 PM CDT)Only the most recent of3 resultswithin the time period is included. Triglycerides 169 mg/dL [facility] Cholesterol 143 mg/dL [facility] HDL 30 mg/dL [facility] LDL Calculated 79 mg/dL [facility] Specimen Blood Narrative Performed At Triglyceride Reference Range: [facility] Low Risk <150 [id number] High Risk 200-499 Very High Risk>=500 Cholesterol Reference Range: Low Risk <200 [id number] High Risk>240 HDL Cholesterol Reference Range: Low Risk >=60 High Risk <40 LDL Cholesterol Reference Range: Optimal<100 Near Tblsbyo014-205 [id number] Pakv244-881 Very High >=190 [facility] - [id number] Performing Organization Address [facility] Phone Number [facility] [address] [place] [address] [place] Troponin I (02/03/2020 11:49 AM CDT)Only the most recent of6 resultswithin the time period is included. Troponin I 0.01 0.00 - 0.03 ng/mL [facility] Specimen Blood Narrative Performed At Troponin I (TnI) levels must be interpreted [facility] in the context of the presenting symptoms and the clinical findings. Elevated TnI levels indicate myocardial damage, but are not specific for ischemic heart disease. Elevated TnI levels are seen in patients with other cardiac conditions (including myocarditis and congestive heart failure), and slight TnI elevations occur in patients with other conditions, including sepsis, renal failure, acidosis, acute neurological disease, and persistent tachyarrhythmia. [facility] - [id number] Performing Organization Address [facility] Phone Number [address] [address] [place] ECG 12 lead (02/01/2020 1:25 PM CDT)Only the most recent of4 resultswithin the time period is included. Specimen Narrative Performed At Ventricular Rate 70 BPM GE MUSE Atrial Rate 70 BPM P-R Interval 196 ms QRS Duration 98 ms Q-T Interval 418 ms QTC Calculation(Bazett) 451 ms P Drain 58 degrees R Drain 42 degrees T Drain 71 degrees Normal sinus rhythm Normal ECG When compared with ECG of 31-JAN-2020 20 :01, No significant change was found Confirmed by Cricket Sinha ([id number]) on 02/03/2020 5:21:11 P M Procedure Note Interface, External Ris In - 02/03/2020 5:21 PM CDT Ventricular Rate 70 BPM Atrial Rate 70 BPM P-R Interval 196 ms QRS Duration 98 ms Q-T Interval 418 ms QTC Calculation(Bazett) 451 ms P Drain 58 degrees R Drain 42 degrees T Drain 71 degrees Normal sinus rhythm Normal ECG When compared with ECG of 31-JAN-2020 20 :01, No significant change was found Confirmed by Cricket Sinha ([id number]) on 2019 5:21:11 PM Performing Organization Address City/State/Zipcode Phone Number GE MUSE Manual Differential (02/01/2020 3:13 AM CDT)Only the most recent of2 results within the time period is included. % Neutros 78 % [facility] % Lymphs 7 % [facility] % Monos 5 % [facility] % Bands 10 0 - 10 % [facility] # Neutros 9.59 (H) 1.56 - 6.13 K/ul [facility] # Lymphs 0.86 (L) 1.18 - 3.74 K/ul [facility] # Monos 0.62 (H) 0.24 - 0.36 K/uL [facility] # Bands 1.23 (H) 0.00 - 0.80 K/uL [facility] Total Counted [address] [facility] WBC Morphology Normal [facility] Giant Platelet Present [facility] Anisocytosis 2+ moderate [facility] Microcytes 2+ moderate [facility] Artifact Present [facility] Platelet Conc Increased [facility] Specimen Blood Narrative Performed At [facility] - Antony Lagos [facility] User comments: Slide comments: Performing Organization Address City/State/Zipcode Phone Number [facility] [place] [phone] CENTER ABORH, manual (01/31/2020 3:31 AM CDT) ABO Grouping O [facility] Rh Factor POS [facility] Specimen Blood Performing Organization Address City/State/Zipcode Phone Number [address] [phone] Comprehensive metabolic panel (01/30/2020 6:12 PM CDT) Protein, Total 7.3 6.0 - 8.3 gm/dL [facility] Albumin 3.6 3.5 - 5.0 g/dL [facility] Alkaline Phosphatase 232 (H) 40 - 150 U/L [facility] Total Bilirubin 0.3 0.2 - 1.2 mg/dL [facility] Sodium 137 136 - 145 meq/L [facility] Potassium 3.8 3.5 - 5.1 meq/L [facility] Chloride 102 98 - 107 meq/L [facility] CO2 25 22 - 29 meq/L [facility] BUN 8 7 - 21 mg/dL [facility] Creatinine 0.78 0.57 - 1.25 mg/dL [facility] Glucose 112 (H) 70 - 105 mg/dL [facility] Calcium 9.4 8.4 - 10.2 mg/dL [facility] AST 36 (H) 5 - 34 U/L [facility] ALT 41 6 - 55 U/L [facility] EGFR 75Comment: ESTIMATED GFR mL/min/1.73 sq m [facility] IS NOT ACCURATE [facility] CREATININE CLEARANCE IN PREDICTING GLOMERULAR FILTRATION RATE. ESTIMATED GFR IS NOT APPLICABLE FOR DIALYSIS PATIENTS. Specimen Blood Narrative Performed At [facility] - DB [facility] Performing Organization Address City/[facility]/Zipcode Phone Number [address] [address] CENTER Sodium, random urine (01/28/2020 2:43 PM CDT) Sodium Urine 21 meq/L [facility] Specimen Urine Narrative Performed At Reference Range: No Normals [facility] ID - DB Performing Organization Address [facility] Phone Number [address] [address] [place] Osmolality, urine (01/28/2020 2:43 PM CDT) Osmolality, Ur 159 50-1,200 mOsm/kg mOsm/kg [facility] Specimen Urine Performing Organization Address [facility] Phone Number [address] [address] [place] Creatinine, random urine (01/28/2020 2:43 PM CDT) Creatinine, Ur 37.6 mg/dL [facility] Specimen Urine Narrative Performed At Reference Range: No Normals [facility] ID - DB Performing Organization Address City/[facility]/Zipcode Phone Number [address] [address] CENTER Osmolality, serum (01/28/2020 2:43 PM CDT) Osmolality Serum 272 (L) 275 - 295 mOsm/kg [facility] Specimen Blood Performing Organization Address [facility] Phone Number [address] [address] CENTER US renal complete (01/28/2020 12:28 AM CDT) Specimen Narrative Performed At FINAL REPORT [facility] Ultrasound of the Kidneys Clinical History:left flank pain Comparison: None. Discussion: Sonographic evaluation of the kidneys wa s performed. Right kidney:11.9 x 4.4 x 4.9 cm cm, with cortical thickness of 1.2 cm.Normal cortical echogenicity.No mass.No shadowing calculus. No hydronephrosis. Left kidney: 13.5 x 6 x 5.3 cm, with cor tical thickness of 1.8 cm. Normal cortical echogenicity.No mass.No shadow ing calculus.No hydronephrosis. Limited doppler evaluation of bilateral main renal arteries and veins demonstrate patency. Bladder:Underdistended but otherwise unremarkable. Impression: Unremarkable exam. Signed: Km Zavaleta MD Report Verified Date/Time:01/28/2020 01:06:30 Procedure Note Interface, External Ris In - 01/28/2020 1:08 AM CDT FINAL REPORT Ultrasound of the Kidneys Clinical History: left flank pain Comparison: None. Discussion: Sonographic evaluation of the kidneys wa s performed. Right kidney: 11.9 x 4.4 x 4.9 cm cm, w ith cortical thickness of 1.2 cm. Normal cortical echogenicity. No m ass. No shadowing calculus. No hydronephrosis. Left kidney: 13.5 x 6 x 5.3 cm, with cor tical thickness of 1.8 cm. Normal cortical echogenicity. No mass. No shadowing calculus. No hydronephrosis. Limited doppler evaluation of bilateral main renal arteries and veins demonstrate patency. Bladder: Underdistended but otherwise u nremarkable. Impression: Unremarkable exam. Signed: Km Zavaleta MD Report Verified Date/Time: 01/28/2020 0 1:06:30 Performing Organization Address City/State/Zipcode Phone Number [facility] Carotid doppler bilateral (01/27/2020 4:54 PM CDT) [facility] SLE ECHO HEAR TLAB MKCKESSON CPACS Specimen Impressions Performed At Right [facility] ECHO HEARTLAB MKCKESSON CPACS 1. There is 50-69% diameter reduction (approximately 53% by 2-D measurement) in the internal carotid artery with heterogeneous plaque, a peak velocity of 198cm/sec and an ICA/CCA peak systolic velocity ratio of 2.31. 2. There is non-occluding plaque in the external carotid artery. 3. There is non-occluding plaque in the common carotid artery. 4. The vertebral artery flow is antegrad e. 5. The subclavian artery is patent with a velocity of 212 cm/sec. Left Impression 1. There is 70-99% diameter reduction (measurement could not be obtained due to heavy calcification) in the internal carotid artery with heterogeneous plaque, a peak velocity of 629 cm/sec and an ICA/CCA peak systolic velocity ratio of 9.83. 2. There is non-occluding plaque in the external carotid artery. 3. There is non-occluding plaque in the common carotid artery. 4. The vertebral artery flow is antegrad e. 5. The subclavian artery is patent with a velocity of 195 cm/sec. Conclusions Summary Carotid duplex scanning and color flow imaging were performed bilaterally. The arteries were adequately visualized. The right internal carotid artery had 50-69% hemodynamically significant stenosis (approximately 53% by 2-D measurement) with heterogeneous plaque. The left internal carotid artery had 70-99% hemodynamically significant stenosis (measurement was not obtained due to heavy calcifications) with heterogeneous plaque. The vertebral artery flow was antegrade bilaterally. The subclavian arteries were patent bilaterally where visualize d. Signature Velocities are measured in cm/s ; Diameters are measured in cm Carotid Right Measurements + +----+----+-----+ +---- + + !Location !PSV !EDV !Angle!%Stenosis 2D!%Stenosis Doppler!Tortuosity ! + +----+----+-----+ +---- + + !Prox CCA !99.1!18.8!60 !! ! ! + +----+----+-----+ +---- + + !Dist CCA !79.2!16.4!60 !! ! ! + +----+----+-----+ +---- + + !Prox ICA !183 !52.1!60 !! ! ! + +----+----+-----+ +---- + + !Dist ICA !151 !35.6!54 !! ! ! + +----+----+-----+ +---- + + !Prox ECA !156 !19.6!60 !! ! ! + +----+----+-----+ +---- + + !Vertebral!106 !25.5!0!! ! ! + +----+----+-----+ +---- + + !Prox Subclavian!212 !!60 !! ! ! + +----+----+-----+ +---- + + - Additional Measurements:ICAPSV/CCAPSV 2.31.ICAEDV/CCAEDV 2.77. Carotid Left Measurements + +----+----+-----+ +---- + + !Location !PSV !EDV !Angle!%Stenosis 2D!%Stenosis Doppler!Tortuosity ! + +----+----+-----+ +---- + + !Prox CCA !104 !10.2!60 !! ! ! + +----+----+-----+ +---- + + !Dist CCA !64!8.64!60 !! ! ! + +----+----+-----+ +---- + + !Prox ICA !629 !153 !60 !! ! ! + +----+----+-----+ +---- + + !Dist ICA !307 !59.9!60 !! ! ! + +----+----+-----+ +---- + + !Prox ECA !137 !14.1!60 !! ! ! + +----+----+-----+ +---- + + !Vertebral!47.5!12.6!60 !! ! ! + +----+----+-----+ +---- + + !Prox Subclavian!195 !!60 !! ! ! + +----+----+-----+ +---- + + - Additional Measurements:ICAPSV/CCAPSV 9.83.ICAEDV/CCAEDV 15. Narrative Performed At [facility] - Carotid Duplex Study [facility] Demographics Patient NameHayde SANTIAGOte of Study 01/27/2020 JAVIER PENA Age 59 Visit [id number] GenderFemale Date of 1960 Referring Girma Olivera MD Room Number 1126 Physician Take Down Inspector Mallory Armijo RVTPhysician MD Procedure Type of Study: Cerebral: Carotid, CAROTID DOPPLER, DEION ATERAL. Indications for Study:Carotid Bruit. Patient Status:Routine. Study Location:Vascular Lab. Technical Quality:Adequate visualization . Risk Factors History of Disease + +----+--------+ !Diagnosis !Date!Comments! + +----+--------+ !History/Risk Factors: !!CAD, HTN! + +----+--------+ Procedure Note Interface, External Ris In - 01/28/2020 7:35 AM CDT [facility] - Carotid Duplex Study Demographics Patient Name RENA SANTIAGO Da te of Study 01/27/2020 ANA CRISTINA Ag e 59 Visit Number [id number] Ge nder Female Accession Number [id number] Da te of 1960 Referring Girma Olivera MD Ro om Number [id number] Physician Take Down Inspector Destiney Palacios, In terpreting Greer Felix, T Ph ysician Procedure Type of Study: Cerebral: Carotid, CAROTID DOPPLER, DEION ATERAL. Indications for Study:Carotid Bruit. Patient Status:Routine. Study Location:Vascular Lab. Technical Quality:Adequate visualization . Risk Factors History of Disease + +----+--------+ !Diagnosis !Date!Comments! + +----+--------+ !History/Risk Factors: ! !CAD, HTN! + +----+--------+ Impressions Right Impression 1. There is 50-69% diameter reduction (a pproximately 53% by 2-D measurement) in the internal carotid artery with hete rogeneous plaque, a peak velocity of 198cm/sec and an ICA/CCA peak systolic v elocity ratio of 2.31. 2. There is non-occluding plaque in the external carotid artery. 3. There is non-occluding plaque in the common carotid artery. 4. The vertebral artery flow is antegrad e. 5. The subclavian artery is patent with a velocity of 212 cm/sec. Left Impression 1. There is 70-99% diameter reduction (m easurement could not be obtained due to heavy calcification) in the internal carotid artery with heterogeneous plaque, a peak velocity of 629 cm/sec an d an ICA/CCA peak systolic velocity ratio of 9.83. 2. There is non-occluding plaque in the external carotid artery. 3. There is non-occluding plaque in the common carotid artery. 4. The vertebral artery flow is antegrad e. 5. The subclavian artery is patent with a velocity of 195 cm/sec. Conclusions Summary Carotid duplex scanning and color flow imaging were performed bilaterally. The arteries were adequately visualized . The right internal carotid artery had 50-69% hemodynamically significant stenosis (approximately 53% by 2-D measurement) with heterogeneous plaque. The left internal carotid artery had 70-99% hemodynamically significant stenosis (measurement was not obtained due to heavy calcifications) w ith heterogeneous plaque. The vertebral artery flow was antegrade deion aterally. The subclavian arteries were patent bilaterally where visualize d. Signature Velocities are measured in cm/s ; Diamet ers are measured in cm Carotid Right Measurements + +----+----+-----+------- -----+ + + !Location !PSV !EDV !Angle!%Stenos is 2D!%Stenosis Doppler!Tortuosity ! + +----+----+-----+------- -----+ + + !Prox CCA !99.1!18.8!60 ! ! ! ! + +----+----+-----+------- -----+ + + !Dist CCA !79.2!16.4!60 ! ! ! ! + +----+----+-----+------- -----+ + + !Prox ICA !183 !52.1!60 ! ! ! ! + +----+----+-----+------- -----+ + + !Dist ICA !151 !35.6!54 ! ! ! ! + +----+----+-----+------- -----+ + + !Prox ECA !156 !19.6!60 ! ! ! ! + +----+----+-----+------- -----+ + + !Vertebral !106 !25.5!0 ! ! ! ! + +----+----+-----+------- -----+ + + !Prox Subclavian!212 ! !60 ! ! ! ! + +----+----+-----+------- -----+ + + - Additional Measurements:ICAPSV/CCAPS V 2.31.ICAEDV/CCAEDV 2.77. Carotid Left Measurements + +----+----+-----+------- -----+ + + !Location !PSV !EDV !Angle!%Stenos is 2D!%Stenosis Doppler!Tortuosity ! + +----+----+-----+------- -----+ + + !Prox CCA !104 !10.2!60 ! ! ! ! + +----+----+-----+------- -----+ + + !Dist CCA !64 !8.64!60 ! ! ! ! + +----+----+-----+------- -----+ + + !Prox ICA !629 !153 !60 ! ! ! ! + +----+----+-----+------- -----+ + + !Dist ICA !307 !59.9!60 ! ! ! ! + +----+----+-----+------- -----+ + + !Prox ECA !137 !14.1!60 ! ! ! ! + +----+----+-----+------- -----+ + + !Vertebral !47.5!12.6!60 ! ! ! ! + +----+----+-----+------- -----+ + + !Prox Subclavian!195 ! !60 ! ! ! ! + +----+----+-----+------- -----+ + + - Additional Measurements:ICAPSV/CCAPS V 9.83.ICAEDV/CCAEDV 15. Performing Organization Address City/State/Zipcode Phone Number [facility] [employer] of the [employer] [facility] 2D Echo W/Doppler(CW/PW/Color) (01/27/2020 11:14 AM CDT) Ejection Fraction [facility] [employer] [facility] Specimen Narrative Performed At Transthoracic Echocardiography Report (T TE) [facility] [employer] [facility] Demographics Patient Name Carrie SANTIAGO of Study 01/27/2020 ANA CRISTINA [id number] Gender Female Visit Number [id number] RaceCa [id number] Room Number 1126 Number Date of Birth1960 Referring Physician Rao Gonzalez MD Age59 year(s) Take Down Inspector Janette dahl [facility] [[email or web address]] Tomasa Rossi BRITTANY william Physician Procedure Type of Study TTE procedure:2DECHO W DOPPLER(CW/PW/COLOR) (STAT) Indications:Acute Chest Pain/ Suspected CAD. Clinical History CAD, HTN HGB 9.8 HCT 28.9 % Contrast Medium: Definity. Amount - 2 ml Height: 64 inches Weight: 124.28 kg (274 lbs) BSA: 2.24 m^2 BMI: 47.03 kg/m^2 HR: 76 bpm BP: 108/56 mmHg Summary The left ventricle is chamber size (by vol index) is normal (female - LVED vol - 29-61ml/m2). All of the LV segments contract normally . LVEF by Blanca's method of disk assessment is normal (>60%) . Grade 2 diastolic dysfunction (moderately increased LA pressure). Severe aortic stenosis. AoV area at rest by continuity equation is in the range of 0.96 cm2. AoV dimensionless obstructive index (DOI)) is 0.25 .Peak Grad; 99 mmHg ,Mean Grad; 61 mmHg . Unable to estimate peak systolic PA pressure; inadequate TR velocity signal. Previous Study No prior studies available for comparis on. Signature Findings Technical Quality: Technically adequate exam. Left Ventricle LV endocardium is adequately visualized with IV ul trasound enhancing agent. The left ventr icle is ch teena size (by vol index) is normal (fem bethany - LV ED vol - 29-61ml/m2). LV septal thicknes s is mi ldly increased (1.2-1.4cm). LV posterior wall th ickness is normal (0.6-1.1cm) . All of t he LV se gments contract normally . Global LV sys tolic fu nction normal . LVEF by Blanca's method of disk as sessment is normal (>60%) . Grade 2 burnett tolic dy sfunction (moderately increased LA press ure). Left AtriumLA size is normal (16-34 ml/m2) . Right VentricleRV chamber size appears normal by limited views . Gl obal RV systolic function is normal . Right Atrium RA size is normal. Aortic Valve Mild AoV cusp calcification. Ao V cusp mobility is decreased . Se donte aortic stenosis. Ao V area at rest by continuity equation is in the ra nge of 0.96 cm2. Ao V dimensionless obstructive index (DOI)) is 0.25 .P eak Grad; 99 mmHg ,Mean Grad; 61 mmHg . Mitral Valve Mild mitral annular calcification. Mi ld MV leaflet thickening. Tricuspid ValveThe tricuspid valve is not well visualized. Un able to estimate peak systolic PA pressu re; in adequate TR velocity signal. Pulmonic Valve PV is not well visualized. AortaAortic root size (SInus of Valsalva diameter) i s no rmal . PericardiumNo pericardial effusion is visualized. IVC/SVC/PA/PV/PleuralThe estimated RA pressure by IVC dynamics 5-10mmHg . Chambers/Structures Left Atrium LA Volume: 73.23 ml LA Area: 23.92 cm^2 LA Vol. Index: 33 ml/m^2 Left Ventricle LVIDd: 4.63 cm LVIDs: 3.18 cm LV Septum Diastolic: 1.06 cm LV PW Diastolic: 1.08 cmLV FS: 31.3 % LVEDV Blanca's:130.88 ml LVESV Blanca's:44.25 mlLVEDVI: 58 ml/m^2 LVEF Blanca's: 66.2 %LVESV I: 20 ml/m^2 LVOT Diameter: 2.22 cm Aorta Ao Root S of Stephanie.: 2.93 cmAscending Aorta: 3.76 cm Doppler/Quantitative Measurements Mitral Valve MV Peak E-Wave: 1.22 m/sMV Peak A-Wave: 1.06 m/s E/A Ratio: 1. 14 Peak Gradient: 5.92 mmHg Deceleration Time: 202.4 msec MV Robert. Peak: Tissue Doppler E' Lateral Velocity: 0.06 m/s E/E': 21.82 Aortic Valve Peak Velocity: 4.98 m/s Mean Velocity: 3.81 m/s Peak Gradient: 99.29 mmHg Mean Gradient: 61.7 mmHg AV Area (continuity): 0.96 cm^2 AV VTI: 120.78 cm AR P1/2t: 447.7 msecDecelerati on Time: 1543.9 msec AV DVI: 0.25 LVOT Peak Velocity: 1.15 m/s Peak Gradient: 5.32 mmHg Mean Velocity: 0.89 m/s Mean Gradient: 3.44 mmHg LVOT Diameter: 2.22 cmLVOT VTI: 29.92 cm LVOT Area: 3.87 cm^2LVOT SV:115.75 ml LVOT CO: 8.8 l/minLVOT CI: 3.93 l/min/m^2 Procedure Note Interface, External Ris In - 01/27/2020 1:43 PM CDT Transthoracic Echocardiography Report (TTE) Demographics Patient Name RENA SANTIAGO Date of Study 01/27/2020 ANA CRISTINA Gende r Female Visit Number [id number] Race Room Number 1126 Number Date of 1960 Refer ring Physician Rao Gonzalez MD Age 59 year(s) Sonog rapher Janette Renee, [facility] [[email or web address]] [employer] Member Mireille Rosis, [facility] Inter preting Eliseo Alcantara, Physi arin MCPHERSON Procedure Type of Study TTE procedure:2DECHO W DOPPLE R(CW/PW/COLOR) (STAT) Indications:Acute Chest Pain/ Suspected CAD. Clinical History CAD, HTN HGB 9.8 HCT 28.9 % Contrast Medium: Definity. Amount - 2 ml Height: 64 inches Weight: 124.28 kg (274 lbs) BSA: 2.24 m^2 BMI: 47.03 kg/m^2 HR: 76 bpm BP: 108/56 mmHg Summary The left ventricle is chamber size (by vol index) is normal (female - LVED vol - 29-61ml/m2). All of the LV segmen ts contract normally . LVEF by Blanca's method of disk assessment is normal (>60%) . Grade 2 diastolic dysfunction (moderate ly increased LA pressure). Severe aortic stenosis. AoV area at res t by continuity equation is in the range of 0.96 cm2. AoV dimensionless ob structive index (DOI)) is 0.25 .Peak Grad; 99 mmHg ,Mean Grad; 61 mmHg . Unable to estimate peak systolic PA pre ssure; inadequate TR velocity signal. Previous Study No prior studies available for comparis on. Signature Findings Technical Quality: Technically adequate exam. Left Ventricle LV endocardium i s adequately visualized with IV ultrasound enhan cing agent. The left ventricle is chamber size (by vol index) is normal (female - LVED vol - 29-61 ml/m2). LV septal thickness is mildly increased (1.2-1.4cm). LV posterior wall thickness is nor mal (0.6-1.1cm) . All of the LV segments contrac t normally . Global LV systolic function normal . LVEF by Blanca's method of disk assessment is no rmal (>60%) . Grade 2 diastolic dysfunction (mod erately increased LA pressure). Left Atrium LA size is sahil l (16-34 ml/m2) . Right Ventricle RV chamber size appears normal by limited views . Global RV systol ic function is normal . Right Atrium RA size is sahil l. Aortic Valve Mild AoV cusp ca lcification. AoV cusp mobilit y is decreased . Severe aortic st enosis. AoV area at rest by continuity equation is in the range of 0.96 cm 2. AoV dimensionles s obstructive index (DOI)) is 0.25 .Peak Grad; 99 m mHg ,Mean Grad; 61 mmHg . Mitral Valve Mild mitral emeli lar calcification. Mild MV leaflet thickening. Tricuspid Valve The tricuspid va lve is not well visualized. Unable to estima te peak systolic PA pressure; inadequate TR ve locity signal. Pulmonic Valve PV is not well v isualized. Aorta Aortic root size (SInus of Valsalva diameter) is normal . Pericardium No pericardial e ffusion is visualized. IVC/SVC/PA/PV/Pleural The estimated RA pressure by IVC dynamics 5-10mmHg . Chambers/Structures Left Atrium LA Volume: 73.23 ml LA Area: 23.92 cm^2 LA Vol. Index: 33 ml/m^2 Left Ventricle LVIDd: 4.63 cm LVIDs: 3.18 cm LV Septum Diastolic: 1.06 cm LV PW Diastolic: 1.08 cm LV FS: 31.3 % LVEDV Blanca's:130.88 ml LVESV Blanca's:44.25 ml LVEDVI: 58 ml/m^2 LVEF Blanca's: 66.2 % LVESVI: 20 ml/m^2 LVOT Diameter: 2.22 cm Aorta Ao Root S of Stephanie.: 2.93 cm Ascending Aorta: 3.76 cm Doppler/Quantitative Measurements Mitral Valve MV Peak E-Wave: 1.22 m/s M V Peak A-Wave: 1.06 m/s E /A Ratio: 1.14 P eak Gradient: 5.92 mmHg D eceleration Time: 202.4 msec MV Robert. Peak: Tissue Doppler E' Lateral Velocity: 0.06 m/s E /E': 21.82 Aortic Valve Peak Velocity: 4.98 m/s M taisha Velocity: 3.81 m/s Peak Gradient: 99.29 mmHg M taisha Gradient: 61.7 mmHg AV Area (continuity): 0.96 cm^2 AV VTI: 120.78 cm AR P1/2t: 447.7 msec D eceleration Time: 1543.9 msec AV DVI: 0.25 LVOT Peak Velocity: 1.15 m/s Pea k Gradient: 5.32 mmHg Mean Velocity: 0.89 m/s Hanh n Gradient: 3.44 mmHg LVOT Diameter: 2.22 cm LVO T VTI: 29.92 cm LVOT Area: 3.87 cm^2 LVO T SV:115.75 ml LVOT CO: 8.8 l/min LVO T CI: 3.93 l/min/m^2 Performing Organization Address City/[facility]/Zipcode Phone Number [facility] Vitamin B12 and Folate (01/27/2020 4:00 AM CDT) Vitamin B12 563 213 - 816 pg/mL [facility] Folate 15.50 >=7.00 ng/mL [facility] Specimen Blood Narrative Performed At [facility] - NTP [facility] Performing Organization Address City/State/Zipcode Phone Number [address] [address] CENTER TSH/Free T4 If Indicated (01/27/2020 4:00 AM CDT) TSH 2.001 0.350 - 4.940 uIU/mL [facility] Specimen Blood Narrative Performed At [facility] - [id number] [facility] ICAL [place] Performing Organization Address City/[facility]/Zipcode Phone Number [address] [address] CENTER Iron, TIBC, % sat. (without ferritin) (01/27/2020 4:00 AM CDT) Iron 25.0 (L) 40.0 - 160.0 ug/dL [facility] TIBC 179 (L) 250 - 450 ug/dL [facility] Iron % Saturation 14 (L) 20 - 55 % [facility] Specimen Blood Narrative Performed At [facility] - [facility] Performing Organization Address [facility] Phone Number [address] [address] CENTER Ferritin (01/27/2020 4:00 AM CDT) Ferritin 709.39 (H) 5.00 - 275.00 ng/mL [facility] Specimen Blood Narrative Performed At [facility] - [facility] Performing Organization Address City/[facility] Phone Number [address] [address] [place] Platelet Aggregation: Function Screen (01/27/2020 3:59 AM CDT) Pathologist: Braden Gonzalez M.D. [facility] (electonic signature) [facility] [place] Platelets 275 150 - 450 K/CU [facility] MM [facility] ADP 65 62 - 100 % [facility] Platelet Rich Plasma 300 200 - 300 k/cu [facility] mm [facility] Plt. Function Screen Normal aggregation [facility] Vincenzo [facility] Interpretation results with ADP. No [facility] evidence of platelet dysfunction or P2Y12 inhibitor effect. Specimen Blood Narrative Performed At Platelet Function Screen results may be [facility] falsely low with platelet counts <75,000/cu mm. [facility] - [id number] Performing Organization Address City/State/Zipcode Phone Number [facility] [address] [place] [address] CENTER Urinalysis w/Microscopic + Reflex to Culture (01/26/2020 10:37 PM CDT) Color, UA Light Yellow [facility] Clarity, UA Clear [facility] Specific Foley, UA 1.012 1.001 - 1.035 [facility] pH, UA 6.0 5.0 - 8.0 [facility] Protein, UA 20 mg/dL (A) Negative [facility] Glucose, UA Negative Negative [facility] Ketones, UA Negative Negative [facility] Bilirubin, UA Negative Negative [facility] Blood, UA Small (A) Negative [facility] Nitrite, UA Negative Negative [facility] Leukocytes, UA Large (A) Negative [facility] Urobilinogen, UA 0.2 0.2 - 1.0 mg/dL [facility] RBC, UA 2 /HPF [facility] WBC, UA 37 /HPF [facility] Mucus Rare [facility] Squam Epithel, UA 2 /HPF [facility] Specimen Source [facility] Specimen Urine Narrative Performed At [facility] - [auto] [facility] - aly Performing Organization Address City/[facility] Cent[facility] Phone Number [facility] [address] [place] [address] CENTER Urine culture (01/26/2020 10:37 PM CDT) Result No growth [facility] Specimen Urine Performing Organization Address City/[facility]/Zipcode Phone Number [facility] [address] [place] [address] CENTER after 02/16/2019 Insurance Payer Benefit Plan / Group Subscriber ID Type Phone A ddress CDC REVIEW CDC REVIEW xxxxxxxx [address] [place], [place] [phone] Guarantor Name Account Type Relation to Date of Phone Billing Patient Address Rena Santiago Personal/Family Self 1960 [address] [place] [address] Advance Directives For more information, please contact:[address] [phone] Code Status Date Activated Date Inactivated Comments Full Code 02/05/2020 2:59 PM 02/14/2020 2:56 PM This code status was determined by: Patient Full Code 01/26/2020 7:48 PM 02/05/2020 2:59 PM This code status was determined by: Patient
--- OUTSIDE RECORDS SUMMARY | 2020-02-17 20:24 | XMS REPORT | Continuity of Care Document ---
:1960 [facility] Organization [facility] t Address [address] [place] [address] Care Team Providers Name Role Phone MADDY QUICK Attending Clinician Unavailable Maddy Quick MD Attending Clinician Carlos MCPHERSON Attending Clinician Barney Padgett Attending Clinician Unavailable Tanya Olivera MD Attending Clinician Lior Baird MD Attending Clinician MADDY QUICK Admitting Clinician Unavailable Payers Payer Name Policy Type Policy Number Effective Date Expiration Date S ource CDC REVIEWCDC xxxxxxxx [facility] [id number] Center Problems Condition Condition Condition Status Onset Resolution Last Treating Co mments Source Name Details Category Date Date Treatment Clinician Date Transient Transient Disease Active 2019- [facility] ischemic [facility] attack attack 00:00: Medical 00 [place] Acute Acute Disease Active 2020-[address] [facility]emia 00:00: Medica l 00 Center Hyponatrem Hyponatrem Disease Active 2020-[address] ia ia 02-07 [facility] - 00:[facility]: Medical 00 Center s/p AVR s/p AVR Disease Active 2020-[address] [facility] (tissue) (tissue) 02-04 [facility] - and ACBx1 and ACBx1 00:00: Medi rl (CULVER to (CULVER to 00 Center LAD) by LAD) by Dr.Livesay Casey 02/05/20. 02/05/20. S/P S/P Disease Active 2020-[address] [facility] carotid carotid 8- [facility] - endarterec endarterec 00:00: Me dical dino by dino by 00 [place] Jarod Jarod -01/31/20 -01/31/20 Severe Severe Disease Active [facility] aortic aortic [facility] - stenosis stenosis Medica [facility] Essential Essential Disease Active [facility] hypertensi hypertensi kes - on on [facility] Center Coronary Coronary Disease Active [facility] t artery artery [facility] - disease disease Medical involving involving Cent [place] coronary coronary artery of artery of [place] heart heart without without angina angina pectoris pectoris Diastolic Diastolic Disease Active [facility] dysfunctio dysfunctio ke - n n [facility] Center Acute Acute Disease Active [facility] respirator respirator kes - y y Medical insufficie insufficie Ce nter ncy ncy Acute Acute Disease Active [facility] blood loss blood loss [facility] anemia anemia [facility] Hyperglyce Hyperglyce Disease Active [facility] elizabeth elizabeth [facility] Morbid Morbid Disease Active [facility] obesity obesity [facility] - with BMI with BMI Medica l of of Center 45.0-49.9, 45.0-49.9, adult adult Vasogenic Vasogenic Disease Active [facility] shock shock [facility] Allergies, Adverse Reactions, Alerts This patient has no known allergies or adverse reactions. Social History Social Habit Start Date Stop Date Quantity Comments Source Sex Assigned At [facility] Medications Ordered Filled Start Stop Current Ordering Indication Dosage Frequency Signature Comments Components Source Medication Medication Date Date Medication? Clinician (SIG) Name Name hydrOXYzine 2019- No 25mg Take [address] [facility] (ATARAX) 25 02-13 by mouth Az[place] es - MG tablet 10:13: 00:00 daily as Med ical 04 :00 needed for [place] Anxiety. 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 Medic al 04 :00 [place] clopidogreL 2020- Yes 75mg QD Take [address] [facility] (PLAVIX) 75 02-13 tablet (75 L ukes - mg tablet 00:00: 23:59 mg total) Me dical 00 :00 by mouth [place] daily. ferrous 2020- Yes 325mg Q.5D Take [address] [facility] sulfate 325 02-13 tablet [facility] - (65 FE) MG 00:00: 23:59 (325 mg Med ical tablet 00 :00 total) by Center mouth 2 (two) times daily. gabapentin 2020- Yes 300mg [id number] Take [address] [facility] (NEURONTIN) 02-13 [id number] capsule [facility] - 300 MG 00:00: 23:59 3D (300 mg Medical capsule 00 :00 total) by Center mouth 3 (three) times daily. metoprolol 2020- Yes 25mg Q.5D Take [address] tartrate 02-13 tablet (25 [facility] - (LOPRESSOR) 00:00: 23:59 mg total) Medical 25 MG 00 :00 by mouth 2 Center tablet (two) times daily. HYDROcodone 2019- Yes 1{tbl} Take [address] -acetaminop 02-13 tablet by Sue crawford (NORCO 00:00: 23:59 mouth Medic al 5-325) 00 :00 every 6 Center 5-325 mg (six) per tablet hours as needed for up to 10 days. Max Daily Amount: 4 tablets mINOCYCLine 2019- Yes 100mg Take [address] (MINOCIN,DY 02-13 capsule Luke s - NACIN) 100 00:00: 23:59 (100 mg Med ical MG capsule 00 :00 total) by Cent er mouth every 12 (twelve) hours for 7 days. furosemide 2019- Yes 40mg QD Take [address] [facility] [address] (LASIX) 40 02-13 tablet (40 Sue kes - MG tablet 00:00: 23:59 mg total) Me dical 00 :00 by mouth Center daily for 5 days. multivitami 2019- Yes 1{tbl} QD Take [address] n per 8- tablet by [facility] - tablet 22:53: mouth Medical 23 daily. Center omeprazole Yes 20mg QD Take [address] (PRILOSEC) - by mouth [facility] - 20 MG 22:53: daily. Medical capsule 23 Center sertraline Yes 100mg QD Take [address] (ZOLOFT) 8-26 mg by [facility] - 100 MG 22:53: mouth Medical tablet 23 daily. Center amLODIPine Yes 10mg QD Take [address] (NORVASC) 8-26 by mouth [facility] - 10 MG 22:53: daily. Medical tablet 22 [place] aspirin 81 2019-0 Yes 81mg QD Take [address] MG EC 8-26 by mouth [facility] - tablet 22:53: daily. Medical [address] [place] [address] cyclobenzap Yes 5mg Take [address] rine 8-26 by mouth 3 [facility] - (FLEXERIL) 22:53: (three) Medi rl 5 MG tablet 22 times Center daily as needed for Muscle spasms. lovastatin Yes high 20mg QD Take [address] (MEVACOR) 8-26 cholesterol by mouth [facility] - 20 MG 22:53: nightly. Medical tablet 22 Center Vital Signs Vital Name Observation Time Observation Value Comments Source Systolic blood 2020-02-14 07:32:00 121 mm[Hg] [facility] Diastolic blood 2020-02-14 07:32:00 58 mm[Hg] [facility] Heart rate 2020-02-14 07:32:00 77 /min [facility] Body temperature 2020-02-14 07:32:00 37.44 Kiara [facility] Respiratory rate 2020-02-14 07:32:00 20 /min [facility] Oxygen saturation in 2020-02-14 07:32:00 93 /min [facility] Arterial blood by Medical Ce nter Pulse oximetry Body weight Measured 2020-02-14 01:35:00 123.741 kg [facility] BMI 2020-02-14 01:35:00 48.32 kg/m2 [facility] Body height 2020-01-27 01:15:[address] [facility] Procedures Procedure Date / Time Performing Clinician Source Performed REPORT OF PROCEDURE - 2020-02-16 11:00:14 Provider, Default [facility] ENDOSCOPY SCAN Scanning [facility] RHYTHM STRIP - SCAN 2020-02-16 11:00:12 Provider, Default [facility] Scanning [facility] XR CHEST 1 VIEW 2020-02-14 10:38:00 Sally Gonzales V[facility] PORTABLE/BEDSIDE [facility] Center BASIC METABOLIC PANEL (7) 2020-02-14 04:59:00 Sally Gonzales V. [facility] MAGNESIUM 2020-02-14 04:59:00 Sally Gonzales V. [facility] POCT-GLUCOSE METER 2020-02-13 22:10:00 Rao Gonzalez [facility] CBC (HEMOGRAM ONLY) 2020-02-13 02:42:[address] [facility] BASIC METABOLIC PANEL (7) 2020-02-12 04:49:00 Darryn Olivera Klar[facility] CBC (HEMOGRAM ONLY) 2020-02-12 04:49:00 Jarod [facility] MAGNESIUM 2020-02-12 04:49:00 Darryn Olivera [facility] PHOSPHORUS 2020-02-12 04:49:00 Darryn Olivera [facility] RHYTHM STRIP - SCAN 2020-02-11 12:00:05 Abby Mackey [facility] POCT-GLUCOSE METER 2020-02-11 07:01:00 Rao Gonzalez [facility] CBC (HEMOGRAM ONLY) 2020-02-11 05:04:00 Jarod [facility] BASIC METABOLIC PANEL (7) 2020-02-11 05:03:00 Darryn Olivera CH, I [facility] MAGNESIUM 2020-02-11 05:03:00 JarodDarryn bucio [facility] PHOSPHORUS 2020-02-11 05:03:00 Jarod [facility] POCT-GLUCOSE METER 2020-02-10 21:23:00 Rao Gonzalez [facility] POCT-GLUCOSE METER 2020-02-10 15:43:00 Rao Gonzalez [facility] POCT-GLUCOSE METER 2020-02-10 11:03:00 Rao Gonzalez [facility] POCT-GLUCOSE METER 2020-02-10 08:00:00 Rao Gonzalez [facility] BASIC METABOLIC PANEL (7) 2020-02-10 06:14:00 Jarod [facility] CBC (HEMOGRAM ONLY) 2020-02-10 06:14:00 Jarod [facility] MAGNESIUM 2020-02-10 06:14:00 Jarod [facility] PHOSPHORUS 2020-02-10 06:14:00 Jarod [facility] SARS-COV2/RT-PCR ([facility] & REF 2020-02-09 23:04:00 Brody Kellogg [facility] POCT-GLUCOSE METER 2020-02-09 23:01:00 Carlos [facility] POCT-GLUCOSE METER 2020-02-09 17:41:00 Carlos [facility] POCT-GLUCOSE METER 2020-02-09 12:47:00 Carlos [facility] POCT-GLUCOSE METER 2020-02-09 07:35:00 Carlos [facility] BASIC METABOLIC PANEL (7) 2020-02-09 05:05:00 Rao Gonzalez [facility] MAGNESIUM 2020-02-09 05:05:00 Carlos [facility] PHOSPHORUS 2020-02-09 05:05:00 Carlos [facility] CBC (HEMOGRAM ONLY) 2020-02-09 05:05:[address] [facility] POCT-GLUCOSE METER 2020-02-08 22:03:00 Carlos [facility] TRANSFUSION SERVICE REPORT - 2020-02-08 18:21:37 Arpan Mackey lt [facility] POCT-GLUCOSE METER 2020-02-08 16:53:00 Carlos [facility] POCT-GLUCOSE METER 2020-02-08 11:44:00 Rao Gonzalez [facility] POCT-GLUCOSE METER 2020-02-08 08:04:00 Rao Gonzalez [facility] POCT-GLUCOSE METER 2020-02-08 06:00:00 Carlos [facility] BASIC METABOLIC PANEL (7) 2020-02-08 02:57:00 Nicholas Brown [facility] MAGNESIUM 2020-02-08 02:57:00 Nicholas Brown [facility] PHOSPHORUS 2020-02-08 02:57:00 Rao Gonzalez [facility] BLOOD GAS, ARTERIAL 2020-02-08 02:57:00 [facility], [facility] CALCIUM, IONIZED 2020-02-08 02:57:00 [facility], [facility] CBC (HEMOGRAM ONLY) 2020-02-08 02:57:[address] [facility] XR CHEST 1 VIEW 2020-02-08 01:13:00 [facility]/BEDSIDE [facility] PREPARE LEUKO-REDUCED RBC 2020-02-07 23:54:00 [facility] TRANSFUSION SERVICE REPORT - 2020-02-07 18:01:22 Arpan Mackey lt [facility] POCT-GLUCOSE METER 2020-02-07 13:39:00 Rao Gonzalez [facility] CTA BRAIN 2020-02-07 12:27:00 Nicholas Brown [facility] CT/CTA CAROTID 2020-02-07 12:27:00 Nicholas Brown [facility] CT BRAIN/STROKE TEST DESIGN 2020-02-07 12:27:00 KevinNicholas [facility] BASIC METABOLIC PANEL (7) 2020-02-07 04:40:00 Rao Gonzalez CH, I [facility] MAGNESIUM 2020-02-07 04:40:00 Carlos Rao [facility] PHOSPHORUS 2020-02-07 04:40:00 Rao Gonzalez [facility] BLOOD GAS, ARTERIAL 2020-02-07 04:40:00 [facility], [facility] CALCIUM, IONIZED 2020-02-07 04:40:00 [facility], [facility] CBC (HEMOGRAM ONLY) 2020-02-07 04:40:00 Zena [facility] XR CHEST 1 VIEW 2020-02-07 01:53:00 [facility]/BEDSIDE [facility] Center PREPARE RBC 2020-02-06 23:54:00 [facility] PREPARE PLATELETS 2020-02-06 23:54:00 [facility] PREPARE CRYOPRECIPITATE 2020-02-06 23:54:00 [facility] POCT-GLUCOSE METER 2020-02-06 18:13:00 Rao Gonzalez [facility] TRANSFUSION SERVICE REPORT - 2020-02-06 18:01:56 Arpan Mackey lt [facility] POCT-GLUCOSE METER 2020-02-06 15:56:00 Rao Gonzalez [facility] MAGNESIUM 2020-02-06 14:12:[address] [facility] BASIC METABOLIC PANEL (7) 2020-02-06 14:12:00 Van Freitas [facility] CBC (HEMOGRAM ONLY) 2020-02-06 14:12:00 Zena [facility] TRANSFUSE LEUKO-REDUCED RED 2020-02-06 10:18:57 [facility] CELLS [facility] BASIC METABOLIC PANEL (7) 2020-02-06 04:20:00 Rao Gonzalez [facility] MAGNESIUM 2020-02-06 04:20:00 Rao Gonzalez [facility] PHOSPHORUS 2020-02-06 04:20:00 Rao Gonzalez [facility] BLOOD GAS, ARTERIAL 2020-02-06 04:20:00 Uk, [facility] CALCIUM, IONIZED 2020-02-06 04:20:00 Uk, [facility] CBC W/PLT COUNT & AUTO 2020-02-06 04:20:00 Rao Gonzalez [facility] XR CHEST 1 VIEW 2020-02-06 00:42:00 Uk, [facility] PORTABLE/BEDSIDE Medical Center BLOOD GAS, ARTERIAL 2020-02-05 22:24:00 Uk, [facility] CALCIUM, IONIZED 2020-02-05 22:24:00 Uk, [facility] LACTIC ACID, ARTERIAL 2020-02-05 22:24:00 [facility], [facility] I [facility] BASIC METABOLIC PANEL (7) 2020-02-05 22:23:00 Uk, [facility] MAGNESIUM 2020-02-05 22:23:00 [facility], [facility] BLOOD GAS, ARTERIAL 2020-02-05 20:39:00 [facility], [facility] 2D ECHO W/ DOPPLER 2020-02-05 19:50:54 [facility], [facility] (CW/PW/COLOR) [facility] OXYGEN SATURATION, MEASURED 2020-02-05 19:18:00 [facility] CALCIUM, IONIZED 2020-02-05 19:17:00 [facility] PT/APTT 2020-02-05 19:17:00 [facility] LACTIC ACID, ARTERIAL 2020-02-05 19:17:00 [facility] BLOOD GAS, ARTERIAL 2020-02-05 19:17:00 [facility] SODIUM NA-STAT LAB 2020-02-05 19:17:00 [facility] POTASSIUM-STAT LAB 2020-02-05 19:17:00 [facility] GLUCOSE-STAT LAB 2020-02-05 19:17:00 [facility] HGB/HCT (H&H) - STAT LAB 2020-02-05 19:17:00 [facility] PREPARE PLASMA 2020-02-05 18:17:[address] [facility] TRANSFUSION SERVICE REPORT - 2020-02-05 18:00:29 Provider, Arpan chaney [facility] CBC (HEMOGRAM ONLY) 2020-02-05 15:48:00 [facility] XR CHEST 1 VIEW 2020-02-05 15:45:00 [facility]Jose [facility]BEDSIDE [facility] BASIC METABOLIC PANEL (7) 2020-02-05 15:43:00 Jose Ramon [facility] MAGNESIUM 2020-02-05 15:43:00 Chandrakant Jose Ramon [facility] PHOSPHORUS 2020-02-05 15:43:00 [facility] BLOOD GAS, ARTERIAL 2020-02-05 15:43:00 [facility] PROTHROMBIN TIME/INR 2020-02-05 15:43:00 Nicholas Brown [facility] APTT 2020-02-05 15:43:00 [facility] Nicholas [facility] FIBRINOGEN 2020-02-05 15:43:00 [facility] CALCIUM, IONIZED 2020-02-05 15:43:00 [facility] OXYGEN SATURATION, MEASURED 2020-02-05 15:43:00 [facility] LACTIC ACID, ARTERIAL 2020-02-05 15:43:00 [facility] POCT-ACT 2020-02-05 14:22:00 Carlos [facility] CALCIUM, IONIZED 2020-02-05 14:15:29 Darryn Varner [facility] BLOOD GAS, ARTERIAL 2020-02-05 14:15:29 Darryn Varner [facility] SODIUM NA-STAT LAB 2020-02-05 14:15:29 Darryn Varner [facility] POTASSIUM-STAT LAB 2020-02-05 14:15:29 Darryn Varner [facility] GLUCOSE-STAT LAB 2020-02-05 14:15:29 Darryn Varner [facility] HGB/HCT (H&H) - STAT LAB 2020-02-05 14:15:29 Darryn Varner [facility] TRANSFUSE CRYOPRECIPITATE 2020-02-05 13:37:45 Darryn Varner [facility] TRANSFUSE LEUKO-REDUCED RED 2020-02-05 13:37:[address] [facility] BLOOD CELLS [facility] TISSUE EXAM 2020-02-05 13:35:00 [facility] POCT-ACT 2020-02-05 13:34:00 Carlos [facility] TRANSFUSE LEUKO-REDUCED 2020-02-05 13:29:13 Darryn Varner [facility] PLATELETS [facility] TRANSFUSE LEUKO-REDUCED 2020-02-05 13:27:10 Darryn Varner [facility] PLATELETS [facility] CALCIUM, IONIZED 2020-02-05 13:26:34 Darryn Varner [facility] PROTHROMBIN TIME/INR 2020-02-05 13:26:34 Darryn Varner I [facility] APTT 2020-02-05 13:26:34 Darryn Varner [facility] FIBRINOGEN 2020-02-05 13:26:34 Darryn Varner [facility] THROMBOELASTOGRAPH (TEG) 2020-02-05 13:26:34 Darryn Varner [facility] PLATELET COUNT 2020-02-05 13:26:34 Darryn Varner [facility] BLOOD GAS, ARTERIAL 2020-02-05 13:26:34 Darryn Varner [facility] SODIUM NA-STAT LAB 2020-02-05 13:26:34 Darryn Varner [facility] POTASSIUM-STAT LAB 2020-02-05 13:26:34 Darryn Varner [facility] GLUCOSE-STAT LAB 2020-02-05 13:26:34 Darryn Varner [facility] HGB/HCT (H&H) - STAT LAB 2020-02-05 13:26:34 Darryn Varner [facility] CBC W/PLT COUNT & AUTO 2020-02-05 13:26:00 Chandrakant Jose Ramon [facility] POCT-ACT 2020-02-05 13:06:00 Carlos [facility] POCT-ACT 2020-02-05 12:41:00 Carlos [facility] BLOOD GAS, ARTERIAL 2020-02-05 12:39:23 Jarod [facility] SODIUM NA-STAT LAB 2020-02-05 12:39:23 Jarod, [facility] POTASSIUM-STAT LAB 2020-02-05 12:39:23 Jarod, [facility] GLUCOSE-STAT LAB 2020-02-05 12:39:23 Jarod [facility] HGB/HCT (H&H) - STAT LAB 2020-02-05 12:39:23 Jarod [facility] POCT-ACT 2020-02-05 12:17:00 Carlos [facility] BLOOD GAS, ARTERIAL 2020-02-05 12:13:45 Jarod [facility] SODIUM NA-STAT LAB 2020-02-05 12:13:45 Jarod [facility] POTASSIUM-STAT LAB 2020-02-05 12:13:45 Jarod, [facility] GLUCOSE-STAT LAB 2020-02-05 12:13:45 Jarod [facility] HGB/HCT (H&H) - STAT LAB 2020-02-05 12:13:45 Jarod [facility] POCT-ACT 2020-02-05 11:45:00 Carlos, [facility] BLOOD GAS, ARTERIAL 2020-02-05 11:44:55 Jarod [facility] SODIUM NA-STAT LAB 2020-02-05 11:44:55 Jarod [facility] POTASSIUM-STAT LAB 2020-02-05 11:44:55 Jarod, [facility] GLUCOSE-STAT LAB 2020-02-05 11:44:55 Jarod [facility] HGB/HCT (H&H) - STAT LAB 2020-02-05 11:44:55 Jarod [facility] POCT-ACT 2020-02-05 11:13:00 Carlos, [facility] BLOOD GAS, ARTERIAL 2020-02-05 11:10:45 Jarod [facility] SODIUM NA-STAT LAB 2020-02-05 11:10:45 Jarod [facility] POTASSIUM-STAT LAB 2020-02-05 11:10:45 Jarod [facility] GLUCOSE-STAT LAB 2020-02-05 11:10:45 Jarod [facility] HGB/HCT (H&H) - STAT LAB 2020-02-05 11:10:45 Jarod [facility] POCT-ACT 2020-02-05 10:42:00 Carlos, [facility] BLOOD GAS, ARTERIAL 2020-02-05 10:40:07 Jarod [facility] SODIUM NA-STAT LAB 2020-02-05 10:40:07 Jarod [facility] POTASSIUM-STAT LAB 2020-02-05 10:40:07 Jarod, [facility] GLUCOSE-STAT LAB 2020-02-05 10:40:07 Jarod [facility] HGB/HCT (H&H) - STAT LAB 2020-02-05 10:40:07 Jarod [facility] POCT-ACT 2020-02-05 10:25:00 Rao Gonzalez [facility] ANESTHESIA HEIDI 2020-02-05 09:56:15 Darryn Varner [facility] CALCIUM, IONIZED 2020-02-05 09:25:03 [facility] BLOOD GAS, ARTERIAL 2020-02-05 09:25:03 [facility] SODIUM NA-STAT LAB 2020-02-05 09:25:03 [facility] POTASSIUM-STAT LAB 2020-02-05 09:25:03 [facility] GLUCOSE-STAT LAB 2020-02-05 09:25:03 [facility] HGB/HCT (H&H) - STAT LAB 2020-02-05 09:25:03 Darryn Varner [facility] REPLACEMENT,VALVE AORTIC 2020-02-05 08:00:00 Jarod [facility] BYPASS,AORTO CORONARY TERESA/SVG 2020-02-05 08:00:00 Jarod [facility] HEIDI 2020-02-05 08:00:00 Jarod [facility] BASIC METABOLIC PANEL (7) 2020-02-05 04:05:00 Rao Gonzalez CH I [facility] MAGNESIUM 2020-02-05 04:05:00 Rao Gonzalez [facility] PHOSPHORUS 2020-02-05 04:05:00 Rao Gonzalez [facility] CBC W/PLT COUNT & AUTO 2020-02-05 04:05:00 Rao Gonzalez [facility] S t [facility] SCREEN, URINE 2020-02-05 03:54:00 [facility] SARS-COV2/RT-[facility] ([facility] & REF 2020-02-04 16:19:00 Jarod [facility] LAB[facility]) [facility] HEMOGLOBIN A1C 2020-02-04 14:13:00 Debonte, [facility] LIPID PANEL 2020-02-04 14:13:00 Debonte, [facility] PROTHROMBIN TIME/INR 2020-02-04 14:13:00 Debonte, [facility] APTT 2020-02-04 14:13:00 Debonte, [facility] TYPE AND SCREEN, AUTOMATED 2020-02-04 14:13:00 Keysha [facility] BASIC METABOLIC PANEL (7) 2020-02-04 03:43:00 Carlos [facility] MAGNESIUM 2020-02-04 03:43:00 Carlos [facility] PHOSPHORUS 2020-02-04 03:43:00 Carlos, [facility] CBC W/PLT COUNT & AUTO 2020-02-04 03:43:00 [facility] 2020-02-03 11:49:00 [facility] BASIC METABOLIC PANEL (7) 2020-02-03 11:49:00 Carlos [facility] MAGNESIUM 2020-02-03 11:49:00 Carlos [facility] CBC W/PLT COUNT & AUTO 2020-02-03 11:49:00 [facility]ST 1 VIEW 2020-02-03 05:12:00 Katrina, [facility] PORTABLE/BEDSIDE [facility] TROPONIN I 2020-02-02 08:34:00 [facility] CHEST 1 VIEW 2020-02-02 05:09:00 Katrina [facility] PORTABLE/BEDSIDE [facility] LACTIC ACID, ARTERIAL 2020-02-02 04:23:00 Katrina, [facility] TROPONIN I 2020-02-02 01:58:00 [facility] CALCIUM, IONIZED 2020-02-02 01:58:00 Arcosodalys [facility] BASIC METABOLIC PANEL (7) 2020-02-02 01:58:00 Josselyn Freeman [facility] PHOSPHORUS 2020-02-02 01:58:[address] [facility] MAGNESIUM 2020-02-02 01:58:[address] [facility] CBC W/PLT COUNT & AUTO 2020-02-02 01:58:00 Eleuterio Bush [facility] TRANSFUSION SERVICE REPORT - 2020-02-01 18:13:48 Provider, [facility] TROPONIN I 2020-02-01 17:53:00 Lara [facility] ECG 12-LEAD 2020-02-01 13:25:03 Unknown, Hl7 Doctor [facility] XR CHEST 1 VIEW 2020-02-01 04:54:00 Katrina, [facility]/BEDSIDE [facility] CALCIUM, IONIZED 2020-02-01 03:13:00 Josselyn Freeman [facility] BASIC METABOLIC PANEL (7) 2020-02-01 03:13:00 Josselyn Freeman [facility] PHOSPHORUS 2020-02-01 03:13:[address] [facility] MAGNESIUM 2020-02-01 03:13:[address] [facility] LACTIC ACID, ARTERIAL 2020-02-01 03:13:00 Katrina [facility] BLOOD GAS, ARTERIAL 2020-02-01 03:13:00 Katrina [facility] CBC W/PLT COUNT & AUTO 2020-02-01 03:13:00 Eleuterio Bush [facility] (CELLAVISION MANUAL DIFF) 2020-02-01 03:13:00 Josselyn Freeman [facility] POCT-GLUCOSE METER 2020-02-01 00:54:00 Rao Gonzalez [facility] ECG 12-LEAD 2020-01-31 20:01:[address] [facility] BLOOD GAS, ARTERIAL 2020-01-31 18:24:00 Josselyn Freeman [facility] CALCIUM, IONIZED 2020-01-31 18:18:00 Josselyn Freeman [facility] BASIC METABOLIC PANEL (7) 2020-01-31 18:18:00 Josselyn Freeman [facility] PHOSPHORUS 2020-01-31 18:18:[address] [facility] PT/APTT 2020-01-31 18:18:[address] [facility] MAGNESIUM 2020-01-31 18:18:[address] [facility] CBC W/PLT COUNT & AUTO 2020-01-31 18:18:00 Eleuterio Bush [facility] (CELLAVISION MANUAL DIFF) 2020-01-31 18:18:00 Jsoselyn Freeman [facility] TRANSFUSION SERVICE REPORT - 2020-01-31 18:00:26 Arpan Mackey lt [facility] TISSUE EXAM 2020-01-31 15:39:00 Darryn Olivera [facility] ENDARTERECTOMY,CAROTID 2020-01-31 13:49:00 Darryn Olivera [facility] Yolanda [facility] BASIC METABOLIC PANEL (7) 2020-01-31 03:31:00 Warren Kellogg ph [facility] APTT 2020-01-31 03:31:00 Rao Gonzalez [facility] MAGNESIUM 2020-01-31 03:31:00 Quincy Morrell [facility] PHOSPHORUS 2020-01-31 03:31:00 LalitaOnesimo websterew [facility] ABORH, MANUAL 2020-01-31 03:31:00 Carolynn Strong [facility] ECG 12-LEAD 2020-01-30 18:20:40 Unknown, Hl7 Doctor [facility] MAGNESIUM 2020-01-30 18:12:[address] [facility] COMPREHENSIVE METABOLIC PANEL 2020-01-30 18:12:00 Ruddy Schroeder [facility] HEMOGLOBIN A1C 2020-01-30 18:12:00 [facility] LIPID PANEL 2020-01-30 18:12:00 Elda [facility] PROTHROMBIN TIME/INR 2020-01-30 18:12:00 Lor Schroeder [facility] APTT 2020-01-30 18:12:00 Elda, melchor [facility] TYPE AND SCREEN, AUTOMATED 2020-01-30 18:12:00 Georgina Schroeder [facility] CBC W/PLT COUNT & AUTO 2020-01-30 18:12:00 Lor Schroeder [facility] SARS-COV2/RT-PCR (SLHS & REF 2020-01-30 05:18:00 Dash Schroeder [facility] BASIC METABOLIC PANEL (7) 2020-01-30 03:42:00 Warren Kellogg ph [facility] APTT 2020-01-30 03:42:00 Rao Gonzalez [facility] APTT 2020-01-29 20:20:00 Rao Gonzalez [facility] APTT 2020-01-29 14:36:00 Rao Gonzalez [facility] CT/CTA CAROTID 2020-01-29 09:22:00 Darryn Olivera [facility] BASIC METABOLIC PANEL (7) 2020-01-29 05:44:00 AllencherrilWarren [facility] APTT 2020-01-29 05:44:00 Allencherril, [facility] CBC W/PLT COUNT & AUTO 2020-01-29 05:44:00 Allenblaineril [facility] SODIUM, RANDOM URINE 2020-01-28 14:43:00 [facility] OSMOLALITY, URINE 2020-01-28 14:43:[address] [facility] OSMOLAL[facility], SERUM 2020-01-28 14:43:00 [facility] CREATININE, RANDOM URINE 2020-01-28 14:43:00 [facility] APTT 2020-01-28 07:13:00 Allencherrilisy [facility] BASIC METABOLIC PANEL (7) 2020-01-28 01:39:00 AllencherrilWarren [facility] MAGNESIUM 2020-01-28 01:39:00 [facility] 2020-01-28 01:39:00 Allencherril [facility] CBC W/PLT COUNT & AUTO 2020-01-28 01:39:[address] [facility] US RENAL COMPLETE 2020-01-28 00:28:00 Melanie Dixon [facility] XR CHEST 1 VIEW 2020-01-27 19:32:00 Joan Yeh [facility]BEDSIDE [facility] APTT 2020-01-27 17:59:00 Bess [facility] CAROTID DOPPLER BILATERAL 2020-01-27 16:54:00 Darryn Olivera I [facility] 2D ECHO W/ DOPPLER 2020-01-27 11:14:04 [facility] APTT 2020-01-27 10:49:00 Aureliano Quick [facility] BASIC METABOLIC PANEL (7) 2020-01-27 04:00:00 Warren Kellogg ph [facility] MAGNESIUM 2020-01-27 04:00:00 [facility] HEMOGLOBIN A1C 2020-01-27 04:00:00 [facility] 2020-01-27 04:00:00 [facility] TROPONIN I 2020-01-27 04:00:00 [facility] FERRITIN 2020-01-27 04:00:00 [facility] IRON, TIBC, % SAT. (WITHOUT 2020-01-27 04:00:[address] [facility] FERRITIN) [facility] VITAMIN B12 AND FOLATE 2020-01-27 04:00:00 [facility] TSH/FREE T4 IF INDICATED 2020-01-27 04:00:00 Joan Yeh [facility] CBC W/PLT COUNT & AUTO 2020-01-27 04:00:[address] [facility] PLATELET AGGREGATION: 2020-01-27 03:59:00 Diogo Sarmiento [facility] PROTHROMBIN TIME/INR 2020-01-27 03:59:00 Eliseo Kellogg I [facility] APTT 2020-01-27 03:59:00 [facility] SARS-COV2/RT-PCR (SLHS & REF 2020-01-26 22:38:[address] [facility] LABS) [facility] URINE CULTURE 2020-01-26 22:37:00 [facility] URINALYSIS W/ REFLEX URINE 2020-01-26 22:37:00 Dharmesh Kellogg [facility] ECG 12-LEAD 2020-01-26 21:17:21 Unknown, Hl7 Doctor [facility] BASIC METABOLIC PANEL (7) 2020-01-26 21:00:00 NayaWarren wasserman ph [facility] MAGNESIUM 2020-01-26 21:00:00 [facility] TROPONIN I 2020-01-26 21:00:00 [facility] APTT 2020-01-26 21:00:00 [facility] Plan of Care Planned Activity Planned Date Details Comments Source Future Scheduled 2023-02-[address] 00:[facility]00 (procedure) [code = [facility] 04476896] Future Scheduled 2020-02-01 INFLUENZA VACCINE (#1) [facility]00 [code = INFLUENZA Medical Ce nter VACCINE (#1)] Future Scheduled [address] [facility] 00:[facility] cervix (procedure) [code = 876303616] Future Scheduled 1964-02-[address] [facility] - Test 00:00:00 2-64 YEARS AT RISK (1 Medica [facility] Center of 1 - PPSV23) [code = PNEUMOCOCCAL VACCINE 2-64 YEARS AT RISK (1 of 1 - PPSV23)] Future Scheduled [address] [facility] Test 00:00:00 malignant neoplasm of [facility] Center breast (procedure) [code = 062821836] Future Scheduled [address] [facility] Test 00:00:00 malignant neoplasm of [facility] colon (procedure) [code = 449387582] Results Test Description Test Time Test Comments Results Result Comments Source Basic Metabolic Panel 2020-02-14 17:38:00 Test Item Value Reference Range Interpretation Comme nts Sodium (test code = 134 meq/L 136-145 L 2951-2) Potassium (test code = 3.9 meq/L 3.5-5.1 2823-3) Chloride (test code = 98 meq/L 98-107 5-0) CO2 (test code = 2028-02) 24 meq/L 22-29 BUN (test code = 3094-0) 9 mg/dL 7-21 Creatinine (test code = 0.84 mg/dL 0.57-1.25 2160-0) Glucose (test code = 88 mg/dL 70-105 2345-7) Calcium (test code = 8.5 mg/dL 8.4-10.2 33711-3) EGFR (test code = 90778-9) 69 mL/min/1.73 sq m ESTIMATED GFR IS NOT ACCURATE CREATININE SHIRLEY VETO IN PREDICTING GLOMERULAR FILT RATION RATE. ESTIMATED GFR IS NOT APPLICABLE FOR DIALYSIS PATIEN TS. SAMUEL (test code = SAMUEL) Trim Installer ID - FSE Lab Interpretation (test Abnormal code = 17927-9) [facility]2020-09-14 17:38:00 Test Item Value Reference Range Interpretation Comments Magnesium (test code = 1.9 mg/dL 1.6-2.6 52602-2) SAMUEL (test code = SAMUEL) Trim Installer ID - FSE Lab Interpretation (test Normal code = 37165-1) [facility]2020-09-14 17:38:00 Test Item Value Reference Range Interpretation Comments MAGNESIUM (BEAKER) (test code = 1.9 mg/dL 1.6-2.6 627) Trim Installer ID - FSEBASIC METABOLIC [id number] 17:38:00 Test Item Value Reference Range Interpretation Comments SODIUM (BEAKER) 134 meq/L 136-145 L (test code = 381) POTASSIUM (BEAKER) 3.9 meq/L 3.5-5.1 (test code = 379) CHLORIDE (BEAKER) 98 meq/L 98-107 (test code = 382) CO2 (BEAKER) (test 24 meq/L 22-29 code = 355) BLOOD UREA NITROGEN 9 mg/dL 7-21 (BEAKER) (test code = 354) CREATININE (BEAKER) 0.84 mg/dL 0.57-1.25 (test code = 358) GLUCOSE RANDOM 88 mg/dL 70-105 (BEAKER) (test code = 652) CALCIUM (BEAKER) 8.5 mg/dL 8.4-10.2 (test code = 697) EGFR (BEAKER) (test 69 mL/min/1.73 ESTIMA TEAGAN GFR IS code = 1092) sq m NOT ACCURATE CREATININE CLEARANCE IN PREDICTING GLOMERULAR FILTRATION RATE . ESTIMATED GFR I S NOT APPLICABLE FOR DIALYSIS PATIEN TS. Trim Installer ID - FSERAD, CHEST, 1 VIEW, NON [id number] 10:54:00Reason for exam:->feverShould this be performed at the bedside?->YesFINAL REPORT CLINICAL HISTORY: fever TECHNIQUE: 1 view of the chest. COMPARISON: 02/08/2020 IMPRESSION: The right central line has been removed. Left upper lung opacities have decreased. Left mid and lower lung bandlike opacities are unchanged. There is blunting of the left costophrenic angle. The right lung remains clear. The cardiomediastinal silhouette is magnified by technique with sternotomy wires. Signed: Jolly Gannon MDReport Verified Date/Time: 02/14/2020 10:54:04 Reading Location: [facility] Radiology Reading Room XR chest 1 view portable / [id number] 10:54:00Interface, External Ris In - 02/14/2020 11:01 AM CDTFINAL REPORT CLINICAL HISTORY: fever TECHNIQUE: 1 view of the chest. COMPARISON: 02/08/2020 IMPRESSION: The right central line has been removed. Left upper lung opacities have decreased. Left mid and lower lung bandlike opacities are unchanged. There is blunting of the left costophrenic angle. The right lung remains clear. The cardiomediastinal silhouette is magnified by technique with sternotomy wires. Signed: Jolly Gannon MDReport Verified Date/Time: 02/14/2020 10:54:04 Reading Location: [facility] Radiology [facility] 2020-02-13 22:31:00 Test Item Value Reference Range Interpretation Comments POC-Glucose Meter (test 106 mg/dL 70-110 : TE STED AT [facility] code = 1538) [address] [facility], [address]: Trim Installer/Techni arin ID = [id number] for TRACIE DAWN A Lab Interpretation (test Normal code = 34087-2) [facility] [id number] 22:31:00 Test Item Value Reference Range Interpretation Comments POC-GLUCOSE METER 106 mg/dL 70-110 : TESTED A T [facility] 6720 (BEAKER) (test code = SARABJIT VARGAS [place], 1538) [id number]: Trim Installer/Techni arin ID = [id number] for TIKA BECKER CBC (Hemogram only)2020-02-13 03:48:00 Test Item Value Reference Range Interpretation Comments WBC (test code = 6690-2) 7.8 3.5- 10.5 K/L RBC (test code = 789-8) 2.83 3.93- 5.22 M/L L MCHC (test code = 786-4) 31.2 32.2- 35.5 GM/DL L Hematocrit (test code = 4544-3) 26.6 % 34.1-44.9 L MCV (test code = 787-2) 94.0 fL 79.4-94.8 MCH (test code = 785-6) 29.3 pg 25.6-32.2 RDW (test code = 788-0) 14.6 % 11.7-14.4 H Platelets (test code = 777-3) 368 150- 450 K/CU MM MPV (test code = 20153-2) 10.7 fL 9.4-12.3 nRBC (test code = 413) 0 0- 0 /100 WBC Lab Interpretation (test code = Abnormal 37591-1) [facility]2020-02-13 03:48:00 Test Item Value Reference Range Interpretation Comments WHITE BLOOD CELL COUNT (BEAKER) 7.8 K/ L 3.5-10.5 (test code = 775) RED BLOOD CELL COUNT (BEAKER) 2.83 M/ L 3.93-5.22 L (test code = 761) HEMOGLOBIN (BEAKER) (test code = 8.3 GM/DL 11.2-15.7 L 410) HEMATOCRIT (BEAKER) (test code = 26.6 % 34.1-44.9 L 411) MEAN CORPUSCULAR VOLUME (BEAKER) 94.0 fL 79.4-94.8 (test code = 753) MEAN CORPUSCULAR HEMOGLOBIN 29.3 pg 25.6-32.2 (BEAKER) (test code = 751) MEAN CORPUSCULAR HEMOGLOBIN CONC 31.2 GM/DL 32.2-35.5 L (BEAKER) (test code = 752) RED CELL DISTRIBUTION WIDTH 14.6 % 11.7-14.4 H (BEAKER) (test code = 412) PLATELET COUNT (BEAKER) (test 368 K/CU MM 150-450 code = 756) MEAN PLATELET VOLUME (BEAKER) 10.7 fL 9.4-12.3 (test code = 754) NUCLEATED RED BLOOD CELLS 0 /100 WBC 0-0 (BEAKER) (test code = 413) [id number] 07:13:00 Test Item Value Reference Range Interpretation Comments Phosphorus (test code = 3.8 mg/dL 2.3-4.7 2777-1) SAMUEL (test code = SAMUEL) Trim Installer JOSEP JC M Lab Interpretation (test Normal code = 56627-9) [facility]2020-[facility]-12 07:13:00 Test Item Value Reference Range Interpretation Comments PHOSPHORUS (BEAKER) (test code = 3.8 mg/dL 2.3-4.7 604) Trim Installer JOSEP JC [id number] 07:13:00 Test Item Value Reference Range Interpretation Comments MAGNESIUM (BEAKER) (test code = 1.9 mg/dL 1.6-2.6 627) Trim Installer JOSEP JC MBASIC METABOLIC [id number] 07:13:00 Test Item Value Reference Range Interpretation Comments SODIUM (BEAKER) 132 meq/L 136-145 L (test code = 381) POTASSIUM (BEAKER) 3.9 meq/L 3.5-5.1 (test code = 379) CHLORIDE (BEAKER) 98 meq/L 98-107 (test code = 382) CO2 (BEAKER) (test 27 meq/L 22-29 code = 355) BLOOD UREA NITROGEN 11 mg/dL 7-21 (BEAKER) (test code = 354) CREATININE (BEAKER) 0.80 mg/dL 0.57-1.25 (test code = 358) GLUCOSE RANDOM 107 mg/dL 70-105 H (BEAKER) (test code = 652) CALCIUM (BEAKER) 8.3 mg/dL 8.4-10.2 L (test code = 697) EGFR (BEAKER) (test 73 mL/min/1.73 ESTIMA TEAGAN GFR IS code = 1092) sq m NOT ACCURATE CREATININE CLEARANCE IN PREDICTING GLOMERULAR FILTRATION RATE . ESTIMATED GFR I S NOT APPLICABLE FOR DIALYSIS PATIEN TS. Trim Installer ID - BABITA MCBC (HEMOGRAM ONLY)2020-02-12 05:42:00 Test Item Value Reference Range Interpretation Comments WHITE BLOOD CELL COUNT (BEAKER) 5.9 K/ L 3.5-10.5 (test code = 775) RED BLOOD CELL COUNT (BEAKER) 2.44 M/ L 3.93-5.22 L (test code = 761) HEMOGLOBIN (BEAKER) (test code = 7.2 GM/DL 11.2-15.7 L 410) HEMATOCRIT (BEAKER) (test code = 22.8 % 34.1-44.9 L 411) MEAN CORPUSCULAR VOLUME (BEAKER) 93.4 fL 79.4-94.8 (test code = 753) MEAN CORPUSCULAR HEMOGLOBIN 29.5 pg 25.6-32.2 (BEAKER) (test code = 751) MEAN CORPUSCULAR HEMOGLOBIN CONC 31.6 GM/DL 32.2-35.5 L (BEAKER) (test code = 752) RED CELL DISTRIBUTION WIDTH 14.4 % 11.7-14.4 (BEAKER) (test code = 412) PLATELET COUNT (BEAKER) (test 268 K/CU MM 150-450 code = 756) MEAN PLATELET VOLUME (BEAKER) 10.6 fL 9.4-12.3 (test code = 754) NUCLEATED RED BLOOD CELLS 0 /100 WBC 0-0 (BEAKER) (test code = 413) [id number] 08:49:00 Test Item Value Reference Range Interpretation Comments PHOSPHORUS (BEAKER) (test code = 3.4 mg/dL 2.3-4.7 604) Trim Installer ID - EVAN [id number] 08:49:00 Test Item Value Reference Range Interpretation Comments MAGNESIUM (BEAKER) (test code = 2.1 mg/dL 1.6-2.6 627) Trim Installer ID - EVAN FBASIC METABOLIC [id number] 08:49:00 Test Item Value Reference Range Interpretation Comments SODIUM (BEAKER) 133 meq/L 136-145 L (test code = 381) POTASSIUM (BEAKER) 3.8 meq/L 3.5-5.1 (test code = 379) CHLORIDE (BEAKER) 98 meq/L 98-107 (test code = 382) CO2 (BEAKER) (test 25 meq/L 22-29 code = 355) BLOOD UREA NITROGEN 12 mg/dL 7-21 (BEAKER) (test code = 354) CREATININE (BEAKER) 0.74 mg/dL 0.57-1.25 (test code = 358) GLUCOSE RANDOM 108 mg/dL 70-105 H (BEAKER) (test code = 652) CALCIUM (BEAKER) 8.4 mg/dL 8.4-10.2 (test code = 697) EGFR (BEAKER) (test 80 mL/min/1.73 ESTIMA TEAGAN GFR IS code = 1092) sq m NOT ACCURATE CREATININE CLEARANCE IN PREDICTING GLOMERULAR FILTRATION RATE . ESTIMATED GFR I S NOT APPLICABLE FOR DIALYSIS PATIEN TS. Trim Installer ID - EVAN FPOCT-GLUCOSE [id number] 07:12:00 Test Item Value Reference Range Interpretation Comments POC-GLUCOSE METER 109 mg/dL 70-110 : Notified RN/MD: (BEAKER) (test code = TESTED AT [facility] 5956 8311) [facility], [address]: Trim Installer/Techni arin ID = [id number] for SHRUTHI SOUSA CBC (HEMOGRAM ONLY)2020-02-11 06:39:00 Test Item Value Reference Range Interpretation Comments WHITE BLOOD CELL COUNT (BEAKER) 7.1 K/ L 3.5-10.5 (test code = 775) RED BLOOD CELL COUNT (BEAKER) 2.72 M/ L 3.93-5.22 L (test code = 761) HEMOGLOBIN (BEAKER) (test code = 8.1 GM/DL 11.2-15.7 L 410) HEMATOCRIT (BEAKER) (test code = 25.9 % 34.1-44.9 L 411) MEAN CORPUSCULAR VOLUME (BEAKER) 95.2 fL 79.4-94.8 H (test code = 753) MEAN CORPUSCULAR HEMOGLOBIN 29.8 pg 25.6-32.2 (BEAKER) (test code = 751) MEAN CORPUSCULAR HEMOGLOBIN CONC 31.3 GM/DL 32.2-35.5 L (BEAKER) (test code = 752) RED CELL DISTRIBUTION WIDTH 14.4 % 11.7-14.4 (BEAKER) (test code = 412) PLATELET COUNT (BEAKER) (test 282 K/CU MM 150-450 code = 756) MEAN PLATELET VOLUME (BEAKER) 10.6 fL 9.4-12.3 (test code = 754) NUCLEATED RED BLOOD CELLS 0 /100 WBC 0-0 (BEAKER) (test code = 413) POCT-GLUCOSE [id number] 21:34:00 Test Item Value Reference Range Interpretation Comments POC-GLUCOSE METER 122 mg/dL 70-110 H : TESTED A T [facility] 6720 (BEAKER) (test code = SARABJIT VARGAS [place], 1538) [address]: Trim Installer/Techni arin ID = [id number] for Nd ll, Luiza Tissue [id number] 17:05:00 Test Item Value Reference Range Interpretation Comments Case Report (test code Surgical Pathology = 104) Report Case: [id number] Authorizing Provider: Darryn Olivera MD Collected: 02/05/2020 01:35 PM Ordering Location: [address] Received: 02/08/2020 08:28 AM Service Pathologist: Steve Walker MD Specimen: Aortic Valve, AORTIC VALVE LEAFLET DIAGNOSIS (test code = [id number] 3220) FuZzEwMzNcZnRuYmpcdWMx GUitwyDfRYyfu4BnW4VyMv AwMFxhbnNpXGRlZmxhbmcx ZANlDLF4ocMeGEReMXpaTW BfKYdwMe8tnODnyYxqSiYa KCFgx0cpxxRNzkbigUw5a4 gyWXTmNuX4wYFwCFqjM7vx qhCesTAcUIYlRCa7lZ91JN AirT4wcMQiMRxqigPoBYep cyBawhAsKsj5PIPxW9zfAZ NbITQyF4BaVL0pRZKvXvq2 TKD1MID9gLqhr2I3tLUdcJ VpnSxgNcEyXdOyONRDq1Gn VFw5dCssV9KmPPNvZdS9pT QgUGFyYWdyYXBoIEZvbnQ7 pB95WZtwviX7bDJcu8Dny4 2ji643aN4yaMOzRYY4JDOs MHXbpWLgKILeDUD3WOSbaM GfG1g3IxXopUPqO8K4CzIy nIXsJ7Y7IjEkbHMeU0P5Dl RgtRCtRGEbhQQxNt0ueUIs xOQuhu2agy00XZY1s1SnaT zcAGJ4ENJ2AsDhFy1jwCHd NRCxHC8nTzWzcOXpUPIxfd 36gWosVLjprvZojR3lBkNv QPQzhYDeWFAiBU2zeIReXH ZycB9nrfnxHUBtElWzvfxs FQPudHnwswKaWa3ezRxwSX P7TJvsO6akdQ9fThI7ZTqp T9cygY0qQUk6UGecjFR5HZ PjcF5zYW7mlnmoq7qgZrBt RJ5lnwugs6dhQyUxSK7zye p3k3haNfXjJJ3zhsjvu7fg NzIwXGhlYWRlcnkwXGZvb3 LpuhqbVEPko0OfN8DglKnv R34jnOtuF58mUWCplYyuvG 0tfFcrsQ3vJkDfTnUkMUhw bFxwbGFpblxmMFxmczIwXH BsYWluXGYxXGZzMjAgSEVB UlQsIEFPUlRJQyBWQUxWRS gzMqLEPaTVFJWOK43OXqms SMNwQChBGGKYC3JSSOvJSD VTBUPHIXzNIMvkMb0DKKzS UiBDQUxDSUZJQyBBVEhFUk 3TR8kTBj9KDGJfGNrZH8vO KqtGG4flMOIfQ75VMJJQCS FVDXEFEDhOWMRDBTKwX7zM BQGFI3UYZPUPHM2VA6DKUE HIN77uKJ4DOK0LTJPLENIr W1BHC7mPLHNaCTMJFUVNE5 OZFBHZNKmZWURLLNVSXZ3X TkdccGFyfXtccnRmMVxzc3 XiLDksAKKhMV3ryLqnLOLu XT9oSYFhM8trqX5ugwk5Pr ZvNQQiAcZ9BIVlzpX9Ara1 BLYcREsfb1vxk2IhOLRiMH b9rEurNdJtENCdo2qicqCi ZmNoYXJzZXQwIEFyaWFsO3 18j3sam0pbavEkaGP4ZHSp OGI9FUcsbdLwfbV3TPutvE RlAjO2NNckqqOmEXpbghBv wuHnGzr3ZJWlN316SVT0dV bfu4ryVFE4XPPaBMQtOsUi Kp3vsAOsO806KYAzRNQIIX KirDm9MGVmcdAiyfDaaCDN h035F801m1ihAEQyfsIfaS sKljvwx1cbQ013EKNeeBRv eyQsPkJuGXRihZTbkHX3GD EqIX8mlhduAYkiKClnSTRt ktY6LDYmyQRjM3FqDBIvGC 7blverNID7YHuiFKIzPYT9 RpGuAPUoy9Fdjnz6RvGefg 5jhm54UXK3q6SfkTxjVRG8 XYC6YsPiFw5qcJDzWXBzTA 1eCgAckPYpYBVgcj82qNlq YWimWMO3YDBtreHwz8Itn3 yyIhSruyJeY6enM4XiUOEh MAGmYGKnUxSabdNje4Qut4 UyuDTrrJz2c6gcFGStALGr bOkqt0mxELR1DKUnvZIhN6 xdzC5rWCSpFP2kosdsg1tw AAktBCxpZNDgsEF2xsO4AY GkzEQgC0EmwK8tZOLvHNie CGYhjcg3VjLdYk6yfCNtkP cyMFxzYmtwYWdlXHBnbmNv bnRccGduZGVjXHBsYWluXH BsYWluXGYwXGZzMjRccWxc bGFuZzEwMzNcaGljaFxmMV yiLvOiFQIwYCfaU2itUnQi LsTxAke6TQUawMOaDVMyUe m1RZEekGFtIGSGkAtgzR9q KJPmtFnetI9dxXR8QIBulo EsmXSUiK1iONDZzD3fKgF9 OxBvGgR7BEn1AZBktFItjV 0= CPT Code(s) (test code m0xezYCxEJZehMInWcOyKJ = 3357) BgRXRum0cpIZVxeRYiRvWz MzNcZnRuYmpcdWMxXGRlZm Szl0zdg626vVKwe2lwAGGm YyN4bXIpNAFkmBLqR380s0 dpy4hdetUxdWC5UDJcVAF1 CWdzsvBrraA5JArqdERrFe S6QMqnbxGkUEcknrNitsCq Ley0TEYpG176JIU2mJkxy4 cfPQV0MJViIUHvTdDtPh4x fHMqD430AUVjNOUYVQKqrC r3MGVaytOhdpJqcBIRo144 R335p5vnRQIocxZxoWgQnv yht6rcT157FQMnzMXkthBy HyKaRMHbcQOxgAU2WXTpYF 6xkerqWjPcMT4aolzvFyIz NV3oaap1BnNxMG4udlelPx HoJScoVLHozocrKQFms3Wn crqgSI6zF0Xbk5G7qZ4vtP MwJEXasENtEqLkYWUzrw2p wAVwUHduc7XiGJS4hfM3wL AtuEHnRHNsHG99Lddyd3Ot RaauTUU5LJFkffBmz6Spu4 wzAdHzvxBaM5znV1DpXZCr HFNoQXKuNtGfdjSyd3Etk9 BwcRIybIt2o0noIVUsTLFj mPmim2vzCOL4FGWgN3G8hL Hup7krTHycXZJlhYP9ywih HHiyWQSywbS5uvmzJKzdEM SljXS8cepdWPtvYAVtXhX5 ledrPPktOHQdTBC9HYblq0 18QVD9PBpsTsviJGczGVWf bmNvbnRccGduZGVjXHBsYW luXHBsYWluXGYwXGZzMjRc kRsalZoitS7zHdHzMaRzYF lhNT7iIANlH2yrhUKfNFAl GAKeG4zaJwIzcW2jcTbeTX cpbcVxVCs6IgE4EcC3BNMo MVxwYXJ9 CLINICAL HISTORY (test o0fjhWYzXGVjfVDuEkMtLI code = 3357) PfXWKsl8piGKCrbNWpQfAl MzNcZnRuYmpcdWMxXGRlZm Lpm1nla958nXTxz5xnISGc DsH7sEDxMGAwdIDwY607FJ TvNGsju0wzp0XwYJPfbQYt y0C1IWRIctpbaVb9lDjpZ1 8zx5M7EpqmN9dbQAXySZKd O7OsHY8cRIVuRux8RQA8CT Z0RGSaONXsY3KbPP8aZYJt wZSdCFr8r5nijJmfVSVoOB H2x5zlWJjwtbPoHJ6lew8z lVc7d1fcjtSuBTGhILYjyP FMSOLyF6JbrBqrRx6ueTn4 vNktJkfhXPW1Ipw5MA3wwk 34iyx9aDgtTCDwrwwyQcJ8 WMnlDZVjjkltNNl2LRjcKW JnbDcyMFxtYXJncjcyMFxt YXJndDcyMFxtYXJnYjcyMF jwLIEuAPU2MMnqw519TGN2 RWkot2ems6emaGSfMsq5KT QxWcSuSuooYJubt5Tas0xj IGZbdh7fBFJ6uVAzpQaoz3 P3pWJkXOEugQQwyrKzGHCn RdI0CMvgZE2ofi25AZPnFK Q5qz3rzHZygBqeulJfjSWp TGboD7KrXBBqj385LLObK6 JnITXdo0S5ewVsBmHfKQFk aGO5maE8GEGvCNa9fNYgkc V5iyHqkLVbW7rluO99VkVn rDMzQ3CxfT70QwXplGDgQ5 DrjL45OoSsoGQwY9GklC49 DeYfdUAlETSosKUyHz3tbP XmzNSei6PxkBBhJJhxM11k l198XQIkplDmL5ujjXSvey ljoRIdiompNBgbwuS9RYDd XHBsYWluXGYxXGZzMjBcbG FuZzEwMzNcaGljaFxmMVxk SbKoMMEyRTngI8tpCmEvGj CjYNLQr9Z0dMOuaeFphnZb x2Gjgq2lgKLlWIA0rT3tw1 b8KN2mFRXcolFbBGSvatVg ueNcXJrjFPXuMPT1wsZdYM McFzqtZIigI44ni81pqzxe QNR8XYS5WECxe8Hfx5Vmf3 m2zXYckqaucjLmyBLgpO9o aXNccGFyfQ== SPECIMEN SOURCE (test q5evqLCeVSWpvKByIgYjFO code = 3377) WbYKHoa9hiENGkmHHkSiIa MzNcZnRuYmpcdWMxXGRlZm Nps0poe329kCLkl3wnYVQn NwE8uFZvEUUvgDJaD520p2 sta3hqsdTjvCT3IEKaAHY0 CEsqukLkojM1YQxahTTlSj W4PChpytMeDPccukDossUa Dss5BOMdY469NLV2sGdxz1 bhBDE1GIIrXBLbOsRbFt4a hOJmZ960JYPuIXDDOSSkuM z7KVPxivQafhLchWEGo572 U329k1htFFCizeDolCzPhs jks1vnC681FCHhaAQslsXm AuClBTEegYFadKN9EFEgCE 3cnjseBjIxQY7ntdmkKiQt PR9lurq8JiRaFQ2blwbmGr LuZAkjCBBynwcvACEmg6Wc rydkCK5jW6Ljz6M4mF4prN NyAVMmpCNqLnKpQZCiad0z nCSiPBzjz1WmDHJ5paO9uZ BdzHLjLAIlMC49Cgopy1Uw XvcoEBO7SLQlfjTxp1Jcx6 guKxFbfaNtL5gpL7SyQOJi RTBgNKLpGmDkzaLrz9Ybq5 FqhYJduWb4i2fgPWJjOUVt xMvqf2ioWPJ6TQSsD7C5aB Zbm7qbRSroMFOsrED3xzed KFypZJSzbgY6dgduKCkrKU GirVW8ojbjNZxdDCCkBqT7 iqfbRWuzRNIiDBO0XCecs1 46RFX3OKokTnpfWZhoTBIp bmNvbnRccGduZGVjXHBsYW luXHBsYWluXGYwXGZzMjRc qZnkaQjxpW5oZbNlMfNuRL eaBD9nHHQwY8nkhEJjTZLx AVKdE2ioTeJyaS7jfXfyDT fctlDmCXUrcjPpYvD9VKk9 ZVxwYXJ9 GROSS DESCRIPTION (test o8glfKKzRJLzaIHxKoIkXV code = 3366) BdADDxs9pkQVEsgJAhDqHo MzNcZnRuYmpcdWMxXGRlZm Vht5zzf035qFVmp3ljPHGm OrC8lFQxTDEorNFgO361YR BsDKngp7uja6RoFIUtfEMx q9F6LNHQnyejbDd2hSecU6 8me5K0FljlC2bcWZMtVCsf HPFwSOvyaRLtZPP5UKZoDB B3MZjbdfSzddP5SUwifHOw PqH5TCv5r2nvbDcfSUYxDK T5x7dfCAwidxYyPR5gsy1o uHz8l6dtkrOoSJQbLAHibG YYQSGsO0WrlIriEt5qvMc5 wDbpVrocAZB4Nff9TP9muo 55rho5uSktVTPfjfwyRaV8 ARxvYSJnbhwhPYj3HUcqDO JnbDcyMFxtYXJncjcyMFxt YXJndDcyMFxtYXJnYjcyMF ljNYPiFAK0CXujx649MNB0 HTovk7law9vdnPXzVwi9HQ JlKbDvMlutUWcnz2Thp2gi KMUsyq1vDLU7aILybJiwo4 O0uSCbXFZfyHZfdsUlHCPk VtY6PFvgGY8tqk88PIFnPT M6ba5jqMWxfAkjlfMtlGAo OZgmW9GvXLZun653ZSAfM6 UyWVGbn7C3jlTyMfTxSKMg bVZ5pyF1XKMhLSp7tMTxei B7fbYxoVBfT7qbuN71RgUb oRNhB3OlgW10QeDpfYMwI4 AkdO26OdMeqEKzK0PmcD86 DcDuwABpQJWnbPIaGj0oiO EwiJHii6YheMKqTBuwC06n s224JLNlqwPpE0nclEZqft xwbGFpblxmMFxmczIwXHFs XHBsYWluXGYwXGZzMjBccG iekR6fBzPqWwRbIHGYGSDi xKFiVVTdkvVlm0AdWKyedd BsYWJlbGVkIHdpdGggdGhl BSPahCmrsfWaqkXiWH5xEJ IqJ7Wtw3Nbv95accSnKrJw JBTpQNOlWX9nbIaaXAIjlU ZlIGxlYWZsZXQiIGFyZSB0 m65pCxXrCYAeFF1hfJfpIK E6p1ZhKR6xHLM4scncIsGh LjAgeCAxLjMgeCAwLjIgY2 6hVCNrEPJgLZYuKfD4FTZi NlP7PGAsLjViiWD2sjD1m8 VkIGFvcnRpYyBjdXNwIGRp r7IvWBtgygeiWRLyYbHbX1 6wVlFiNGP4hnL9mU3yJrOO uJMtk4QvKvPfUMNgytJvcN 4hlBcadM6jOc5nKGevnSUz m9Z6rJEsUJXxQPDgVFTtzW Cre2CubaKjHXVwbFuxtfMt FQDmSDEwyGEey5SrUeJsEM MbxfLrvoL4TCrfxUnqadqt Uf1qMZvzsXFzUJtbfTDhPW VgIO1hJBJjXfPpnDUtTWPt tPCcp6PqoGQ2oLZvUEGxW2 Cfv20pJOZwLAUmaBZufYW6 WOIxpO8jMUFoKg0gdZ95jT 4iVKNqY4WfH8unhOWyjOwb tm5yQSLHQ6HzIIkfKKW6 MICROSCOPIC DESCRIPTION b4tzdTOfVPLgdGOzOoUcSA (test code = 3371) OtDIYnb0yzVDJzxRCzDwVn MzNcZnRuYmpcdWMxXGRlZm Ahj7zsg699bRHns3taFMTm AcT5vXIrPLDfgLAzU850o6 cxc1rkoyLbhND5DTUbKCW5 DUpuqvTzoiH4PSvorBUdTr D5OEyshsOqZYhgdtRqovMh Qqz4FNWsD627GHP3mVjdj6 amOTC9XVPxLDEeRwJyVr9d rLSnQ683DRMzERDRFHLevC t3WCJbbiDweqWuvSKBj039 U336p7wfAUYlbxExyQtLos uqy2vtS541HYEtnTSknlMd YePtWBLzuHWbpDF4EADmMF 7iwdtdOwQcVA7iulohLeKs DU7wjvb2YgFdEI2iqvfuUc McYLdwVYIatntiSRYys0Fg jyswPO5gL4Vfd8W2kW8owF EhZDMcgRCvGiLyDSUsob3a zHJaSNnbo7HfLKC5bdF8vT ZnnVPoKFHvCD18Jorss5Cj FwrqDLV6VROcmpHxr6Fkm8 puWhKhbvXdB0iqC4FaEDNr XCWxHOSwIiIybqLjz1Vdm5 AeuCWryUy7g2dlUVQdZACl cLerd3qzMMX7DVBnS5I0eC Qjg0moJBxuNVWdoPH2vafd LChsDEBbsrR6zgslFMhlCD EmuPV2damgERevKBApJwZ0 pkheIJqhGWYkYRL3IZcqz3 71WXN4VLihSxjtNPhpDQSo bmNvbnRccGduZGVjXHBsYW luXHBsYWluXGYwXGZzMjRc bIzhySfubC6yOiGgJwJqNT yvIP3tQMMqR6bdwJByBNUf BCUjZ3zaNgEajY9mbEfnKW jslmLbIDTmolJkfn2pRIcz YXJ9 [facility] HospitalT[facility]UE [id number] 17:05:00Surgical Pathology Report Case: [id number] Authorizing Provider: Darryn Olivera MD Collected: 02/05/2020 01:35 PM Ordering Location: [address] Received: 02/08/2020 08:28 AM Service Pathologist: Steve Walker MD Specimen: Aortic Valve, AORTIC VALVE LEAFLET HEART, AORTIC VALVE, VALVULECTOMY:TWO FUSED LEAFLETS WITH NODULAR CALCIFIC ATHEROSCLEROTIC THICKENINGONE SEPARATE LEAFLET WITH FOCAL FENESTRATION AND NODULAR CALCIFIC ATHEROSCLEROTIC THICKENING Signing Pathologist Direct Phone Line: [phone] signed by Steve Walker MD on 02/10/2020 at 5:05 [id number]; [id number] valve stenosis, etiology of cardiac valve disease unspecified, coronary artery disease with angina pectorisAortic valveReceived in formalin labeled with the patient's name, accession number and "aortic valve leaflet" are two fused aortic cusps measuring 3.0 x 1.3 x 0.2 cm, and a 2.2 x1.2 x 0.3 cm unfused aortic cusp displaying a 0.3 cm fenestration. The surface is smooth to focally nodular and devoid of vegetations. The cut surface is abernathy-yellow, focally calcified and fibrous. [employer] sections are submitted in A1 following decalcification. PA/pl PerformedPOCT-GLUCOSE [id number] 15:57:00 Test Item Value Reference Range Interpretation Comments POC-GLUCOSE METER 144 mg/dL 70-110 H : TESTED A T [facility] 6720 (BEAKER) (test code = SARABJIT VARGAS [place], 1538) 17378: Trim Installer/Techni arin ID = [id number] for HELEN GARCIA [id number] 11:22:00 Test Item Value Reference Range Interpretation Comments MAGNESIUM (BEAKER) (test code = 2.0 mg/dL 1.6-2.6 627) Trim Installer ID - [id number] 11:22:00 Test Item Value Reference Range Interpretation Comments PHOSPHORUS (BEAKER) (test code = 2.8 mg/dL 2.3-4.7 604) Trim Installer ID - EDASIOperator ID - AAHAMIDBASIC METABOLIC [id number] 11:22:00 Test Item Value Reference Range Interpretation Comments SODIUM (BEAKER) 132 meq/L 136-145 L (test code = 381) POTASSIUM (BEAKER) 3.7 meq/L 3.5-5.1 (test code = 379) CHLORIDE (BEAKER) 97 meq/L 98-107 L (test code = 382) CO2 (BEAKER) (test 25 meq/L 22-29 code = 355) BLOOD UREA NITROGEN 15 mg/dL 7-21 (BEAKER) (test code = 354) CREATININE (BEAKER) 0.79 mg/dL 0.57-1.25 (test code = 358) GLUCOSE RANDOM 107 mg/dL 70-105 H (BEAKER) (test code = 652) CALCIUM (BEAKER) 8.6 mg/dL 8.4-10.2 (test code = 697) EGFR (BEAKER) (test 74 mL/min/1.73 ESTIMA TEAGAN GFR IS code = 1092) sq m NOT ACCURATE CREATININE CLEARANCE IN PREDICTING GLOMERULAR FILTRATION RATE . ESTIMATED GFR I S NOT APPLICABLE FOR DIALYSIS PATIEN TS. Trim Installer ID - EDASIOperator ID - AAHAMIDPOCT-GLUCOSE [id number] 11:15:00 Test Item Value Reference Range Interpretation Comments POC-GLUCOSE METER 106 mg/dL 70-110 : TESTED A T [facility] 6720 (BEAKER) (test code = SARABJIT VARGAS [place], 1538) 39752: Trim Installer/Techni arin ID = [id number] for HELEN GARCIA SARS-CoV2/RT-PCR (Asymptomatic ONLY)2020-02-10 09:53:00 Test Item Value Reference Range Interpretation Comments SARS-COV2/RT-PCR Negative Not Detected, (test code = Negative, See 45266-8) external report for linked test SARS-COV-2 [facility] PERFORMING LAB (test code = 81912-5) SAMUEL (test code = Negative result for this SAMUEL) test determines that SARS-CoV-2 RNA was not present in the specimen above the Limit of Detection (LOD). However, Negative results do not preclude SARS-CoV-2 infection and should not be used as the sole basis for treatment or patient management decisions. Negative results must be combined with clinical observations, patient history, and epidemiological information. A false negative result may occur if a specimen is improperly collected, transported or handled. A false negative result should be considered if patient's recent exposures or clinical presentation indicate that COVID-19 (SARS-CoV-2) is likely and diagnostic tests for other causes of illness are negative. Re-testing should be considered in cases of suspected [...] Food and Drug Administration (FDA) cleared or approved. This is a modified version of an approved [...] of the Act. Fact Sheet for Healthcare Providers:https://www.[employer]/sites/default/f hallie/product/documents/F act_Sheet_HC_Providers_L hvr_MTGP-MkJ-4.pdf Fact Sheet for Healthcare Patients:https://www.[employer]/sites/default/fi les/product/documents/Fa ct_Sheet_Patients_Lyra_S ARS-CoV-2.pdf Performing Laboratory:[facility], [place] [address] [place], [place] [address]ARS-COV2/RT-PCR ([facility])2020-02-10 09:53:00 Test Item Value Reference Range Interpretation Comments SARS-COV2/RT-PCR (test Negative Not Detected, Negative, code = 3360245) See external report for linked test SARS-COV-2 PERFORMING LAB [facility] (test code = 7610262) Negative result for this test determines that SARS-CoV-2 RNA was not present in the specimen above the Limit of Detection (LOD). However, Negative results do not preclude SARS-CoV-2 infection and should not be used as the sole basis for treatment or patient management decisions. Negative results mustbe combined with clinical observations, patient history, and epidemiological information. A false negative result may occur if a specimen is improperly collected, transported or handled. A false negative result should be considered if patient's recent exposures or clinical presentation indicate that COVID-19 (SARS-CoV-2) is likely and diagnostic tests for other causes of illness are negative. Re-testing should be considered in cases of suspected false negatives.The limit of detection for this assay is 800 copies/mL.This SARS CoV-2 test is a real-time RT-PCR test intended for the qualitative detection of nucleic acid from SARS-CoV-2 in a nasopharyngeal swab specimen collected from individuals susp ected of COVID-19 by their healthcare provider.This test has not been Food and Drug Administration (FDA) cleared or approved. This is a modified version of an approved [...] is revoked under Section 564(g) of the Act.Fact Sheet for Healthcare Providers:https://www.[employer]/sites/default/files/product/documents/Fact_Shee v_ZB_Wwfkdndjk_Dxco_FDAT-PkO-5.pdfFact Sheet for Healthcare Patients:https://www.[employer].com/sites/default/files/product/ documents/Okhj_Imezr_Mpfedbwr_Nazx_JIYO-TnF-3.pdfPerforming Laboratory:[facility], [place] [address]MPNS-OFEBQVK METER 2020-02-10 08:13:00 Test Item Value Reference Range Interpretation Comments POC-GLUCOSE METER 120 mg/dL 70-110 H : TESTED Rupal Malone [facility] 67[address] (TRIP) (test code = MAURIZIOHONEY Santoyo [facility], 1538) 35895: Trim Installer/Techni arin ID = [id number] for HELEN GARCIA CBC (HEMOGRAM ONLY)2020-02-10 06:44:00 Test Item Value Reference Range Interpretation Comments WHITE BLOOD CELL COUNT (BEAKER) 7.1 K/ L 3.5-10.5 (test code = 775) RED BLOOD CELL COUNT (BEAKER) 2.50 M/ L 3.93-5.22 L (test code = 761) HEMOGLOBIN (BEAKER) (test code = 7.4 GM/DL 11.2-15.7 L 410) HEMATOCRIT (BEAKER) (test code = 23.6 % 34.1-44.9 L 411) MEAN CORPUSCULAR VOLUME (BEAKER) 94.4 fL 79.4-94.8 (test code = 753) MEAN CORPUSCULAR HEMOGLOBIN 29.6 pg 25.6-32.2 (BEAKER) (test code = 751) MEAN CORPUSCULAR HEMOGLOBIN CONC 31.4 GM/DL 32.2-35.5 L (BEAKER) (test code = 752) RED CELL DISTRIBUTION WIDTH 14.3 % 11.7-14.4 (BEAKER) (test code = 412) PLATELET COUNT (BEAKER) (test 251 K/CU MM 150-450 code = 756) MEAN PLATELET VOLUME (BEAKER) 10.6 fL 9.4-12.3 (test code = 754) NUCLEATED RED BLOOD CELLS 0 /100 WBC 0-0 (BEAKER) (test code = 413) POCT-GLUCOSE [id number] 23:46:00 Test Item Value Reference Range Interpretation Comments POC-GLUCOSE METER 124 mg/dL 70-110 H : TESTED A T [facility] 6720 (BEAKER) (test code = [facility], 1538) 23155: Trim Installer/Techni arin ID = [id number] for TIKA BECKER POCT-GLUCOSE [id number] 17:59:00 Test Item Value Reference Range Interpretation Comments POC-GLUCOSE METER 111 mg/dL 70-110 H : TESTED A T [facility] 6720 (BEAKER) (test code = [facility] [employer] [facility], 1538) 20638: Trim Installer/Techni arin ID = [id number] for SARA PUTNAM POCT-GLUCOSE [id number] 13:07:00 Test Item Value Reference Range Interpretation Comments POC-GLUCOSE METER 114 mg/dL 70-110 H : TESTED A T [facility] 6720 (BEAKER) (test code = [facility], 1538) 20485: Trim Installer/Techni arin ID = [id number] for SARA PUTNAM [id number] 08:53:00 Test Item Value Reference Range Interpretation Comments PHOSPHORUS (BEAKER) (test code = 3.0 mg/dL 2.3-4.7 604) Trim Installer ID - VERENICE [id number] 08:53:00 Test Item Value Reference Range Interpretation Comments MAGNESIUM (BEAKER) (test code = 2.0 mg/dL 1.6-2.6 627) Trim Installer ID - VERENICE LBASIC METABOLIC [id number] 08:53:00 Test Item Value Reference Range Interpretation Comments SODIUM (BEAKER) 130 meq/L 136-145 L (test code = 381) POTASSIUM (BEAKER) 3.5 meq/L 3.5-5.1 (test code = 379) CHLORIDE (BEAKER) 98 meq/L 98-107 (test code = 382) CO2 (BEAKER) (test 24 meq/L 22-29 code = 355) BLOOD UREA NITROGEN 21 mg/dL 7-21 (BEAKER) (test code = 354) CREATININE (BEAKER) 0.83 mg/dL 0.57-1.25 (test code = 358) GLUCOSE RANDOM 111 mg/dL 70-105 H (BEAKER) (test code = 652) CALCIUM (BEAKER) 8.4 mg/dL 8.4-10.2 (test code = 697) EGFR (BEAKER) (test 70 mL/min/1.73 ESTIMA TEAGAN GFR IS code = 1092) sq m NOT ACCURATE CREATININE CLEARANCE IN PREDICTING GLOMERULAR FILTRATION RATE . ESTIMATED GFR I S NOT APPLICABLE FOR DIALYSIS PATIEN TS. Trim Installer ID - VERENICE LPOCT-GLUCOSE [id number] 08:05:00 Test Item Value Reference Range Interpretation Comments POC-GLUCOSE METER 110 mg/dL 70-110 : TESTED A T [facility] 6720 (BEAKER) (test code = [facility] [place], 1538) 828[address]: Trim Installer/Techni arin ID = [id number] for SARA PUTNAM CBC (HEMOGRAM ONLY)2020-02-09 05:59:00 Test Item Value Reference Range Interpretation Comments WHITE BLOOD CELL COUNT (BEAKER) 10.2 K/ L 3.5-10.5 (test code = 775) RED BLOOD CELL COUNT (BEAKER) 2.42 M/ L 3.93-5.22 L (test code = 761) HEMOGLOBIN (BEAKER) (test code = 7.3 GM/DL 11.2-15.7 L 410) HEMATOCRIT (BEAKER) (test code = 22.4 % 34.1-44.9 L 411) MEAN CORPUSCULAR VOLUME (BEAKER) 92.6 fL 79.4-94.8 (test code = 753) MEAN CORPUSCULAR HEMOGLOBIN 30.2 pg 25.6-32.2 (BEAKER) (test code = 751) MEAN CORPUSCULAR HEMOGLOBIN CONC 32.6 GM/DL 32.2-35.5 (BEAKER) (test code = 752) RED CELL DISTRIBUTION WIDTH 14.4 % 11.7-14.4 (BEAKER) (test code = 412) PLATELET COUNT (BEAKER) (test 237 K/CU MM 150-450 code = 756) MEAN PLATELET VOLUME (BEAKER) 11.2 fL 9.4-12.3 (test code = 754) NUCLEATED RED BLOOD CELLS 0 /100 WBC 0-0 (BEAKER) (test code = 413) POCT-GLUCOSE [id number] 22:14:00 Test Item Value Reference Range Interpretation Comments POC-GLUCOSE METER 132 mg/dL 70-110 H : TESTED A T [facility] 6720 (BEAKER) (test code = [facility], 1538) 08159: Trim Installer/Techni arin ID = [id number] for Iza Hussein POCT-GLUCOSE [id number] 17:05:00 Test Item Value Reference Range Interpretation Comments POC-GLUCOSE METER 109 mg/dL 70-110 : TESTED A T [facility] 6720 (BEAKER) (test code = [facility], 1538) 35954: Trim Installer/Techni arin ID = [id number] for Lida pedrazavineetEnid narvaez (contrac t) POCT-GLUCOSE [id number] 11:56:00 Test Item Value Reference Range Interpretation Comments POC-GLUCOSE METER 130 mg/dL 70-110 H : TESTED A T [facility] 6720 (BEAKER) (test code = [facility], 1538) 14660: Trim Installer/Techni arin ID = [id number] for Enid Mondragon (contrac t) POCT-GLUCOSE [id number] 08:18:00 Test Item Value Reference Range Interpretation Comments POC-GLUCOSE METER 120 mg/dL 70-110 H : TESTED A T [facility] 6720 (BEAKER) (test code = [facility], 1538) 73264: Trim Installer/Techni arin ID = [id number] for Enid Mondragon (contrac t) POCT-GLUCOSE [id number] 06:12:00 Test Item Value Reference Range Interpretation Comments POC-GLUCOSE METER 123 mg/dL 70-110 H : TESTED A T [facility] 6720 (BEAKER) (test code = [facility], 1538) 60326: Trim Installer/Techni arin ID = [id number] for Manuela Pastrana (contra ct) [id number] 03:59:00 Test Item Value Reference Range Interpretation Comments PHOSPHORUS (BEAKER) (test code = 3.8 mg/dL 2.3-4.7 604) Trim Installer ID - PIDAMION [id number] 03:59:00 Test Item Value Reference Range Interpretation Comments MAGNESIUM (BEAKER) (test code = 2.1 mg/dL 1.6-2.6 627) Trim Installer ID - PIAYA LBASIC METABOLIC [id number] 03:59:00 Test Item Value Reference Range Interpretation Comments SODIUM (BEAKER) 128 meq/L 136-145 L (test code = 381) POTASSIUM (BEAKER) 3.5 meq/L 3.5-5.1 (test code = 379) CHLORIDE (BEAKER) 97 meq/L 98-107 L (test code = 382) CO2 (BEAKER) (test 22 meq/L 22-29 code = 355) BLOOD UREA NITROGEN 22 mg/dL 7-21 H (BEAKER) (test code = 354) CREATININE (BEAKER) 1.03 mg/dL 0.57-1.25 (test code = 358) GLUCOSE RANDOM 156 mg/dL 70-105 H (BEAKER) (test code = 652) CALCIUM (BEAKER) 8.4 mg/dL 8.4-10.2 (test code = 697) EGFR (BEAKER) (test 54 mL/min/1.73 ESTIMA TEAGAN GFR IS code = 1092) sq m NOT ACCURATE CREATININE CLEARANCE IN PREDICTING GLOMERULAR FILTRATION RATE . ESTIMATED GFR I S NOT APPLICABLE FOR DIALYSIS PATIEN TS. Trim Installer ID - PIAYA LCBC (HEMOGRAM ONLY)2020-02-08 03:49:00 Test Item Value Reference Range Interpretation Comments WHITE BLOOD CELL COUNT (BEAKER) 13.3 K/ L 3.5-10.5 H (test code = 775) RED BLOOD CELL COUNT (BEAKER) 2.37 M/ L 3.93-5.22 L (test code = 761) HEMOGLOBIN (BEAKER) (test code = 7.2 GM/DL 11.2-15.7 L 410) HEMATOCRIT (BEAKER) (test code = 21.8 % 34.1-44.9 L 411) MEAN CORPUSCULAR VOLUME (BEAKER) 92.0 fL 79.4-94.8 (test code = 753) MEAN CORPUSCULAR HEMOGLOBIN 30.4 pg 25.6-32.2 (BEAKER) (test code = 751) MEAN CORPUSCULAR HEMOGLOBIN CONC 33.0 GM/DL 32.2-35.5 (BEAKER) (test code = 752) RED CELL DISTRIBUTION WIDTH 14.6 % 11.7-14.4 H (BEAKER) (test code = 412) PLATELET COUNT (BEAKER) (test 218 K/CU MM 150-450 code = 756) MEAN PLATELET VOLUME (BEAKER) 11.1 fL 9.4-12.3 (test code = 754) NUCLEATED RED BLOOD CELLS 0 /100 WBC 0-0 (BEAKER) (test code = 413) Blood gas, [id number] 03:10:00 Test Item Value Reference Range Interpretation Comments pH, Arterial (test code = 2744-1) 7.48 7.35-7.45 H pCO2, Arterial (test code = 32 35- 45 mmHg L 2018-12) pO2, Arterial (test code = 2703-7) 80 80- 90 mmHg O2 Sat, Arterial (test code = 96.9 % 96-97 8-6) HCO3, Arterial (test code = 23 mmol/L 21-29 1959-) Base Excess, Arterial (test code = 0.1 mmol/L -2-3 1925-7) Patient Temperature (test code = 36.5 C 8310-5) FIO2 (test code = 1819) 32 % Lab Interpretation (test code = Abnormal 86662-9) [facility] HospitalCal[facility], [id number] 03:10:00 Test Item Value Reference Range Interpretation Comments Calcium, Ion (test code = 1993-) 1.10 mmol/L 1.12-1.27 L pH, Blood (test code = 22280-6) 7.48 Lab Interpretation (test code = Abnormal 06896-1) [facility] HospitalBLOOD GAS, [id number] 03:10:00 Test Item Value Reference Range Interpretation Comments PH ARTERIAL (BEAKER) (test code = 7.48 7.35-7.45 H 383) PCO2 ARTERIAL (BEAKER) (test code 32 mmHg 35-45 L = 384) PO2 ARTERIAL (BEAKER) (test code = 80 mmHg 80-90 385) O2 SATURATION ARTERIAL (BEAKER) 96.9 % 96.0-97.0 (test code = 386) HCO3 ARTERIAL (BEAKER) (test code 23 mmol/L 21-29 = 388) BASE EXCESS ARTERIAL (BEAKER) 0.1 mmol/L -2.0-3.0 (test code = 387) PATIENT TEMPERATURE (BEAKER) (test 36.5 C code = 1818) FIO2 (BEAKER) (test code = 1819) 32.0 % CALCIUM, [id number] 03:10:00 Test Item Value Reference Range Interpretation Comments CALCIUM IONIZED (BEAKER) (test 1.10 mmol/L 1.12-1.27 L code = 698) PH, BLOOD (BEAKER) (test code = 7.48 1810) RAD, CHEST, 1 VIEW, NON [id number] 02:16:00while patient is intubated or has chest tubes.Reason for exam:->Status post CV SurgeryShould thisbe performed at the bedside?->YesFINAL REPORT RAD, CHEST, 1 VIEW, NON DEPT INDICATION: Status post CV Surgery COMPARISON: Prior day's exam FINDINGS: Portable frontal view of the chest. IMPRESSION: Support Lines: Interval removal of left-sided chest tube. Lungs and pleura: Unchanged airspace and pleural opacities. No pneumothorax.Heart and mediastinum: Stable contours. Additional findings: None. Signed: Sivakumar Aguiar Verified Date/Time: 02/08/2020 02:16:52 Prepare Leuko-Red [id number] 23:54:00 Test Item Value Reference Range Interpretation Comments CROSSMATCH (test code = 2264) COMPATIBLE Unit ABO (test code = O Pos 1640789) UNIT NUMBER (test code = [id number] 934-0) Status (test code = 6262600) TX_TIMEINCHART Blood Bank Product (test code RED BLOOD CELLS = 2263) PRODUCT CODE (test code = W1979P20 933-2) [facility] HospitalPOCT[facility]GLU[facility] [id number] 13:50:00 Test Item Value Reference Range Interpretation Comments POC-GLUCOSE METER 118 mg/dL 70-110 H : [facility] ([facility]ER[facility] (test code = MAURIZIOHONEY R [facility], 1538) 94545: Trim Installer/Techni arin ID = [id number] for Sa ruelashoneystarla Carlosmarvin CT, CTANGIO [id number] 12:38:00Unlisted Reason for Exam - Click Yes and Enter Reason Below->YesUnlisted Reason for Exam->new stroke symptomsFINAL REPORT CLINICAL HISTORY: Unlisted Reason for Examnew stroke symptoms TECHNIQUE: Contiguous contrast-enhanced axial images through the neck followed by axial images through the head with coronal and sagittal reformations to assess the arterial circulation. 3-D reconstructions were performed using a volume rendered technique separately on a workstation. This exam was performed according to the departmental dose optimization program which includes automated exposure control, adjustment of the mA and/or kV according to the patient size, and/or use of an iterative reconstruction technique. Stenosis evaluation reported in compliance with NASCET criteria. COMPARISON: Same day noncontrast head CT. FINDINGS: CTA head:There is no CT evidence of acute infarct or hemorrhage. There is no hydrocephalus or midline shift. The skull is intact. There is no evidence of intracranial aneurysm. No major branch vessel occlusion or high-grade focal stenosis. Atherosclerosis of the bilateral cavernous and paraclinoid ICAs without flow-limiting stenosis. The major intradural venous sinuses are patent. CTA neck:Great vessel origins: No occlusion or high-grade stenosis. Carotid arteries: Medialized retropharyngeal course of the right internal carotid artery. Atherosclerosis at the bifurcation results in less than 50% focal stenosis. No significant stenosis of the left ICA. Vertebral arteries: No occlusion or high-grade stenosis. No fracture or suspicious osseous lesion. There has been a recent sternotomy with overlying soft tissue air. Small left apical pneumothorax. Bilateral pleuraleffusions. IMPRESSION:1.No proximal branch arterial occlusion or high-grade focal stenosis.2.Recent sternotomy with small left apical pneumothorax. Signed: Domenica Patino Verified Date/Time: 02/07/2020 12:38:47 CT, CAROTID, [id number] 12:38:00Unlisted Reason for Exam - Click Yes and Enter Reason Below->YesUnlisted Reason for Exam->CVA symptomsFINAL REPORT CLINICAL HISTORY: Unlisted Reason for Examnew stroke symptoms TECHNIQUE: Contiguous contrast- enhanced axial images through the neck followed by axial images through the head with coronal and sagittal reformations to assess the arterial circulation. 3-D reconstructions were performed using a volume rendered technique separately on a workstation. This exam was performed according to the departmental dose optimization program which includes automated exposure control, adjustment of the mA and/or kV according to the patient size, and/or use of an iterative reconstruction technique. Stenosis evaluation reported in compliance with NASCET criteria. COMPARISON: Same day noncontrast head CT. FINDINGS: CTA head:There is no CT evidence of acute infarct or hemorrhage. There is no hydrocephalus or midline shift. The skull is intact. There is no evidence of intracranial an eurysm. No major branch vessel occlusion or high-grade focal stenosis. Atherosclerosis of the bilateral cavernous and paraclinoid ICAs without flow- limiting stenosis. The major intradural venous sinuses are patent. CTA neck:Great vessel origins: No occlusion or high-grade stenosis. Carotid arteries: Medialized retropharyngeal course of the right internal carotid artery. Atherosclerosis at the bifurcation results in less than 50% focal stenosis. No significant stenosis of the left ICA. Vertebral arteries: No occlusion or high-grade stenosis. No fracture or suspicious osseous lesion. There has been a recent sternotomy with overlying soft tissue air. Small left apical pneumothorax. Bilateral pleuraleffusions. IMPRESSION:1.No proximal branch arterial occlusion or high-grade focal stenosis.2.Recent sternotomy with small left apical pneumothorax. Signed: Domenica Patino MDReport Verified Date/Time: 02/07/2020 12:38:47 CTA [id number] 12:38:00Interface, External Ris In - 02/09/2020 8:06 AM CDTFINAL REPORT CLINICAL HISTORY: Unlisted Reason for Examnew stroke symptoms TECHNIQUE: Contiguous contrast-enhanced axial images through the neck followed by axial images through the head with coronal and sagittal reformations to assess the arterial circulation. 3-D reconstructions were performed using a volume rendered technique separately on a workstation. This exam was performed according to the departmental dose optimization program which includes automated exposure control, adjustment of the mA and/or kV according to the patient size, and/or use of an iterative reconstruction technique. Stenosis evaluation reported in c ompliance with NASCET criteria. COMPARISON: Same day noncontrast head CT. FINDINGS: CTA head:There is no CT evidence of acute infarct or hemorrhage. There is no hydrocephalus or midline shift. The skull is intact. There is no evidence of intracranial aneurysm. No major branch vessel occlusion or high-grade focal stenosis. Atherosclerosis of the bilateral cavernous and paraclinoid ICAs without flow-limiting stenosis. The major intradural venous sinuses are patent. CTA neck:Great vessel origins: No occlusion or high-grade stenosis. Carotid arteries: Medialized retropharyngeal course of the right internal carotid artery. Atherosclerosis at the bifurcation results in less than 50% focal stenosis. Nosignificant stenosis of the left ICA. Vertebral arteries: No occlusion or high-grade stenosis. No fracture or suspicious osseous lesion. There has been a recent sternotomy with overlying soft tissue air. Small left apical pneumothorax. Bilateral pleural effusions. IMPRESSION:1.No proximal branch arterial occlusion or high-grade focal stenosis.2.Recent sternotomy with small left apical pneumothorax. Signed: Domenica Patino MDReport Verified Date/Time: 02/07/2020 12:38:47 [facility] 2020-[facility] 12:38:00Interface, External Ris In - 02/07/2020 12:41 PM CDTFINAL REPORT CLINICAL HISTORY: Unlisted Reason for Examnew stroke symptoms TECHNIQUE: Contiguous contrast-enhanced axial images through the neck followed by axial images through the head with coronal and sagittal reformations to assess the arterial circulation. 3-D reconstructions were performed using a volume rendered technique separately on a workstation. This exam was performed according to the departmental dose optimization program which includes automated exposure control, adjustment of the mA and/or kV according to the patient size, and/or use of an iterative reconstruction technique. Stenosis evaluation reported in compliance with NASCET criteria. COMPARISON: Same day noncontrast head CT. FINDINGS: CTA head:There is no CT evidence of acute infarct or hemorrhage. There is no hydrocephalus or midline shift. The skull is intact. There is no evidence of intracranial aneurysm. No major branch vessel occlusion or high-grade focal stenosis. Atherosclerosis of the bilateral cavernous and paraclinoid ICAs without flow-limiting stenosis. The major intradural venous sinuses are patent. CTA neck:Great vessel origins: No occlusion or high-grade stenosis. Carotid arteries: Medialized retropharyngeal course of the right int ernal carotid artery. Atherosclerosis at the bifurcation results in less than 50% focal stenosis. Nosignificant stenosis of the left ICA. Vertebral arteries: No occlusion or high-grade stenosis. No fracture or suspicious osseous lesion. There has been a recent sternotomy with overlying soft tissue air. Small left apical pneumothorax. Bilateral pleural effusions. IMPRESSION:1.No proximal branch arterial occlusion or high-grade focal stenosis.2.Recent sternotomy with small left apical pneumothorax. Signed: Domenica Patino MDReport Verified Date/Time: 02/07/2020 12:38:47 [facility] [id number] 12:26:00Interface, External Ris In - 02/07/2020 12:[address], BRAIN/STROKE PROTOCOL INDICATION: Ataxia, stroke suspected TECHNIQUE: Noncontrast axial imaging was obtained from the vertex to the skull base. Axial images were reconstructed using a bone algorithm. DOSE REDUCTION: Dose modulation, iterative reconstruction, and/or weight-based adjustment of the mA/kV was utilized to reduce the radiation dose to as low as reasonably achievable. COMPARISON: None. FINDINGS: Intracranial: No intracranial hemorrhage or abnormal extra-axial collection. No evidence of acute territorial infarct. No mass effect. No hydrocephalus. Osseous structures: No fracture. No suspicious lesion. Paranasal sinuses and mastoid air cells: No evidence of sinusitis. Mastoids are clear. Orbital contents: Globes are intact. IMPRESSION: No acute intracranial hemorrhage or CT evidence of territorial i nfarct. If there is persistent clinical concern for intracranial pathology, MR examination is recommended for further characterization. The findings were discussed with the neurology resident on 02/07/2020 12:26 PM. Signed: Domenica Patino Verified Date/Time: 02/07/2020 12:26:21 [facility] [id number] 12:26:00FINAL REPORT CT, BRAIN/STROKE PROTOCOL INDICATION: Ataxia, stroke suspected TE CHNIQUE: Noncontrast axial imaging was obtained from the vertex to the skull base. Axial images werereconstructed using a bone algorithm. DOSE REDUCTION: Dose modulation, iterative reconstruction, and/or weight-based adjustment of the mA/kV was utilized to reduce the radiation dose to as low as reasonably achievable. COMPARISON: None. FINDINGS: Intracranial: No intracranial hemorrhage or abnormal extra-axial collection. No evidence of acute territorial infarct. No mass effect. No hydrocephalus. Osseous structures: No fracture. No suspicious lesion. Paranasal sinuses and mastoid air cells: No evidence of sinusitis. Mastoids are clear. Orbital contents: Globes are intact. IMPRESSION: No acute intracranial hemorrhage or CT evidence of territorial infarct. If there is persistent clinical concern forintracranial pathology, MR examination is recommended for further characterization. The findings were discussed with the neurology resident on 02/07/2020 12:26 PM. Signed: Domenica Patino Verified Date/Time: 02/07/2020 12:26:21 [id number] 05:37:00 Test Item Value Reference Range Interpretation Comments PHOSPHORUS (BEAKER) (test code = 5.5 mg/dL 2.3-4.7 H 604) Trim Installer ID - BABITA [id number] 05:37:00 Test Item Value Reference Range Interpretation Comments MAGNESIUM (BEAKER) (test code = 2.2 mg/dL 1.6-2.6 627) Trim Installer ID - BABITA MBASIC METABOLIC [id number] 05:37:00 Test Item Value Reference Range Interpretation Comments SODIUM (BEAKER) 130 meq/L 136-145 L (test code = 381) POTASSIUM (BEAKER) 3.9 meq/L 3.5-5.1 (test code = 379) CHLORIDE (BEAKER) 98 meq/L 98-107 (test code = 382) CO2 (BEAKER) (test 24 meq/L 22-29 code = 355) BLOOD UREA NITROGEN 18 mg/dL 7-21 (BEAKER) (test code = 354) CREATININE (BEAKER) 0.99 mg/dL 0.57-1.25 (test code = 358) GLUCOSE RANDOM 130 mg/dL 70-105 H (BEAKER) (test code = 652) CALCIUM (BEAKER) 8.7 mg/dL 8.4-10.2 (test code = 697) EGFR (BEAKER) (test 57 mL/min/1.73 ESTIMA TEAGAN GFR IS code = 1092) sq m NOT ACCURATE CREATININE CLEARANCE IN PREDICTING GLOMERULAR FILTRATION RATE . ESTIMATED GFR I S NOT APPLICABLE FOR DIALYSIS PATIEN TS. Trim Installer ID - BABITA [facility] (HEMOGRAM ONLY)2020-02-07 05:08:00 Test Item Value Reference Range Interpretation Comments WHITE BLOOD CELL COUNT (BEAKER) 12.8 K/ L 3.5-10.5 H (test code = 775) RED BLOOD CELL COUNT (BEAKER) 2.56 M/ L 3.93-5.22 L (test code = 761) HEMOGLOBIN (BEAKER) (test code = 7.7 GM/DL 11.2-15.7 L 410) HEMATOCRIT (BEAKER) (test code = 23.8 % 34.1-44.9 L 411) MEAN CORPUSCULAR VOLUME (BEAKER) 93.0 fL 79.4-94.8 (test code = 753) MEAN CORPUSCULAR HEMOGLOBIN 30.1 pg 25.6-32.2 (BEAKER) (test code = 751) MEAN CORPUSCULAR HEMOGLOBIN CONC 32.4 GM/DL 32.2-35.5 (BEAKER) (test code = 752) RED CELL DISTRIBUTION WIDTH 14.8 % 11.7-14.4 H (BEAKER) (test code = 412) PLATELET COUNT (BEAKER) (test 210 K/CU MM 150-450 code = 756) MEAN PLATELET VOLUME (BEAKER) 10.6 fL 9.4-12.3 (test code = 754) NUCLEATED RED BLOOD CELLS 0 /100 WBC 0-0 (BEAKER) (test code = 413) CALCIUM, [id number] 05:01:00 Test Item Value Reference Range Interpretation Comments CALCIUM IONIZED (BEAKER) (test 1.15 mmol/L 1.12-1.27 code = 698) PH, BLOOD (BEAKER) (test code = 7.40 1810) BLOOD GAS, [id number] 04:59:00 Test Item Value Reference Range Interpretation Comments PH ARTERIAL (BEAKER) (test code = 7.40 7.35-7.45 383) PCO2 ARTERIAL (BEAKER) (test code 38 mmHg 35-45 = 384) PO2 ARTERIAL (BEAKER) (test code 71 mmHg 80-90 L = 385) O2 SATURATION ARTERIAL (BEAKER) 94.4 % 96.0-97.0 L (test code = 386) HCO3 ARTERIAL (BEAKER) (test code 23 mmol/L 21-29 = 388) BASE EXCESS ARTERIAL (BEAKER) -1.9 mmol/L -2.0-3.0 (test code = 387) PATIENT TEMPERATURE (BEAKER) 37.0 C (test code = 1818) FIO2 (BEAKER) (test code = 1819) 100.0 % RAD, CHEST, 1 VIEW, NON [id number] 03:17:00while patient is intubated or has chest tubes.Reason for exam:->Status post CV SurgeryShould thisbe performed at the bedside?->YesFINAL REPORT CLINICAL INDICATION: Postop Comparison: 02/06/2020 The cardiomediastinal contours are stable. The lung volumes remain low. Central pulmonary vascular prominence and bilateral parenchymal opacities are unchanged. There is no pneumothorax. There is persistent subcutaneous gas in the left chest wall. Support lines are stable. Signed: Valeria Rush MDReport Verified Date/Time: 02/07/2020 03:17:11 Prepare RBC 2020-02-06 23:54:00 Test Item Value Reference Range Interpretation Comments CROSSMATCH (test code = COMPATIBLE 2264) Unit ABO (test code = O Pos 2628528) UNIT NUMBER (test code = [id number] 934-0) Status (test code = RETURNED FROM ISSUE 2876035) Blood Bank Product (test RED BLOOD CELLS code = 2263) PRODUCT CODE (test code = U9623J37 933-2) [facility] [id number] 23:54:00 Test Item Value Reference Range Interpretation Comments Unit ABO (test code = A Pos 7585431) UNIT NUMBER (test code = [id number] 934-0) Status (test code = 4621054) TX_TIMEINCHART Blood Bank Product (test code CRYOPRECIPITATE = 2263) PRODUCT CODE (test code = [id number] 933-2) [facility] [id number] 23:54:00 Test Item Value Reference Range Interpretation Comments Unit ABO (test code = 0706380) O Pos UNIT NUMBER (test code = [id number] 934-0) Status (test code = 0239979) TX_TIMEINCHART Blood Bank Product (test code PLATELETS = 2263) PRODUCT CODE (test code = A1486W07 933-2) [facility] [id number] 18:24:00 Test Item Value Reference Range Interpretation Comments POC-GLUCOSE METER 146 mg/dL 70-110 H : TESTED A T [facility] 6720 (TRIP) (test code = SARABJIT VARGAS [place], 1538) [address]: Trim Installer/Techni arin ID = [id number] for RORY DIEZ 2D Echo W/Doppler(CW/PW/Color)2020-02-06 16:16:35Ejection FractionSLEH ECHO HEARTLAB MKCKESSON CPACSInterface, External Ris In - 02/06/2020 4:16 PM C DTTransthoracic Echocardiography Report (TTE) Demographics Patient Name AP COPELAND Date of Study 02/05/2020 ANA CRISTINA Gender Female Visit Number [id number] Race Room Number 2C22 Number Date of 1960 Referring Physician MD Lalo Murphy MD Age 59 year(s) Food Safety Coordinator Murray Mast Interpreting Eliseo Alcantara, Physician Fellow Layo Lisa MD Procedure Type of Study TTE procedure:2DECHO W DOPPLER(CW/PW/COLOR) (STAT) Indications:Hypotension or hemodynamic instability.Clinical HistoryHGB 8.7HCT 26.0 %CAD, HTN, S/P SAVR AND ACB X1 02/05/2020Contrast Medium: Definity. Amount - 3 mlHeight: 64 inches Weight: 120.66 kg (266 lbs) BSA: 2.21 m^2 BMI: 45.66kg/m^2HR: 65 bpm BP: 100/33 mmHg Summary TECHNICALLY DIFFICULT STUDY Parast ernal long axis measurements not possible. LV endocardium [...] demonstrated . AoV prosthesis function appears normal .Mean AVR gradient = 11mmHg. Unable to obtain DOI due to poor LVOT signial. Estimated peak systolic PA pressure is cannot be determined due to inadequate TR velocity signal . Signature ------ Findings Technical Quality: Technically difficult exam. Rhythm/BP Regular sinusrhythm during the exam. Left Ventricle Parasternal long axis measurements not possible. LV endocardium is adequately visualized with IV ultrasoundenhancing agent. The left ventricle is chamber size (by vol index) is normal (female - LVED vol - 29-61ml/m2). All of the LV segments contract normally . LVEF by Blanca's method of disk assessment is increased(>70%) . LV diastolic function is indeterminate. Left Atrium LA size is normal (16-34 ml/m2) . Right Ventricle The right ventricle is not well visualized but appears normal in size. Right Atrium RA size is partially visualized but appears normal. Atrial Septum Normal interatrial septum by available views. Aortic Valve A biologic AoV prosthesis is poorly visualized . Prosthetic AoV regurgitaton is not demonstrated . AoV prosthesis function appears normal . Mean AVR gradient = 11mmHg. Unable to obtain DOI due to poor LVOT signial. Mitral Valve Moderate mitral annular calcification. Tricuspid Valve TV is not well visualized. Estimated peak systolic PA pressure is cannot be determined due to inadequate TR velocity signal . Pulmonic Valve PV is not well visualized. Aorta The aorta is not well visualized. Pericardium No significant pericardial effusion is visualized. IVC/SVC/PA/PV/Pleural The estimated RApressure by IVC dynamics 11- 15mmHg . Chambers/Structures Left Atrium LA Volume: 59.29 [...] m/s Aortic Valve Peak Velocity: 2.55 m/s Mean Velocity: 1.53 m/s Peak Gradient: 25.92 mmHg Mean Gradient: 11.75 mmHg AV VTI: 43.65 [facility] [id number] 16:08:00 Test Item Value Reference Range Interpretation Comments POC-GLUCOSE METER 130 mg/dL 70-110 H : TESTED A T [facility] [address] (BEAKER) (test code = SARABJIT VARG[place], 1538) [address]: Trim Installer/Techni arin ID = [id number] for RORY DIEZ [id number] 14:39:00 Test Item Value Reference Range Interpretation Comments MAGNESIUM (BEAKER) (test code = 2.2 mg/dL 1.6-2.6 627) Trim Installer ID Vandana GORDON FBASIC METABOLIC [id number] 14:39:00 Test Item Value Reference Range Interpretation Comments SODIUM (BEAKER) 132 meq/L 136-145 L (test code = 381) POTASSIUM (BEAKER) 4.1 meq/L 3.5-5.1 (test code = 379) CHLORIDE (BEAKER) 102 meq/L 98-107 (test code = 382) CO2 (BEAKER) (test 23 meq/L 22-29 code = 355) BLOOD UREA NITROGEN 14 mg/dL 7-21 (BEAKER) (test code = 354) CREATININE (BEAKER) 0.95 mg/dL 0.57-1.25 (test code = 358) GLUCOSE RANDOM 139 mg/dL 70-105 H (BEAKER) (test code = 652) CALCIUM (BEAKER) 8.9 mg/dL 8.4-10.2 (test code = 697) EGFR (BEAKER) (test 60 mL/min/1.73 ESTIMA TEAGAN GFR IS code = 1092) sq m NOT ACCURATE CREATININE CLEARANCE IN PREDICTING GLOMERULAR FILTRATION RATE . ESTIMATED GFR I S NOT APPLICABLE FOR DIALYSIS PATIEN TS. Trim Installer ID Vandana GORDON [facility] (HEMOGRAM ONLY)2020-02-06 14:21:00 Test Item Value Reference Range Interpretation Comments WHITE BLOOD CELL COUNT (BEAKER) 9.7 K/ L 3.5-10.5 (test code = 775) RED BLOOD CELL COUNT (BEAKER) 2.80 M/ L 3.93-5.22 L (test code = 761) HEMOGLOBIN (BEAKER) (test code = 8.5 GM/DL 11.2-15.7 L 410) HEMATOCRIT (BEAKER) (test code = 25.9 % 34.1-44.9 L 411) MEAN CORPUSCULAR VOLUME (BEAKER) 92.5 fL 79.4-94.8 (test code = 753) MEAN CORPUSCULAR HEMOGLOBIN 30.4 pg 25.6-32.2 (BEAKER) (test code = 751) MEAN CORPUSCULAR HEMOGLOBIN CONC 32.8 GM/DL 32.2-35.5 (BEAKER) (test code = 752) RED CELL DISTRIBUTION WIDTH 14.3 % 11.7-14.4 (BEAKER) (test code = 412) PLATELET COUNT (BEAKER) (test 202 K/CU MM 150-450 code = 756) MEAN PLATELET VOLUME (BEAKER) 10.1 fL 9.4-12.3 (test code = 754) NUCLEATED RED BLOOD CELLS 0 /100 WBC 0-0 (BEAKER) (test code = 413) CBC with platelet count + automated [id number] 05:32:00 Test Item Value Reference Range Interpretation Comments WBC (test code = 6690-2) 9.6 3.5- 10.5 K/L RBC (test code = 789-8) 2.36 3.93- 5.22 M/L L MCHC (test code = 786-4) 32.6 32.2- 35.5 GM/DL L Hematocrit (test code = 4544-3) 22.1 % 34.1-44.9 L MCV (test code = 787-2) 93.6 fL 79.4-94.8 MCH (test code = 785-6) 30.5 pg 25.6-32.2 RDW (test code = 788-0) 14.5 % 11.7-14.4 H Platelets (test code = 777-3) 248 150- 450 K/CU MM MPV (test code = 74823-3) 10.4 fL 9.4-12.3 nRBC (test code = 413) 0 0- 0 /100 WBC % Neutros (test code = 429) 87 % % Lymphs (test code = 430) 7 % % Monos (test code = 431) 6 % % Eos (test code = 432) 0 % % Baso (test code = 437) 0 % # Neutros (test code = 670) 8.34 1.56- 6.13 K/L H # Lymphs (test code = 414) 0.65 1.18- 3.74 K/L L # Monos (test code = 415) 0.54 0.24- 0.36 K/L H # Eos (test code = 416) 0.00 0.04- 0.36 K/L L # Baso (test code = 417) 0.03 0.01- 0.08 K/L Immature Granulocytes-Relative 1 % 0-1 (test code = 2801) Lab Interpretation (test code = Abnormal 46500-2) [facility] W/PLT COUNT & AUTO [id number] 05:32:00 Test Item Value Reference Range Interpretation Comments WHITE BLOOD CELL COUNT (BEAKER) 9.6 K/ L 3.5-10.5 (test code = 775) RED BLOOD CELL COUNT (BEAKER) 2.36 M/ L 3.93-5.22 L (test code = 761) HEMOGLOBIN (BEAKER) (test code = 7.2 GM/DL 11.2-15.7 L 410) HEMATOCRIT (BEAKER) (test code = 22.1 % 34.1-44.9 L 411) MEAN CORPUSCULAR VOLUME (BEAKER) 93.6 fL 79.4-94.8 (test code = 753) MEAN CORPUSCULAR HEMOGLOBIN 30.5 pg 25.6-32.2 (BEAKER) (test code = 751) MEAN CORPUSCULAR HEMOGLOBIN CONC 32.6 GM/DL 32.2-35.5 (BEAKER) (test code = 752) RED CELL DISTRIBUTION WIDTH 14.5 % 11.7-14.4 H (BEAKER) (test code = 412) PLATELET COUNT (BEAKER) (test 248 K/CU MM 150-450 code = 756) MEAN PLATELET VOLUME (BEAKER) 10.4 fL 9.4-12.3 (test code = 754) NUCLEATED RED BLOOD CELLS 0 /100 WBC 0-0 (BEAKER) (test code = 413) NEUTROPHILS RELATIVE PERCENT 87 % (BEAKER) (test code = 429) LYMPHOCYTES RELATIVE PERCENT 7 % (BEAKER) (test code = 430) MONOCYTES RELATIVE PERCENT 6 % (BEAKER) (test code = 431) EOSINOPHILS RELATIVE PERCENT 0 % (BEAKER) (test code = 432) BASOPHILS RELATIVE PERCENT 0 % (BEAKER) (test code = 437) NEUTROPHILS ABSOLUTE COUNT 8.34 K/ L 1.56-6.13 H (BEAKER) (test code = 670) LYMPHOCYTES ABSOLUTE COUNT 0.65 K/ L 1.18-3.74 L (BEAKER) (test code = 414) MONOCYTES ABSOLUTE COUNT (BEAKER) 0.54 K/ L 0.24-0.36 H (test code = 415) EOSINOPHILS ABSOLUTE COUNT 0.00 K/ L 0.04-0.36 L (BEAKER) (test code = 416) BASOPHILS ABSOLUTE COUNT (BEAKER) 0.03 K/ L 0.01-0.08 (test code = 417) IMMATURE GRANULOCYTES-RELATIVE 1 % 0-1 PERCENT (BEAKER) (test code = 2801) [id number] 05:12:00 Test Item Value Reference Range Interpretation Comments PHOSPHORUS (BEAKER) (test code = 4.6 mg/dL 2.3-4.7 604) Trim Installer ID - BABITA [id number] 05:12:00 Test Item Value Reference Range Interpretation Comments MAGNESIUM (BEAKER) (test code = 1.9 mg/dL 1.6-2.6 627) Trim Installer ID - BABITA MBASIC METABOLIC [id number] 05:12:00 Test Item Value Reference Range Interpretation Comments SODIUM (BEAKER) 136 meq/L 136-145 (test code = 381) POTASSIUM (BEAKER) 4.5 meq/L 3.5-5.1 (test code = 379) CHLORIDE (BEAKER) 106 meq/L 98-107 (test code = 382) CO2 (BEAKER) (test 23 meq/L 22-29 code = 355) BLOOD UREA NITROGEN 12 mg/dL 7-21 (BEAKER) (test code = 354) CREATININE (BEAKER) 0.99 mg/dL 0.57-1.25 (test code = 358) GLUCOSE RANDOM 141 mg/dL 70-105 H (BEAKER) (test code = 652) CALCIUM (BEAKER) 8.9 mg/dL 8.4-10.2 (test code = 697) EGFR (BEAKER) (test 57 mL/min/1.73 ESTIMA TEAGAN GFR IS code = 1092) sq m NOT ACCURATE CREATININE CLEARANCE IN PREDICTING GLOMERULAR FILTRATION RATE . ESTIMATED GFR I S NOT APPLICABLE FOR DIALYSIS PATIEN TS. Trim Installer ID - BABITA MBLOOD GAS, [id number] 05:06:00 Test Item Value Reference Range Interpretation Comments PH ARTERIAL (BEAKER) (test code = 7.43 7.35-7.45 383) PCO2 ARTERIAL (BEAKER) (test code 36 mmHg 35-45 = 384) PO2 ARTERIAL (BEAKER) (test code 99 mmHg 80-90 H = 385) O2 SATURATION ARTERIAL (BEAKER) 97.7 % 96.0-97.0 H (test code = 386) HCO3 ARTERIAL (BEAKER) (test code 23 mmol/L 21-29 = 388) BASE EXCESS ARTERIAL (BEAKER) -0.8 mmol/L -2.0-3.0 (test code = 387) PATIENT TEMPERATURE (BEAKER) 37.0 C (test code = 1818) FIO2 (BEAKER) (test code = 1819) 100.0 % CALCIUM, [id number] 04:57:00 Test Item Value Reference Range Interpretation Comments CALCIUM IONIZED (BEAKER) (test 1.20 mmol/L 1.12-1.27 code = 698) PH, BLOOD (BEAKER) (test code = 7.43 1810) RAD, CHEST, 1 VIEW, NON [id number] 00:57:00while patient is intubated or has chest tubes.Reason for exam:->Status post CV SurgeryShould thisbe performed at the bedside?->YesFINAL REPORT CLINICAL INDICATION: Postop Comparison: 02/05/2020 The cardiomediastinal contours are stable. The lung volumes are low but stable after extubation. Bilateral parenchymal opacities are unchanged. There is no pneumothorax. There is a small amount of subcutaneous gas inthe left chest wall. Remaining support lines are stable. Signed: Valeria Rush MDReport Verified Date/Time: 02/06/2020 00:57:33 [id number] 23:37:00 Test Item Value Reference Range Interpretation Comments MAGNESIUM (BEAKER) 2.0 mg/dL 1.6-2.6 Specimen slightly (test code = 627) hemolyzed Trim Installer ID - DBBASIC METABOLIC [id number] 23:37:00 Test Item Value Reference Range Interpretation Comments SODIUM (BEAKER) 140 meq/L 136-145 (test code = 381) POTASSIUM (BEAKER) 4.7 meq/L 3.5-5.1 Specimen slightly (test code = 379) hemolyzed CHLORIDE (BEAKER) 109 meq/L 98-107 H (test code = 382) CO2 (BEAKER) (test 24 meq/L 22-29 code = 355) BLOOD UREA NITROGEN 12 mg/dL 7-21 (BEAKER) (test code = 354) CREATININE (BEAKER) 1.04 mg/dL 0.57-1.25 Specimen slightly (test code = 358) hemolyzed GLUCOSE RANDOM 138 mg/dL 70-105 H (BEAKER) (test code = 652) CALCIUM (BEAKER) 9.4 mg/dL 8.4-10.2 (test code = 697) EGFR (BEAKER) (test 54 mL/min/1.73 ESTIMA TEAGAN GFR IS code = 1092) sq m NOT ACCURATE CREATININE CLEARANCE IN PREDICTING GLOMERULAR FILTRATION RATE . ESTIMATED GFR I S NOT APPLICABLE FOR DIALYSIS PATIEN TS. Trim Installer ID - DBLactic Acid, [id number] 23:28:00 Test Item Value Reference Range Interpretation Comments Lactate, Art (test 0.9 mmol/L 0.5-2.2 Specimen code = 2874) slightly hemolyzed SAMUEL (test code = SAMUEL) Trim Installer ID - DB Lab Interpretation Normal (test code = 27506-2) [facility] MedicineLACT[facility] ACID, [id number] 23:28:00 Test Item Value Reference Range Interpretation Comments LACTATE BLOOD 0.9 mmol/L 0.5-2.2 Specimen sligh tly ARTERIAL (2) (BEAKER) hemoly zed (test code = 2874) Trim Installer ID - DBCALCIUM, [id number] 22:32:00 Test Item Value Reference Range Interpretation Comments CALCIUM IONIZED (BEAKER) (test 1.23 mmol/L 1.12-1.27 code = 698) PH, BLOOD (BEAKER) (test code = 7.40 1810) BLOOD GAS, [id number] 22:32:00 Test Item Value Reference Range Interpretation Comments PH ARTERIAL (BEAKER) (test code = 7.40 7.35-7.45 383) PCO2 ARTERIAL (BEAKER) (test code 44 mmHg 35-45 = 384) PO2 ARTERIAL (BEAKER) (test code = 143 mmHg 80-90 H 385) O2 SATURATION ARTERIAL (BEAKER) 98.7 % 96.0-97.0 H (test code = 386) HCO3 ARTERIAL (BEAKER) (test code 26 mmol/L 21-29 = 388) BASE EXCESS ARTERIAL (BEAKER) 1.1 mmol/L -2.0-3.0 (test code = 387) PATIENT TEMPERATURE (BEAKER) (test 38.3 C code = 1818) FIO2 (BEAKER) (test code = 1819) 40.0 % BLOOD GAS, [id number] 20:50:00 Test Item Value Reference Range Interpretation Comments PH ARTERIAL (BEAKER) (test code = 7.38 7.35-7.45 383) PCO2 ARTERIAL (BEAKER) (test code 41 mmHg 35-45 = 384) PO2 ARTERIAL (BEAKER) (test code 76 mmHg 80-90 L = 385) O2 SATURATION ARTERIAL (BEAKER) 93.9 % 96.0-97.0 L (test code = 386) HCO3 ARTERIAL (BEAKER) (test code 23 mmol/L 21-29 = 388) BASE EXCESS ARTERIAL (BEAKER) -1.5 mmol/L -2.0-3.0 (test code = 387) PATIENT TEMPERATURE (BEAKER) 38.3 C (test code = 1818) FIO2 (BEAKER) (test code = 1819) 40.0 % LACTIC ACID, [id number] 20:08:00 Test Item Value Reference Range Interpretation Comments LACTATE BLOOD ARTERIAL (2) 2.2 mmol/L 0.5-2.2 (BEAKER) (test code = 2874) Trim Installer ID - [id number] 19:40:00 Test Item Value Reference Range Interpretation Comments Protime (test code = 15.5 11.9- 14.2 H 5902-2) seconds INR (test code = 1.26 <=5.90 6301-6) PTT (test code = 65.6 22.5- 36.0 H 89798-0) seconds SAMUEL (test code = SAMUEL) Effective 10/28/2018: PT Reference Range ChangeNew: 11.9-14.2 Previous: 11.7-14.7 RECOMMENDED COUMADIN/WARFARIN INR THERAPY RANGESSTANDARD DOSE: 2.0-3.0 Includes: PROPHYLAXIS for venous thrombosis, systemic embolization; TREATMENT for venous thrombosis and/or pulmonary embolus.HIGH RISK: Target INR is 2.5-3.5 for patients wiht mechanical heart valves. Lab Interpretation Abnormal (test code = 79275-2) [id number] 19:40:00 Test Item Value Reference Range Interpretation Comments PROTIME (BEAKER) (test code = 15.5 seconds 11.9-14.2 H 759) INR (BEAKER) (test code = 370) 1.26 <=5.90 PARTIAL THROMBOPLASTIN TIME 65.6 seconds 22.5-36.0 H (BEAKER) (test code = 760) Effective 10/28/2018: PT Reference Range ChangeNew: 11.9-14.2 Previous: 11.7- 14.7RECOMMENDED COUMADIN/WARFARIN INR THERAPY RANGESSTANDARD DOSE: 2.0-3.0 Includes: PROPHYLAXIS for venous thrombosis, systemic embolization; TREATMENT for venous thrombosis and/or pulmonary embolus.HIGH RISK: Target INR is2.5-3.5 for patients wiht mechanical heart valves.HGB/HCT (H&H)-Stat [id number] 19:28:00 Test Item Value Reference Range Interpretation Comments Hemoglobin (test code = 786-4) 8.7 g/dL 12-15 L Hematocrit (test code = 4544-3) 26.0 % 36-45 L Lab Interpretation (test code = Abnormal 48851-0) [facility] saturation, [id number] 19:28:00 Test Item Value Reference Range Interpretation Comments O2 Saturation (Measured) (test code = 53.9 % 17312-5) [facility] HospitalGlucose-Stat [id number] 19:28:00 Test Item Value Reference Range Interpretation Comments Glucose (test code = 2345-7) 139 mg/dL 70-110 H Lab Interpretation (test code = Abnormal 39750-6) [facility] HospitalOXYGEN SATURATION, [id number] 19:28:00 Test Item Value Reference Range Interpretation Comments O2 SATURATION (MEASURED) (BEAKER) 53.9 % (test code = 1455) CALCIUM, [id number] 19:28:00 Test Item Value Reference Range Interpretation Comments CALCIUM IONIZED (BEAKER) (test 1.10 mmol/L 1.12-1.27 L code = 698) PH, BLOOD (BEAKER) (test code = 7.42 1810) BLOOD GAS, [id number] 19:28:00 Test Item Value Reference Range Interpretation Comments PH ARTERIAL (BEAKER) (test code = 7.38 7.35-7.45 383) PCO2 ARTERIAL (BEAKER) (test code 42 mmHg 35-45 = 384) PO2 ARTERIAL (BEAKER) (test code 171 mmHg 80-90 H = 385) O2 SATURATION ARTERIAL (BEAKER) 99.1 % 96.0-97.0 H (test code = 386) HCO3 ARTERIAL (BEAKER) (test code 24 mmol/L 21-29 = 388) BASE EXCESS ARTERIAL (BEAKER) -0.4 mmol/L -2.0-3.0 (test code = 387) PATIENT TEMPERATURE (BEAKER) 39.1 C (test code = 1818) FIO2 (BEAKER) (test code = 1819) 40.0 % GLUCOSE-STAT [id number] 19:28:00 Test Item Value Reference Range Interpretation Comments GLUCOSE RANDOM (BEAKER) (test code 139 mg/dL 70-110 H = 652) HGB/HCT (H&H) - STAT [id number] 19:28:00 Test Item Value Reference Range Interpretation Comments HEMOGLOBIN (BEAKER) (test code = 8.7 g/dL 12.0-15.0 L 410) HEMATOCRIT (BEAKER) (test code = 26.0 % 36.0-45.0 L 411) Sodium Na-Stat [id number] 19:27:00 Test Item Value Reference Range Interpretation Comments Sodium (test code = 2951-2) 136 meq/L 136-145 Lab Interpretation (test code = Normal 82565-5) [facility]assium-Stat [id number] 19:27:00 Test Item Value Reference Range Interpretation Comments Potassium (test code = 2823-3) 5.0 meq/L 3.6-5.5 Lab Interpretation (test code = Normal 55334-6) [facility] [id number] 19:27:00 Test Item Value Reference Range Interpretation Comments SODIUM (BEAKER) (test code = 381) 136 meq/L 136-145 POTASSIUM-STAT [id number] 19:27:00 Test Item Value Reference Range Interpretation Comments POTASSIUM (BEAKER) (test code = 5.0 meq/L 3.6-5.5 379) Prepare [id number] 18:17:00 Test Item Value Reference Range Interpretation Comments Unit ABO (test code = O Pos 2111994) UNIT NUMBER (test code = [id number] 934-0) Status (test code = RETURNED FROM ISSUE 8069280) Blood Bank Product (test FFP code = 2263) PRODUCT CODE (test code = W9429H43 933-2) [facility], 1 VIEW, NON [id number] 16:30:00 Reason for exam:->Status post CV Surgery post op day 0Should this be performed at the bedside?->YesFINAL REPORT TECHNIQUE: Frontal view of the chest. INDICATION: 59-year-old woman after cardiovascular surgery. COMPARISON: Chest radiograph 02/03/2020. FINDINGS: LINES/TUBES: Endot tiffanie tube terminates proximal by 2.7 cm above the mike. Right internal jugular central venous catheter terminates over the expected region of the mid superior vena cava. Chest tubes project over the right cardiac silhouette and left apex. Partially visualized nasogastric/orogastric tube courses over the expected region of the gastric body. Additional apparent tube appears to terminate at the midline over the T9 vertebral body. LUNGS: Low lung volumes. No consolidation or pulmonary edema. Mild linear atelectasis in the right upper lung zone. PLEURA: No pneumothorax or significant pleural effusion. HEART AND MEDIASTINUM: Cardiac silhouette appears mildly prominent, likely in part due to AP technique and low lung volumes. New prosthetic cardiac valve. BONES AND SOFT TISSUES: Intact median sternotomy wires. Soft tissues are unremarkable. IMPRESSION:Lines/tubes and postsurgical changes as above. Apparent tube appears to terminate at the midline over the T9 vertebral body and may represent a med iastinal drain or possibly the nasogastric/orogastric tube tip coiled in the distal esophagus. Consider further evaluation with abdominal radiographs. No acute cardiopulmonary abnormalities. Signed: Judy Benitez MDReport Verified Date/Time: 02/05/2020 16:30:44 Reading Location: [facility] C013Y CT Body Reading Room [id number] 16:21:00 Test Item Value Reference Range Interpretation Comments MAGNESIUM (BEAKER) 1.7 mg/dL 1.6-2.6 Specimen slightly (test code = 627) hemolyzed Trim Installer ID - [id number] 16:21:00 Test Item Value Reference Range Interpretation Comments PHOSPHORUS (BEAKER) 4.8 mg/dL 2.3-4.7 H Specimen slightly (test code = 604) hemolyzed Trim Installer ID - DBBASIC METABOLIC [id number] 16:21:00 Test Item Value Reference Range Interpretation Comments SODIUM (BEAKER) 139 meq/L 136-145 (test code = 381) POTASSIUM (BEAKER) 4.5 meq/L 3.5-5.1 Specimen slightly (test code = 379) hemolyzed CHLORIDE (BEAKER) 108 meq/L 98-107 H (test code = 382) CO2 (BEAKER) (test 25 meq/L 22-29 code = 355) BLOOD UREA NITROGEN 10 mg/dL 7-21 (BEAKER) (test code = 354) CREATININE (BEAKER) 0.79 mg/dL 0.57-1.25 Specimen slightly (test code = 358) hemolyzed GLUCOSE RANDOM 115 mg/dL 70-105 H (BEAKER) (test code = 652) CALCIUM (BEAKER) 9.6 mg/dL 8.4-10.2 (test code = 697) EGFR (TRIP) (test 74 mL/min/1.73 ESTIMA TEAGAN GFR IS code = 1092) sq m NOT ACCURATE CREATININE CLEARANCE IN PREDICTING GLOMERULAR FILTRATION RATE . ESTIMATED GFR I S NOT APPLICABLE FOR DIALYSIS PATIEN TS. Trim Installer ID - DBLACTIC ACID, [id number] 16:18:00 Test Item Value Reference Range Interpretation Comments LACTATE BLOOD 1.0 mmol/L 0.5-2.2 Specimen sligh tly ARTERIAL (2) (TRIP) hemoly zed (test code = 2874) Trim Installer ID - [id number] 16:08:00 Test Item Value Reference Range Interpretation Comments PTT (test code = 12640-4) 53.9 22.5- 36.0 seconds H Lab Interpretation (test code = Abnormal 05454-0) [facility] HospitalAPTT2020-[facility] 16:08:00 Test Item Value Reference Range Interpretation Comments PARTIAL THROMBOPLASTIN TIME 53.9 seconds 22.5-36.0 H (TRIP) (test code = 760) [id number] 16:07:00 Test Item Value Reference Range Interpretation Comments Fibrinogen (test code = 3255-7) 521 mg/dl 225-434 H Lab Interpretation (test code = Abnormal 67542-8) [facility] HospitalProthrombin time/[id number] 16:07:00 Test Item Value Reference Range Interpretation Comments Protime (test code = 15.8 11.9- 14.2 H 5902-2) seconds INR (test code = 1.30 <=5.90 6301-6) SAMUEL (test code = SAMUEL) Effective 10/28/2018: PT Reference Range ChangeNew: 11.9-14.2 Previous: 11.7-14.7 RECOMMENDED COUMADIN/WARFARIN INR THERAPY RANGESSTANDARD DOSE: 2.0-3.0 Includes: PROPHYLAXIS for venous thrombosis, systemic embolization; TREATMENT for venous thrombosis and/or pulmonary embolus.HIGH RISK: Target INR is 2.5-3.5 for patients wiht mechanical heart valves. Lab Interpretation Abnormal (test code = 38735-5) [facility] HospitalPROTHROMBIN TIME/[id number] 16:07:00 Test Item Value Reference Range Interpretation Comments PROTIME (BEAKER) (test code = 15.8 seconds 11.9-14.2 H 759) INR (BEAKER) (test code = 370) 1.30 <=5.90 Effective 10/28/2018: PT Reference Range ChangeNew: 11.9-14.2 Previous: 11.7- 14.7RECOMMENDED COUMADIN/WARFARIN INR THERAPY RANGESSTANDARD DOSE: 2.0-3.0 Includes: PROPHYLAXIS for venous thrombosis, systemic embolization; TREATMENT for venous thrombosis and/or pulmonary embolus.HIGH RISK: Target INR is2.5-3.5 for patients wiht mechanical heart valves.[id number] 16:07:00 Test Item Value Reference Range Interpretation Comments FIBRINOGEN LEVEL (BEAKER) (test 521 mg/dl 225-434 H code = 658) CBC (HEMOGRAM ONLY)2020-02-05 15:57:00 Test Item Value Reference Range Interpretation Comments WHITE BLOOD CELL COUNT (BEAKER) 10.5 K/ L 3.5-10.5 (test code = 775) RED BLOOD CELL COUNT (BEAKER) 3.09 M/ L 3.93-5.22 L (test code = 761) HEMOGLOBIN (BEAKER) (test code = 9.1 GM/DL 11.2-15.7 L 410) HEMATOCRIT (BEAKER) (test code = 28.6 % 34.1-44.9 L 411) MEAN CORPUSCULAR VOLUME (BEAKER) 92.6 fL 79.4-94.8 (test code = 753) MEAN CORPUSCULAR HEMOGLOBIN 29.4 pg 25.6-32.2 (BEAKER) (test code = 751) MEAN CORPUSCULAR HEMOGLOBIN CONC 31.8 GM/DL 32.2-35.5 L (BEAKER) (test code = 752) RED CELL DISTRIBUTION WIDTH 14.2 % 11.7-14.4 (BEAKER) (test code = 412) PLATELET COUNT (BEAKER) (test 323 K/CU MM 150-450 code = 756) MEAN PLATELET VOLUME (BEAKER) 9.7 fL 9.4-12.3 (test code = 754) NUCLEATED RED BLOOD CELLS 0 /100 WBC 0-0 (BEAKER) (test code = 413) CALCIUM, [id number] 15:53:00 Test Item Value Reference Range Interpretation Comments CALCIUM IONIZED (BEAKER) (test 1.25 mmol/L 1.12-1.27 code = 698) PH, BLOOD (BEAKER) (test code = 7.45 1810) BLOOD GAS, [id number] 15:52:00 Test Item Value Reference Range Interpretation Comments PH ARTERIAL (BEAKER) (test code = 7.45 7.35-7.45 383) PCO2 ARTERIAL (BEAKER) (test code 36 mmHg 35-45 = 384) PO2 ARTERIAL (BEAKER) (test code = 200 mmHg 80-90 H 385) O2 SATURATION ARTERIAL (BEAKER) 99.4 % 96.0-97.0 H (test code = 386) HCO3 ARTERIAL (BEAKER) (test code 24 mmol/L 21-29 = 388) BASE EXCESS ARTERIAL (BEAKER) 0.3 mmol/L -2.0-3.0 (test code = 387) PATIENT TEMPERATURE (BEAKER) (test 36.3 C code = 1818) FIO2 (BEAKER) (test code = 1819) 60.0 % OXYGEN SATURATION, [id number] 15:52:00 Test Item Value Reference Range Interpretation Comments O2 SATURATION (MEASURED) (BEAKER) 50.4 % (test code = 1455) CBC W/PLT COUNT & AUTO [id number] 15:18:00 Test Item Value Reference Range Interpretation Comments WHITE BLOOD CELL COUNT (BEAKER) 8.6 K/ L 3.5-10.5 (test code = 775) RED BLOOD CELL COUNT (BEAKER) 2.26 M/ L 3.93-5.22 L (test code = 761) HEMOGLOBIN (BEAKER) (test code = 6.8 GM/DL 11.2-15.7 L 410) HEMATOCRIT (BEAKER) (test code = 21.4 % 34.1-44.9 L 411) MEAN CORPUSCULAR VOLUME (BEAKER) 94.7 fL 79.4-94.8 (test code = 753) MEAN CORPUSCULAR HEMOGLOBIN 30.1 pg 25.6-32.2 (BEAKER) (test code = 751) MEAN CORPUSCULAR HEMOGLOBIN CONC 31.8 GM/DL 32.2-35.5 L (BEAKER) (test code = 752) RED CELL DISTRIBUTION WIDTH 14.4 % 11.7-14.4 (BEAKER) (test code = 412) PLATELET COUNT (BEAKER) (test 274 K/CU MM 150-450 code = 756) MEAN PLATELET VOLUME (BEAKER) 10.0 fL 9.4-12.3 (test code = 754) NUCLEATED RED BLOOD CELLS 0 /100 WBC 0-0 (BEAKER) (test code = 413) NEUTROPHILS RELATIVE PERCENT 86 % (BEAKER) (test code = 429) LYMPHOCYTES RELATIVE PERCENT 12 % (BEAKER) (test code = 430) MONOCYTES RELATIVE PERCENT 1 % (BEAKER) (test code = 431) EOSINOPHILS RELATIVE PERCENT 0 % (BEAKER) (test code = 432) BASOPHILS RELATIVE PERCENT 0 % (BEAKER) (test code = 437) NEUTROPHILS ABSOLUTE COUNT 7.34 K/ L 1.56-6.13 H (BEAKER) (test code = 670) LYMPHOCYTES ABSOLUTE COUNT 0.99 K/ L 1.18-3.74 L (BEAKER) (test code = 414) MONOCYTES ABSOLUTE COUNT (BEAKER) 0.05 K/ L 0.24-0.36 L (test code = 415) EOSINOPHILS ABSOLUTE COUNT 0.01 K/ L 0.04-0.36 L (BEAKER) (test code = 416) BASOPHILS ABSOLUTE COUNT (BEAKER) 0.01 K/ L 0.01-0.08 (test code = 417) IMMATURE GRANULOCYTES-RELATIVE 2 % 0-1 H PERCENT (BEAKER) (test code = 2801) POC ACTIVATED CLOTTING [id number] 14:44:00 Test Item Value Reference Range Interpretation Comments Activated Clotting Time 125 sec : 74 -137 seconds, (test code = 441) Baseline: TESTED AT [address], [address]: Trim Installer/Techni arin ID = [id number] for NG CECI, JOHANNA [facility] MedicinePOCT-[id number] 14:44:00 Test Item Value Reference Range Interpretation Comments ACTIVATED CLOTTING TIME 125 sec : 74 -137 seconds, (BEAKER) (test code = Baseli ne: TESTED AT 441) [facility] [address] [facility], [address]: Trim Installer/Techni arin ID = [id number] for NG CECI, JOHANNA BLOOD GAS, [id number] 14:24:00 Test Item Value Reference Range Interpretation Comments PH ARTERIAL (BEAKER) (test code = 7.51 7.35-7.45 H 383) PCO2 ARTERIAL (BEAKER) (test code 30 mmHg 35-45 L = 384) PO2 ARTERIAL (BEAKER) (test code = 353 mmHg 80-90 H 385) O2 SATURATION ARTERIAL (BEAKER) 99.8 % 96.0-97.0 H (test code = 386) HCO3 ARTERIAL (BEAKER) (test code 24 mmol/L 21-29 = 388) BASE EXCESS ARTERIAL (BEAKER) 0.8 mmol/L -2.0-3.0 (test code = 387) PATIENT TEMPERATURE (BEAKER) (test 35.1 C code = 1818) FIO2 (BEAKER) (test code = 1819) 100.0 % GLUCOSE-STAT [id number] 14:24:00 Test Item Value Reference Range Interpretation Comments GLUCOSE RANDOM (BEAKER) (test code 147 mg/dL 70-110 H = 652) HGB/HCT (H&H) - STAT [id number] 14:24:00 Test Item Value Reference Range Interpretation Comments HEMOGLOBIN (BEAKER) (test code = 8.1 g/dL 12.0-15.0 L 410) HEMATOCRIT (BEAKER) (test code = 24.0 % 36.0-45.0 L 411) CALCIUM, [id number] 14:24:00 Test Item Value Reference Range Interpretation Comments CALCIUM IONIZED (BEAKER) (test 1.23 mmol/L 1.12-1.27 code = 698) PH, BLOOD (BEAKER) (test code = 7.48 1810) SODIUM NA-STAT [id number] 14:22:00 Test Item Value Reference Range Interpretation Comments SODIUM (BEAKER) (test code = 381) 137 meq/L 136-145 POTASSIUM-STAT [id number] 14:22:00 Test Item Value Reference Range Interpretation Comments POTASSIUM (BEAKER) (test code = 4.1 meq/L 3.6-5.5 379) Thromboelastograph (TEG)2020-02-05 14:17:00 Test Item Value Reference Range Interpretation Comments TEG Activated Clotting Time (test 6.8 4.0- 7.0 minutes code = 30410-1) TEG Fibrinogen Activity (test 79.9 61.0- 73.0 degrees H code = 51336-6) TEG Platelet Aggregation (test 73.5 55.0- 65.0 MM H code = 05663-5) TEG-H Activated Clotting Time 6.8 4.0- 7.0 minutes (test code = 1411) TEG-H Fibrinogen Activity (test 80.3 61.0- 73.0 degrees H code = 1412) TEG-H Platelet Aggregation (test 77.0 55.0- 65.0 MM H code = 1413) Lab Interpretation (test code = Abnormal 01970-5) [facility] HospitalTHROMBOELASTOGRAPH (TEG)2020-02-05 14:17:00 Test Item Value Reference Range Interpretation Comments TEG ACTIVATED CLOTTING TIME 6.8 minutes 4.0-7.0 (BEAKER) (test code = 1407) TEG FIBRINOGEN ACTIVITY (BEAKER) 79.9 degrees 61.0-73.0 H (test code = 1408) TEG PLT. AGGREGATION (BEAKER) 73.5 MM 55.0-65.0 H (test code = 1409) TGH ACTIVATED CLOTTING TIME 6.8 minutes 4.0-7.0 (BEAKER) (test code = 1411) TGH FIBRINOGEN ACTIVITY (BEAKER) 80.3 degrees 61.0-73.0 H (test code = 1412) TGH PLT. AGGREGATION (BEAKER) 77.0 MM 55.0-65.0 H (test code = 1413) [id number] 14:08:00 Test Item Value Reference Range Interpretation Comments FIBRINOGEN LEVEL (BEAKER) (test 412 mg/dl 225-434 code = 658) [id number] 13:58:00 Test Item Value Reference Range Interpretation Comments PARTIAL THROMBOPLASTIN TIME 81.1 seconds 22.5-36.0 H (BEAKER) (test code = 760) PROTHROMBIN TIME/[id number] 13:57:00 Test Item Value Reference Range Interpretation Comments PROTIME (BEAKER) (test code = 18.7 seconds 11.9-14.2 H 759) INR (BEAKER) (test code = 370) 1.61 <=5.90 Effective 10/28/2018: PT Reference Range ChangeNew: 11.9-14.2 Previous: 11.7- 14.7RECOMMENDED COUMADIN/WARFARIN INR THERAPY RANGESSTANDARD DOSE: 2.0-3.0 Includes: PROPHYLAXIS for venous thrombosis, systemic embolization; TREATMENT for venous thrombosis and/or pulmonary embolus.HIGH RISK: Target INR is2.5-3.5 for patients wiht mechanical heart valves.[id number] 13:54:00 Test Item Value Reference Range Interpretation Comments ACTIVATED CLOTTING TIME 131 sec : 74 -137 seconds, (BEAKER) (test code = Baseli ne: TESTED AT 441) [place] [address]: Trim Installer/Techni arin ID = [id number] for NG CECI, JOHANNA [id number] 13:54:00 Test Item Value Reference Range Interpretation Comments ACTIVATED CLOTTING TIME 450 sec : 74 -137 seconds, (BEAKER) (test code = Baseli ne: TESTED AT 441) [place] [address]: Trim Installer/Techni arin ID = [id number] for NG CECI, JOHANNA [id number] 13:54:00 Test Item Value Reference Range Interpretation Comments ACTIVATED CLOTTING TIME 472 sec : 74 -137 seconds, (BEAKER) (test code = Baseli ne: TESTED AT 441) [place] [address]: Trim Installer/Techni arin ID = [id number] for NG CECI, JOHANNA [id number] 13:54:00 Test Item Value Reference Range Interpretation Comments ACTIVATED CLOTTING TIME 599 sec : 74 -137 seconds, (BEAKER) (test code = Baseli ne: TESTED AT 441) [place] [address]: Trim Installer/Techni arin ID = [id number] for NG CECI, JOHANNA [id number] 13:54:00 Test Item Value Reference Range Interpretation Comments ACTIVATED CLOTTING TIME 412 sec : 74 -137 seconds, (BEAKER) (test code = Baseli ne: TESTED AT 441) [place] [address]: Trim Installer/Techni arin ID = [id number] for NG CECI, JOHANNA [id number] 13:53:00 Test Item Value Reference Range Interpretation Comments ACTIVATED CLOTTING TIME 599 sec : 74 -137 seconds, (BEAKER) (test code = Baseli ne: TESTED AT 441) [address], [facility] 30: Trim Installer/Techni arin ID = [id number] for NG CECI, JOHANNA [id number] 13:53:00 Test Item Value Reference Range Interpretation Comments ACTIVATED CLOTTING TIME 571 sec : 74 -137 seconds, (BEAKER) (test code = Baseli ne: TESTED AT 441) [address], [facility] 30: Trim Installer/Techni arin ID = [id number] for NG CECI, JOHANNA [id number] 13:53:00 Test Item Value Reference Range Interpretation Comments ACTIVATED CLOTTING TIME 472 sec : 74 -137 seconds, (BEAKER) (test code = Baseli ne: TESTED AT 441) [address], [facility] 30: Trim Installer/Techni arin ID = [id number] for NG CECI, JOHANNA Platelet [id number] 13:43:00 Test Item Value Reference Range Interpretation Comments Platelets (test code = 253 150- 450 K/CU MM 777-3) SAMUEL (test code = SAMUEL) Trim Installer ID - [id number] Lab Interpretation (test Normal code = 55107-4) [facility] HospitalPLATELET [id number] 13:43:00 Test Item Value Reference Range Interpretation Comments PLATELET COUNT (BEAKER) (test 253 K/CU MM 150-450 code = 756) Trim Installer ID - [id number]-STAT [id number] 13:41:00 Test Item Value Reference Range Interpretation Comments POTASSIUM (BEAKER) (test code = 4.3 meq/L 3.6-5.5 379) BLOOD GAS, [id number] 13:41:00 Test Item Value Reference Range Interpretation Comments PH ARTERIAL (BEAKER) (test code = 7.41 7.35-7.45 383) PCO2 ARTERIAL (BEAKER) (test code 48 mmHg 35-45 H = 384) PO2 ARTERIAL (BEAKER) (test code = 165 mmHg 80-90 H 385) O2 SATURATION ARTERIAL (BEAKER) 99.1 % 96.0-97.0 H (test code = 386) HCO3 ARTERIAL (BEAKER) (test code 30 mmol/L 21-29 H = 388) BASE EXCESS ARTERIAL (BEAKER) 4.6 mmol/L -2.0-3.0 H (test code = 387) PATIENT TEMPERATURE (BEAKER) (test 35.6 C code = 1818) FIO2 (BEAKER) (test code = 1819) 100.0 % SODIUM NA-STAT [id number] 13:41:00 Test Item Value Reference Range Interpretation Comments SODIUM (BEAKER) (test code = 381) 134 meq/L 136-145 L GLUCOSE-STAT [id number] 13:41:00 Test Item Value Reference Range Interpretation Comments GLUCOSE RANDOM (BEAKER) (test code 196 mg/dL 70-110 H = 652) HGB/HCT (H&H) - STAT [id number] 13:41:00 Test Item Value Reference Range Interpretation Comments HEMOGLOBIN (BEAKER) (test code = 7.1 g/dL 12.0-15.0 L 410) HEMATOCRIT (BEAKER) (test code = 21.0 % 36.0-45.0 L 411) CALCIUM, [id number] 13:41:00 Test Item Value Reference Range Interpretation Comments CALCIUM IONIZED (BEAKER) (test 1.00 mmol/L 1.12-1.27 L code = 698) PH, BLOOD (BEAKER) (test code = 7.39 1810) POTASSIUM-STAT [id number] 12:45:00 Test Item Value Reference Range Interpretation Comments POTASSIUM (BEAKER) (test code = 6.2 meq/L 3.6-5.5 HH 379) BLOOD GAS, [id number] 12:44:00 Test Item Value Reference Range Interpretation Comments PH ARTERIAL (BEAKER) (test code = 7.43 7.35-7.45 383) PCO2 ARTERIAL (BEAKER) (test code 38 mmHg 35-45 = 384) PO2 ARTERIAL (BEAKER) (test code = 309 mmHg 80-90 H 385) O2 SATURATION ARTERIAL (BEAKER) 99.7 % 96.0-97.0 H (test code = 386) HCO3 ARTERIAL (BEAKER) (test code 25 mmol/L 21-29 = 388) BASE EXCESS ARTERIAL (BEAKER) 0.3 mmol/L -2.0-3.0 (test code = 387) PATIENT TEMPERATURE (BEAKER) (test 36.3 C code = 1818) FIO2 (BEAKER) (test code = 1819) 70.0 % SODIUM NA-STAT [id number] 12:44:00 Test Item Value Reference Range Interpretation Comments SODIUM (BEAKER) (test code = 381) 132 meq/L 136-145 L GLUCOSE-STAT [id number] 12:44:00 Test Item Value Reference Range Interpretation Comments GLUCOSE RANDOM (BEAKER) (test code 219 mg/dL 70-110 H = 652) HGB/HCT (H&H) - STAT [id number] 12:44:00 Test Item Value Reference Range Interpretation Comments HEMOGLOBIN (BEAKER) (test code = 7.4 g/dL 12.0-15.0 L 410) HEMATOCRIT (BEAKER) (test code = 22.0 % 36.0-45.0 L 411) BLOOD GAS, [id number] 12:18:00 Test Item Value Reference Range Interpretation Comments PH ARTERIAL (BEAKER) (test code = 7.41 7.35-7.45 383) PCO2 ARTERIAL (BEAKER) (test code 43 mmHg 35-45 = 384) PO2 ARTERIAL (BEAKER) (test code = 312 mmHg 80-90 H 385) O2 SATURATION ARTERIAL (BEAKER) 99.7 % 96.0-97.0 H (test code = 386) HCO3 ARTERIAL (BEAKER) (test code 28 mmol/L 21-29 = 388) BASE EXCESS ARTERIAL (BEAKER) 2.1 mmol/L -2.0-3.0 (test code = 387) PATIENT TEMPERATURE (BEAKER) (test 32.6 C code = 1818) FIO2 (BEAKER) (test code = 1819) 60.0 % SODIUM NA-STAT [id number] 12:18:00 Test Item Value Reference Range Interpretation Comments SODIUM (BEAKER) (test code = 381) 133 meq/L 136-145 L GLUCOSE-STAT [id number] 12:18:00 Test Item Value Reference Range Interpretation Comments GLUCOSE RANDOM (BEAKER) (test code 218 mg/dL 70-110 H = 652) HGB/HCT (H&H) - STAT [id number] 12:18:00 Test Item Value Reference Range Interpretation Comments HEMOGLOBIN (BEAKER) (test code = 7.7 g/dL 12.0-15.0 L 410) HEMATOCRIT (BEAKER) (test code = 23.0 % 36.0-45.0 L 411) POTASSIUM-STAT [id number] 12:17:00 Test Item Value Reference Range Interpretation Comments POTASSIUM (BEAKER) (test code = 5.4 meq/L 3.6-5.5 379) POTASSIUM-STAT [id number] 11:48:00 Test Item Value Reference Range Interpretation Comments POTASSIUM (BEAKER) (test code = 5.0 meq/L 3.6-5.5 379) BLOOD GAS, [id number] 11:48:00 Test Item Value Reference Range Interpretation Comments PH ARTERIAL (BEAKER) (test code = 7.40 7.35-7.45 383) PCO2 ARTERIAL (BEAKER) (test code 43 mmHg 35-45 = 384) PO2 ARTERIAL (BEAKER) (test code = 334 mmHg 80-90 H 385) O2 SATURATION ARTERIAL (BEAKER) 99.7 % 96.0-97.0 H (test code = 386) HCO3 ARTERIAL (BEAKER) (test code 30 mmol/L 21-29 H = 388) BASE EXCESS ARTERIAL (BEAKER) 2.1 mmol/L -2.0-3.0 (test code = 387) PATIENT TEMPERATURE (BEAKER) (test 27.4 C code = 1818) FIO2 (BEAKER) (test code = 1819) 60.0 % SODIUM NA-STAT [id number] 11:48:00 Test Item Value Reference Range Interpretation Comments SODIUM (BEAKER) (test code = 381) 134 meq/L 136-145 L GLUCOSE-STAT [id number] 11:48:00 Test Item Value Reference Range Interpretation Comments GLUCOSE RANDOM (BEAKER) (test code 217 mg/dL 70-110 H = 652) HGB/HCT (H&H) - STAT [id number] 11:48:00 Test Item Value Reference Range Interpretation Comments HEMOGLOBIN (BEAKER) (test code = 7.4 g/dL 12.0-15.0 L 410) HEMATOCRIT (BEAKER) (test code = 22.0 % 36.0-45.0 L 411) POTASSIUM-STAT [id number] 11:14:00 Test Item Value Reference Range Interpretation Comments POTASSIUM (BEAKER) (test code = 4.7 meq/L 3.6-5.5 379) BLOOD GAS, [id number] 11:14:00 Test Item Value Reference Range Interpretation Comments PH ARTERIAL (BEAKER) (test code = 7.41 7.35-7.45 383) PCO2 ARTERIAL (BEAKER) (test code 40 mmHg 35-45 = 384) PO2 ARTERIAL (BEAKER) (test code = 351 mmHg 80-90 H 385) O2 SATURATION ARTERIAL (BEAKER) 99.8 % 96.0-97.0 H (test code = 386) HCO3 ARTERIAL (BEAKER) (test code 28 mmol/L 21-29 = 388) BASE EXCESS ARTERIAL (BEAKER) 1.0 mmol/L -2.0-3.0 (test code = 387) PATIENT TEMPERATURE (BEAKER) (test 28.0 C code = 1818) FIO2 (BEAKER) (test code = 1819) 60.0 % SODIUM NA-STAT [id number] 11:14:00 Test Item Value Reference Range Interpretation Comments SODIUM (BEAKER) (test code = 381) 134 meq/L 136-145 L GLUCOSE-STAT [id number] 11:14:00 Test Item Value Reference Range Interpretation Comments GLUCOSE RANDOM (BEAKER) (test code 203 mg/dL 70-110 H = 652) HGB/HCT (H&H) - STAT [id number] 11:14:00 Test Item Value Reference Range Interpretation Comments HEMOGLOBIN (BEAKER) (test code = 7.0 g/dL 12.0-15.0 L 410) HEMATOCRIT (BEAKER) (test code = 21.0 % 36.0-45.0 L 411) BLOOD GAS, [id number] 10:47:00 Test Item Value Reference Range Interpretation Comments PH ARTERIAL (BEAKER) (test code = 7.49 7.35-7.45 H 383) PCO2 ARTERIAL (BEAKER) (test code 30 mmHg 35-45 L = 384) PO2 ARTERIAL (BEAKER) (test code 268 mmHg 80-90 H = 385) O2 SATURATION ARTERIAL (BEAKER) 99.7 % 96.0-97.0 H (test code = 386) HCO3 ARTERIAL (BEAKER) (test code 23 mmol/L 21-29 = 388) BASE EXCESS ARTERIAL (BEAKER) -0.7 mmol/L -2.0-3.0 (test code = 387) PATIENT TEMPERATURE (BEAKER) 32.6 C (test code = 1818) FIO2 (BEAKER) (test code = 1819) 80.0 % SODIUM NA-STAT [id number] 10:47:00 Test Item Value Reference Range Interpretation Comments SODIUM (BEAKER) (test code = 381) 133 meq/L 136-145 L GLUCOSE-STAT [id number] 10:47:00 Test Item Value Reference Range Interpretation Comments GLUCOSE RANDOM (BEAKER) (test code 131 mg/dL 70-110 H = 652) HGB/HCT (H&H) - STAT [id number] 10:47:00 Test Item Value Reference Range Interpretation Comments HEMOGLOBIN (BEAKER) (test code = 8.2 g/dL 12.0-15.0 L 410) HEMATOCRIT (BEAKER) (test code = 24.0 % 36.0-45.0 L 411) POTASSIUM-STAT [id number] 10:44:00 Test Item Value Reference Range Interpretation Comments POTASSIUM (BEAKER) (test code = 4.4 meq/L 3.6-5.5 379) [id number] 09:56:15Darryn Varenr MD - 02/05/2020 9:56 AM CDT TEEDate: 02/05/2020 9:56 AM Sex: Female Location: OR Requesting Physician: Darryn Olivera MD Examiner: Darryn Varner MDRutherford, Lerin Elise Intubated Sedated Patient screened for esoph disease: Yes Insertion: easy Probe Type: multiplane Modalities: 2D, CFM, CWD and PWD Pre Intervention Summary: Aorta: No aneurysm, no dissection, no mobile plaques, there are plaques < .03cm present in the descendingAV: trileaflet morphology, heavily calcified, severe aortic stenosis,SUSAN .72 cm2, Peak gradient of 60 mmHg, moderate aortic regurgitation by AI/LVOT diameter, LVOT 1.94, Annulus 2.0, sinus 2.87, STJ 2.49, ascending 3.37LV: normal chamber size , no LVH, normal systolic function (EF 55- 60% by Blanca's), no RWMA, no thrombusMV: normal morphology, mild mitral regurgitation by vena contracta, no mitral stenosisLA: no AVERY thrombus, normal size and functionPV: limited visualizationRV: normal sized chamber, normal function by TAPSE, no thrombusTV: normal morphology, mild tricuspid regurgitation by qualitative assessmentRA: no thrombusNo PFO by color dopper flow. No pericardial effusionAll findings communicated to surgical team. Post Intervention Summary: S/p inspirus 23mm bioprosthetic with aortic root enlargementAorta: No aneurysm, no dissection, no mobile plaques, there are plaques <.03cm present in the descendingAV: bioprosthetic valve is seated well, trileaflet, opening well. There is a small perivalvular leak at the non- coronary cusp. Surgical team aware. Mean gradient 9 mmHg, SUSAN 1.42 cm2, no regurgitationLV: normal chamber size , no LVH, normal systolic function (EF normal, unchanged by qualitative assessment), no RWMA, no thrombusnormal sized chamber, normal function, no thrombusNo pericardial effusion. Findings communicated to surgical team.[facility] HospitalCALCIUM, IONIZED 2020-02-05 09:33:00 Test Item Value Reference Range Interpretation Comments CALCIUM IONIZED (BEAKER) (test 1.09 mmol/L 1.12-1.27 L code = 698) PH, BLOOD (BEAKER) (test code = 7.47 1810) BLOOD GAS, [id number] 09:33:00 Test Item Value Reference Range Interpretation Comments PH ARTERIAL (BEAKER) (test code = 7.49 7.35-7.45 H 383) PCO2 ARTERIAL (BEAKER) (test code 32 mmHg 35-45 L = 384) PO2 ARTERIAL (BEAKER) (test code = 245 mmHg 80-90 H 385) O2 SATURATION ARTERIAL (BEAKER) 99.6 % 96.0-97.0 H (test code = 386) HCO3 ARTERIAL (BEAKER) (test code 24 mmol/L 21-29 = 388) BASE EXCESS ARTERIAL (BEAKER) 0.3 mmol/L -2.0-3.0 (test code = 387) PATIENT TEMPERATURE (BEAKER) (test 36.1 C code = 1818) FIO2 (BEAKER) (test code = 1819) 100.0 % GLUCOSE-STAT [id number] 09:33:00 Test Item Value Reference Range Interpretation Comments GLUCOSE RANDOM (BEAKER) (test code 121 mg/dL 70-110 H = 652) HGB/HCT (H&H) - STAT [id number] 09:33:00 Test Item Value Reference Range Interpretation Comments HEMOGLOBIN (BEAKER) (test code = 9.9 g/dL 12.0-15.0 L 410) HEMATOCRIT (BEAKER) (test code = 29.0 % 36.0-45.0 L 411) SODIUM NA-STAT [id number] 09:32:00 Test Item Value Reference Range Interpretation Comments SODIUM (BEAKER) (test code = 381) 138 meq/L 136-145 POTASSIUM-STAT [id number] 09:32:00 Test Item Value Reference Range Interpretation Comments POTASSIUM (BEAKER) (test code = 3.9 meq/L 3.6-5.5 379) [id number] 08:40:00 Test Item Value Reference Range Interpretation Comments MAGNESIUM (BEAKER) 1.8 mg/dL 1.6-2.6 Specimen slightly (test code = 627) hemolyzed Trim Installer ID - PIAYA [id number] 08:40:00 Test Item Value Reference Range Interpretation Comments PHOSPHORUS (BEAKER) 4.8 mg/dL 2.3-4.7 H Specimen slightly (test code = 604) hemolyzed Trim Installer ID - PIAYA LBASIC METABOLIC [id number] 08:40:00 Test Item Value Reference Range Interpretation Comments SODIUM (BEAKER) 137 meq/L 136-145 (test code = 381) POTASSIUM (BEAKER) 4.3 meq/L 3.5-5.1 Specimen slightly (test code = 379) hemolyzed CHLORIDE (BEAKER) 105 meq/L 98-107 (test code = 382) CO2 (BEAKER) (test 18 meq/L 22-29 L code = 355) BLOOD UREA NITROGEN 8 mg/dL 7-21 (BEAKER) (test code = 354) CREATININE (BEAKER) 0.83 mg/dL 0.57-1.25 Specimen slightly (test code = 358) hemolyzed GLUCOSE RANDOM 110 mg/dL 70-105 H (BEAKER) (test code = 652) CALCIUM (BEAKER) 9.2 mg/dL 8.4-10.2 (test code = 697) EGFR (BEAKER) (test 70 mL/min/1.73 ESTIMA TEAGAN GFR IS code = 1092) sq m NOT ACCURATE CREATININE CLEARANCE IN PREDICTING GLOMERULAR FILTRATION RATE . ESTIMATED GFR I S NOT APPLICABLE FOR DIALYSIS PATIEN TS. Trim Installer ID - PIAYA LPregnancy Screen, [id number] 07:04:00 Test Item Value Reference Range Interpretation Comments Preg Test, Ur (test code = 2112-1) Negative [facility] MedicinePREGNANCY SCREEN, [id number] 07:04:00 Test Item Value Reference Range Interpretation Comments TEST URINE (BEAKER) (test Negative code = 583) CBC W/PLT COUNT & AUTO [id number] 04:22:00 Test Item Value Reference Range Interpretation Comments WHITE BLOOD CELL COUNT (BEAKER) 5.7 K/ L 3.5-10.5 (test code = 775) RED BLOOD CELL COUNT (BEAKER) 3.25 M/ L 3.93-5.22 L (test code = 761) HEMOGLOBIN (BEAKER) (test code = 9.6 GM/DL 11.2-15.7 L 410) HEMATOCRIT (BEAKER) (test code = 30.8 % 34.1-44.9 L 411) MEAN CORPUSCULAR VOLUME (BEAKER) 94.8 fL 79.4-94.8 (test code = 753) MEAN CORPUSCULAR HEMOGLOBIN 29.5 pg 25.6-32.2 (BEAKER) (test code = 751) MEAN CORPUSCULAR HEMOGLOBIN CONC 31.2 GM/DL 32.2-35.5 L (BEAKER) (test code = 752) RED CELL DISTRIBUTION WIDTH 14.2 % 11.7-14.4 (BEAKER) (test code = 412) PLATELET COUNT (BEAKER) (test 417 K/CU MM 150-450 code = 756) MEAN PLATELET VOLUME (BEAKER) 9.5 fL 9.4-12.3 (test code = 754) NUCLEATED RED BLOOD CELLS 0 /100 WBC 0-0 (BEAKER) (test code = 413) NEUTROPHILS RELATIVE PERCENT 60 % (BEAKER) (test code = 429) LYMPHOCYTES RELATIVE PERCENT 32 % (BEAKER) (test code = 430) MONOCYTES RELATIVE PERCENT 6 % (BEAKER) (test code = 431) EOSINOPHILS RELATIVE PERCENT 1 % (BEAKER) (test code = 432) BASOPHILS RELATIVE PERCENT 1 % (BEAKER) (test code = 437) NEUTROPHILS ABSOLUTE COUNT 3.37 K/ L 1.56-6.13 (BEAKER) (test code = 670) LYMPHOCYTES ABSOLUTE COUNT 1.80 K/ L 1.18-3.74 (BEAKER) (test code = 414) MONOCYTES ABSOLUTE COUNT (BEAKER) 0.34 K/ L 0.24-0.36 (test code = 415) EOSINOPHILS ABSOLUTE COUNT 0.03 K/ L 0.04-0.36 L (BEAKER) (test code = 416) BASOPHILS ABSOLUTE COUNT (BEAKER) 0.03 K/ L 0.01-0.08 (test code = 417) IMMATURE GRANULOCYTES-RELATIVE 1 % 0-1 PERCENT (BEAKER) (test code = 2801) SARS-COV2/RT-PCR ([facility]2020-02-04 22:48:00 Test Item Value Reference Range Interpretation Comments SARS-COV2/RT-PCR (test Negative Not Detected, Negative, code = 5673387) See external report for linked test SARS-COV-2 PERFORMING LAB [facility] (test code = 4649248) Negative result for this test determines that SARS-CoV-2 RNA was not present in the specimen above the Limit of Detection (LOD). However, Negative results do not preclude SARS-CoV-2 infection and should not be used as the sole basis for treatment or patient management decisions. Negative results mustbe combined with clinical observations, patient history, and epidemiological information. A false negative result may occur if a specimen is improperly collected, transported or handled. A false negative result should be considered if patient's recent exposures or clinical presentation indicate that COVID-19 (SARS-CoV-2) is likely and diagnostic tests for other causes of illness are negative. Re-testing should be considered in cases of suspected false negatives.The limit of detection for this assay is 800 copies/mL.This SARS CoV-2 test is a real-time RT-PCR test intended for the qualitative detection of nucleic acid from SARS-CoV-2 in a nasopharyngeal swab specimen collected from individuals susp ected of COVID-19 by their healthcare provider.This test has not been Food and Drug Administration (FDA) cleared or approved. This is a modified version of an approved [...] is revoked under Section 564(g) of the Act.Fact Sheet for Healthcare Providers:https://www.[employer]/sites/default/files/product/documents/Fact_Shee o_MQ_Ttkvzldfh_Ztha_RDRA-WnP-4.pdfFact Sheet for Healthcare Patients:https://www.[employer]/sites/default/files/product/ documents/Mcev_Wxfkp_Gffdwpgm_Gdcl_KXYL-RzF-8.pdfPerforming Laboratory:[address], [place] [address]Vtpubrgkdx A1c 2020-02-04 17:49:00 Test Item Value Reference Range Interpretation Comments Hemoglobin A1C (test code = 4548-4) 5.8 % 4.3-6.1 Lab Interpretation (test code = Normal 20818-4) [facility] HospitalHEMOGLOBIN [id number] 17:49:00 Test Item Value Reference Range Interpretation Comments HEMOGLOBIN A1C (BEAKER) (test code = 5.8 % 4.3-6.1 368) Type and screen, [id number] 15:05:00 Test Item Value Reference Range Interpretation Comments ABO/RH AUTOMATED (BEAKER) (test O POSITIVE code = 2260) Ab Scrn (test code = 890-4) NEGATIVE [facility] HospitalLipid [id number] 15:04:00 Test Item Value Reference Range Interpretation Comments Triglycerides (test 169 mg/dL code = 2571-8) Cholesterol (test code 143 mg/dL = 2093-3) HDL (test code = 30 mg/dL 2085-9) LDL Calculated (test 79 mg/dL code = 38886-7) SAMUEL (test code = SAMUEL) Triglyceride Reference Range: Low Risk <150 Borderline 150-199 High Risk 200-499 Very High Risk >=500 Cholesterol Reference Range: Low Risk <200 Borderline 200-239 High Risk >240 HDL Cholesterol Reference Range: Low Risk >=60 High Risk <40 LDL Cholesterol Reference Range: Optimal <100 Near Optimal 100-129 Borderline 130-159 High 160-189 Very High >=190 Trim Installer ID - RHONDA [facility] MedicineLIPID [id number] 15:04:00 Test Item Value Reference Range Interpretation Comments TRIGLYCERIDES (BEAKER) (test code = 169 mg/dL 540) CHOLESTEROL (BEAKER) (test code = 143 mg/dL 631) HDL CHOLESTEROL (BEAKER) (test code 30 mg/dL = 976) LDL CHOLESTEROL CALCULATED (BEAKER) 79 mg/dL (test code = 633) Triglyceride Reference Range: Low Risk <150 Borderline 150-199 High Risk 200-499 Very High Risk >=500Cholesterol Reference Range: Low Risk <200 Borderline 200-239 High Risk >240HDL Cholesterol Reference Range: Low Risk >=60 High Risk <40LDL Cholesterol Reference Range: Optimal <100 Near Optimal 100-129 Borderline 130-159 High 160-189 Very High >=190 Trim Installer ID - [id number] 14:48:00 Test Item Value Reference Range Interpretation Comments PARTIAL THROMBOPLASTIN TIME 37.9 seconds 22.5-36.0 H (BEAKER) (test code = 760) PROTHROMBIN TIME/[id number] 14:47:00 Test Item Value Reference Range Interpretation Comments PROTIME (BEAKER) (test code = 14.5 seconds 11.9-14.2 H 759) INR (BEAKER) (test code = 370) 1.16 <=5.90 Effective 10/28/2018: PT Reference Range ChangeNew: 11.9-14.2 Previous: 11.7- 14.7RECOMMENDED COUMADIN/WARFARIN INR THERAPY RANGESSTANDARD DOSE: 2.0-3.0 Includes: PROPHYLAXIS for venous thrombosis, systemic embolization; TREATMENT for venous thrombosis and/or pulmonary embolus.HIGH RISK: Target INR is2.5-3.5 for patients wiht mechanical heart valves.[id number] 05:55:00 Test Item Value Reference Range Interpretation Comments PHOSPHORUS (BEAKER) (test code = 4.3 mg/dL 2.3-4.7 604) Trim Installer ID Vandana CALDERA [id number] 05:55:00 Test Item Value Reference Range Interpretation Comments MAGNESIUM (BEAKER) (test code = 1.8 mg/dL 1.6-2.6 627) Trim Installer ID Vandana CALDERA LBASIC METABOLIC [id number] 05:55:00 Test Item Value Reference Range Interpretation Comments SODIUM (BEAKER) 137 meq/L 136-145 (test code = 381) POTASSIUM (BEAKER) 4.0 meq/L 3.5-5.1 (test code = 379) CHLORIDE (BEAKER) 104 meq/L 98-107 (test code = 382) CO2 (BEAKER) (test 25 meq/L 22-29 code = 355) BLOOD UREA NITROGEN 7 mg/dL 7-21 (BEAKER) (test code = 354) CREATININE (BEAKER) 0.80 mg/dL 0.57-1.25 (test code = 358) GLUCOSE RANDOM 107 mg/dL 70-105 H (BEAKER) (test code = 652) CALCIUM (BEAKER) 9.1 mg/dL 8.4-10.2 (test code = 697) EGFR (BEAKER) (test 73 mL/min/1.73 ESTIMA TEAGAN GFR IS code = 1092) sq m NOT ACCURATE CREATININE CLEARANCE IN PREDICTING GLOMERULAR FILTRATION RATE . ESTIMATED GFR I S NOT APPLICABLE FOR DIALYSIS PATIEN TS. Trim Installer ID - VERENICE LCBC W/PLT COUNT & AUTO [id number] 05:13:00 Test Item Value Reference Range Interpretation Comments WHITE BLOOD CELL COUNT (BEAKER) 6.5 K/ L 3.5-10.5 (test code = 775) RED BLOOD CELL COUNT (BEAKER) 3.11 M/ L 3.93-5.22 L (test code = 761) HEMOGLOBIN (BEAKER) (test code = 9.2 GM/DL 11.2-15.7 L 410) HEMATOCRIT (BEAKER) (test code = 29.4 % 34.1-44.9 L 411) MEAN CORPUSCULAR VOLUME (BEAKER) 94.5 fL 79.4-94.8 (test code = 753) MEAN CORPUSCULAR HEMOGLOBIN 29.6 pg 25.6-32.2 (BEAKER) (test code = 751) MEAN CORPUSCULAR HEMOGLOBIN CONC 31.3 GM/DL 32.2-35.5 L (BEAKER) (test code = 752) RED CELL DISTRIBUTION WIDTH 14.1 % 11.7-14.4 (BEAKER) (test code = 412) PLATELET COUNT (BEAKER) (test 453 K/CU MM 150-450 H code = 756) MEAN PLATELET VOLUME (BEAKER) 9.7 fL 9.4-12.3 (test code = 754) NUCLEATED RED BLOOD CELLS 0 /100 WBC 0-0 (BEAKER) (test code = 413) NEUTROPHILS RELATIVE PERCENT 62 % (BEAKER) (test code = 429) LYMPHOCYTES RELATIVE PERCENT 28 % (BEAKER) (test code = 430) MONOCYTES RELATIVE PERCENT 6 % (BEAKER) (test code = 431) EOSINOPHILS RELATIVE PERCENT 1 % (BEAKER) (test code = 432) BASOPHILS RELATIVE PERCENT 1 % (BEAKER) (test code = 437) NEUTROPHILS ABSOLUTE COUNT 4.00 K/ L 1.56-6.13 (BEAKER) (test code = 670) LYMPHOCYTES ABSOLUTE COUNT 1.84 K/ L 1.18-3.74 (BEAKER) (test code = 414) MONOCYTES ABSOLUTE COUNT (BEAKER) 0.41 K/ L 0.24-0.36 H (test code = 415) EOSINOPHILS ABSOLUTE COUNT 0.04 K/ L 0.04-0.36 (BEAKER) (test code = 416) BASOPHILS ABSOLUTE COUNT (BEAKER) 0.03 K/ L 0.01-0.08 (test code = 417) IMMATURE GRANULOCYTES-RELATIVE 3 % 0-1 H PERCENT (BEAKER) (test code = 2801) ECG 12 [id number] 17:21:16Interface, External Ris In - 02/03/2020 5:21 PM CDTVentricular Rate 70 BPMAtrial Rate 70 BPMP-R Interval 196 msQRS Duration 98 msQ-T Interval 418 msQTC Calculation(Bazett) 451 msP Keene 58 degreesR Keene 42 degreesT [place] 71 degreesNormal sinus rhythmNormal ECGWhen compared with ECG of 31-JAN-2020 20:01,No significant change was foundConfirmed by Cricket Sinha ([id number]) on 02/03/2020 5:21:11 [facility] [id number] 16:10:00Surgical Pathology Report Case: [id number] Authorizing Provider: Darryn Olivera MD Collected: 01/31/2020 03:39 PM Ordering Location: [facility] Received: 02/01/2020 09:57 AM PERIOPERATIVE SERVICES Pathologist: Steve Walker MD Specimen: Plaque, LEFT CAROTID PLAQUE ARTERY, LEFT CAROTID, ENDARTERECTOMY:CALCIFIC ATHEROSCLEROTIC PLAQUE Signing Pathologist Direct Phone Line: [phone]; [id number] diagnosis: Aortic valve stenosis, etiology of cardiac valve disease unspecified, coronary artery disease involving [place] coronary artery of [place] heart without angina pectoris.PlaqueReceived in formalin labeled with the patient's name, accession number and "left carotid plaque" is a 2.5 cm in length x 0.5 cm in diameter rodriguez-yellow bifurcated, tubular piece of focally calcified plaque. [employer] sections are submitted in A1 following decalcification. PA/pl PerformedTroponin [id number] 12:20:00 Test Item Value Reference Range Interpretation Comments Troponin I (test code = 0.01 ng/mL 0-0.03 83039-9) SAMUEL (test code = SAMUEL) Troponin I (TnI) levels must be interpreted in the context of the presenting symptoms and the clinical findings. Elevated TnI levels indicate myocardial damage, but are not specific for ischemic heart disease. Elevated TnI levels are seen in patients with other cardiac conditions (including myocarditis and congestive heart failure), and slight TnI elevations occur in patients with other conditions, including sepsis, renal failure, acidosis, acute neurological disease, and persistent tachyarrhythmia.Opera tor ID - NTP Lab Interpretation (test Normal code = 04064-1) [facility] HospitalTROPONIN [id number] 12:20:00 Test Item Value Reference Range Interpretation Comments TROPONIN I (BEAKER) (test code = 0.01 ng/mL 0.00-0.03 397) Troponin I (TnI) levels must be interpreted in the context of the presenting symptoms and the clinical findings. Elevated TnI levels indicate myocardial damage, but are not specific for ischemic heart disease. Elevated TnI levels are seen in patients with other cardiac conditions (including myocarditis and congestive heart failure), and slight TnI elevations occur in patients with other conditions, including sepsis, renal failure, acidosis, acute neurological disease, and persistent tachyarrhythmia.Trim Installer ID - [id number] 12:14:00 Test Item Value Reference Range Interpretation Comments MAGNESIUM (BEAKER) 1.8 mg/dL 1.6-2.6 Specimen slightly (test code = 627) hemolyzed Trim Installer ID - NTPBASIC METABOLIC [id number] 12:14:00 Test Item Value Reference Range Interpretation Comments SODIUM (BEAKER) 136 meq/L 136-145 (test code = 381) POTASSIUM (BEAKER) 4.3 meq/L 3.5-5.1 Specimen slightly (test code = 379) hemolyzed CHLORIDE (BEAKER) 106 meq/L 98-107 (test code = 382) CO2 (BEAKER) (test 23 meq/L 22-29 code = 355) BLOOD UREA NITROGEN 7 mg/dL 7-21 (BEAKER) (test code = 354) CREATININE (BEAKER) 0.76 mg/dL 0.57-1.25 Specimen slightly (test code = 358) hemolyzed GLUCOSE RANDOM 103 mg/dL 70-105 (BEAKER) (test code = 652) CALCIUM (BEAKER) 9.0 mg/dL 8.4-10.2 (test code = 697) EGFR (BEAKER) (test 77 mL/min/1.73 ESTIMA TEAGAN GFR IS code = 1092) sq m NOT ACCURATE CREATININE CLEARANCE IN PREDICTING GLOMERULAR FILTRATION RATE . ESTIMATED GFR I S NOT APPLICABLE FOR DIALYSIS PATIEN TS. Trim Installer ID - NTPCBC W/PLT COUNT & AUTO [id number] 12:11:00 Test Item Value Reference Range Interpretation Comments WHITE BLOOD CELL COUNT (BEAKER) 7.5 K/ L 3.5-10.5 (test code = 775) RED BLOOD CELL COUNT (BEAKER) 3.10 M/ L 3.93-5.22 L (test code = 761) HEMOGLOBIN (BEAKER) (test code = 9.3 GM/DL 11.2-15.7 L 410) HEMATOCRIT (BEAKER) (test code = 29.2 % 34.1-44.9 L 411) MEAN CORPUSCULAR VOLUME (BEAKER) 94.2 fL 79.4-94.8 (test code = 753) MEAN CORPUSCULAR HEMOGLOBIN 30.0 pg 25.6-32.2 (BEAKER) (test code = 751) MEAN CORPUSCULAR HEMOGLOBIN CONC 31.8 GM/DL 32.2-35.5 L (BEAKER) (test code = 752) RED CELL DISTRIBUTION WIDTH 14.2 % 11.7-14.4 (BEAKER) (test code = 412) PLATELET COUNT (BEAKER) (test 454 K/CU MM 150-450 H code = 756) MEAN PLATELET VOLUME (BEAKER) 9.6 fL 9.4-12.3 (test code = 754) NUCLEATED RED BLOOD CELLS 0 /100 WBC 0-0 (BEAKER) (test code = 413) NEUTROPHILS RELATIVE PERCENT 65 % (BEAKER) (test code = 429) LYMPHOCYTES RELATIVE PERCENT 25 % (BEAKER) (test code = 430) MONOCYTES RELATIVE PERCENT 6 % (BEAKER) (test code = 431) EOSINOPHILS RELATIVE PERCENT 1 % (BEAKER) (test code = 432) BASOPHILS RELATIVE PERCENT 1 % (BEAKER) (test code = 437) NEUTROPHILS ABSOLUTE COUNT 4.84 K/ L 1.56-6.13 (BEAKER) (test code = 670) LYMPHOCYTES ABSOLUTE COUNT 1.84 K/ L 1.18-3.74 (BEAKER) (test code = 414) MONOCYTES ABSOLUTE COUNT (BEAKER) 0.44 K/ L 0.24-0.36 H (test code = 415) EOSINOPHILS ABSOLUTE COUNT 0.05 K/ L 0.04-0.36 (BEAKER) (test code = 416) BASOPHILS ABSOLUTE COUNT (BEAKER) 0.04 K/ L 0.01-0.08 (test code = 417) IMMATURE GRANULOCYTES-RELATIVE 4 % 0-1 H PERCENT (BEAKER) (test code = 2801) RAD, CHEST, 1 VIEW, NON [id number] 06:48:00Reason for exam:->post cardiac surgeryFINAL REPORT CLINICAL INDICATION: Postop Comparison: 02/02/2020 The cardiomediastinal contours are stable. There is no focal consolidation, pneumothorax, large pleural effusion orevidence of overt pulmonary edema. Signed: Valeria Rush MDReport Verified Date/Time: 02/03/2020 06:48:10 N [id number] 09:13:00 Test Item Value Reference Range Interpretation Comments TROPONIN I (BEAKER) (test code = 0.02 ng/mL 0.00-0.03 397) Troponin I (TnI) levels must be interpreted in the context of the presenting symptoms and the clinical findings. Elevated TnI levels indicate myocardial damage, but are not specific for ischemic heart disease. Elevated TnI levels are seen in patients with other cardiac conditions (including myocarditis and congestive heart failure), and slight TnI elevations occur in patients with other conditions, including sepsis, renal failure, acidosis, acute neurological disease, and persistent tachyarrhythmia.Trim Installer ID - NTPRAD, CHEST, 1 VIEW, NON [id number] 05:32:00Reason for exam:->post cardiac surgeryFINAL REPORT Chest one view. Clinical history: post cardiac surgery Comparison: Chest radiograph 02/01/2020. Technique: A single frontal view of the chest was obtained. Findings:The cardiomediastinal contours are stable. There is no focal pulmonary consolidation, pleural effusion or pneumothorax. There is no pulmonary edema. The osseous structures are unremarkable. Signed: Km Marrero MDReport Verified Date/Time: 02/02/2020 05:32:20 LACTIC ACID, ARTERIAL 2020-02-02 05:10:00 Test Item Value Reference Range Interpretation Comments LACTATE BLOOD ARTERIAL (2) 0.6 mmol/L 0.5-2.2 (BEAKER) (test code = 2874) Trim Installer ID - CSÉAR [id number] 03:01:00 Test Item Value Reference Range Interpretation Comments TROPONIN I (BEAKER) (test code = 0.01 ng/mL 0.00-0.03 397) Troponin I (TnI) levels must be interpreted in the context of the presenting symptoms and the clinical findings. Elevated TnI levels indicate myocardial damage, but are not specific for ischemic heart disease. Elevated TnI levels are seen in patients with other cardiac conditions (including myocarditis and congestive heart failure), and slight TnI elevations occur in patients with other conditions, including sepsis, renal failure, acidosis, acute neurological disease, and persistent tachyarrhythmia.Trim Installer JOSEP FLORES WPHOSPHORUS 2020-02-02 02:53:00 Test Item Value Reference Range Interpretation Comments PHOSPHORUS (BEAKER) (test code = 3.7 mg/dL 2.3-4.7 604) Trim Installer ID Vandana FLORES [id number] 02:53:00 Test Item Value Reference Range Interpretation Comments MAGNESIUM (BEAKER) (test code = 2.1 mg/dL 1.6-2.6 627) Trim Installer ID Vandana FLORES WBASIC METABOLIC [id number] 02:53:00 Test Item Value Reference Range Interpretation Comments SODIUM (BEAKER) 136 meq/L 136-145 (test code = 381) POTASSIUM (BEAKER) 3.6 meq/L 3.5-5.1 (test code = 379) CHLORIDE (BEAKER) 107 meq/L 98-107 (test code = 382) CO2 (BEAKER) (test 22 meq/L 22-29 code = 355) BLOOD UREA NITROGEN 12 mg/dL 7-21 (BEAKER) (test code = 354) CREATININE (BEAKER) 0.93 mg/dL 0.57-1.25 (test code = 358) GLUCOSE RANDOM 117 mg/dL 70-105 H (BEAKER) (test code = 652) CALCIUM (BEAKER) 8.4 mg/dL 8.4-10.2 (test code = 697) EGFR (BEAKER) (test 61 mL/min/1.73 ESTIMA TEAGAN GFR IS code = 1092) sq m NOT ACCURATE CREATININE CLEARANCE IN PREDICTING GLOMERULAR FILTRATION RATE . ESTIMATED GFR I S NOT APPLICABLE FOR DIALYSIS PATIEN TS. Trim Installer ID Vandana FLORES WCBC W/PLT COUNT & AUTO [id number] 02:24:00 Test Item Value Reference Range Interpretation Comments WHITE BLOOD CELL COUNT (BEAKER) 9.3 K/ L 3.5-10.5 (test code = 775) RED BLOOD CELL COUNT (BEAKER) 2.96 M/ L 3.93-5.22 L (test code = 761) HEMOGLOBIN (BEAKER) (test code = 8.8 GM/DL 11.2-15.7 L 410) HEMATOCRIT (BEAKER) (test code = 27.9 % 34.1-44.9 L 411) MEAN CORPUSCULAR VOLUME (BEAKER) 94.3 fL 79.4-94.8 (test code = 753) MEAN CORPUSCULAR HEMOGLOBIN 29.7 pg 25.6-32.2 (BEAKER) (test code = 751) MEAN CORPUSCULAR HEMOGLOBIN CONC 31.5 GM/DL 32.2-35.5 L (BEAKER) (test code = 752) RED CELL DISTRIBUTION WIDTH 13.8 % 11.7-14.4 (BEAKER) (test code = 412) PLATELET COUNT (BEAKER) (test 463 K/CU MM 150-450 H code = 756) MEAN PLATELET VOLUME (BEAKER) 9.5 fL 9.4-12.3 (test code = 754) NUCLEATED RED BLOOD CELLS 0 /100 WBC 0-0 (BEAKER) (test code = 413) NEUTROPHILS RELATIVE PERCENT 70 % (BEAKER) (test code = 429) LYMPHOCYTES RELATIVE PERCENT 22 % (BEAKER) (test code = 430) MONOCYTES RELATIVE PERCENT 6 % (BEAKER) (test code = 431) EOSINOPHILS RELATIVE PERCENT 0 % (BEAKER) (test code = 432) BASOPHILS RELATIVE PERCENT 0 % (BEAKER) (test code = 437) NEUTROPHILS ABSOLUTE COUNT 6.43 K/ L 1.56-6.13 H (BEAKER) (test code = 670) LYMPHOCYTES ABSOLUTE COUNT 1.99 K/ L 1.18-3.74 (BEAKER) (test code = 414) MONOCYTES ABSOLUTE COUNT (BEAKER) 0.51 K/ L 0.24-0.36 H (test code = 415) EOSINOPHILS ABSOLUTE COUNT 0.04 K/ L 0.04-0.36 (BEAKER) (test code = 416) BASOPHILS ABSOLUTE COUNT (BEAKER) 0.02 K/ L 0.01-0.08 (test code = 417) IMMATURE GRANULOCYTES-RELATIVE 3 % 0-1 H PERCENT (BEAKER) (test code = 2801) CALCIUM, [id number] 02:07:00 Test Item Value Reference Range Interpretation Comments CALCIUM IONIZED (BEAKER) (test 1.05 mmol/L 1.12-1.27 L code = 698) PH, BLOOD (BEAKER) (test code = 7.41 1810) TROPONIN [id number] 18:32:00 Test Item Value Reference Range Interpretation Comments TROPONIN I (BEAKER) (test code = 397) < ng/mL 0.00-0.03 Troponin I (TnI) levels must be interpreted in the context of the presenting symptoms and the clinical findings. Elevated TnI levels indicate myocardial damage, but are not specific for ischemic heart disease. Elevated TnI levels are seen in patients with other cardiac conditions (including myocarditis and congestive heart failure), and slight TnI elevations occur in patients with other conditions, including sepsis, renal failure, acidosis, acute neurological disease, and persistent tachyarrhythmia.Trim Installer ID - BSManual Differential 2020-02-01 07:41:00 Test Item Value Reference Range Interpretation Comments % Neutros (test code = 78 % 2816) % Lymphs (test code = 7 % 2817) % Monos (test code = 5 % 2818) % Bands (test code = 10 % 0-10 2826) # Neutros (test code = 9.59 K/ul 1.56-6.13 H 2830) # Lymphs (test code = 0.86 K/ul 1.18-3.74 L 2831) # Monos (test code = 0.62 K/uL 0.24-0.36 H 2832) # Bands (test code = 1.23 K/uL 0-0.8 H 2840) Total Counted (test code 100 = 1351) WBC Morphology (test code Normal = 487) Giant Platelet (test code Present = 313) Anisocytosis (test code = 2+ moderate 961) Microcytes (test code = 2+ moderate 965) Artifact (test code = Present 3432) Platelet Conc (test code Increased = 3438) SAMUEL (test code = SAMUEL) Trim Installer ID - Antony Junior comments: Slide comments: Lab Interpretation (test Abnormal code = 43801-8) [facility] W/PLT COUNT & AUTO [id number] 07:41:00 Test Item Value Reference Range Interpretation Comments WHITE BLOOD CELL COUNT (BEAKER) 12.3 K/ L 3.5-10.5 H (test code = 775) RED BLOOD CELL COUNT (BEAKER) 2.95 M/ L 3.93-5.22 L (test code = 761) HEMOGLOBIN (BEAKER) (test code = 8.8 GM/DL 11.2-15.7 L 410) HEMATOCRIT (BEAKER) (test code = 27.2 % 34.1-44.9 L 411) MEAN CORPUSCULAR VOLUME (BEAKER) 92.2 fL 79.4-94.8 (test code = 753) MEAN CORPUSCULAR HEMOGLOBIN 29.8 pg 25.6-32.2 (BEAKER) (test code = 751) MEAN CORPUSCULAR HEMOGLOBIN CONC 32.4 GM/DL 32.2-35.5 (BEAKER) (test code = 752) RED CELL DISTRIBUTION WIDTH 13.3 % 11.7-14.4 (BEAKER) (test code = 412) PLATELET COUNT (BEAKER) (test 483 K/CU MM 150-450 H code = 756) MEAN PLATELET VOLUME (BEAKER) 9.8 fL 9.4-12.3 (test code = 754) NUCLEATED RED BLOOD CELLS 0 /100 WBC 0-0 (BEAKER) (test code = 413) (CELLAVISION MANUAL DIFF)2020-02-01 07:41:00 Test Item Value Reference Range Interpretation Comments NEUTROPHILS - REL 78 % (CELLAVISION)(BEAKER) (test code = 2816) LYMPHOCYTES - REL 7 % (CELLAVISION)(BEAKER) (test code = 2817) MONOCYTES - REL 5 % (CELLAVISION)(BEAKER) (test code = 2818) BANDS - REL (CELLAVISION)(BEAKER) 10 % 0-10 (test code = 2826) NEUTROPHILS - ABS 9.59 K/ul 1.56-6.13 H (CELLAVISION)(BEAKER) (test code = 2830) LYMPHOCYTES - ABS 0.86 K/ul 1.18-3.74 L (CELLAVISION)(BEAKER) (test code = 2831) MONOCYTES - ABS 0.62 K/uL 0.24-0.36 H (CELLAVISION)(BEAKER) (test code = 2832) BANDS - ABS (CELLAVISION)(BEAKER) 1.23 K/uL 0.00-0.80 H (test code = 2840) TOTAL COUNTED (BEAKER) (test code 100 = 1351) WBC MORPHOLOGY (BEAKER) (test Normal code = 487) GIANT PLATELETS (BEAKER) (test Present code = 313) ANISOCYTOSIS (BEAKER) (test code 2+ moderate = 961) MICROCYTES (BEAKER) (test code = 2+ moderate 965) ARTIFACT (CELLAVISION)(BEAKER) Present (test code = 3432) PLATELET CONCENTRATION Increased (CELLAVISION)(BEAKER) (test code = 3438) Trim Installer ID - Antony Vernon comments: Slide comments:RAD, CHEST, 1 VIEW, NON [id number] 05:33:00Reason for exam:->post cardiac surgeryFINAL REPORT Chest one view. Clinical history: post cardiac surgery Comparison: Chest radiograph 01/27/2020. Technique: A single frontal view of the chest was obtained. Findings: The cardiomediastinal contours are normal. There is no focal pulmonary consolidation, pleural effusion or pneumothorax. There is no pulmonary edema. The osseous structures are unremarkable. Signed: Km Marrero Verified Date/Time: 02/01/2020 05:33:50 [id number] 04:14:00 Test Item Value Reference Range Interpretation Comments PHOSPHORUS (BEAKER) (test code = 4.7 mg/dL 2.3-4.7 604) Trim Installer ID - [id number] 04:14:00 Test Item Value Reference Range Interpretation Comments MAGNESIUM (BEAKER) (test code = 2.5 mg/dL 1.6-2.6 627) Trim Installer ID - EDASIBASIC METABOLIC [id number] 04:14:00 Test Item Value Reference Range Interpretation Comments SODIUM (BEAKER) 137 meq/L 136-145 (test code = 381) POTASSIUM (BEAKER) 4.5 meq/L 3.5-5.1 (test code = 379) CHLORIDE (BEAKER) 108 meq/L 98-107 H (test code = 382) CO2 (BEAKER) (test 21 meq/L 22-29 L code = 355) BLOOD UREA NITROGEN 10 mg/dL 7-21 (BEAKER) (test code = 354) CREATININE (BEAKER) 0.78 mg/dL 0.57-1.25 (test code = 358) GLUCOSE RANDOM 105 mg/dL 70-105 (BEAKER) (test code = 652) CALCIUM (BEAKER) 8.5 mg/dL 8.4-10.2 (test code = 697) EGFR (BEAKER) (test 75 mL/min/1.73 ESTIMA TEAGAN GFR IS code = 1092) sq m NOT ACCURATE CREATININE CLEARANCE IN PREDICTING GLOMERULAR FILTRATION RATE . ESTIMATED GFR I S NOT APPLICABLE FOR DIALYSIS PATIEN TS. Trim Installer ID - EDASIBLOOD GAS, [id number] 04:00:00 Test Item Value Reference Range Interpretation Comments PH ARTERIAL (BEAKER) (test code = 7.39 7.35-7.45 383) PCO2 ARTERIAL (BEAKER) (test code 39 mmHg 35-45 = 384) PO2 ARTERIAL (BEAKER) (test code 157 mmHg 80-90 H = 385) O2 SATURATION ARTERIAL (BEAKER) 99.0 % 96.0-97.0 H (test code = 386) HCO3 ARTERIAL (BEAKER) (test code 23 mmol/L 21-29 = 388) BASE EXCESS ARTERIAL (BEAKER) -1.7 mmol/L -2.0-3.0 (test code = 387) PATIENT TEMPERATURE (BEAKER) 37.0 C (test code = 1818) FIO2 (BEAKER) (test code = 1819) 100.0 % CALCIUM, [id number] 04:00:00 Test Item Value Reference Range Interpretation Comments CALCIUM IONIZED (BEAKER) (test 1.10 mmol/L 1.12-1.27 L code = 698) PH, BLOOD (BEAKER) (test code = 7.39 1810) LACTIC ACID, [id number] 03:59:00 Test Item Value Reference Range Interpretation Comments LACTATE BLOOD ARTERIAL (2) 0.5 mmol/L 0.5-2.2 (BEAKER) (test code = 2874) Trim Installer ID - EDASIPOCT-GLUCOSE [id number] 01:05:00 Test Item Value Reference Range Interpretation Comments POC-GLUCOSE METER 117 mg/dL 70-110 H : TESTED A T [facility] 6720 (BEAKER) (test code = SARABJIT [place]ARG[place], 1538) [address]: Trim Installer/Techni arin ID = [id number] for Dinesh Bonds (CELLAVISION MANUAL DIFF)2020-01-31 19:19:00 Test Item Value Reference Range Interpretation Comments NEUTROPHILS - REL 76 % (CELLAVISION)(BEAKER) (test code = 2816) LYMPHOCYTES - REL 10 % (CELLAVISION)(BEAKER) (test code = 2817) MONOCYTES - REL 2 % (CELLAVISION)(BEAKER) (test code = 2818) BASOPHILS - REL 2 % (CELLAVISION)(BEAKER) (test code = 2820) METAMYELOCYTES - REL 1 % 0-0 H (CELLAVISION)(BEAKER) (test code = 2821) MYELOCYTES - REL 1 % 0-0 H (CELLAVISION)(BEAKER) (test code = 2822) BANDS - REL (CELLAVISION)(BEAKER) 8 % 0-10 (test code = 2826) NEUTROPHILS - ABS 13.07 K/ul 1.56-6.13 H (CELLAVISION)(BEAKER) (test code = 2830) LYMPHOCYTES - ABS 1.72 K/ul 1.18-3.74 (CELLAVISION)(BEAKER) (test code = 2831) MONOCYTES - ABS 0.34 K/uL 0.24-0.36 (CELLAVISION)(BEAKER) (test code = 2832) BASOPHILS - ABS 0.34 K/uL 0.01-0.08 H (CELLAVISION)(BEAKER) (test code = 2835) METAMYELOCYTES - ABS 0.17 K/uL 0.00-0.00 H (CELLAVISION)(BEAKER) (test code = 2836) MYELOCYTES-ABS 0.17 K/uL 0.00-0.00 H (CELLAVISION)(BEAKER) (test code = 2837) BANDS - ABS (CELLAVISION)(BEAKER) 1.38 K/uL 0.00-0.80 H (test code = 2840) TOTAL COUNTED (BEAKER) (test code 100 = 1351) GIANT PLATELETS (BEAKER) (test Present code = 313) TOXIC GRANULATION (BEAKER) (test Present code = 771) VACUOLATED NEUTROPHILS (BEAKER) Present (test code = 483) ANISOCYTOSIS (BEAKER) (test code = 1+ few 961) MICROCYTES (BEAKER) (test code = 1+ few 965) POIKILOCYTES (BEAKER) (test code = 1+ few 966) SPHEROCYTES (BEAKER) (test code = 1+ few 768) ARTIFACT (CELLAVISION)(BEAKER) Present (test code = 3432) PLATELET CONCENTRATION Increased (CELLAVISION)(BEAKER) (test code = 3438) Trim Installer ID - PedroBlanca comments: Slide comments:[id number] 18:51:00 Test Item Value Reference Range Interpretation Comments MAGNESIUM (BEAKER) 1.8 mg/dL 1.6-2.6 Specimen slightly (test code = 627) hemolyzed Trim Installer ID - [id number] 18:51:00 Test Item Value Reference Range Interpretation Comments PHOSPHORUS (BEAKER) 4.5 mg/dL 2.3-4.7 Specimen slightly (test code = 604) hemolyzed Trim Installer ID - BSBASIC METABOLIC [id number] 18:51:00 Test Item Value Reference Range Interpretation Comments SODIUM (BEAKER) 138 meq/L 136-145 (test code = 381) POTASSIUM (BEAKER) 4.7 meq/L 3.5-5.1 Specimen slightly (test code = 379) hemolyzed CHLORIDE (BEAKER) 109 meq/L 98-107 H (test code = 382) CO2 (BEAKER) (test 21 meq/L 22-29 L code = 355) BLOOD UREA NITROGEN 8 mg/dL 7-21 (BEAKER) (test code = 354) CREATININE (BEAKER) 0.83 mg/dL 0.57-1.25 Specimen slightly (test code = 358) hemolyzed GLUCOSE RANDOM 152 mg/dL 70-105 H (BEAKER) (test code = 652) CALCIUM (BEAKER) 8.3 mg/dL 8.4-10.2 L (test code = 697) EGFR (BEAKER) (test 70 mL/min/1.73 ESTIMA TEAGAN GFR IS code = 1092) sq m NOT ACCURATE CREATININE CLEARANCE IN PREDICTING GLOMERULAR FILTRATION RATE . ESTIMATED GFR I S NOT APPLICABLE FOR DIALYSIS PATIEN TS. Trim Installer ID - [id number] 18:43:00 Test Item Value Reference Range Interpretation Comments PROTIME (BEAKER) (test code = 14.8 seconds 11.9-14.2 H 759) INR (BEAKER) (test code = 370) 1.19 <=5.90 PARTIAL THROMBOPLASTIN TIME 40.9 seconds 22.5-36.0 H (BEAKER) (test code = 760) Effective 10/28/2018: PT Reference Range ChangeNew: 11.9-14.2 Previous: 11.7- 14.7RECOMMENDED COUMADIN/WARFARIN INR THERAPY RANGESSTANDARD DOSE: 2.0-3.0 Includes: PROPHYLAXIS for venous thrombosis, systemic embolization; TREATMENT for venous thrombosis and/or pulmonary embolus.HIGH RISK: Target INR is2.5-3.5 for patients wiht mechanical heart valves.CBC W/PLT COUNT & AUTO [id number] 18:36:00 Test Item Value Reference Range Interpretation Comments WHITE BLOOD CELL COUNT (BEAKER) 17.2 K/ L 3.5-10.5 H (test code = 775) RED BLOOD CELL COUNT (BEAKER) 3.56 M/ L 3.93-5.22 L (test code = 761) HEMOGLOBIN (BEAKER) (test code = 10.5 GM/DL 11.2-15.7 L 410) HEMATOCRIT (BEAKER) (test code = 32.2 % 34.1-44.9 L 411) MEAN CORPUSCULAR VOLUME (BEAKER) 90.4 fL 79.4-94.8 (test code = 753) MEAN CORPUSCULAR HEMOGLOBIN 29.5 pg 25.6-32.2 (BEAKER) (test code = 751) MEAN CORPUSCULAR HEMOGLOBIN CONC 32.6 GM/DL 32.2-35.5 (BEAKER) (test code = 752) RED CELL DISTRIBUTION WIDTH 13.2 % 11.7-14.4 (BEAKER) (test code = 412) PLATELET COUNT (BEAKER) (test 677 K/CU MM 150-450 H code = 756) MEAN PLATELET VOLUME (BEAKER) 9.5 fL 9.4-12.3 (test code = 754) NUCLEATED RED BLOOD CELLS 0 /100 WBC 0-0 (BEAKER) (test code = 413) BLOOD GAS, [id number] 18:29:00 Test Item Value Reference Range Interpretation Comments PH ARTERIAL (BEAKER) (test code = 7.40 7.35-7.45 383) PCO2 ARTERIAL (BEAKER) (test code 35 mmHg 35-45 = 384) PO2 ARTERIAL (BEAKER) (test code 185 mmHg 80-90 H = 385) O2 SATURATION ARTERIAL (BEAKER) 99.3 % 96.0-97.0 H (test code = 386) HCO3 ARTERIAL (BEAKER) (test code 21 mmol/L 21-29 = 388) BASE EXCESS ARTERIAL (BEAKER) -3.2 mmol/L -2.0-3.0 L (test code = 387) PATIENT TEMPERATURE (BEAKER) 36.4 C (test code = 1818) FIO2 (BEAKER) (test code = 1819) 40.0 % CALCIUM, [id number] 18:29:00 Test Item Value Reference Range Interpretation Comments CALCIUM IONIZED (BEAKER) (test 1.05 mmol/L 1.12-1.27 L code = 698) PH, BLOOD (BEAKER) (test code = 7.97 1810) [id number] 17:35:00 Test Item Value Reference Range Interpretation Comments PHOSPHORUS (BEAKER) (test code = 4.7 mg/dL 2.3-4.7 604) Trim Installer ID - [id number] 17:35:00 Test Item Value Reference Range Interpretation Comments MAGNESIUM (BEAKER) (test code = 1.9 mg/dL 1.6-2.6 627) Trim Installer ID - DBABORH, [id number] 05:35:00 Test Item Value Reference Range Interpretation Comments ABO Grouping (test code = 2588) O Rh Factor (test code = 2589) [facility] [id number] 04:51:00 Test Item Value Reference Range Interpretation Comments SODIUM (BEAKER) 138 meq/L 136-145 (test code = 381) POTASSIUM (BEAKER) 3.9 meq/L 3.5-5.1 (test code = 379) CHLORIDE (BEAKER) 105 meq/L 98-107 (test code = 382) CO2 (BEAKER) (test 23 meq/L 22-29 code = 355) BLOOD UREA NITROGEN 7 mg/dL 7-21 (BEAKER) (test code = 354) CREATININE (BEAKER) 0.77 mg/dL 0.57-1.25 (test code = 358) GLUCOSE RANDOM 112 mg/dL 70-105 H (BEAKER) (test code = 652) CALCIUM (BEAKER) 8.9 mg/dL 8.4-10.2 (test code = 697) EGFR (BEAKER) (test 76 mL/min/1.73 ESTIMA TEAGAN GFR IS code = 1092) sq m NOT ACCURATE CREATININE CLEARANCE IN PREDICTING GLOMERULAR FILTRATION RATE . ESTIMATED GFR I S NOT APPLICABLE FOR DIALYSIS PATIEN TS. Trim Installer ID - PIAYA [id number] 04:37:00 Test Item Value Reference Range Interpretation Comments PARTIAL THROMBOPLASTIN TIME 87.0 seconds 22.5-36.0 H (BEAKER) (test code = 760) HEMOGLOBIN [id number] 22:13:00 Test Item Value Reference Range Interpretation Comments HEMOGLOBIN A1C (BEAKER) (test code = 6.0 % 4.3-6.1 368) Comprehensive metabolic [id number] 18:55:00 Test Item Value Reference Range Interpretation Comments Protein, Total (test 7.3 6.0- 8.3 gm/dL code = 2885-2) Albumin (test code = 3.6 g/dL 3.5-5 83418-9) Alkaline Phosphatase 232 U/L 40-150 H (test code = 6768-6) Total Bilirubin (test 0.3 mg/dL 0.2-1.2 code = 1975-2) Sodium (test code = 137 meq/L 535-245 2087-2) Potassium (test code = 3.8 meq/L 3.5-5.1 2823-3) Chloride (test code = 102 meq/L 98-107 2075-0) CO2 (test code = 25 meq/L 22-29 8-9) BUN (test code = 8 mg/dL 7-21 3094-0) Creatinine (test code 0.78 mg/dL 0.57-1.25 = 2160-0) Glucose (test code = 112 mg/dL 70-105 H 2345-7) Calcium (test code = 9.4 mg/dL 8.4-10.2 61121-0) AST (test code = 36 U/L 5-34 H 1920-8) ALT (test code = 41 U/L 6-55 1742-6) EGFR (test code = 75 mL/min/1.73 [place] [address]-9) NOT ACCURATE CREATININE CLEARANCE IN PREDICTING GLOMERULAR FILTRATION RATE . ESTIMATED GFR I S NOT APPLICABLE FOR DIALYSIS PATIENTS. SAMUEL (test code = SAMUEL) Trim Installer ID - DB Lab Interpretation Abnormal (test code = 62716-0) [id number] 18:55:00 Test Item Value Reference Range Interpretation Comments MAGNESIUM (BEAKER) (test code = 1.8 mg/dL 1.6-2.6 627) Trim Installer ID - DBCOMPREHENSIVE METABOLIC [id number] 18:55:00 Test Item Value Reference Range Interpretation Comments TOTAL PROTEIN 7.3 gm/dL 6.0-8.3 (BEAKER) (test code = 770) ALBUMIN (BEAKER) 3.6 g/dL 3.5-5.0 (test code = 1145) ALKALINE PHOSPHATASE 232 U/L 40-150 H (BEAKER) (test code = 346) BILIRUBIN TOTAL 0.3 mg/dL 0.2-1.2 (BEAKER) (test code = 377) SODIUM (BEAKER) (test 137 meq/L 136-145 code = 381) POTASSIUM (BEAKER) 3.8 meq/L 3.5-5.1 (test code = 379) CHLORIDE (BEAKER) 102 meq/L 98-107 (test code = 382) CO2 (BEAKER) (test 25 meq/L 22-29 code = 355) BLOOD UREA NITROGEN 8 mg/dL 7-21 (BEAKER) (test code = 354) CREATININE (BEAKER) 0.78 mg/dL 0.57-1.25 (test code = 358) GLUCOSE RANDOM 112 mg/dL 70-105 H (BEAKER) (test code = 652) CALCIUM (BEAKER) 9.4 mg/dL 8.4-10.2 (test code = 697) AST (SGOT) (BEAKER) 36 U/L 5-34 H (test code = 353) ALT (SGPT) (BEAKER) 41 U/L 6-55 (test code = 347) EGFR (BEAKER) (test 75 mL/min/1.73 ESTIMA TEAGAN GFR IS code = 1092) sq m NOT ACCURATE CREATININE CLEARANCE IN PREDICTING GLOMERULAR FILTRATION RATE . ESTIMATED GFR I S NOT APPLICABLE FOR DIALYSIS PATIEN TS. Trim Installer ID - DBLIPID [id number] 18:55:00 Test Item Value Reference Range Interpretation Comments TRIGLYCERIDES (BEAKER) (test code = 196 mg/dL 540) CHOLESTEROL (BEAKER) (test code = 132 mg/dL 631) HDL CHOLESTEROL (BEAKER) (test code 27 mg/dL = 976) LDL CHOLESTEROL CALCULATED (BEAKER) 66 mg/dL (test code = 633) Triglyceride Reference Range: Low Risk <150 Borderline 150-199 High Risk 200-499 Very High Risk >=500Cholesterol Reference Range: Low Risk <200 Borderline 200-239 High Risk >240HDL Cholesterol Reference Range: Low Risk >=60 High Risk <40LDL Cholesterol Reference Range: Optimal <100 Near Optimal 100-129 Borderline 130-159 High 160-189 Very High >=190 Trim Installer ID - [id number] 18:47:00 Test Item Value Reference Range Interpretation Comments PARTIAL THROMBOPLASTIN TIME 66.6 seconds 22.5-36.0 H (BEAKER) (test code = 760) PROTHROMBIN TIME/[id number] 18:46:00 Test Item Value Reference Range Interpretation Comments PROTIME (BEAKER) (test code = 13.7 seconds 11.9-14.2 759) INR (BEAKER) (test code = 370) 1.08 <=5.90 Effective 10/28/2018: PT Reference Range ChangeNew: 11.9-14.2 Previous: 11.7- 14.7RECOMMENDED COUMADIN/WARFARIN INR THERAPY RANGESSTANDARD DOSE: 2.0-3.0 Includes: PROPHYLAXIS for venous thrombosis, systemic embolization; TREATMENT for venous thrombosis and/or pulmonary embolus.HIGH RISK: Target INR is2.5-3.5 for patients wiht mechanical heart valves.CBC W/PLT COUNT & AUTO [id number] 18:42:00 Test Item Value Reference Range Interpretation Comments WHITE BLOOD CELL COUNT (BEAKER) 9.6 K/ L 3.5-10.5 (test code = 775) RED BLOOD CELL COUNT (BEAKER) 3.77 M/ L 3.93-5.22 L (test code = 761) HEMOGLOBIN (BEAKER) (test code = 11.2 GM/DL 11.2-15.7 410) HEMATOCRIT (BEAKER) (test code = 34.1 % 34.1-44.9 411) MEAN CORPUSCULAR VOLUME (BEAKER) 90.5 fL 79.4-94.8 (test code = 753) MEAN CORPUSCULAR HEMOGLOBIN 29.7 pg 25.6-32.2 (BEAKER) (test code = 751) MEAN CORPUSCULAR HEMOGLOBIN CONC 32.8 GM/DL 32.2-35.5 (BEAKER) (test code = 752) RED CELL DISTRIBUTION WIDTH 13.1 % 11.7-14.4 (BEAKER) (test code = 412) PLATELET COUNT (BEAKER) (test 555 K/CU MM 150-450 H code = 756) MEAN PLATELET VOLUME (BEAKER) 10.0 fL 9.4-12.3 (test code = 754) NUCLEATED RED BLOOD CELLS 0 /100 WBC 0-0 (BEAKER) (test code = 413) NEUTROPHILS RELATIVE PERCENT 68 % (BEAKER) (test code = 429) LYMPHOCYTES RELATIVE PERCENT 21 % (BEAKER) (test code = 430) MONOCYTES RELATIVE PERCENT 4 % (BEAKER) (test code = 431) EOSINOPHILS RELATIVE PERCENT 1 % (BEAKER) (test code = 432) BASOPHILS RELATIVE PERCENT 0 % (BEAKER) (test code = 437) NEUTROPHILS ABSOLUTE COUNT 6.48 K/ L 1.56-6.13 H (BEAKER) (test code = 670) LYMPHOCYTES ABSOLUTE COUNT 2.00 K/ L 1.18-3.74 (BEAKER) (test code = 414) MONOCYTES ABSOLUTE COUNT (BEAKER) 0.42 K/ L 0.24-0.36 H (test code = 415) EOSINOPHILS ABSOLUTE COUNT 0.13 K/ L 0.04-0.36 (BEAKER) (test code = 416) BASOPHILS ABSOLUTE COUNT (BEAKER) 0.03 K/ L 0.01-0.08 (test code = 417) IMMATURE GRANULOCYTES-RELATIVE 5 % 0-1 H PERCENT (BEAKER) (test code = 2801) SARS-COV2/RT-PCR ([facility])2020-01-30 10:39:00 Test Item Value Reference Range Interpretation Comments SARS-COV2/RT-PCR (test Negative Not Detected, Negative, code = 3362539) See external report for linked test SARS-COV-2 PERFORMING LAB [facility] (test code = 0699530) Negative result for this test determines that SARS-CoV-2 RNA was not present in the specimen above the Limit of Detection (LOD). However, Negative results do not preclude SARS-CoV-2 infection and should not be used as the sole basis for treatment or patient management decisions. Negative results mustbe combined with clinical observations, patient history, and epidemiological information. A false negative result may occur if a specimen is improperly collected, transported or handled. A false negative result should be considered if patient's recent exposures or clinical presentation indicate that COVID-19 (SARS-CoV-2) is likely and diagnostic tests for other causes of illness are negative. Re-testing should be considered in cases of suspected false negatives.The limit of detection for this assay is 800 copies/mL.This SARS CoV-2 test is a real-time RT-PCR test intended for the qualitative detection of nucleic acid from SARS-CoV-2 in a nasopharyngeal swab specimen collected from individuals susp ected of COVID-19 by their healthcare provider.This test has not been Food and Drug Administration (FDA) cleared or approved. This is a modified version of an approved [...] is revoked under Section 564(g) of the Act.Fact Sheet for Healthcare Providers:https://www.[employer].com/sites/default/files/product/documents/Fact_Shee j_YU_Yquryosbg_Htox_ROPV-WnY-5.pdfFact Sheet for Healthcare Patients:https://www.[facility] [employer].com/sites/default/files/product/ documents/Zbcy_Bahjn_Kfeqccls_Vqws_BOTE-AwL-0.pdfPerforming Laboratory:[facility] [place], [place] [address]FGGSS METABOLIC PANEL 2020-01-30 05:22:00 Test Item Value Reference Range Interpretation Comments SODIUM (BEAKER) 136 meq/L 136-145 (test code = 381) POTASSIUM (BEAKER) 3.8 meq/L 3.5-5.1 (test code = 379) CHLORIDE (BEAKER) 104 meq/L 98-107 (test code = 382) CO2 (BEAKER) (test 22 meq/L 22-29 code = 355) BLOOD UREA NITROGEN 8 mg/dL 7-21 (BEAKER) (test code = 354) CREATININE (BEAKER) 0.73 mg/dL 0.57-1.25 (test code = 358) GLUCOSE RANDOM 109 mg/dL 70-105 H (BEAKER) (test code = 652) CALCIUM (BEAKER) 8.9 mg/dL 8.4-10.2 (test code = 697) EGFR (BEAKER) (test 81 mL/min/1.73 ESTIMA TEAGAN GFR IS code = 1092) sq m NOT ACCURATE CREATININE CLEARANCE IN PREDICTING GLOMERULAR FILTRATION RATE . ESTIMATED GFR I S NOT APPLICABLE FOR DIALYSIS PATIEN TS. Trim Installer ID - PIAYA [id number] 05:08:00 Test Item Value Reference Range Interpretation Comments PARTIAL THROMBOPLASTIN TIME 82.6 seconds 22.5-36.0 H (BEAKER) (test code = 760) [id number] 20:47:00 Test Item Value Reference Range Interpretation Comments PARTIAL THROMBOPLASTIN TIME 75.1 seconds 22.5-36.0 H (BEAKER) (test code = 760) [id number] 14:59:00 Test Item Value Reference Range Interpretation Comments PARTIAL THROMBOPLASTIN TIME 72.3 seconds 22.5-36.0 H (BEAKER) (test code = 760) CT, CAROTID, [id number] 10:29:00Unlisted Reason for Exam - Click Yes and Enter Reason Below->YesUnlisted Reason for Exam->severe carotid stenosis and impending cardiac surgeryAnesthesia:->NoneFINAL REPORT CTA Neck and upper chest Clinical history: severe carotid stenosis and impending cardiac surgery TECHNIQUE: Contiguous axial images of the neck with intravenous contrast obtained in the arterial phase. Coronal and sagittal reformations were also performed. 3-D reconstructions were performed using a volume rendered technique separately on a workstation. This exam was performed according to the departmental dose optimization program which includes automated exposurecontrol, adjustment of the mA and/or kV according to the patient size, and/or use of an iterative reconstruction technique. Comparisons: None FINDINGS: Mixed hard and ulcerated soft plaque results in 99% stenosis of the proximal left internal carotid artery by NASCET criteria. Mixed hard and ulceratedsoft plaque results in at least 75% stenosis of the proximal right internal carotid artery by NASCETcriteria. The bilateral vertebral artery origins are patent but not well characterized due to streakartifact from patient body habitus. The cervical vertebral artery segments are otherwise patent without focal stenosis. There is moderate stenosis of the left intradural segment. The partially visualized intracranial circulation does not demonstrate definitive evidence for a [place] large vessel occlusion. There is a degenerative reversal of the cervical curvature. There are scattered subcentimeter lymph nodes in the neck. The visualized lung apices are clear. IMPRESSION: Mixed hard and ulcerated soft plaque results in 99% stenosis of the proximal LEFT internal carotid artery by NASCET criteria. Mixed hard and ulcerated soft plaque results in at least 75% stenosis of the proximal RIGHT internal carotid artery by NASCET criteria. Signed: Jolly Gannonthe [facility] of [facility] Verified Date/Time: 01/29/2020 10:29:31 Reading Location: [facility] C013V Neuro Reading Room CBC W/PLT COUNT & AUTO DIFFERENTIAL 2020-01-29 06:49:00 Test Item Value Reference Range Interpretation Comments WHITE BLOOD CELL COUNT (BEAKER) 8.1 K/ L 3.5-10.5 (test code = 775) RED BLOOD CELL COUNT (BEAKER) 3.32 M/ L 3.93-5.22 L (test code = 761) HEMOGLOBIN (BEAKER) (test code = 10.0 GM/DL 11.2-15.7 L 410) HEMATOCRIT (BEAKER) (test code = 30.1 % 34.1-44.9 L 411) MEAN CORPUSCULAR VOLUME (BEAKER) 90.7 fL 79.4-94.8 (test code = 753) MEAN CORPUSCULAR HEMOGLOBIN 30.1 pg 25.6-32.2 (BEAKER) (test code = 751) MEAN CORPUSCULAR HEMOGLOBIN CONC 33.2 GM/DL 32.2-35.5 (BEAKER) (test code = 752) RED CELL DISTRIBUTION WIDTH 13.2 % 11.7-14.4 (BEAKER) (test code = 412) PLATELET COUNT (BEAKER) (test 447 K/CU MM 150-450 code = 756) MEAN PLATELET VOLUME (BEAKER) 10.5 fL 9.4-12.3 (test code = 754) NUCLEATED RED BLOOD CELLS 0 /100 WBC 0-0 (BEAKER) (test code = 413) NEUTROPHILS RELATIVE PERCENT 69 % (BEAKER) (test code = 429) LYMPHOCYTES RELATIVE PERCENT 18 % (BEAKER) (test code = 430) MONOCYTES RELATIVE PERCENT 7 % (BEAKER) (test code = 431) EOSINOPHILS RELATIVE PERCENT 3 % (BEAKER) (test code = 432) BASOPHILS RELATIVE PERCENT 1 % (BEAKER) (test code = 437) NEUTROPHILS ABSOLUTE COUNT 5.59 K/ L 1.56-6.13 (BEAKER) (test code = 670) LYMPHOCYTES ABSOLUTE COUNT 1.42 K/ L 1.18-3.74 (BEAKER) (test code = 414) MONOCYTES ABSOLUTE COUNT (BEAKER) 0.55 K/ L 0.24-0.36 H (test code = 415) EOSINOPHILS ABSOLUTE COUNT 0.22 K/ L 0.04-0.36 (BEAKER) (test code = 416) BASOPHILS ABSOLUTE COUNT (BEAKER) 0.04 K/ L 0.01-0.08 (test code = 417) IMMATURE GRANULOCYTES-RELATIVE 4 % 0-1 H PERCENT (BEAKER) (test code = 2801) BASIC METABOLIC [id number] 06:45:00 Test Item Value Reference Range Interpretation Comments SODIUM (BEAKER) 133 meq/L 136-145 L (test code = 381) POTASSIUM (BEAKER) 4.0 meq/L 3.5-5.1 Specimen slightly (test code = 379) hemolyzed CHLORIDE (BEAKER) 101 meq/L 98-107 (test code = 382) CO2 (BEAKER) (test 23 meq/L 22-29 code = 355) BLOOD UREA NITROGEN 10 mg/dL 7-21 (BEAKER) (test code = 354) CREATININE (BEAKER) 0.77 mg/dL 0.57-1.25 Specimen slightly (test code = 358) hemolyzed GLUCOSE RANDOM 114 mg/dL 70-105 H (BEAKER) (test code = 652) CALCIUM (BEAKER) 8.9 mg/dL 8.4-10.2 (test code = 697) EGFR (BEAKER) (test 76 mL/min/1.73 ESTIMA TEAGAN GFR IS code = 1092) sq m NOT ACCURATE CREATININE CLEARANCE IN PREDICTING GLOMERULAR FILTRATION RATE . ESTIMATED GFR I S NOT APPLICABLE FOR DIALYSIS PATIEN TS. Trim Installer ID - BABITA [id number] 06:29:00 Test Item Value Reference Range Interpretation Comments PARTIAL THROMBOPLASTIN TIME 58.0 seconds 22.5-36.0 H (BEAKER) (test code = 760) Sodium, random [id number] 16:40:00 Test Item Value Reference Range Interpretation Comments Sodium Urine (test 21 meq/L code = 2955-3) SAMUEL (test code = Reference Range: No SAMUEL) NormalsOperator ID - DB [facility]ANDOM [id number] 16:40:00 Test Item Value Reference Range Interpretation Comments SODIUM URINE (BEAKER) (test code = 21 meq/L 243) Reference Range: No NormalsOperator ID - DBCreatinine, random [id number] 16:38:00 Test Item Value Reference Range Interpretation Comments Creatinine, Ur 37.6 mg/dL (test code = 2161-8) SAMUEL (test code = Reference Range: No SAMUEL) NormalsOperator ID - DB [facility], RANDOM [id number] 16:38:00 Test Item Value Reference Range Interpretation Comments CREATININE URINE (BEAKER) (test 37.6 mg/dL code = 375) Reference Range: No NormalsOperator ID - DBOsmolality, [id number] 15:22:00 Test Item Value Reference Range Interpretation Comments Osmolality Serum (test code = 272 275- 295 mOsm/kg L 2692-2) Lab Interpretation (test code = Abnormal 00088-8) [facility] HospitalOsmolality, [id number] 15:22:00 Test Item Value Reference Range Interpretation Comments Osmolality, Ur (test code = 159 50-1,200 mOsm/kg mOsm/kg 2695-5) Lab Interpretation (test code Normal = 88872-6) [facility] HospitalOSMOLALITY, [id number] 15:22:00 Test Item Value Reference Range Interpretation Comments OSMOLALITY URINE (BEAKER) (test 159 mOsm/kg 50-1,200 mOsm/kg code = 614) OSMOLALITY, [id number] 15:22:00 Test Item Value Reference Range Interpretation Comments OSMOLALITY, SERUM (BEAKER) (test 272 mOsm/kg 275-295 L code = 615) Urine [id number] 11:41:00 Test Item Value Reference Range Interpretation Comments Result (test code = 6463-4) No growth [facility] HospitalCarotid doppler [id number] 07:35:01 Ejection FractionSLEH ECHO HEARTLAB MKCKESSON CPACSRight Impression1. There is 50-69% diameter reduction (approximately 53% by 2-D measurement)in the internal carotid artery with heterogeneous plaque, a peak velocity nf993md/sec and an ICA/CCA peak systolic velocity ratio of 2.31.2. There is non-occluding plaque in the external carotid artery.3. There is non-occluding plaque in the common carotid artery.4. The vertebral artery flow is antegrade.5. The subclavian artery is patent with a velocity of 212 cm/sec.Left Impression1. There is 70-99% diameter reduction (measurement could not be obtained dueto heavy calcification) in the internal carotid artery with heterogeneousplaque, a peak velocity of 629 cm/sec and an ICA/CCA peak systolic velocityratio of 9.83.2. There is non- occluding plaque in the external carotid artery.3. There is non-occluding plaque in the common carotid artery.4. The vertebral artery flow is antegrade.5. The subclavian artery is patent with a velocity of 195 cm/sec. Conclusions Summary Carotid duplex scanning and color flow imaging were performed bilaterally. The arteries were adequately visualized. The right internal carotid artery had 50- 69% hemodynamically significant stenosis (approximately 53% by 2-D measurement) with heterogeneous plaque. The left internal carotid artery had 70-99% hemodynamically significant stenosis (measurement was not obtained due to heavy calcifications) with heterogeneous plaque. The vertebral artery flow was antegrade bilaterally. The subclavian arteries were patent bilaterally where visualized. Signature Velocities are measured in cm/s ; Diameters are measured in cm Carotid Right Measurements+ +----+ ----+-----+ + + +!Location !PSV !EDV !Angle!%Stenosis 2D!%Stenosis Doppler!Tortuosity !+ +----+----+-----+ + +-------- ---+!Prox CCA !99.1!18.8!60 ! ! ! !+ +---- +----+-----+ + + +!Dist CCA !79.2!16.4!60 ! ! ! !+ +----+----+-----+ + +------- ----+!Prox ICA !183 !52.1!60 ! ! ! !+ +--- -+----+-----+ + + +!Dist ICA !151 !35.6!54 !! ! !+ +----+----+-----+ + +------ -----+!Prox ECA !156 !19.6!60 ! ! ! !+ +-- --+----+-----+ + + +!Vertebral !106 !25.5!0 ! ! ! !+ +----+----+-----+ + +----- ------+!Prox Subclavian!212 ! !60 ! ! ! !+ +----+----+-----+ + + + - Additional Measurements:ICAPSV/CCAPSV2.31.ICAEDV/CCAEDV 2.77. Carotid Left Measurements+ +----+----+-----+ +----- + +!Location !PSV !EDV !Angle!%Stenosis 2D!%Stenosis Doppler!Tortuosity ! + +----+----+-----+ + + +!Pro x CCA !104 !10.2!60 ! ! ! !+ +----+----+-----+ +---- + +!Dist CCA !64 !8.64!60 ! ! ! !+ +----+----+-----+ + + +!Pr ox ICA !629 !153 !60 ! ! ! !+ +----+----+-----+ +--- + +!Dist ICA !307 !59.9!60 ! ! ! !+ +----+----+-----+ + + +!Pr ox ECA !137 !14.1!60 ! ! ! !+ +----+----+-----+ +-- + +!Vertebral !47.5!12.6!60 ! ! ! !+ +----+----+-----+ + + +!Pr ox Subclavian!195 ! !60 ! ! ! !+ +----+----+-----+ + + + - Additional Measurements:ICAPSV/CCAPSV 9.83.ICAEDV/CCAEDV 15. Interface, External Ris In - 01/28/2020 7:35 AM CDTPV LAB - Carotid Duplex Study Demographics Patient Name AP COPELAND Date of Study 01/27/2020 ANA CRISTINA Age 59 Visit Number [id number] GenderFemale Accession Number [id number] Date of 1960 Referring Darryn Olivera MD Room Number 1126 Physician Food Safety Coordinator Destiney Palacios, Interpreting Greer Felix T Physician ProcedureType of Study: Cerebral: Carotid, CAROTID DOPPLER, BILATERAL. Indications for Study:Carotid Bruit.Patient Stat us:Routine.Study Location:Vascular Lab.Technical Quality:Adequate visualization.Risk FactorsHistory of Disease+ +----+------ --+!Diagnosis !Date!Comments!+ +----+--------+!History/Risk Factors: !!CAD, HTN!+ +----+--------+ ImpressionsRight Impression1. There is 50-69% diameter reduction (approximately 53% by 2-D measurement)in the internal carotid artery with heterogeneous plaque, a peak velocity si182wy/sec and an ICA/CCA peak systolic velocity ratio of 2.31.2. There is non-occluding plaque in the external carotid artery.3. There is non-occluding plaque in the common carotid artery.4. The vertebral artery flow is antegrade.5. The subclavian artery is patent with a velocity of 212 cm/sec.Left Impression1. There is 70-99% diameter reduction (measurement could not be obtained dueto heavy calcification) in the internal carotid artery with heterogeneousplaque, a peak velocity of 629 cm/sec and an ICA/CCA peak systolic velocityratio of9.83.2. There is non-occluding plaque in the external carotid artery.3. There is non-occluding plaque in the common carotid artery.4. The vertebral artery flow is antegrade.5. The subclavian artery is patent with a velocity of 195 cm/sec. Conclusions Summary Carotid duplex scanning and color flow imaging were performed bilaterally. The arteries were adequately visualized. The right internal carotidartery had 50-69% hemodynamically significant stenosis (approximately 53% by 2-D measurement) with heterogeneous plaque. The left internal carotid artery had 70-99% hemodynamically significant stenosis(measurement was not obtained due to heavy calcifications) with heterogeneous plaque. The vertebral artery flow was antegrade bilaterally. The subclavian arteries were patent bilaterally where visualized. Signature Velocities are measured in cm/s ; Diameters are measured in cmCarotid Right Measurements+ +----+----+-----+ + +---- -------+!Location !PSV !EDV !Angle!%Stenosis 2D!%Stenosis Doppler!Tortuosity !+ +----+----+- ----+ + + +!Prox CCA !99.1!18.8!60 ! ! ! !+ +----+----+-----+ + + +!D ist CCA !79.2!16.4!60 ! ! ! !+ +----+----+ -----+ + + +!Prox ICA !183 !52.1!60 ! ! ! !+ +----+----+-----+ + + +! Dist ICA !151 !35.6!54 ! ! ! !+ +----+---- +-----+ + + +!Prox ECA !156 !19.6!60 ! ! ! !+ +----+----+-----+ + + + !Vertebral !106 !25.5!0 ! ! ! !+ +----+--- -+-----+ + + +!Prox Subclavian!212 ! !60 ! ! ! !+ +----+----+-----+ + + + - Additional Measurements:ICAPSV/CCAPSV 2.31.ICAEDV/CCAEDV 2.77.Carotid Left Measurements+-------- -------+----+----+-----+ + + +!Location !PSV !EDV !Angle!%Stenosis 2D!%Stenosis Doppler!Tortuosity !+ +----+----+-----+ + ----+ +!Prox CCA !104 !10.2!60 ! ! ! !+------- --------+----+----+-----+ + + +!Dist CCA !64 !8.64!60 ! ! ! !+ +----+----+-----+ + -----+ +!Prox ICA !629 !153 !60 ! ! ! !+------ ---------+----+----+-----+ + + +!Dist ICA !307 !59.9!60! ! ! !+ +----+----+-----+ + ------+ +!Prox ECA !137 !14.1!60 ! ! ! !+----- +----+----+-----+ + + +!Vertebral !47.5!12.6!60 ! ! ! !+ +----+----+-----+ + -------+ +!Prox Subclavian!195 ! !60 ! ! ! !+---- +----+----+-----+ + + + - Additional Measurements:ICAPSV/CCAPSV 9.83.ICAEDV/CCAEDV 15.[facility] MedicineAPTT2020-08-28 07:31:00 Test Item Value Reference Range Interpretation Comments PARTIAL THROMBOPLASTIN TIME 77.4 seconds 22.5-36.0 H (BEAKER) (test code = 760) [id number] 02:02:00 Test Item Value Reference Range Interpretation Comments MAGNESIUM (BEAKER) (test code = 1.9 mg/dL 1.6-2.6 627) Trim Installer ID - BABITA MBASIC METABOLIC [id number] 02:02:00 Test Item Value Reference Range Interpretation Comments SODIUM (BEAKER) 128 meq/L 136-145 L (test code = 381) POTASSIUM (BEAKER) 3.4 meq/L 3.5-5.1 L (test code = 379) CHLORIDE (BEAKER) 96 meq/L 98-107 L (test code = 382) CO2 (BEAKER) (test 21 meq/L 22-29 L code = 355) BLOOD UREA NITROGEN 11 mg/dL 7-21 (BEAKER) (test code = 354) CREATININE (BEAKER) 0.88 mg/dL 0.57-1.25 (test code = 358) GLUCOSE RANDOM 129 mg/dL 70-105 H (BEAKER) (test code = 652) CALCIUM (BEAKER) 8.5 mg/dL 8.4-10.2 (test code = 697) EGFR (BEAKER) (test 65 mL/min/1.73 ESTIMA TEAGAN GFR IS code = 1092) sq m NOT ACCURATE CREATININE CLEARANCE IN PREDICTING GLOMERULAR FILTRATION RATE . ESTIMATED GFR I S NOT APPLICABLE FOR DIALYSIS PATIEN TS. Trim Installer ID - BABITA [id number] 01:59:00 Test Item Value Reference Range Interpretation Comments PARTIAL THROMBOPLASTIN TIME 69.4 seconds 22.5-36.0 H (BEAKER) (test code = 760) CBC W/PLT COUNT & AUTO [id number] 01:49:00 Test Item Value Reference Range Interpretation Comments WHITE BLOOD CELL COUNT (BEAKER) 8.8 K/ L 3.5-10.5 (test code = 775) RED BLOOD CELL COUNT (BEAKER) 3.33 M/ L 3.93-5.22 L (test code = 761) HEMOGLOBIN (BEAKER) (test code = 9.8 GM/DL 11.2-15.7 L 410) HEMATOCRIT (BEAKER) (test code = 28.7 % 34.1-44.9 L 411) MEAN CORPUSCULAR VOLUME (BEAKER) 86.2 fL 79.4-94.8 (test code = 753) MEAN CORPUSCULAR HEMOGLOBIN 29.4 pg 25.6-32.2 (BEAKER) (test code = 751) MEAN CORPUSCULAR HEMOGLOBIN CONC 34.1 GM/DL 32.2-35.5 (BEAKER) (test code = 752) RED CELL DISTRIBUTION WIDTH 12.9 % 11.7-14.4 (BEAKER) (test code = 412) PLATELET COUNT (BEAKER) (test 360 K/CU MM 150-450 code = 756) MEAN PLATELET VOLUME (BEAKER) 10.5 fL 9.4-12.3 (test code = 754) NUCLEATED RED BLOOD CELLS 0 /100 WBC 0-0 (BEAKER) (test code = 413) NEUTROPHILS RELATIVE PERCENT 78 % (BEAKER) (test code = 429) LYMPHOCYTES RELATIVE PERCENT 14 % (BEAKER) (test code = 430) MONOCYTES RELATIVE PERCENT 7 % (BEAKER) (test code = 431) EOSINOPHILS RELATIVE PERCENT 1 % (BEAKER) (test code = 432) BASOPHILS RELATIVE PERCENT 0 % (BEAKER) (test code = 437) NEUTROPHILS ABSOLUTE COUNT 6.81 K/ L 1.56-6.13 H (BEAKER) (test code = 670) LYMPHOCYTES ABSOLUTE COUNT 1.19 K/ L 1.18-3.74 (BEAKER) (test code = 414) MONOCYTES ABSOLUTE COUNT (BEAKER) 0.57 K/ L 0.24-0.36 H (test code = 415) EOSINOPHILS ABSOLUTE COUNT 0.05 K/ L 0.04-0.36 (BEAKER) (test code = 416) BASOPHILS ABSOLUTE COUNT (BEAKER) 0.02 K/ L 0.01-0.08 (test code = 417) IMMATURE GRANULOCYTES-RELATIVE 2 % 0-1 H PERCENT (BEAKER) (test code = 2801) U/S, RENAL, [id number] 01:06:00Reason for exam:->left flank painFINAL REPORT Ultrasound of the Kidneys Clinical History: left flank pain Comparison: None. Discussion: Sonographic evaluation of the kidneys was performed. Right kidney: 11.9 x4.4 x 4.9 cm cm, with cortical thickness of 1.2 cm. Normal cortical echogenicity. No mass. No shadowing calculus. No hydronephrosis. Left kidney: 13.5 x 6 x 5.3 cm, with cortical thickness of 1.8 cm. Normal cortical echogenicity. No mass. No shadowing calculus. No hydronephrosis. Limited doppler evaluation of bilateral main renal arteries and veins demonstrate patency. Bladder: Underdistended but otherwise unremarkable. Impression: Unremarkable exam. Signed: Km Marrero Verified D ate/Time: 01/28/2020 01:06:30 US renal [id number] 01:06:00Interface, External Ris In - 01/28/2020 1:08 AM CDTFINAL REPORT Ultrasound of the Kidneys Clinical History: left flank pain Comparison: None. Discussion: Sonographic evaluationof the kidneys was performed. Right kidney: 11.9 x 4.4 x 4.9 cm cm, with cortical thickness of 1.2 cm. Normal cortical echogenicity. No mass. No shadowing calculus. No hydronephrosis. Left kidney: 13.5 x 6 x 5.3 cm, with cortical thickness of 1.8 cm. Normal cortical echogenicity. No mass. No shadowing calculus. No hydronephrosis. Limited doppler evaluation of bilateral main renal arteries andveins demonstrate patency. Bladder: Underdistended but otherwise unremarkable. Impression: Unremarkable exam. Signed: Km Marrero Verified Date/Time: 01/28/2020 01:06:30 [facility], NON DEPT 2020-01-27 19:53:00Reason for exam:->dyspneaShould this be performed at the bedside?->YesFINAL REPORT INDICATION: dyspnea COMPARISON: None TECHNIQUE: Single frontal view of the chest. IMPRESSION: Lungs and pleura: There is pulmonary venous congestion without consolidation or effusion. No pneumothorax.Heart and mediastinum: Heart size is magnified by technique. Unremarkable mediastinal contours.Osseous structures: No acute abnormality.Other: None. Signed: Darryn Chouort Verified Date/Time: 01/27/2020 19:53:07 [id number] 18:30:00 Test Item Value Reference Range Interpretation Comments PARTIAL THROMBOPLASTIN TIME 58.9 seconds 22.5-36.0 H (BEAKER) (test code = 760) TSH/Free T4 If [id number] 17:50:00 Test Item Value Reference Range Interpretation Comments TSH (test code = 2.001 0.350- 4.940 uIU/mL 61736-0) SAMUEL (test code = SAMUEL) Trim Installer ID - NTP Lab Interpretation (test Normal code = 13119-3) [facility] T4 IF [id number] 17:50:00 Test Item Value Reference Range Interpretation Comments THYROID STIMULATING HORMONE 2.001 uIU/mL 0.350-4.940 (BEAKER) (test code = 772) Trim Installer ID - NTPPlatelet Aggregation: Function [id number] 17:26:00 Test Item Value Reference Range Interpretation Comments Pathologist: (test code Braden Gonzalez M.D. = 2622) (electonic signature) Platelets (test code = 275 150- 450 K/CU MM 2656) ADP (test code = 65 % 62-100 68048-6) Platelet Rich Plasma 300 200- 300 k/cu mm (test code = 2134) Plt. Function Screen Normal aggregation Interpretation (test results with ADP. code = 4655) No evidence of platelet dysfunction or P2Y12 inhibitor effect. SAMUEL (test code = SAMUEL) Platelet Function Screen results may be falsely low with platelet counts<75,000/cu mm.Trim Installer ID - [id number] [facility] HospitalPLATELET AGGREGATION: FUNCTION [id number] 17:26:00 Test Item Value Reference Range Interpretation Comments [id number] Braden Gonzalez M.D. (BEAKER) (test code = (electonic signature) 2622) PLATELET COUNT AGG 275 K/CU MM 150-450 (BEAKER) (test code = 2656) ADP (BEAKER) (test code 65 % 62-100 = 4654) PLATELET RICH 300 k/cu mm 200-300 PLASMA(BEAKER) (test code = 2134) PLATELET FUNCTION SCREEN Normal aggregation INTERPRETATION ([place]) results with ADP. No (test code = 4655) evidence of platelet dysfunction or P2Y12 inhibitor effect. Platelet Function Screen results may be falsely low with platelet counts<75,000/cu mm.Trim Installer ID- [id number] Echo W/Doppler(CW/PW/Color)2020-01-27 13:43:19Ejection FractionSLEH ECHO HEARTLAB MKCKESSON CPACSInterface, External Ris In - 01/27/2020 1:43 PM CDTTransthoracic Echocardiography Report (TTE) Demographics Patient Name AP COPELAND Date of Study 01/27/2020 ANA CRISTINA Gender Female Visit Number [id number] Race Room Number 1126 Number Date of 1960 Referring Physician Rao Gonzalez MD Age 59 year(s) Food Safety Coordinator Janette Renee, [facility] Tomasa Rossi, [facility] Interpreting Physician [place] Procedure Type of Study TTE procedure:2DECHO W DOPPLER(CW/PW/COLOR) (STAT) Indications:Acute Chest Pain/ Suspected CAD.Clinical HistoryCAD, HTNHGB 9.8HCT 28.9 %Contrast Medium: Definity. Amount - 2 mlHeight: 64 inches Weight: 124.28 kg (274 lbs) BSA: 2.24 m^2 BMI: 47.03kg/m^2HR: 76 bpm BP: 108/56 mmHg Summary The [...] in the range of 0.96 cm2. AoV dimension less obstructive index (DOI)) is 0.25 .Peak Grad; 99 mmHg ,Mean Grad; 61 mmHg . Unable to estimate peak systolic PA pressure; inadequate TR velocity signal. Previous Study No prior studies available for comparison. Signature Findings Technical Quality: Technically adequate exam. Left Ventricle LV endocardium is adequately visualized with IV ultrasound enhancing agent. The left ventricle is chamber size (by vol index) is normal (female - LVED vol - 29-61ml/m2). LV septal thickness is mildly increased (1.2-1.4cm). LV posterior wall thickness is normal(0.6-1.1cm) . All of the LV segments contract normally . Global LV systolic function normal . LVEF by Blanca's method of disk assess ment is normal (>60%) . Grade 2 diastolic dysfunction (moderately increased LA pressure). Left Atrium LA size is normal (16-34 ml/m2) . Right Ventricle RV chamber size appears normal by limited views . Global RV systolic function is normal . Right Atrium RA size is normal. Aortic Valve Mild AoV cusp calcification. AoV cusp mobility is decreased . Severe aortic stenosis. AoV area at rest by continuity equation is in therange of 0.96 cm2. AoV dimensionless obstructive index (DOI)) is 0.25 .Peak Grad; 99 mmHg ,Mean Grad; 61 mmHg . Mitral Valve Mild mitral annularcalcification. Mild MV leaflet thickening. Tricuspid Valve The tricuspid valve is not well visualized. Unable to estimate peak systolic PA pressure; inadequate TR velocity signal. Pulmonic Valve PV is not well visualized. Aorta Aortic root size (SInus of Valsalva diameter) isnormal . Pericardium No pericardial effusion is visualized. IVC/SVC/PA/PV/Pleural The e stimated RA pressure by IVC dynamics 5-10mmHg . [...] Mitral Valve MV Peak E-Wave: 1.22 m/s MV Peak A-Wave: 1.06 m/s E/A Ratio: 1.14 Peak Gradient: 5.92 mmHg Deceleration Time: 202.4 msec MV Robert. Peak: Tissue Doppler E' Lateral V elocity: 0.06 m/s E/E': 21.82 Aortic Valve Peak Velocity: 4.98 m/s Mean Velocity: 3.81 m/s Peak Gradient: 99.29 mmHg Mean Gradient: 61.7 mmHg AV Area (continuity): 0.96 cm^2 AV VTI: 120.78 cm AR P1/2t: 447.7 msec Deceleration Time: 1543.9 msec AV DVI: 0.25 LVOT Peak Velocity: 1.15 m/s Peak Gradient: 5.32 mmHg Mean Velocity: 0.89 m/s Mean Gradient: 3.44 mmHg LVOT Diameter: 2.22 cm LVOT VTI: 29.92 cm LVOT Area: 3.87 cm^2 LVOT SV:115.75 ml LVOT CO: 8.8 l/min LVOT CI: 3.93 l/min/m^2CWoodland Memorial HospitalAPTT 2020-01-27 11:23:00 Test Item Value Reference Range Interpretation Comments PARTIAL THROMBOPLASTIN TIME 64.4 seconds 22.5-36.0 H (BEAKER) (test code = 760) SARS-COV2/RT-PCR ([facility])2020-01-27 11:07:00 Test Item Value Reference Range Interpretation Comments SARS-COV2/RT-PCR (test Negative Not Detected, Negative, code = 0767161) See external report for linked test SARS-COV-2 PERFORMING LAB [facility] (test code = 4649781) Negative result for this test determines that SARS-CoV-2 RNA was not present in the specimen above the Limit of Detection (LOD). However, Negative results do not preclude SARS-CoV-2 infection and should not be used as the sole basis for treatment or patient management decisions. Negative results mustbe combined with clinical observations, patient history, and epidemiological information. A false negative result may occur if a specimen is improperly collected, transported or handled. A false negative result should be considered if patient's recent exposures or clinical presentation indicate that COVID-19 (SARS-CoV-2) is likely and diagnostic tests for other causes of illness are negative. Re-testing should be considered in cases of suspected false negatives.The limit of detection for this assay is 800 copies/mL.This SARS CoV-2 test is a real-time RT-PCR test intended for the qualitative detection of nucleic acid from SARS-CoV-2 in a nasopharyngeal swab specimen collected from individuals susp ected of COVID-19 by their healthcare provider.This test has not been Food and Drug Administration (FDA) cleared or approved. This is a modified version of an approved [...] is revoked under Section 564(g) of the Act.Fact Sheet for Healthcare Providers:https://www.[employer].com/sites/default/files/product/documents/Fact_Shee g_YX_Uyynhdhfz_Ynjd_IWIG-IfH-3.pdfFact Sheet for Healthcare Patients:https://www.[employer].com/sites/default/files/product/ documents/Rabk_Gbuyk_Vukqynsy_Jjzt_UAIY-TnS-1.pdfPerforming Laboratory:[facility], [place] [address]FCXKWISVRP A1C 2020-01-27 08:14:00 Test Item Value Reference Range Interpretation Comments HEMOGLOBIN A1C (CORDELIAAKER) (test code = 5.8 % 4.3-6.1 368) [id number] 05:23:00 Test Item Value Reference Range Interpretation Comments Ferritin (test code = 709.39 ng/mL 5-275 H 2276-4) SAMUEL (test code = SAMUEL) Trim Installer ID - NTP Lab Interpretation (test Abnormal code = 51875-5) [facility] and [id number] 05:23:00 Test Item Value Reference Range Interpretation Comments Vitamin B12 (test code = 563 pg/mL 458-411 5773-9) Folate (test code = 2284-8) 15.50 ng/mL >=7.00 SAMUEL (test code = SAMUEL) Trim Installer ID - NTP Lab Interpretation (test Normal code = 51950-7) [facility]2020-[facility] 05:23:00 Test Item Value Reference Range Interpretation Comments FERRITIN (BEAKER) (test code = 709.39 ng/mL 5.00-275.00 H 361) Trim Installer ID - NTPVITAMIN B12 AND [id number] 05:23:00 Test Item Value Reference Range Interpretation Comments VITAMIN B12 (BEAKER) (test code = 563 pg/mL 213-816 774) FOLATE (BEAKER) (test code = 362) 15.50 ng/mL >=7.00 Trim Installer ID - NTPTROPONIN [id number] 04:53:00 Test Item Value Reference Range Interpretation Comments TROPONIN I (BEAKER) (test code = 0.03 ng/mL 0.00-0.03 397) Troponin I (TnI) levels must be interpreted in the context of the presenting symptoms and the clinical findings. Elevated TnI levels indicate myocardial damage, but are not specific for ischemic heart disease. Elevated TnI levels are seen in patients with other cardiac conditions (including myocarditis and congestive heart failure), and slight TnI elevations occur in patients with other conditions, including sepsis, renal failure, acidosis, acute neurological disease, and persistent tachyarrhythmia.Trim Installer ID - NTPIron, TIBC, % sat. (without ferritin)2020-01-27 04:47:00 Test Item Value Reference Range Interpretation Comments Iron (test code = 2498-4) 25.0 ug/dL 40-160 L TIBC (test code = 2500-7) 179 ug/dL 250-450 L Iron % Saturation (test 14 % 20-55 L code = 2502-3) SAMUEL (test code = SAMUEL) Trim Installer ID - NTP Lab Interpretation (test Abnormal code = 54086-8) [facility], TIBC, % SAT. (WITHOUT FERRITIN)2020-01-27 04:47:00 Test Item Value Reference Range Interpretation Comments IRON (BEAKER) (test code = 547) 25.0 ug/dL 40.0-160.0 L TOTAL IRON BINDING CAPACITY 179 ug/dL 250-450 L (BEAKER) (test code = 769) IRON % SATURATION (2) (BEAKER) 14 % 20-55 L (test code = 2590) Trim Installer ID - [id number] 04:46:00 Test Item Value Reference Range Interpretation Comments MAGNESIUM (BEAKER) (test code = 2.1 mg/dL 1.6-2.6 627) Trim Installer ID - NTPBASIC METABOLIC [id number] 04:46:00 Test Item Value Reference Range Interpretation Comments SODIUM (BEAKER) 129 meq/L 136-145 L (test code = 381) POTASSIUM (BEAKER) 2.7 meq/L 3.5-5.1 L (test code = 379) CHLORIDE (BEAKER) 94 meq/L 98-107 L (test code = 382) CO2 (BEAKER) (test 26 meq/L 22-29 code = 355) BLOOD UREA NITROGEN 14 mg/dL 7-21 (BEAKER) (test code = 354) CREATININE (BEAKER) 0.84 mg/dL 0.57-1.25 (test code = 358) GLUCOSE RANDOM 118 mg/dL 70-105 H (BEAKER) (test code = 652) CALCIUM (BEAKER) 8.4 mg/dL 8.4-10.2 (test code = 697) EGFR (BEAKER) (test 69 mL/min/1.73 ESTIMA TEAGAN GFR IS code = 1092) sq m NOT ACCURATE CREATININE CLEARANCE IN PREDICTING GLOMERULAR FILTRATION RATE . ESTIMATED GFR I S NOT APPLICABLE FOR DIALYSIS PATIEN TS. Trim Installer ID - NTPLIPID [id number] 04:46:00 Test Item Value Reference Range Interpretation Comments TRIGLYCERIDES (BEAKER) (test code = 223 mg/dL 540) CHOLESTEROL (BEAKER) (test code = 148 mg/dL 631) HDL CHOLESTEROL (BEAKER) (test code 16 mg/dL = 976) LDL CHOLESTEROL CALCULATED (BEAKER) 87 mg/dL (test code = 633) Triglyceride Reference Range: Low Risk <150 Borderline 150-199 High Risk 200-499 Very High Risk >=500Cholesterol Reference Range: Low Risk <200 Borderline 200-239 High Risk >240HDL Cholesterol Reference Range: Low Risk >=60 High Risk <40LDL Cholesterol Reference Range: Optimal <100 Near Optimal 100-129 Borderline 130-159 High 160-189 Very High >=190 Trim Installer ID - [id number] 04:29:00 Test Item Value Reference Range Interpretation Comments PARTIAL THROMBOPLASTIN TIME 62.6 seconds 22.5-36.0 H (BEAKER) (test code = 760) PROTHROMBIN TIME/[id number] 04:28:00 Test Item Value Reference Range Interpretation Comments PROTIME (BEAKER) (test code = 16.2 seconds 11.9-14.2 H 759) INR (BEAKER) (test code = 370) 1.34 <=5.90 Effective 10/28/2018: PT Reference Range ChangeNew: 11.9-14.2 Previous: 11.7- 14.7RECOMMENDED COUMADIN/WARFARIN INR THERAPY RANGESSTANDARD DOSE: 2.0-3.0 Includes: PROPHYLAXIS for venous thrombosis, systemic embolization; TREATMENT for venous thrombosis and/or pulmonary embolus.HIGH RISK: Target INR is2.5-3.5 for patients wiht mechanical heart valves.CBC W/PLT COUNT & AUTO [id number] 04:18:00 Test Item Value Reference Range Interpretation Comments WHITE BLOOD CELL COUNT (BEAKER) 9.4 K/ L 3.5-10.5 (test code = 775) RED BLOOD CELL COUNT (BEAKER) 3.25 M/ L 3.93-5.22 L (test code = 761) HEMOGLOBIN (BEAKER) (test code = 9.8 GM/DL 11.2-15.7 L 410) HEMATOCRIT (BEAKER) (test code = 28.9 % 34.1-44.9 L 411) MEAN CORPUSCULAR VOLUME (BEAKER) 88.9 fL 79.4-94.8 (test code = 753) MEAN CORPUSCULAR HEMOGLOBIN 30.2 pg 25.6-32.2 (BEAKER) (test code = 751) MEAN CORPUSCULAR HEMOGLOBIN CONC 33.9 GM/DL 32.2-35.5 (BEAKER) (test code = 752) RED CELL DISTRIBUTION WIDTH 12.9 % 11.7-14.4 (BEAKER) (test code = 412) PLATELET COUNT (BEAKER) (test 264 K/CU MM 150-450 code = 756) MEAN PLATELET VOLUME (BEAKER) 10.9 fL 9.4-12.3 (test code = 754) NUCLEATED RED BLOOD CELLS 0 /100 WBC 0-0 (BEAKER) (test code = 413) NEUTROPHILS RELATIVE PERCENT 77 % (BEAKER) (test code = 429) LYMPHOCYTES RELATIVE PERCENT 14 % (BEAKER) (test code = 430) MONOCYTES RELATIVE PERCENT 7 % (BEAKER) (test code = 431) EOSINOPHILS RELATIVE PERCENT 1 % (BEAKER) (test code = 432) BASOPHILS RELATIVE PERCENT 0 % (BEAKER) (test code = 437) NEUTROPHILS ABSOLUTE COUNT 7.23 K/ L 1.56-6.13 H (BEAKER) (test code = 670) LYMPHOCYTES ABSOLUTE COUNT 1.28 K/ L 1.18-3.74 (BEAKER) (test code = 414) MONOCYTES ABSOLUTE COUNT (BEAKER) 0.64 K/ L 0.24-0.36 H (test code = 415) EOSINOPHILS ABSOLUTE COUNT 0.11 K/ L 0.04-0.36 (BEAKER) (test code = 416) BASOPHILS ABSOLUTE COUNT (BEAKER) 0.03 K/ L 0.01-0.08 (test code = 417) IMMATURE GRANULOCYTES-RELATIVE 2 % 0-1 H PERCENT (BEAKER) (test code = 2801) Urinalysis w/Microscopic + Reflex to [id number] 23:09:00 Test Item Value Reference Range Interpretation Comments Color, UA (test code = Light Yellow 5778-6) Clarity, UA (test code = Clear 5767-9) Specific [place], UA (test 1.012 1.001-1.035 code = 5811-5) pH, UA (test code = 6.0 5.0-8.0 5803-2) Protein, UA (test code = 20 mg/dL Negative A 19663-3) Glucose, UA (test code = Negative Negative 365) Ketones, UA (test code = Negative Negative 2514-8) Bilirubin, UA (test code = Negative Negative 12824-1) Blood, UA (test code = Small Negative A 24381-0) Nitrite, UA (test code = Negative Negative 5802-4) Leukocytes, UA (test code Large Negative A = 5799-2) Urobilinogen, UA (test 0.2 mg/dL 0.2-1 code = 63007-7) RBC, UA (test code = 2 /HPF 75521-0) WBC, UA (test code = 37 /HPF 5821-4) Mucus (test code = 8247-9) Rare Squam Epithel, UA (test 2 /HPF code = 29398-3) Specimen Source (test code = 2795) SAMUEL (test code = SAMUEL) Trim Installer ID - [auto]Trim Installer ID - aly Lab Interpretation (test Abnormal code = 50472-0) [facility] UR[facility] [id number] 23:09:00 Test Item Value Reference Range Interpretation Comments COLOR (BEAKER) (test code = 470) Light Yellow CLARITY (BEAKER) (test code = Clear 469) SPECIFIC GRAVITY UA (BEAKER) 1.012 1.001-1.035 (test code = 468) PH UA (BEAKER) (test code = 467) 6.0 5.0-8.0 PROTEIN UA (BEAKER) (test code = 20 mg/dL Negative A 464) GLUCOSE UA (BEAKER) (test code = Negative Negative 365) KETONES UA (BEAKER) (test code = Negative Negative 371) BILIRUBIN UA (BEAKER) (test code Negative Negative = 462) BLOOD UA (BEAKER) (test code = Small Negative A 461) NITRITE UA (BEAKER) (test code = Negative Negative 465) LEUKOCYTE ESTERASE UA (BEAKER) Large Negative A (test code = 466) UROBILINOGEN UA (BEAKER) (test 0.2 mg/dL 0.2-1.0 code = 463) RBC UA (BEAKER) (test code = 2 /HPF 519) WBC UA (BEAKER) (test code = 37 /HPF 520) MUCUS (BEAKER) (test code = Rare 1574) SQUAMOUS EPITHELIAL (BEAKER) 2 /HPF (test code = 516) SOURCE(BEAKER) (test code = 2795) Trim Installer ID - [auto]Trim Installer ID - Anitra [id number] 21:39:00 Test Item Value Reference Range Interpretation Comments TROPONIN I (BEAKER) (test code = 0.05 ng/mL 0.00-0.03 H 397) Troponin I (TnI) levels must be interpreted in the context of the presenting symptoms and the clinical findings. Elevated TnI levels indicate myocardial damage, but are not specific for ischemic heart disease. Elevated TnI levels are seen in patients with other cardiac conditions (including myocarditis and congestive heart failure), and slight TnI elevations occur in patients with other conditions, including sepsis, renal failure, acidosis, acute neurological disease, and persistent tachyarrhythmia.Trim Installer ID - MARK [id number] 21:32:00 Test Item Value Reference Range Interpretation Comments MAGNESIUM (BEAKER) 2.0 mg/dL 1.6-2.6 Specimen slightly (test code = 627) hemolyzed Trim Installer ID - MARK WBASIC METABOLIC [id number] 21:32:00 Test Item Value Reference Range Interpretation Comments SODIUM (BEAKER) 127 meq/L 136-145 L (test code = 381) POTASSIUM (BEAKER) 2.8 meq/L 3.5-5.1 L Specimen slightly (test code = 379) hemolyzed CHLORIDE (BEAKER) 93 meq/L 98-107 L (test code = 382) CO2 (BEAKER) (test 24 meq/L 22-29 code = 355) BLOOD UREA NITROGEN 15 mg/dL 7-21 (BEAKER) (test code = 354) CREATININE (BEAKER) 0.97 mg/dL 0.57-1.25 Specimen slightly (test code = 358) hemolyzed GLUCOSE RANDOM 143 mg/dL 70-105 H (BEAKER) (test code = 652) CALCIUM (BEAKER) 8.4 mg/dL 8.4-10.2 (test code = 697) EGFR (BEAKER) (test 58 mL/min/1.73 ESTIMA TEAGAN GFR IS code = 1092) sq m NOT ACCURATE CREATININE CLEARANCE IN PREDICTING GLOMERULAR FILTRATION RATE . ESTIMATED GFR I S NOT APPLICABLE FOR DIALYSIS PATIEN TS. Trim Installer ID - MARK [id number] 21:25:00 Test Item Value Reference Range Interpretation Comments PARTIAL THROMBOPLASTIN TIME 46.2 seconds 22.5-36.0 H (TRIP) (test code = 760) Prior to initiating heparin
[2020-02-17 21:15] LABS: Absolute Lymphocytes (CBC) 1.2 K/uL (0.7-4.9); Hematocrit 25.7 % (36.0-45.0); Lymphocytes % 21.1 % (15.3-44.8); MPV 8.5 fL (7.6-11.3); RBC Red Blood Cell Count 2.93 M/uL (3.86-4.86)
[2020-02-17 21:23] LABS: Potassium 3.7 mmol/L (3.5-5.1)
[2020-02-17] MEDS ORDERED: ACETAMINOPHEN 325 MG TABLET ONE (22:15)
--- NOTE | 2020-02-17 22:23 | ER ---
Nurse's Notes [facility] Name: Rena Santiago Age: 59 yrs Sex: Female : 1960 Arrival Date: 02/17/2020 Time: 20:20 Bed 16 Private MD: Diagnosis: Head injury. S/P Bypass and Valve replacement Presentation: 02/16 20:31 Chief complaint: EMS states: Pt was S/P Bypass and Valve replacement on 02/05/2020 on blood thinners. Was on the bathroom tonight and lost her balance. Pt fell hitting her head and face. Pt denies LOC. Pt at the scene had nose bleeding which later subsided per EMS. Care prior to arrival: None. Mechanism of Injury: Fall. Trauma event details: Injury occurred in the [facility]. 20:31 Acuity: JAYDA 3 20:31 Method Of Arrival: EMS: [facility] 20:40 Coronavirus screen: Client denies travel out of the [place] in the last 14 days. The client reports previous COVID testing was negative. Ebola Screen: Patient negative for fever greater than or equal to 101.5 degrees Fahrenheit, and additional compatible Ebola Virus Disease symptoms Patient denies exposure to infectious person. Initial Sepsis Screen: Does the patient meet any 2 criteria? No. Patient's initial sepsis screen is negative. Does the patient have a suspected source of infection? No. Patient's initial sepsis screen is negative. Risk Assessment: Do you want to hurt yourself or someone else? Patient reports no desire to harm self or others. Onset of symptoms was February 17, 2020. Trauma Activation: Physician: ED Physician; Name: sullivan; Notified At: ; Arrived At: Physician: General Surgeon; Name: ; Notified At: ; Arrived At: Physician: Radiology; Name: ; Notified At: ; Arrived At: Physician: Respiratory; Name: ; Notified At: ; Arrived At: Physician: Lab; Name: ; Notified At: ; Arrived At: Historical: - Allergies: 20:34 No Known Allergies; - PMHx: 20:34 Anxiety; Depression; Hyperlipidemia; Hypertension; [facility] PSHx: 20:34 Heart Bypass; Tonsillectomy; Appendectomy; Carotid surgery; Valve Replacement; - Immunization history:: Adult Immunizations unknown. - Immunization history: Last tetanus immunization: unknown. - Social history:: Smoking status: Patient/guardian denies using. Screenin:40 Abuse screen: Denies threats or abuse. Denies injuries from another. Nutritional wh screening: No deficits noted. Tuberculosis screening: No symptoms or risk factors identified. Fall Risk Fall in past 12 months (25 points). Primary Survey: 20:25 NO uncontrolled hemorrhage observed. A: The patient is alert. Airway: patent, Oral ls4 cavity: clear, Trachea midline. Breathing/Chest: Respiratory pattern: regular, Respiratory effort: spontaneous, unlabored, Breath sounds: clear, bilaterally. Chest inspection: symmetrical rise and fall of the chest. Circulation: Cardiac rhythm: sinus rhythm Heart tones present. Pulses: palpable right radial artery, right dorsalis pedis artery, left radial artery and left dorsalis pedis artery. Disability Alert. Exposure/Environment: All clothing and personal items were removed. Forensic evidence collection is not deemed to be indicated at this time. Items placed in patient belonging bag. There is no evidence of uncontrolled external bleeding. Obvious injury(ies) are noted at this time: hematoma A warming method has been applied: A warm blanket has been provided to the patient. Reassessment Airway Airway Patent Breathing/Chest Respiratory pattern Regular Respiratory effort Spontaneous Unlabored Breath sounds Clear Circulation Heart rhythm Sinus rhythm Heart tones Present Pulses Palpable Color Bright Temperature Warm Disability Alert. 21:30 Reassessment Airway Airway Patent Breathing/Chest Respiratory pattern Regular wh Respiratory effort Spontaneous Unlabored Breath sounds Clear Circulation Heart rhythm Sinus rhythm Heart tones Present Pulses Palpable Color Bright Temperature Warm Disability Alert. Assessment: 20:25 General: Appears in no apparent distress. uncomfortable, Behavior is calm, cooperative. ls4 Pain: Complains of pain in left frontal area Pain currently is 5 out of 10 on a pain scale. Neuro: Level of Consciousness is awake, alert, obeys commands, Oriented to person, place, time, situation. 21:30 Reassessment: Patient appears in no apparent distress at this time. No changes from previously documented assessment. Patient and/or family updated on plan of care and expected duration. Pain level reassessed. Patient is alert, oriented x 3, equal unlabored respirations, skin warm/dry/pink. 22:30 Reassessment: Patient and/or family updated on plan of care and expected duration. Pain wh level reassessed. Patient is alert, oriented x 3, equal unlabored respirations, skin warm/dry/pink. Vital Signs: 20:41 BP 113 / 59; Pulse 77; Resp 18; Temp 98.7; Pulse Ox 99% ; Weight 117.93 kg; Height 5 wh ft. 3 in. (160.02 cm); Pain 5/10; 22:00 BP 104 / 69; Pulse 75; Resp 18; Pulse Ox 95% on R/A; wh 20:41 Body Mass Index 46.05 (117.93 kg, 160.02 cm) wh Prasanna Coma Score: 20:41 Eye Response: spontaneous(4). Verbal Response: oriented(5). Motor Response: obeys commands(6). Total: 15. Trauma Score (Adult): 20:41 Eye Response: spontaneous(1); Verbal Response: oriented(1); Motor Response: obeys commands(2); Systolic BP: > 89 mm Hg(4); Respiratory Rate: 10 to 29 per min(4); Scheller Score: 15; Trauma Score: 12 ED Course: 20:20 Patient arrived in ED. bb 20:31 Steven Zacarias is Primary Nurse. wh 20:32 Triage completed. wh 20:40 Patient maintains SpO2 saturation greater than 95% on room air. Thermoregulation: warm wh blanket given to patient. 20:40 Patient has correct armband on for positive identification. Placed in gown. Bed in low wh position. Call light in reach. Side rails up X 1. court recording monitor on. Pulse ox on. NIBP on. 20:45 Inserted saline lock: 22 gauge in right antecubital area, using aseptic technique. wh Blood collected. 20:45 Arm band placed on right wrist. wh 21:29 CT Head C Spine In Process Unspecified. EDMS 22:03 Drew Sullivan MD is Attending Physician. pkl 22:42 IV discontinued, intact, bleeding controlled, No redness/swelling at site. wh 22:44 No provider procedures requiring assistance completed. ls4 Administered Medications: 22:11 Drug: Tylenol 650 mg Route: PO; wh 22:46 Follow up: Response: No adverse reaction; Pain is decreased wh Intake: 22:41 PO: 120ml (Water); Total: 120ml. wh Outcome: 22:22 Discharge ordered by . pkl 22:40 Discharged to home via wheelchair. wh 22:40 Condition: stable 22:40 Discharge instructions given to patient, Instructed on discharge instructions, follow up and referral plans. POC Demonstrated understanding of instructions, follow-up care, POC 22:41 Patient's length of stay was not longer than 2 hours. 22:47 Patient left the ED. Signatures: Dispatcher [employer] EDMS Drew Sullivan MD MD pkl Ballard, Brenda RN RN Steven Montague Lamar Baltazar RN RN ls4 Corrections: (The following items were deleted from the chart) 22:12 20:41 BP 113 / 59; Pulse 18bpm; Resp 18bpm; Pulse Ox 99%; Temp 98.7F; 117.93 kg; Height 5 ft. 3 in.; BMI: 46.0; Pain 5/10; 22:44 21:30 NO uncontrolled hemorrhage observed [facility] 21:30 A: The patient is alert. Airway: patent, [facility] 21:30 Breathing/Chest: Respiratory pattern: regular, Respiratory effort: spontaneous, unlabored, Breath sounds: clear, 21:30 Circulation: Heart tones present. [facility] 21:30 Disability Alert [facility] 21:30 Exposure/Environment: All clothing and personal items were removed. Forensic evidence collection is not deemed to be indicated at this time. Items placed in patient belonging bag. There is no evidence of uncontrolled external bleeding. No obvious injuries are noted at this time. 22:46 20:40 Pulse ox on. NIBP on. [facility]
--- NOTE | 2020-02-17 22:23 | EDPHYS ---
Physician Documentation [facility] Name: Rena Santiago Age: 59 yrs Sex: Female : 1960 Arrival Date: 02/17/2020 Time: 20:20 Bed 16 Private MD: ED Physician Drew Cade HPI: 02/16 22:13 This 59 yrs old Female presents to ER via EMS with unknown complaint. pkl 22:13 The patient or guardian reports injury. The complaints affect the left side of the back pkl of head, right side of the back of head and right occipital area. Onset: The symptoms/episode began/occurred just prior to arrival. Associated signs and symptoms: The patient has no apparent associated signs or symptoms, Loss of consciousness: This patient did not experience any loss of consciousness. S/P Bypass and Valve replacement on 02/05/20. On blood thinners. Historical: - Allergies: 20:34 No Known Allergies; wh - PMHx: 20:34 Anxiety; Depression; Hyperlipidemia; Hypertension; wh - PSHx: 20:34 Heart Bypass; Tonsillectomy; Appendectomy; Carotid surgery; Valve Replacement; wh - Immunization history:: Adult Immunizations unknown. - Immunization history: Last tetanus immunization: unknown. - Social history:: Smoking status: Patient/guardian denies using. ROS: 22:13 Eyes: Negative for injury, pain, redness, and discharge, ENT: Negative for injury, pkl pain, and discharge, Neck: Negative for injury, pain, and swelling, Cardiovascular: Negative for chest pain, palpitations, and edema, Respiratory: Negative for shortness of breath, cough, wheezing, and pleuritic chest pain, Abdomen/GI: Negative for abdominal pain, nausea, vomiting, diarrhea, and constipation, Back: Negative for injury and pain, : Negative for injury, bleeding, discharge, and swelling, MS/Extremity: Negative for injury and deformity, Skin: Negative for injury, rash, and discoloration, Neuro: Negative for headache, weakness, numbness, tingling, and seizure. Exam: 22:13 Head/Face: Normocephalic, atraumatic. Eyes: Pupils equal round and reactive to light, pkl extra-ocular motions intact. Lids and lashes normal. Conjunctiva and sclera are non-icteric and not injected. Cornea within normal limits. Periorbital areas with no swelling, redness, or edema. ENT: Nares patent. No nasal discharge, no septal abnormalities noted. Tympanic membranes are normal and external auditory canals are clear. Oropharynx with no redness, swelling, or masses, exudates, or evidence of obstruction, uvula midline. Mucous membranes moist. Neck: Trachea midline, no thyromegaly or masses palpated, and no cervical lymphadenopathy. Supple, full range of motion without nuchal rigidity, or vertebral point tenderness. No Meningismus. Chest/axilla: Normal chest wall appearance and motion. Nontender with no deformity. No lesions are appreciated. Cardiovascular: Regular rate and rhythm with a normal S1 and S2. No gallops, murmurs, or rubs. Normal PMI, no JVD. No pulse deficits. Respiratory: Lungs have equal breath sounds bilaterally, clear to auscultation and percussion. No rales, rhonchi or wheezes noted. No increased work of breathing, no retractions or nasal flaring. Abdomen/GI: Soft, non-tender, with normal bowel sounds. No distension or tympany. No guarding or rebound. No evidence of tenderness throughout. Back: No spinal tenderness. No costovertebral tenderness. Full range of motion. Skin: Warm, dry with normal turgor. Normal color with no rashes, no lesions, and no evidence of cellulitis. MS/ Extremity: Pulses equal, no cyanosis. Neurovascular intact. Full, normal range of motion. Neuro: Awake and alert, GCS 15, oriented to person, place, time, and situation. Cranial nerves II-XII grossly intact. Motor strength 5/5 in all extremities. Sensory grossly intact. Cerebellar exam normal. Normal gait. Vital Signs: 20:41 BP 113 / 59; Pulse 77; Resp 18; Temp 98.7; Pulse Ox 99% ; Weight 117.93 kg; Height 5 wh ft. 3 in. (160.02 cm); Pain 5/10; 22:00 BP 104 / 69; Pulse 75; Resp 18; Pulse Ox 95% on R/A; wh 20:41 Body Mass Index 46.05 (117.93 kg, 160.02 cm) Kirkland Coma Score: 20:41 Eye Response: spontaneous(4). Verbal Response: oriented(5). Motor Response: obeys commands(6). Total: 15. Trauma Score (Adult): 20:41 Eye Response: spontaneous(1); Verbal Response: oriented(1); Motor Response: obeys wh commands(2); Systolic BP: > 89 mm Hg(4); Respiratory Rate: 10 to 29 per min(4); Prasanna Score: 15; Trauma Score: 12 MDM: 22:03 Patient medically screened. pk 22:13 Data reviewed: vital signs, nurses notes, radiologic studies, CT scan. [facility] 02/16 20:44 Order name: Basic Metabolic Panel; Complete Time: : 02/16 20:44 Order name: CBC with Diff; Complete Time: : 02/16 20:44 Order name: Type And Screen; Complete Time: : 02/16 20:44 Order name: Labs collected and sent; Complete Time: 20: 02/16 20:45 Order name: CT Head C Spine Administered Medications: 22:11 Drug: Tylenol 650 mg Route: PO; 22:46 Follow up: Response: No adverse reaction; Pain is decreased Disposition: 02/17/20 22:22 Discharged to Home. Impression: Head injury. S/P Bypass and Valve replacement. - Condition is Stable. - Medication Reconciliation Form, Thank You Letter, Antibiotic Education, Prescription Opioid Use form. - Follow up: Private Physician; When: 2 - 3 days; Reason: Re-evaluation by your physician. - Problem is new. - Symptoms have improved. Signatures: Dispatcher [employer] EDMS Drew Cade MD MD Brittni Bailey RN RN Steven Montague Corrections: (The following items were deleted from the chart) 22:47 22:22 02/17/2020 22:22 Discharged to Home. Impression: Head injury. S/P Bypass and wh Valve replacement. Condition is Stable. Forms are Medication Reconciliation Form, Thank You Letter, Antibiotic Education, Prescription Opioid Use. Follow up: Private Physician; When: 2 - 3 days; Reason: Re-evaluation by your physician. Problem is new. Symptoms have improved. pkl
[2020-02-18 00:55] VITALS: TEMP 98.7
[2020-02-18 00:56] VITALS: BP 104/69; O2SAT 95
--- NOTE | 2020-02-18 11:17 | RAD REPORT ---
EXAM DESCRIPTION: CT - [id number] - 02/18/2020 7:18 am CLINICAL HISTORY: The patient is 59 years old and is Female; PAIN , fall TECHNIQUE: Axial computed tomography images of the head/brain and cervical spine without intravenous contrast. Sagittal and coronal reformatted images were created and reviewed. This CT exam was pe rformed using one or more of the following dose reduction techniques: automated exposure control, a djustment of the mA and/or kV according to patient size, and/or use of iterative reconstruction techn ique. COMPARISON: October 07, 2018 FINDINGS: Brain: Unremarkable. No hemorrhage. No significant white matter disease. No edema. Ventricles: Unremarkable. No ventriculomegaly. Skull: No acute fracture. Sinuses: Unremarkable as visualized. No acute sinusitis. Mastoid air cells: Unremarkable as visualized. No mastoid effusion. Vertebrae: Multilevel spine degenerative changes with disc height loss, spur formation and facet arthrosis, most pronounced from C3 through C7 with moderate to marked disc height loss No ac alejandro fracture. No malalignment. Other bones/joints: Left frontoparietal skull swelling/hematoma Soft tissues: Unremarkable. Pleural space: Lobulated pleural thickening versus pleural fluid partially seen at the left lung apex. IMPRESSION: 1. No acute intracranial findings. 2. No acute spine abnormality. No fracture or subluxation. Spine degenerative changes. 3. Lobulated pleural thickening versus pleural fluid partially seen at the left lung apex. Recomm end CT chest for further evaluation. Electronically signed by: Kamaljit Finn MD 02/17/2020 9:51 PM CDT Due to temporary technical issues with the PACS/Fluency reporting system, reports are being signed by the in house radiologist without review as a courtesy to ensure prompt reporting. The interpreting r adiologist is fully responsible for the content of the report.
== END 2020-02-17 22:47 | disposition home or self-care (01) ==
LOC: ER 20:15
DX: S09.90XA Unspecified injury of head, initial encounter (principal); W19.XXXA Unspecified fall, initial encounter; Y93.89 Activity, other specified; Y92.002 Bathroom of unspecified non-institutional (private) residence as the place of occurrence of the external cause; Z95.4 Presence of other heart-valve replacement; Z95.1 Presence of aortocoronary bypass graft; Z79.01 Long term (current) use of anticoagulants; I10 Essential (primary) hypertension
CPT/HCPCS: 36415; 70450; 72125; 80048; 85025; 86850; 86900; 86901; 99285

== ENCOUNTER 2022-03-05 13:47 | Inpatient (IN) | payer SELFPAY ==
[2022-03-05] MEDS ORDERED: ONDANSETRON 4 MG/2 ML VIAL ONE (14:09)
[2022-03-05] MEDS ORDERED: MORPHINE 4 MG/ML SYR ONE (14:09)
--- OUTSIDE RECORDS SUMMARY | 2022-03-05 14:09 | XMS REPORT | Continuity of Care Document ---
:1960 Author Organization [facility] t Address [address] [place] [address] Care Team Providers Name Role Phone LEROYMILLICENT Primary Care Physician Unavailable DARCI QUICK Attending Clinician Unavailable Sara Nassar Attending Clinician Jacques Guardado MD Attending Clinician WILFRED MCNEILL [facility] Attending Clinician Unavailable Doctor Unassigned, [place] Attending Clinician Unavailable Wilfred Mcneill MD [facility] Attending Clinician ROSENDA PINK Attending Clinician Unavailable Blessing Galarza Attending Clinician Álvaro Caceres Attending Clinician Christian Isabel MD Attending Clinician Tiffanie Dalal MD Attending Clinician Angle Cash Attending Clinician Álvaro BRAVO Attending Clinician Unavailable VAUGHN BENNETT Attending Clinician Unavailable DARRYN OLIVERA Attending Clinician Unavailable FAMILIA REN Attending Clinician Unavailable DARCI QUICK Admitting Clinician Unavailable Tiffanie Dalal MD Admitting Clinician Payers Payer Name Policy Type Policy Number Effective Date Expiration Date S ource CDC REVIEW [id number] 2020 00:00:00 Problems Condition Condition Condition Status Onset Resolution Last Treating Co mments Source Name Details Category Date Date Treatment Clinician Date Diastolic Diastolic Disease Active Uni vers dysfunctio dysfunctio 4-15 it y of n n 00:00: [facility] Essential Essential Disease Active Uni vers hypertensi hypertensi 4-15 it y of on on 00:00: [facility] Morbid Morbid Disease Active Univers obesity obesity 4-15 ity of with BMI with BMI 00:00: [place] of of 00 Medical 45.0-49.9, 45.0-49.9, Br anch adult adult Severe Severe Disease Active Univers aortic aortic 4-15 ity of stenosis stenosis 00:00: [facility] Pericardia Pericardia Disease Active 2019-06 U nivers l effusion l effusion 2-11 it y of 00:00: [facility] Morbid Morbid Disease Active 2019-06 [facility] obesity obesity 2-11 [place] with body [place] index [place] of of Branch 40.0-49.9 40.0-49.9 Morbid Morbid Disease Active 2019-06 [facility] obesity obesity 2-11 [facility] [place] with body [place] body [place] index 00 [place] d[place] of of Branch 40.0-49.9 40.0-49.9 Transient Transient Disease Active Uni vers ischemic ischemic 9-08 ity of attack attack 00:00: [facility] S/P AVR S/P AVR Disease Active Univers (aortic (aortic 9-05 ity of valve valve 00:00: [place] replacemen replacemen 00 Me dical t) t) Branch ACS (acute ACS (acute Disease Active U nivers coronary coronary 8-26 ity of syndrome) syndrome) 00:[place] [facility] Allergies, Adverse Reactions, Alerts Allergy Allergy Status Severity Reaction(s) Onset Inactive Treating Comm ents Source Name Type Date Date Clinician NO KNOWN Allergy Active [facility] NO KNOWN Drug Active Univers ALLERGIE Class ity of S [facility] Social History Social Habit Start Date Stop Date Quantity Comments Source Exposure to Not sure University of SARS-CoV-2 [place] [facility] (event) Branch Tobacco use and 2020-09-14 2020-09-14 Never used Universit y of exposure 00:00:00 00:00:00 [facility] Alcohol intake 2020-09-14 2020-09-14 Ex-drinker [facility] 00:00:00 00:00:00 (finding) [facility] Sex Ass[birth year] Universit y of 00:00:00 00:00:00 [facility] Smoking Status Start Date Stop Date Source Never smoker [facility] Unknown if ever smoked [facility] Medications Ordered Filled Start Stop Current Ordering Indication Dosage Frequency Signature Comments Components Source Medication Medication Date Date Medication? Clinician (SIG) Name Name amLODIPine 2020-06- No [id number] 10mg Take 1 Univers 10 mg -16 05-03 tablet by ity of tablet 00:00: 05:59 mouth [place] 00 :00 daily for Medical 15 days. Branch SERTraline Yes [id number] 100mg Take 1 Univers (ZOLOFT) 9-27 tablet by ity of 100 mg 00:00: mouth 2 [place] tablet 00 (two) Medical times [place] daily. SERTraline Yes [id number] 100mg Take 1 Univers (ZOLOFT) 9-27 tablet by ity of 100 mg 00:00: mouth 2 [place] tablet 00 (two) Medical times [place] daily. SERTraline Yes [id number] 100mg Take 1 Univers (ZOLOFT) 9-27 tablet by ity of 100 mg 00:00: mouth 2 [place] tablet 00 (two) Medical times [place] daily. SERTraline Yes [id number] 100mg Take 1 Univers (ZOLOFT) 9-27 tablet by ity of 100 mg 00:00: mouth 2 [place] tablet 00 (two) Medical times [place] daily. metoprolol Yes [id number] 25mg Take 1 Univers tartrate 25 8-11 tablet by ity of mg tablet 00:00: mouth 2 [place] 00 (two) Medical times [place] daily. metoprolol Yes [id number] 25mg Take 1 Univers tartrate 25 8-11 tablet by ity of mg tablet 00:00: mouth 2 [place] 00 (two) Medical times [place] daily. metoprolol Yes [id number] 25mg Take 1 Univers tartrate 25 8-11 tablet by ity of mg tablet 00:00: mouth 2 [place] 00 (two) Medical times Branch daily. metoprolol 2020-0 Yes [id number] 25mg Take 1 Univers tartrate 25 8-11 tablet by ity of mg tablet 00:00: mouth 2 [place] 00 (two) Medical times Branch daily. metoprolol 2020-0 Yes [id number] 25mg Take 1 Univers tartrate 25 8-11 tablet by ity of mg tablet 00:00: mouth 2 [place] 00 (two) Medical times Branch daily. metoprolol 0 Yes [id number] 25mg Take 1 Univers tartrate 25 8-11 tablet by ity of mg tablet 00:00: mouth 2 (two) Medical times Branch daily. metoprolol Yes [id number] 25mg Take 1 Univers tartrate 25 8-11 tablet by ity of mg tablet 00:00: mouth 2 (two) Medical times Branch daily. metoprolol Yes [id number] 25mg Take 1 Univers tartrate 25 8-11 tablet by ity of mg tablet 00:00: mouth 2 (two) Medical times Branch daily. metoprolol 0 Yes [id number] 25mg Take 1 Univers tartrate 25 8-11 tablet by ity of mg tablet 00:00: mouth 2 00 (two) Medical times Branch daily. SERTraline Yes 100mg Take 1 Univ ers (ZOLOFT) 5-25 tablet by ity of 100 mg 00:00: mouth 2 [place] tablet 00 (two) Medical times Branch daily. gabapentin Yes 300mg Take 1 Univ ers 300 mg 5-25 capsule by ity of capsule 00:00: mouth 3 [place] 00 (three) Medical times Branch daily. lisinopriL- Yes 1{tbl} Take 1 Un valerio hydrochloro 5-25 tablet by ity of thiazide 00:00: mouth [place] 10-12.5 mg 00 daily. Medical per tablet Branch potassium Yes 10meq Take 1 Unive rs chloride 10 5-25 tablet by ity of mEq CR 00:00: mouth [place] tablet 00 daily. Medical Branch SERTraline 2021-0 Yes 100mg Take 1 Univ ers (ZOLOFT) 5-25 tablet by ity of 100 mg 00:00: mouth 2 [place] tablet 00 (two) Medical times Branch daily. gabapentin 2020-0 Yes 300mg Take 1 Univ ers 300 mg 5-25 capsule by ity of capsule 00:00: mouth 3 [place] 00 (three) Medical times Branch daily. lisinopriL- 2020-0 Yes 1{tbl} Take 1 Un valerio hydrochloro 5-25 tablet by ity of thiazide 00:00: mouth [place] 10-12.5 mg 00 daily. Medical per tablet Branch potassium 2020-0 Yes 10meq Take 1 Unive rs chloride 10 5-25 tablet by ity of mEq CR 00:00: mouth [place] tablet 00 daily. Medical Branch SERTraline 2020-0 Yes 100mg Take 1 Univ ers (ZOLOFT) 5-25 tablet by ity of 100 mg 00:00: mouth 2 [place] tablet 00 (two) Medical times Branch daily. gabapentin 2020-0 Yes 300mg Take 1 Univ ers 300 mg 5-25 capsule by ity of capsule 00:00: mouth 3 [place] 00 (three) Medical times Branch daily. lisinopriL- 2020-0 Yes 1{tbl} Take 1 Un valerio hydrochloro 5-25 tablet by ity of thiazide 00:00: mouth [place] 10-12.5 mg 00 daily. Medical per tablet Branch potassium 2020-0 Yes 10meq Take 1 Unive rs chloride 10 5-25 tablet by ity of mEq CR 00:00: mouth [place] tablet 00 daily. Medical Branch SERTraline 2020-0 Yes 100mg Take 1 Univ ers (ZOLOFT) 5-25 tablet by ity of 100 mg 00:00: mouth 2 [place] tablet 00 (two) Medical times Branch daily. gabapentin 2020-0 Yes 300mg Take 1 Univ ers 300 mg 5-25 capsule by ity of capsule 00:00: mouth 3 [place] 00 (three) Medical times Branch daily. lisinopriL- 2020-0 Yes 1{tbl} Take 1 Un valerio hydrochloro 5-25 tablet by ity of thiazide 00:00: mouth [place] 10-12.5 mg 00 daily. Medical per tablet Branch potassium 2020-0 Yes 10meq Take 1 Unive rs chloride 10 5-25 tablet by ity of mEq CR 00:00: mouth [place] tablet 00 daily. Medical Branch SERTraline 2020-0 Yes 100mg Take 1 Univ ers (ZOLOFT) 5-25 tablet by ity of 100 mg 00:00: mouth 2 [place] tablet 00 (two) Medical times Branch daily. gabapentin 2020-0 Yes 300mg Take 1 Univ ers 300 mg 5-25 capsule by ity of capsule 00:00: mouth 3 [place] 00 (three) Medical times Branch daily. lisinopriL- 2020-0 Yes 1{tbl} Take 1 Un valerio hydrochloro 5-25 tablet by ity of thiazide 00:00: mouth [place] 10-12.5 mg 00 daily. Medical per tablet Branch potassium 2020-0 Yes 10meq Take 1 Unive rs chloride 10 5-25 tablet by ity of mEq CR 00:00: mouth [place] tablet 00 daily. Medical Branch gabapentin 2020-0 Yes 300mg Take 1 Univ ers 300 mg 5-25 capsule by ity of capsule 00:00: mouth 3 [place] 00 (three) Medical times Branch daily. lisinopriL- 2020-0 Yes 1{tbl} Take 1 Un valerio hydrochloro 5-25 tablet by ity of thiazide 00:00: mouth [place] 10-12.5 mg 00 daily. Medical per tablet Branch potassium 2020-0 Yes 10meq Take 1 Unive rs chloride 10 5-25 tablet by ity of mEq CR 00:00: mouth [place] tablet 00 daily. Medical Branch gabapentin 2020-0 Yes 300mg Take 1 Univ ers 300 mg 5-25 capsule by ity of capsule 00:00: mouth 3 [place] 00 (three) Medical times Branch daily. lisinopriL- 2020-0 Yes 1{tbl} Take 1 Un valerio hydrochloro 5-25 tablet by ity of thiazide 00:00: mouth [place] 10-12.5 mg 00 daily. Medical per tablet Branch SERTraline 2020-0 Yes 100mg Take 1 Univ ers (ZOLOFT) 5-25 tablet by ity of 100 mg 00:00: mouth 2 [place] tablet 00 (two) Medical times Branch daily. potassium 2020-0 Yes 10meq Take 1 Unive rs chloride 10 5-25 tablet by ity of mEq CR 00:00: mouth [place] tablet 00 daily. Medical Branch gabapentin 2020-0 Yes 300mg Take 1 Univ ers 300 mg 5-25 capsule by ity of capsule 00:00: mouth 3 [place] 00 (three) Medical times Branch daily. lisinopriL- Yes 1{tbl} Take 1 Un valerio hydrochloro 5-25 tablet by ity of thiazide 00:00: mouth [place] 10-12.5 mg 00 daily. Medical per tablet Branch potassium Yes 10meq Take 1 Unive rs chloride 10 5-25 tablet by ity of mEq CR 00:00: mouth [place] tablet 00 daily. Medical Branch gabapentin Yes 300mg Take 1 Univ ers 300 mg 5-25 capsule by ity of capsule 00:00: mouth 3 [place] 00 (three) Medical times Branch daily. lisinopriL- Yes 1{tbl} Take 1 Un valerio hydrochloro 5-25 tablet by ity of thiazide 00:00: mouth [place] 10-12.5 mg 00 daily. Medical per tablet Branch potassium Yes 10meq Take 1 Unive rs chloride 10 5-25 tablet by ity of mEq CR 00:00: mouth [place] tablet 00 daily. Medical Branch gabapentin Yes 300mg Take 1 Univ ers 300 mg 5-25 capsule by ity of capsule 00:00: mouth 3 [place] 00 (three) Medical times Branch daily. lisinopriL- Yes 1{tbl} Take 1 Un valerio hydrochloro 5-25 tablet by ity of thiazide 00:00: mouth [place] 10-12.5 mg 00 daily. Medical per tablet Branch potassium Yes 10meq Take 1 Unive rs chloride 10 5-25 tablet by ity of mEq CR 00:00: mouth [place] tablet 00 daily. Medical Branch SERTraline 2020- No 100mg Take 1 Uni vers (ZOLOFT) 5-25 09-27 tablet by ity o f 100 mg 00:00: 00:00 mouth 2 [place] tablet 00 :00 (two) Medical times Branch daily. ferrous 2020-2020- No 325mg Take 325 Univ ers sulfate 325 4-15 04-15 mg by ity of mg (65 mg 15:21: 00:00 [place] 2 [place] iron[place] 06 :00 (two) Medical tablet times Branch daily. gabapentin 2020-2020- No 300mg Take 300 U nivers 300 mg 4-15 04-15 mg by ity of capsule 15:21: 00:00 mouth 3 [place] 06 :00 (three) Medical times Branch daily. SERTraline 2020- No 100mg Take 100 U nivers (ZOLOFT) 4-15 04-15 mg by ity of 100 mg 15:21: 00:00 mouth [place] tablet 06 :00 daily. Medical Branch lisinopriL- 2020- No 1{tbl} Take 1 U nivers hydrochloro 4-15 04-15 tablet by it y of thiazide 15:21: 00:00 mouth [place] 10-12.5 mg 06 :00 daily. Medical per tablet Branch ferrous 2020- No 325mg Take 325 Univ ers sulfate 325 4-15 04-15 mg by ity of mg (65 mg 15:21: 00:00 mouth 2 [place] iron[place] 06 :00 (two) Medical tablet times Branch daily. gabapentin 2020- No 300mg Take 300 U nivers 300 mg 4-15 04-15 mg by ity of capsule 15:21: 00:00 mouth 3 [place] 06 :00 (three) Medical times Branch daily. SERTraline 2020- No 100mg Take 100 U nivers (ZOLOFT) 4-15 04-15 mg by ity of 100 mg 15:21: 00:00 mouth [place] tablet 06 :00 daily. Medical Branch lisinopriL- 2020- No 1{tbl} Take 1 U nivers hydrochloro 4-15 04-15 tablet by it y of thiazide 15:21: 00:00 mouth [place] 10-12.5 mg 06 :00 daily. Medical per tablet Branch atorvastati Yes [id number] 80mg Take 1 Univers n 80 mg 4-15 tablet by ity of tablet 00:00: mouth at [place] 00 bedtime. Medical Branch amLODIPine Yes [id number] 10mg Take 1 Univers 10 mg 4-15 tablet by ity of tablet 00:00: mouth [place] 00 daily. Medical Branch clopidogreL Yes [id number] 75mg Take 1 Univers 75 mg 4-15 tablet by ity of tablet 00:00: mouth [place] 00 daily. Medical Branch furosemide Yes [id number] 20mg Take 1 Univers 20 mg 4-15 tablet by ity of tablet 00:00: mouth [place] 00 daily. Medical Branch metoprolol Yes [id number] 25mg Take 1 Univers tartrate 25 4-15 tablet by ity of mg tablet 00:00: mouth 2 [place] 00 (two) Medical times Branch daily. SERTraline Yes 100mg Take 1 Univ ers (ZOLOFT) 4-15 tablet by ity of 100 mg 00:00: mouth 2 [place] tablet 00 (two) Medical times Branch daily. atorvastati Yes [id number] 80mg Take 1 Univers n 80 mg 4-15 tablet by ity of tablet 00:00: mouth at [place] 00 bedtime. Medical Branch amLODIPine Yes [id number] 10mg Take 1 Univers 10 mg 4-15 tablet by ity of tablet 00:00: mouth [place] 00 daily. Medical Branch clopidogreL Yes [id number] 75mg Take 1 Univers 75 mg 4-15 tablet by ity of tablet 00:00: mouth [place] 00 daily. Medical Branch furosemide Yes [id number] 20mg Take 1 Univers 20 mg 4-15 tablet by ity of tablet 00:00: mouth [place] 00 daily. Medical Branch metoprolol Yes [id number] 25mg Take 1 Univers tartrate 25 4-15 tablet by ity of mg tablet 00:00: mouth 2 [place] 00 (two) Medical times Branch daily. SERTraline Yes 100mg Take 1 Univ ers (ZOLOFT) 4-15 tablet by ity of 100 mg 00:00: mouth 2 [place] tablet 00 (two) Medical times Branch daily. atorvastati Yes [id number] 80mg Take 1 Univers n 80 mg 4-15 tablet by ity of tablet 00:00: mouth at [place] 00 bedtime. Medical Branch amLODIPine Yes [id number] 10mg Take 1 Univers 10 mg 4-15 tablet by ity of tablet 00:00: mouth [place] 00 daily. Medical Branch clopidogreL Yes [id number] 75mg Take 1 Univers 75 mg 4-15 tablet by ity of tablet 00:00: mouth [place] 00 daily. Medical Branch furosemide Yes [id number] 20mg Take 1 Univers 20 mg 4-15 tablet by ity of tablet 00:00: mouth [place] 00 daily. Medical Branch metoprolol 2020-0 Yes [id number] 25mg Take 1 Univers tartrate 25 4-15 tablet by ity of mg tablet 00:00: mouth 2 00 (two) Medical times Branch daily. atorvastati 2020-0 Yes [id number] 80mg Take 1 Univers n 80 mg 4-15 tablet by ity of tablet 00:00: mouth at [place] 00 bedtime. Medical Branch amLODIPine 0 Yes [id number] 10mg Take 1 Univers 10 mg 4-15 tablet by ity of tablet 00:00: mouth [place] 00 daily. Medical Branch atorvastati 0 Yes [id number] 80mg Take 1 Univers n 80 mg 4-15 tablet by ity of tablet 00:00: mouth at [place] 00 bedtime. Medical Branch amLODIPine 0 Yes [id number] 10mg Take 1 Univers 10 mg 4-15 tablet by ity of tablet 00:00: mouth [place] 00 daily. Medical Branch clopidogreL 0 Yes [id number] 75mg Take 1 Univers 75 mg 4-15 tablet by ity of tablet 00:00: mouth [place] 00 daily. Medical Branch furosemide 2020-0 Yes [id number] 20mg Take 1 Univers 20 mg 4-15 tablet by ity of tablet 00:00: mouth [place] 00 daily. Medical Branch metoprolol 0 Yes [id number] 25mg Take 1 Univers tartrate 25 4-15 tablet by ity of mg tablet 00:00: mouth 2 (two) Medical times Branch daily. clopidogreL 2020-0 Yes [id number] 75mg Take 1 Univers 75 mg 4-15 tablet by ity of tablet 00:00: mouth [place] 00 daily. Medical Branch atorvastati 0 Yes [id number] 80mg Take 1 Univers n 80 mg 4-15 tablet by ity of tablet 00:00: mouth at [place] 00 bedtime. Medical Branch amLODIPine 2020-0 Yes [id number] 10mg Take 1 Univers 10 mg 4-15 tablet by ity of tablet 00:00: mouth [place] 00 daily. Medical Branch clopidogreL 2020-0 Yes [id number] 75mg Take 1 Univers 75 mg 4-15 tablet by ity of tablet 00:00: mouth [place] 00 daily. Medical Branch furosemide 0 Yes [id number] 20mg Take 1 Univers 20 mg 4-15 tablet by ity of tablet 00:00: mouth [place] 00 daily. Medical Branch furosemide 2020-0 Yes [id number] 20mg Take 1 Univers 20 mg 4-15 tablet by ity of tablet 00:00: mouth [place] 00 daily. Medical Branch metoprolol 2020-0 Yes [id number] 25mg Take 1 Univers tartrate 25 4-15 tablet by ity of mg tablet 00:00: mouth 2 [place] 00 (two) Medical times Branch daily. SERTraline 2020-0 Yes 100mg Take 1 Univ ers (ZOLOFT) 4-15 tablet by ity of 100 mg 00:00: mouth 2 [place] tablet 00 (two) Medical times Branch daily. atorvastati 0 Yes [id number] 80mg Take 1 Univers n 80 mg 4-15 tablet by ity of tablet 00:00: mouth at [place] 00 bedtime. Medical Branch amLODIPine 0 Yes [id number] 10mg Take 1 Univers 10 mg 4-15 tablet by ity of tablet 00:00: mouth [place] 00 daily. Medical Branch clopidogreL 0 Yes [id number] 75mg Take 1 Univers 75 mg 4-15 tablet by ity of tablet 00:00: mouth [place] 00 daily. Medical Branch furosemide 0 Yes [id number] 20mg Take 1 Univers 20 mg 4-15 tablet by ity of tablet 00:00: mouth [place] 00 daily. Medical Branch metoprolol 2020-0 Yes [id number] 25mg Take 1 Univers tartrate 25 4-15 tablet by ity of mg tablet 00:00: mouth 2 [place] 00 (two) Medical times Branch daily. SERTraline 2020-0 Yes 100mg Take 1 Univ ers (ZOLOFT) 4-15 tablet by ity of 100 mg 00:00: mouth 2 [place] tablet 00 (two) Medical times Branch daily. atorvastati 2020-0 Yes [id number] 80mg Take 1 Univers n 80 mg 4-15 tablet by ity of tablet 00:00: mouth at [place] 00 bedtime. Medical Branch amLODIPine 2020-0 Yes [id number] 10mg Take 1 Univers 10 mg 4-15 tablet by ity of tablet 00:00: mouth [place] 00 daily. Medical Branch clopidogreL 0 Yes [id number] 75mg Take 1 Univers 75 mg 4-15 tablet by ity of tablet 00:00: mouth [place] 00 daily. Medical Branch furosemide 2020-0 Yes [id number] 20mg Take 1 Univers 20 mg 4-15 tablet by ity of tablet 00:00: mouth [place] 00 daily. Medical Branch metoprolol 0 Yes [id number] 25mg Take 1 Univers tartrate 25 4-15 tablet by ity of mg tablet 00:00: mouth 2 [place] 00 (two) Medical times Branch daily. SERTraline Yes 100mg Take 1 Univ ers (ZOLOFT) 4-15 tablet by ity of 100 mg 00:00: mouth 2 [place] tablet 00 (two) Medical times Branch daily. atorvastati Yes [id number] 80mg Take 1 Univers n 80 mg 4-15 tablet by ity of tablet 00:00: mouth at [place] 00 bedtime. Medical Branch amLODIPine Yes [id number] 10mg Take 1 Univers 10 mg 4-15 tablet by ity of tablet 00:00: mouth [place] 00 daily. Medical Branch clopidogreL Yes [id number] 75mg Take 1 Univers 75 mg 4-15 tablet by ity of tablet 00:00: mouth [place] 00 daily. Medical Branch furosemide 0 Yes [id number] 20mg Take 1 Univers 20 mg 4-15 tablet by ity of tablet 00:00: mouth [place] 00 daily. Medical Branch metoprolol 0 Yes [id number] 25mg Take 1 Univers tartrate 25 4-15 tablet by ity of mg tablet 00:00: mouth 2 [place] 00 (two) Medical times Branch daily. SERTraline Yes 100mg Take 1 Univ ers (ZOLOFT) 4-15 tablet by ity of 100 mg 00:00: mouth 2 [place] tablet 00 (two) Medical times Branch daily. atorvastati Yes [id number] 80mg Take 1 Univers n 80 mg 4-15 tablet by ity of tablet 00:00: mouth at [place] 00 bedtime. Medical Branch amLODIPine 0 Yes [id number] 10mg Take 1 Univers 10 mg 4-15 tablet by ity of tablet 00:00: mouth [place] 00 daily. Medical Branch clopidogreL 0 Yes [id number] 75mg Take 1 [facility] 75 mg 4-15 tablet by ity of tablet 00:00: mouth [place] 00 daily. Medical Branch furosemide 2020-0 Yes [id number] 20mg Take 1 Univers 20 mg 4-15 tablet by ity of tablet 00:00: mouth [place] 00 daily. Medical Branch metoprolol 2020-0 Yes [id number] 25mg Take 1 Univers tartrate 25 4-15 tablet by ity of mg tablet 00:00: mouth 2 [place] 00 (two) Medical times Branch daily. SERTraline 0 Yes 100mg Take 1 Univ ers (ZOLOFT) 4-15 tablet by ity of 100 mg 00:00: mouth 2 [place] tablet 00 (two) Medical times Branch daily. atorvastati Yes [id number] 80mg Take 1 Univers n 80 mg 4-15 tablet by ity of tablet 00:00: mouth at [place] 00 bedtime. Medical Branch amLODIPine Yes [id number] 10mg Take 1 Univers 10 mg 4-15 tablet by ity of tablet 00:00: mouth [place] 00 daily. Medical Branch clopidogreL Yes [id number] 75mg Take 1 Univers 75 mg 4-15 tablet by ity of tablet 00:00: mouth [place] 00 daily. Medical Branch furosemide 0 Yes [id number] 20mg Take 1 [facility] 20 mg 4-15 tablet by ity of tablet 00:00: mouth [place] 00 daily. Medical Branch metoprolol 0 Yes [id number] 25mg Take 1 [facility] tartrate 25 4-15 tablet by ity of mg tablet 00:00: mouth 2 [place] 00 (two) Medical times Branch daily. atorvastati 0 Yes [id number] 80mg Take 1 Univers n 80 mg 4-15 tablet by ity of tablet 00:00: mouth at [place] 00 bedtime. Medical Branch amLODIPine 2020-0 Yes [id number] 10mg Take 1 [facility] 10 mg 4-15 tablet by ity of tablet 00:00: mouth [place] 00 daily. Medical Branch clopidogreL 0 Yes [id number] 75mg Take 1 [facility] 75 mg 4-15 tablet by ity of tablet 00:00: mouth [place] 00 daily. Medical Branch furosemide 2020-0 Yes [id number] 20mg Take 1 [facility] 20 mg 4-15 tablet by ity of tablet 00:00: mouth [place] 00 daily. Medical Branch atorvastati 0 Yes [id number] 80mg Take 1 Univers n 80 mg 4-15 tablet by ity of tablet 00:00: mouth at [place] 00 bedtime. Medical Branch amLODIPine 0 Yes [id number] 10mg Take 1 [facility] 10 mg 4-15 tablet by ity of tablet 00:00: mouth [place] 00 daily. Medical Branch clopidogreL 0 Yes [id number] 75mg Take 1 [facility] 75 mg 4-15 tablet by ity of tablet 00:00: mouth [place] 00 daily. Medical Branch furosemide 0 Yes [id number] 20mg Take 1 [facility] 20 mg 4-15 tablet by ity of tablet 00:00: mouth [place] 00 daily. Medical Branch atorvastati Yes [id number] 80mg Take 1 Univers n 80 mg 4-15 tablet by ity of tablet 00:00: mouth at [place] 00 bedtime. Medical Branch atorvastati Yes [id number] 80mg Take 1 Univers n 80 mg 4-15 tablet by ity of tablet 00:00: mouth at [place] 00 bedtime. Medical Branch amLODIPine Yes [id number] 10mg Take 1 [facility] 10 mg 4-15 tablet by ity of tablet 00:00: mouth [place] 00 daily. Medical Branch clopidogreL 0 Yes [id number] 75mg Take 1 [facility] 75 mg 4-15 tablet by ity of tablet 00:00: mouth [place] 00 daily. Medical Branch furosemide 2020-0 Yes [id number] 20mg Take 1 [facility] 20 mg 4-15 tablet by ity of tablet 00:00: mouth [place] 00 daily. Medical Branch amLODIPine 0 Yes [id number] 10mg Take 1 [facility] 10 mg 4-15 tablet by ity of tablet 00:00: mouth [place] 00 daily. Medical Branch atorvastati 0 Yes [id number] 80mg Take 1 Univers n 80 mg 4-15 tablet by ity of tablet 00:00: mouth at [place] 00 bedtime. Medical Branch clopidogreL 0 Yes [id number] 75mg Take 1 [facility] 75 mg 4-15 tablet by ity of tablet 00:00: mouth [place] 00 daily. Medical Branch amLODIPine 0 Yes [id number] 10mg Take 1 [facility] 10 mg 4-15 tablet by ity of tablet 00:00: mouth [place] 00 daily. Medical Branch clopidogreL 2020-0 Yes [id number] 75mg Take 1 [facility] 75 mg 4-15 tablet by ity of tablet 00:00: mouth [place] 00 daily. Medical Branch furosemide 2020-0 Yes [id number] 20mg Take 1 [facility] 20 mg 4-15 tablet by ity of tablet 00:00: mouth [place] 00 daily. Medical Branch furosemide 2020-0 Yes [id number] 20mg Take 1 [facility] 20 mg 4-15 tablet by ity of tablet 00:00: mouth [place] 00 daily. Medical Branch atorvastati 0 Yes [id number] 80mg Take 1 Univers n 80 mg 4-15 tablet by ity of tablet 00:00: mouth at [place] 00 bedtime. Medical Branch amLODIPine 2020-0 Yes [id number] 10mg Take 1 [facility] 10 mg 4-15 tablet by ity of tablet 00:00: mouth [place] 00 daily. Medical Branch clopidogreL 0 Yes [id number] 75mg Take 1 [facility] 75 mg 4-15 tablet by ity of tablet 00:00: mouth [place] 00 daily. Medical Branch furosemide 0 Yes [id number] 20mg Take 1 [facility] 20 mg 4-15 tablet by ity of tablet 00:00: mouth [place] 00 daily. Medical Branch atorvastati 0 Yes [id number] 80mg Take 1 Univers n 80 mg 4-15 tablet by ity of tablet 00:00: mouth at [place] 00 bedtime. Medical Branch clopidogreL 2020-0 Yes [id number] 75mg Take 1 [facility] 75 mg 4-15 tablet by ity of tablet 00:00: mouth [place] 00 daily. Medical Branch furosemide 2020-0 Yes [id number] 20mg Take 1 [facility] 20 mg 4-15 tablet by [facility] of tablet 00:00: mouth [place] 00 daily. [facility] atorvastati 2020-0 Yes [id number] 80mg Take 1 [facility] n 80 mg 4-15 tablet by it[facility] of tablet 00:00: mouth at [place] 00 bedtime. Medical [facility] clopidogreL 2020-0 Yes [id number] 75mg Take 1 [facility] 75 mg 4-15 tablet by it[facility] of tablet 00:00: mouth [place] 00 daily. Medical Branch furosemide 2020-0 Yes [id number] 20mg Take 1 [facility] 20 mg 4-15 tablet by [facility] of tablet 00:00: mouth [place] 00 daily. [facility] amLODIPine 2020- No [id number] 10mg Take 1 [facility] 10 mg 4-15 11-16 tablet by ity of tablet 00:00: 00:00 mouth [place] 00 :00 daily. Medical [facility] metoprolol 2020- No [id number] 25mg Take 1 [facility] tartrate 25 4-15 08-11 tablet by it y of mg tablet 00:00: 00:00 mouth [place] :[place] (two) Medical times Branch daily. ferrous 2020- No [id number] 325mg Take 1 U n[facility] sulfate 325 4-15 07-15 tablet by it y of mg (65 mg 00:00: 04:59 mouth [place] iron[place] 00 :00 (two) Medical tablet times Branch daily for 90 days. ferrous 2020- No [id number] 325mg Take 1 U nivers sulfate 325 4-15 07-15 tablet by it y of mg (65 mg 00:00: 04:59 mouth [place] 00 :00 (two) Medical tablet times Branch daily for 90 days. ferrous 2020- No [id number] 325mg Take 1 U nivers sulfate 325 4-15 07-15 tablet by it y of mg (65 mg 00:00: 04:59 mouth [place] 00 :00 (two) Medical tablet times Branch daily for 90 days. ferrous 2020- No [id number] 325mg Take 1 U nivers sulfate 325 4-15 07-15 tablet by it y of mg (65 mg 00:00: 04:59 mouth [place] 00 :00 (two) Medical tablet times Branch daily for 90 days. ferrous 2020- No [id number] 325mg Take 1 U nivers sulfate 325 4-15 07-15 tablet by it y of mg (65 mg 00:00: 04:59 mouth [place] 00 :00 (two) Medical tablet times Branch daily for 90 days. ferrous 2020- No [id number] 325mg Take 1 U nivers sulfate 325 4-15 07-15 tablet by it y of mg (65 mg 00:00: 04:59 mouth [place] 00 :00 (two) Medical tablet times Branch daily for 90 days. ferrous No [id number] 325mg Take 1 U nivers sulfate 325 4-15 07-15 tablet by it y of mg (65 mg 00:00: 04:59 mouth [place] 00 :00 (two) Medical tablet times Branch daily for 90 days. ferrous No [id number] 325mg Take 1 U nivers sulfate 325 4-15 07-15 tablet by it y of mg (65 mg 00:00: 04:59 mouth [place] 00 :00 (two) Medical tablet times Branch daily for 90 days. ferrous No [id number] 325mg Take 1 U nivers sulfate 325 4-15 07-15 tablet by it y of mg (65 mg 00:00: 04:59 mouth [place] iron[place] 00 :00 (two) Medical tablet times Branch daily for 90 days. ferrous No [id number] 325mg Take 1 U nivers sulfate 325 4-15 07-15 tablet by it y of mg (65 mg 00:00: 04:59 mouth [place] iron[place] 00 :00 (two) Medical tablet times Branch daily for 90 days. SERTraline No 100mg Take 1 Uni vers (ZOLOFT) 4-15 05-25 tablet by ity o f 100 mg 00:00: 00:00 mouth 2 [place] tablet 00 :00 (two) Medical times Branch daily. lisinopriL- No [id number] 1{tbl} Take 1 [facility] hydrochloro 4-15 05-16 tablet by it y of thiazide 00:00: 04:59 mouth [place] 10-12.5 mg 00 :00 daily for Medi rl per tablet 30 days. Branc h gabapentin No [id number] 300mg Take 1 [facility] 300 mg 4-15 05-16 capsule by ity of capsule 00:00: 04:59 mouth 3 [place] 00 :00 (three) Medical times Branch daily for 30 days. lisinopriL- 2020- No [id number] 1{tbl} Take 1 [facility] hydrochloro 4-15 05-16 tablet by it y of thiazide 00:00: 04:59 mouth [place] 10-12.5 mg 00 :00 daily for Medi rl per tablet 30 days. [facility] gabapentin No [id number] 300mg Take 1 [facility] 300 mg 4-15 05-16 capsule by ity of capsule 00:00: 04:59 mouth 3 [place] 00 :00 (three) Medical times Branch daily for 30 days. lisinopriL- No [id number] 1{tbl} Take 1 [facility] hydrochloro 4-15 05-16 tablet by it y of thiazide 00:00: 04:59 mouth [place] 10-12.5 mg 00 :00 daily for Medi rl per tablet 30 days. [facility] gabapentin No [id number] 300mg Take 1 [facility] 300 mg 4-15 05-16 capsule by ity of capsule 00:00: 04:59 mouth 3 [place] 00 :00 (three) Medical times Branch daily for 30 days. lisinopriL- No [id number] 1{tbl} Take 1 [facility] hydrochloro 4-15 05-16 tablet by it y of thiazide 00:00: 04:59 mouth [place] 10-12.5 mg 00 :00 daily for Medi rl per tablet 30 days. [facility] gabapentin No [id number] 300mg Take 1 [facility] 300 mg 4-15 05-16 capsule by ity of capsule 00:00: 04:59 mouth 3 [place] 00 :00 (three) Medical times Branch daily for 30 days. lisinopriL- No [id number] 1{tbl} Take 1 [facility] hydrochloro 4-15 05-16 tablet by it y of thiazide 00:00: 04:59 mouth [place] 10-12.5 mg 00 :00 daily for Medi rl per tablet 30 days. [facility] gabapentin No [id number] 300mg Take 1 [facility] 300 mg 4-15 05-16 capsule by ity of capsule 00:00: 04:59 mouth 3 [place] 00 :00 (three) Medical times Branch daily for 30 days. lisinopriL- No [id number] 1{tbl} Take 1 [facility] hydrochloro 4-15 05-16 tablet by it y of thiazide 00:00: 04:59 mouth [place] 10-12.5 mg 00 :00 daily for Medi rl per tablet 30 days. [facility] gabapentin No [id number] 300mg Take 1 [facility] 300 mg 4-15 05-16 capsule by ity of capsule 00:00: 04:59 mouth 3 [place] 00 :00 (three) Medical times Branch daily for 30 days. lisinopriL- No [id number] 1{tbl} Take 1 [facility] hydrochloro 4-15 05-16 tablet by it y of thiazide 00:00: 04:59 mouth [place] 10-12.5 mg 00 :00 daily for Medi rl per tablet 30 days. [facility] gabapentin No [id number] 300mg Take 1 [facility] 300 mg 4-15 05-16 capsule by ity of capsule 00:00: 04:59 mouth 3 [place] 00 :00 (three) Medical times Branch daily for 30 days. lisinopriL- No [id number] 1{tbl} Take 1 [facility] hydrochloro 4-15 05-16 tablet by it y of thiazide 00:00: 04:59 mouth [place] 10-12.5 mg 00 :00 daily for Medi rl per tablet 30 days. [facility] gabapentin No [id number] 300mg Take 1 [facility] 300 mg 4-15 05-16 capsule by ity of capsule 00:00: 04:59 mouth 3 [place] 00 :00 (three) Medical times Branch daily for 30 days. SERTraline No [id number] 100mg Take 1 [facility] (ZOLOFT) 4-15 04-15 tablet by ity o f 100 mg 00:00: 00:00 mouth [place] tablet 00 :00 daily for Medical 30 days. Branch colchicine 2020- No [id number] .6mg Take 1 [facility] 0.6 mg 4-15 04-15 tablet by ity of tablet 00:00: 00:00 mouth 2 [place] 00 :00 (two) Medical times Branch daily. KCL 10 mEq No [id number] 10meq Take 1 [facility] tablet 4-15 04-15 tablet by ity of 00:00: 00:00 mouth [place] 00 :00 daily. Medical Branch SERTraline No [id number] 100mg Take 1 [facility] (ZOLOFT) 4-15 04-15 tablet by ity o f 100 mg 00:00: 00:00 mouth [place] tablet 00 :00 daily for Medical 30 days. Branch colchicine 2020- No [id number] .6mg Take 1 [facility] 0.6 mg 4-15 04-15 tablet by ity of tablet 00:00: 00:00 mouth 2 [place] 00 :00 (two) Medical times Branch daily. KCL 10 mEq 2020- No [id number] 10meq Take 1 [facility] tablet 4-15 04-15 tablet by ity of 00:00: 00:00 mouth [place] 00 :00 daily. Medical Branch SERTraline No [id number] 100mg Take 1 [facility] (ZOLOFT) 4-15 04-15 tablet by ity o f 100 mg 00:00: 00:00 mouth [place] tablet 00 :00 daily for Medical 30 days. Branch colchicine 2020- No [id number] .6mg Take 1 [facility] 0.6 mg 4-15 04-15 tablet by ity of tablet 00:00: 00:00 mouth 2 [place] 00 :00 (two) Medical times Branch daily. KCL 10 mEq 2020- No [id number] 10meq Take 1 [facility] tablet 4-15 04-15 tablet by ity of 00:00: 00:00 mouth [place] 00 :00 daily. Medical Branch SERTraline 2020- No [id number] 100mg Take 1 [facility] (ZOLOFT) 4-15 04-15 tablet by ity o f 100 mg 00:00: 00:00 mouth [place] tablet 00 :00 daily for Medical 30 days. Branch colchicine 2020- No [id number] .6mg Take 1 [facility] 0.6 mg 4-15 04-15 tablet by ity of tablet 00:00: 00:00 mouth 2 [place] 00 :00 (two) Medical times Branch daily. KCL 10 mEq No [id number] 10meq Take 1 [facility] tablet 4-15 04-15 tablet by ity of 00:00: 00:00 mouth [place] 00 :00 daily. Medical Branch SERTraline 2020- No [id number] 100mg Take 1 [facility] (ZOLOFT) 4-15 04-15 tablet by ity o f 100 mg 00:00: 00:00 mouth [place] tablet 00 :00 daily for Medical 30 days. Branch colchicine 2020- No [id number] .6mg Take 1 [facility] 0.6 mg 4-15 04-15 tablet by ity of tablet 00:00: 00:00 mouth 2 [place] 00 :00 (two) Medical times Branch daily. KCL 10 mEq 2020- No [id number] 10meq Take 1 [facility] tablet 4-15 04-15 tablet by ity of 00:00: 00:00 mouth [place] 00 :00 daily. Medical Branch SERTraline 2020- No [id number] 100mg Take 1 [facility] (ZOLOFT) 4-15 04-15 tablet by ity o f 100 mg 00:00: 00:00 mouth [place] tablet 00 :00 daily for Medical 30 days. Branch colchicine 2020- No [id number] .6mg Take 1 [facility] 0.6 mg 4-15 04-15 tablet by ity of tablet 00:00: 00:00 mouth 2 [place] 00 :00 (two) Medical times Branch daily. KCL 10 mEq 2020- No [id number] 10meq Take 1 [facility] tablet 4-15 04-15 tablet by ity of 00:00: 00:00 mouth [place] 00 :00 daily. Medical Branch furosemide 2019-06 Yes [id number] 20mg Take 1 U nivers 20 mg 2-16 tablet by ity of tablet 00:00: mouth [place] 00 daily. Medical Branch furosemide 2019-06 Yes [id number] 20mg Take 1 U nivers 20 mg 2-16 tablet by ity of tablet 00:00: mouth [place] 00 daily. Medical Branch furosemide 2019-06 Yes [id number] 20mg Take 1 U nivers 20 mg 2-16 tablet by ity of tablet 00:00: mouth [place] 00 daily. Medical Branch furosemide 2019-06 Yes [id number] 20mg Take 1 U nivers 20 mg 2-16 tablet by ity of tablet 00:00: mouth [place] 00 daily. Medical Branch furosemide 2019-06 Yes [id number] 20mg Take 1 U nivers 20 mg 2-16 tablet by ity of tablet 00:00: mouth [place] 00 daily. Medical Branch furosemide 2019-06- No [id number] 20mg Take 1 [facility] 20 mg 2-16 04-15 tablet by ity of tablet 00:00: 00:00 mouth [place] 00 :00 daily. Medical Branch furosemide 2019-06- No [id number] 20mg Take 1 [facility] 20 mg 2-16 04-15 tablet by ity of tablet 00:00: 00:00 mouth [place] 00 :00 daily. Medical Branch aspirin 81 2019-06 Yes [id number] 81mg Take 1 U nivers mg chewable 2-13 tablet by ity of tablet 00:00: mouth [place] 00 daily. Medical Branch aspirin 81 2019-06 Yes [id number] 81mg Take 1 U nivers mg chewable 2-13 tablet by ity of tablet 00:00: mouth [place] 00 daily. Medical Branch aspirin 81 2019-06 Yes [id number] 81mg Take 1 U nivers mg chewable 2-13 tablet by ity of tablet 00:00: mouth [place] 00 daily. Medical Branch aspirin 81 2019-06 Yes [id number] 81mg Take 1 U nivers mg chewable 2-13 tablet by ity of tablet 00:00: mouth [place] 00 daily. Medical Branch aspirin 81 2019- Yes [id number] 81mg Take 1 U nivers mg chewable 2-13 tablet by ity of tablet 00:00: mouth [place] 00 daily. Medical Branch aspirin 81 2019- Yes [id number] 81mg Take 1 U nivers mg chewable 2-13 tablet by ity of tablet 00:00: mouth [place] 00 daily. Medical Branch aspirin 81 2019- Yes [id number] 81mg Take 1 U nivers mg chewable 2-13 tablet by ity of tablet 00:00: mouth [place] 00 daily. Medical Branch aspirin 81 2020- Yes [id number] 81mg Take 1 U nivers mg chewable 2-13 tablet by ity of tablet 00:00: mouth [place] 00 daily. Medical Branch aspirin 81 2020- Yes [id number] 81mg Take 1 U nivers mg chewable 2-13 tablet by ity of tablet 00:00: mouth [place] 00 daily. Medical Branch aspirin 81 2019- Yes [id number] 81mg Take 1 U nivers mg chewable 2-13 tablet by ity of tablet 00:00: mouth [place] 00 daily. Medical Branch aspirin 81 2020- Yes [id number] 81mg Take 1 U nivers mg chewable 2-13 tablet by ity of tablet 00:00: mouth [place] 00 daily. Medical Branch aspirin 81 2020- Yes [id number] 81mg Take 1 U nivers mg chewable 2-13 tablet by ity of tablet 00:00: mouth [place] 00 daily. Medical Branch aspirin 81 2020- Yes [id number] 81mg Take 1 U nivers mg chewable 2-13 tablet by ity of tablet 00:00: mouth [place] 00 daily. Medical Branch aspirin 81 2020- Yes [id number] 81mg Take 1 U nivers mg chewable 2-13 tablet by ity of tablet 00:00: mouth [place] 00 daily. Medical Branch aspirin 81 2020- Yes [id number] 81mg Take 1 U nivers mg chewable 2-13 tablet by ity of tablet 00:00: mouth [place] 00 daily. Medical Branch aspirin 81 2020- Yes [id number] 81mg Take 1 U nivers mg chewable 2-13 tablet by ity of tablet 00:00: mouth [place] 00 daily. Medical Branch aspirin 81 2020- Yes [id number] 81mg Take 1 U nivers mg chewable 2-13 tablet by ity of tablet 00:00: mouth [place] 00 daily. Medical Branch aspirin 81 2020- Yes [id number] 81mg Take 1 U nivers mg chewable 2-13 tablet by ity of tablet 00:00: mouth [place] 00 daily. Medical Branch aspirin 81 2020- Yes [id number] 81mg Take 1 U nivers mg chewable 2-13 tablet by ity of tablet 00:00: mouth [place] 00 daily. Medical Branch aspirin 81 2020- Yes [id number] 81mg Take 1 U nivers mg chewable 2-13 tablet by ity of tablet 00:00: mouth [place] 00 daily. Medical Branch aspirin 81 2020- Yes [id number] 81mg Take 1 U nivers mg chewable 2-13 tablet by ity of tablet 00:00: mouth [place] 00 daily. Medical Branch aspirin 81 2020- Yes [id number] 81mg Take 1 U nivers mg chewable 2-13 tablet by ity of tablet 00:00: mouth [place] 00 daily. Medical Branch aspirin 81 2020- Yes [id number] 81mg Take 1 U nivers mg chewable 2-13 tablet by ity of tablet 00:00: mouth [place] 00 daily. Medical Branch aspirin 81 2019- Yes [id number] 81mg Take 1 U nivers mg chewable 2-13 tablet by ity of tablet 00:00: mouth [place] 00 daily. Medical Branch furosemide 2019-06 2020- No [id number] 40mg Take 1 [facility] 40 mg 2-13 12-17 tablet by ity of tablet 00:00: 05:59 mouth [place] 00 :00 daily for Medical 3 days. Branch furosemide 2019-06 2020- No [id number] 40mg Take 1 [facility] 40 mg 2-13 12-17 tablet by ity of tablet 00:00: 05:59 mouth [place] 00 :00 daily for Medical 3 days. Branch furosemide 2019-06 2020- No [id number] 40mg Take 1 [facility] 40 mg 2-13 12-17 tablet by ity of tablet 00:00: 05:59 mouth [place] 00 :00 daily for Medical 3 days. Branch ferrous 2019-06 Yes 325mg Take 325 Unive rs sulfate 325 2-12 mg by ity of mg (65 mg 22:43: mouth 2 [place] iron) 18 (two) Medical tablet times Branch daily. gabapentin 2019-06 Yes 300mg Take 300 Un val[place]io 300 mg 2-12 mg by ity of capsule 22:43: mouth 3 [place] 18 (three) Medical times Branch daily. SERTraline 2019-06 Yes 100mg Take 100 Un valerio (ZOLOFT) 2-12 mg by ity of 100 mg 22:43: mouth [place] tablet 18 daily. Medical Branch ferrous 2019-06 Yes 325mg Take 325 Unive rs sulfate 325 2-12 mg by ity of mg (65 mg 22:43: mouth 2 [place] iron) 18 (two) Medical tablet times Branch daily. gabapentin 2019-06 Yes 300mg Take 300 Un [place] 300 mg 2-12 mg by ity of capsule 22:43: mouth 3 [place] 18 (three) Medical times Branch daily. SERTraline 2020- Yes 100mg Take 100 Un valerio (ZOLOFT) 2-12 mg by ity of 100 mg 22:43: mouth [place] tablet 18 daily. Medical Branch ferrous 2019- Yes 325mg Take 325 Unive rs sulfate 325 2-12 mg by ity of mg (65 mg 22:43: mouth 2 [place] iron) 18 (two) Medical tablet times Branch daily. gabapentin 2020- Yes 300mg Take 300 Un [place] 300 mg 2-12 mg by ity of capsule 22:43: mouth 3 [place] 18 (three) Medical times Branch daily. SERTraline 2019-06 Yes 100mg Take 100 Un valerio (ZOLOFT) 2-12 mg by ity of 100 mg 22:43: mouth [place] tablet 18 daily. Medical Branch ferrous 2019-06 Yes 325mg Take 325 Unive rs sulfate 325 2-12 mg by ity of mg (65 mg 22:43: mouth 2 [place] iron) 18 (two) Medical tablet times Branch daily. gabapentin 2019-06 Yes 300mg Take 300 Un [place] 300 mg 2-12 mg by ity of capsule 22:43: mouth 3 [place] 18 (three) Medical times Branch daily. SERTraline 2019-06 Yes 100mg Take 100 Un valerio (ZOLOFT) 2-12 mg by ity of 100 mg 22:43: mouth [place] tablet 18 daily. Medical Branch clopidogreL 2019-06 2020- No 75mg Take 75 mg [facility] 75 mg 2-12 12-12 by mouth ity of tablet 19:38: 00:00 daily. [place] 45 :00 Medical Branch furosemide 2019-06 2020- No 40mg Take 40 mg [facility] 40 mg 2-12 12-12 by mouth ity of tablet 19:38: 00:00 daily. [place] 45 :00 Medical Branch aspirin 81 2019-06 2020- No 81mg Take 81 mg [facility] mg chewable 2-12 12-12 by mouth ity of tablet 19:38: 00:00 daily. [place] 45 :00 Medical Branch metoprolol 2019-06 2020- No 25mg Take 25 mg [facility] tartrate 25 2-12 12-12 by mouth 2 i ty of mg tablet 19:38: 00:00 (two) [place] 45 :00 times Medical daily. Branch amLODIPine 2019-06 2020- No 10mg Take 10 mg [facility] 10 mg 2-12 12-12 by mouth ity of tablet 19:38: 00:00 daily. [place] 45 :00 Medical Branch ferrous 2019-06 Yes 325mg Take 325 Unive rs sulfate 325 2-12 mg by ity of mg (65 mg 19:38: mouth 2 [place] iron) 40 (two) Medical tablet times Branch daily. gabapentin 2019-06 Yes 300mg Take 300 Un val[place]io 300 mg 2-12 mg by ity of capsule 19:38: mouth 3 [place] 40 (three) Medical times Branch daily. SERTraline 2019-06 Yes 100mg Take 100 Un valerio (ZOLOFT) 2-12 mg by ity of 100 mg 19:38: mouth [place] tablet 40 daily. Medical Branch furosemide 2019-06 Yes 40mg 40 mg, Unive rs (LASIX) 2-12 Oral, ity of tablet 40 16:45: DAILY, [place] mg 00 First dose Medical on [facility] Branch 05/13/20 at 1045, Until Discontinu ed, Routine colchicine 2019-06 Yes .6mg 0.6 mg, Univ ers (COLCRYS) 2-12 Oral, BID, ity of tablet 0.6 16:45: First dose [place] mg 00 on [facility] 05/13/20 Branch at 1045, Until Discontinu ed, Routine KCL 2019-06- No 20meq 20 mEq, Univers (KLOR-CON 07-14 12-12 Oral, ity of M20) tablet 13:30: 14:10 ONCE, 1 [place] 20 mEq 00 :00 dose, [facility] 05/13/20 Branch at 0730, Routine NaCl 0.9% 2019-06- No 1000mL at 75 Univ ers (NS) IV 07-14 12-12 mL/hr, IV ity of infusion 03:45: 03:50 Infusion, [place] 1,000 mL 00 :00 ONCE, 1 Medical dose, [facility] Branch 05/12/20 at 2145, Routine FENTanyl PF 2019-06- No Slow IV Un valerio (SUBLIMAZE 07-14- Push, ity of (PF)) 02:12: 02:12 TITRATE - [place] injection 09 :09 FOR Medical PROCEDURE Branch USE, 1 dose, Starting Fri05/12/20 at 2011, Until Fri05/12/20 at 2011, Routine nitroglycer 2019-06 2020- No Intravenou [facility] in (TRIDIL) 2-12 s, TITRATE i ty of 2 mg in 10 01:19: 01:19 - FOR [place] mL D5W for 52 :52 PROCEDURE Medi rl Cardiac USE, 1 Branch Cath dose, Starting Fri05/12/20 at 1919, Until Fri05/12/20 at 1919, Routine FENTanyl PF 2019-06- No Slow IV Un valerio (SUBLIMAZE 07-14-12 Push, ity of (PF)) 01:14: 01:14 TITRATE - [place] injection 31 :31 FOR Medical PROCEDURE Branch USE, 1 dose, Starting Fri05/12/20 at 1914, Until Fri05/12/20 at 1913, Routine midazolam 2019-06- No IV Push, Uni vers (VERSED) 07-14 12-12 TITRATE - ity o f injection 01:14: 01:14 FOR [place] 25 :25 PROCEDURE Medical USE, 1 Branch dose, Starting Fri05/12/20 at 1914, Until Fri05/12/20 at 191, Routine lidocaine 2019-06- No Infiltrati U nivers 1% (PF) 07-1412 on, ity of (XYLOCAINE) 01:10: 01:10 TITRATE - [place] injection 06 :06 FOR Medical PROCEDURE Branch USE, 1 dose, Starting Fri05/12/20 at 1910, Until Fri05/12/20 at 1909, Routine FENTanyl PF 2019-06- No Slow IV Un valerio (SUBLIMAZE 07-14 Push, ity of (PF)) 01:09: 01:09 TITRATE - [place] injection 56 :56 FOR Medical PROCEDURE Branch USE, 1 dose, Starting Fri05/12/20 at 1909, Until Fri05/12/20 at 190, Routine midazolam 2019-06- No IV Push, Uni vers (VERSED) 07-1412 TITRATE - ity o f injection 01:09: 01:09 FOR [place] 49 :49 PROCEDURE Medical USE, 1 Branch dose, Starting Fri05/12/20 at 190, Until Fri05/12/20 at 190, Routine amLODIPine 2019-06 Yes [id number] 10mg Take 1 U nivers 10 mg 2-12 tablet by ity of tablet 00:00: mouth [place] 00 daily. Medical Branch clopidogreL 2019-06 Yes [id number] 75mg Take 1 [facility] 75 mg 2-12 tablet by ity of tablet 00:00: mouth 00 daily. Medical Branch atorvastati 2019-06 Yes [id number] 80mg Take 1 [facility] n 80 mg 2-12 tablet by ity of tablet 00:00: mouth at [place] 00 bedtime. Medical Branch colchicine 2019-06 Yes [id number] .6mg Take 1 U nivers 0.6 mg 2-12 tablet by ity of tablet 00:00: mouth 2 (two) Medical times Branch daily. metoprolol 2020- Yes [id number] 25mg Take 1 U nivers tartrate 25 2-12 tablet by ity of mg tablet 00:00: mouth (two) Medical times Branch daily. KCL 10 mEq 2019- Yes [id number] 10meq Take 1 [facility] tablet 2-12 tablet by ity of 00:00: mouth 00 daily. Medical Branch amLODIPine 2019- Yes [id number] 10mg Take 1 U nivers 10 mg 2-12 tablet by ity of tablet 00:00: mouth 00 daily. Medical Branch clopidogreL 2019-06 Yes [id number] 75mg Take 1 [facility] 75 mg 2-12 tablet by ity of tablet 00:00: mouth 00 daily. Medical Branch atorvastati 2019-06 Yes [id number] 80mg Take 1 [facility] n 80 mg 2-12 tablet by ity of tablet 00:00: mouth at 00 bedtime. Medical Branch colchicine 2019-06 Yes [id number] .6mg Take 1 U nivers 0.6 mg 2-12 tablet by ity of tablet 00:00: mouth (two) Medical times Branch daily. metoprolol 2019-06 Yes [id number] 25mg Take 1 U nivers tartrate 25 2-12 tablet by ity of mg tablet 00:00: mouth (two) Medical times Branch daily. KCL 10 mEq 2019- Yes [id number] 10meq Take 1 [facility] tablet 2-12 tablet by ity of 00:00: mouth 00 daily. Medical Branch amLODIPine 2019-06 Yes [id number] 10mg Take 1 U nivers 10 mg 2-12 tablet by ity of tablet 00:00: mouth 00 daily. Medical Branch clopidogreL 2019- Yes [id number] 75mg Take 1 [facility] 75 mg 2-12 tablet by ity of tablet 00:00: mouth 00 daily. Medical Branch atorvastati 2019-06 Yes [id number] 80mg Take 1 [facility] n 80 mg 2-12 tablet by ity of tablet 00:00: mouth at 00 bedtime. Medical Branch colchicine 2019- Yes [id number] .6mg Take 1 U nivers 0.6 mg 2-12 tablet by ity of tablet 00:00: mouth (two) Medical times Branch daily. metoprolol 2019-06 Yes [id number] 25mg Take 1 U nivers tartrate 25 2-12 tablet by ity of mg tablet 00:00: mouth 2 (two) Medical times Branch daily. KCL 10 mEq 2019- Yes [id number] 10meq Take 1 [facility] tablet 2-12 tablet by ity of 00:00: mouth [place] 00 daily. Medical Branch amLODIPine 2019-06 Yes [id number] 10mg Take 1 U nivers 10 mg 2-12 tablet by ity of tablet 00:00: mouth [place] 00 daily. Medical Branch clopidogreL 2019-06 Yes [id number] 75mg Take 1 [facility] 75 mg 2-12 tablet by ity of tablet 00:00: mouth [place] 00 daily. Medical Branch atorvastati 2019-06 Yes [id number] 80mg Take 1 [facility] n 80 mg 2-12 tablet by ity of tablet 00:00: mouth at 00 bedtime. Medical Branch colchicine 2019-06 Yes [id number] .6mg Take 1 U nivers 0.6 mg 2-12 tablet by ity of tablet 00:00: mouth 2 (two) Medical times Branch daily. metoprolol 2019-06 Yes [id number] 25mg Take 1 U nivers tartrate 25 2-12 tablet by ity of mg tablet 00:00: mouth (two) Medical times Branch daily. KCL 10 mEq 2019-06 Yes [id number] 10meq Take 1 [facility] tablet 2-12 tablet by ity of 00:00: mouth 00 daily. Medical Branch amLODIPine 2019-06 Yes [id number] 10mg Take 1 U nivers 10 mg 2-12 tablet by ity of tablet 00:00: mouth 00 daily. Medical Branch clopidogreL 2019-06 Yes [id number] 75mg Take 1 [facility] 75 mg 2-12 tablet by ity of tablet 00:00: mouth [place] 00 daily. Medical Branch atorvastati 2019- Yes [id number] 80mg Take 1 [facility] n 80 mg 2-12 tablet by ity of tablet 00:00: mouth at [place] 00 bedtime. Medical Branch colchicine 2019-06 Yes [id number] .6mg Take 1 U nivers 0.6 mg 2-12 tablet by ity of tablet 00:00: mouth 2 00 (two) Medical times Branch daily. metoprolol 2019-06 Yes [id number] 25mg Take 1 U nivers tartrate 25 2-12 tablet by ity of mg tablet 00:00: mouth 2 [place] 00 (two) Medical times Branch daily. KCL 10 mEq 2019-06 Yes [id number] 10meq Take 1 [facility] tablet 2-12 tablet by ity of 00:00: mouth [place] 00 daily. Medical Branch amLODIPine 2019-06- No [id number] 10mg Take 1 [facility] 10 mg 2-12 04-15 tablet by ity of tablet 00:00: 00:00 mouth [place] 00 :00 daily. Medical Branch clopidogreL 2019-06- No [id number] 75mg Take 1 [facility] 75 mg 2-12 04-15 tablet by ity of tablet 00:00: 00:00 mouth [place] 00 :00 daily. Medical Branch atorvastati 2019-06- No [id number] 80mg Take 1 [facility] n 80 mg 2-12 04-15 tablet by ity of tablet 00:00: 00:00 mouth at [place] 00 :00 bedtime. Medical Branch colchicine 2019-06- No [id number] .6mg Take 1 [facility] 0.6 mg 2-12 04-15 tablet by ity of tablet 00:00: 00:00 mouth 2 [place] 00 :00 (two) Medical times Branch daily. metoprolol 2019-06- No [id number] 25mg Take 1 [facility] tartrate 25 2-12 04-15 tablet by it y of mg tablet 00:00: 00:00 mouth 2 [place] 00 :00 (two) Medical times Branch daily. KCL 10 mEq 2019-06- No [id number] 10meq Take 1 [facility] tablet 2-12 04-15 tablet by ity of 00:00: 00:00 mouth [place] 00 :00 daily. Medical Branch amLODIPine 2019-06- No [id number] 10mg Take 1 [facility] 10 mg 2-12 04-15 tablet by ity of tablet 00:00: 00:00 mouth [place] 00 :00 daily. Medical Branch clopidogreL 2019-06- No [id number] 75mg Take 1 [facility] 75 mg 2-12 04-15 tablet by ity of tablet 00:00: 00:00 mouth [place] 00 :00 daily. Medical Branch atorvastati 2019-06- No [id number] 80mg Take 1 Univers n 80 mg 2-12 04-15 tablet by ity of tablet 00:00: 00:00 mouth at [place] 00 :00 bedtime. Medical Branch colchicine 2019-06- No [id number] .6mg Take 1 Univers 0.6 mg 07-14-15 tablet by ity of tablet 00:00: 00:00 mouth 2 [place] 00 :00 (two) Medical times Branch daily. metoprolol 2019-06- No [id number] 25mg Take 1 Univers tartrate 25 07-14-15 tablet by it y of mg tablet 00:00: 00:[place] 00 [place] (two) Medical times Branch daily. KCL 10 mEq 2019-06- No [id number] 10meq Take 1 Univers tablet 07-14-15 tablet by ity of 00:00: 00:00 mouth [place] 00 :00 daily. Medical Branch lidocaine 5 2019-06- No [id number] 1{patch Apply 1 Univers % (700 2-12 12-13 } Patch to ity of mg/patch) 00:00: 05:59 area(s[place] patch 00 :00 once now Medical for 1 Branch dose. Apply over front of the chest lidocaine 5 2019-06- No [id number] 1{patch Apply 1 Univers % (700 212 12-13 } Patch to ity of mg/patch) 00:00: 05:59 area([place] patch 00 :00 once now Medical for 1 Branch dose. Apply over front of the chest sulfur 2019-06- No 5mL 5 mL, Univers hexafluorid 07-13 Intravenou i ty of e microsphr 17:45: 17:45 s, ONCE, 1 (LUMASON) 00 :00 dose, Fri Medic al injection 5 05/12/20 Bran ch mL at 1145, Routine
manufacturing team member approving Restricted medication : QUICK, CAROLYNN T lisinopriL 2019-06 Yes 5mg 5 mg, Univer s (PRINIVIL,Z 2-11 Oral, ity of ESTRIL) 15:00: DAILY, [place] tablet 5 mg 00 First dose Me dical on Fri05/12/20 at 0900, Until Discontinu ed, Routine SERTraline 2019-06 Yes 100mg 100 mg, Uni vers (ZOLOFT) 2-11 Oral, ity of tablet 100 15:00: DAILY, [place] mg 00 First dose Medical on Fri20 at 0900, Until Discontinu ed, Routine clopidogreL 2020- Yes 75mg 75 mg, Univ ers (PLAVIX) 2-11 Oral, ity of tablet 75 15:00: DAILY, [place] mg 00 First dose Medical on Fri Branch 05/12/20 at 0900, Until Discontinu ed, Routine aspirin 2020- Yes 81mg 81 mg, Univers chewable 2-11 Oral, ity of tablet 81 15:00: DAILY, [place] mg 00 First dose Medical on Fri Branch 05/12/20 at 0900, Until Discontinu ed, Routine amLODIPine 2019-06 2020- No 10mg 10 mg, Univ ers (NORVASC) 2- 12-12 Oral, ity of tablet 10 15:00: 16:44 DAILY, [place] mg 00 :35 First dose Medical on Fri Branch 05/12/20 at 0900, Until Discontinu ed, Routine heparin 2019- Yes 5000U 5,000 Univers (porcine) 2- Units, ity of injection 14:00: [place]cut[place]o [place] 5,000 Units 00 us, Q12H, Med ical First dose Branch on Fri05/12/20 at 0800, Until Discontinu ed, Routine metoprolol 2019-06 Yes 25mg 25 mg, Unive rs tartrate 2-11 Oral, BID, ity o f (LOPRESSOR) 14:00: First dose [place] tablet 25 00 on Fri Medical mg 05/12/20 Branch at 0800, Until Discontinu ed, Routine ferrous 2020- Yes 325mg 325 mg, Univer s sulfate 2-11 Oral, BID, ity of tablet 325 14:00: First dose [place] mg 00 on Fri Medical 05/12/20 Branch at 0800, Until Discontinu ed, Routine furosemide 2020- 2020- No 40mg 40 mg, Univ ers (LASIX) 2-11 12-11 Slow IV ity of injection 09:00: 08:58 Push, [place] 40 mg 00 :00 ONCE, 1 Medical dose, Fri Branch 05/12/20 at 0300, Routine atorvastati 2020- Yes 80mg 80 mg, Univ ers n (LIPITOR) 2-11 Oral, QHS, it y of tablet 80 07:45: First dose [place] mg 00 (after Medical last Branch modificati on) on Fri05/12/20 at 0145, Until Discontinu ed, Routine gabapentin 2019-06 Yes 300mg 300 mg, Uni vers (NEURONTIN) 07-13 Oral, TID, it y of capsule 300 07:45: First dose [place] mg 00 (after Medical last Branch modificati on) on Fri05/12/20 at 0145, Until Discontinu ed, Routine acetaminoph 2019-06 Yes 650mg 650 mg, Un valerio en 07-13 Oral, ity of (TYLENOL) 07:19: Q6HPRN, [place] tablet 650 36 Starting Medic al mg Fri Branch 05/12/20 at 0119, Until Discontinu ed, Routine, Pain (scale 1-3) iohexol 2019-06- No 120mL 120 mL, Unive rs (OMNIPAQUE 07-13 Intravenou it y of 350 02:30: 02:30 s, ONCE, 1 [place] BULK-150 00 :00 dose, Cinthya Medica l mL) 05/11/20 Branch injection at 2030, 120 mL Routine nitroglycer 2019-06- No 1[in_us 1 Inch, Univers in (NITROL) 07-13 ] Transderma i ty of 2 % 01:45: 01:58 l (Apply [place] ointment 1 00 :00 To Skin), Medi rl Inch ONCE, 1 Branch dose, [facility] 05/11/20 at 1945, RAMIREZ methylpredn 2019-06- No 125mg 125 mg, U nivers isolone sod 07-13 Intravenou i ty of succ 01:45: 01:45 s, ONCE, 1 [place] (SOLU-MEDRO 00 :00 dose, [facility] Med ical L) 05/11/20 Branch injection at 1945, 125 mg STAT aspirin 2019-06 2020- No 324mg 324 mg, Unive rs chewable 07-13 Oral, ity of tablet 324 01:45: 02:00 ONCE, 1 [place] mg 00 :00 dose, [facility] 05/11/20 Branch at 1945, Routine gabapentin 2020- No 300mg Take 300 U nivers 300 mg 9-14 05-25 mg by ity of capsule 00:00: 00:00 mouth. [place] 00 :00 [facility] Branch Immunizations Ordered Filled Immunization Date Status Comments [facility] e Immunization Name Name SARS-COV-2 COVID-19 2020-08-15 Completed Unive rsity of PFIZER VACCINE 00:00:00 [facility] Branch SARS-COV-2 COVID-19 2020-08-15 Completed Unive rsity of PFIZER VACCINE 00:00:00 [facility] Branch SARS-COV-2 COVID-19 2020-08-15 Completed Unive rsity of PFIZER VACCINE 00:00:00 [facility] Branch SARS-COV-2 COVID-19 2020-08-15 Completed Unive rsity of PFIZER VACCINE 00:00:00 [facility] Branch SARS-COV-2 COVID-19 2020-08-15 Completed Unive rsity of PFIZER VACCINE 00:00:00 [facility] Branch SARS-COV-2 COVID-19 2020-08-15 Completed Unive rsity of PFIZER VACCINE 00:00:00 [facility] Branch SARS-COV-2 COVID-19 2020-08-15 Completed Unive rsity of PFIZER VACCINE 00:00:00 [facility] Branch SARS-COV-2 COVID-19 2020-08-15 Completed Unive rsity of PFIZER VACCINE 00:00:00 [facility] Branch SARS-COV-2 COVID-19 2020-08-15 Completed Unive rsity of PFIZER VACCINE 00:00:00 [facility] Branch SARS-COV-2 COVID-19 2020-08-15 Completed Unive rsity of PFIZER VACCINE 00:00:00 [facility] Branch SARS-COV-2 COVID-19 2020-08-15 Completed Unive rsity of PFIZER VACCINE 00:00:00 [facility] Branch SARS-COV-2 COVID-19 2020-08-15 Completed Unive rsity of PFIZER VACCINE 00:00:00 [facility] Branch SARS-COV-2 COVID-19 2020-08-15 Completed Unive rsity of PFIZER VACCINE 00:00:00 [facility] Branch SARS-COV-2 COVID-19 2020-08-15 Completed Unive rsity of PFIZER VACCINE 00:00:00 [facility] Branch SARS-COV-2 COVID-19 2020-08-15 Completed Unive rsity of PFIZER VACCINE 00:00:00 [facility] Branch SARS-COV-2 COVID-19 2020-08-15 Completed Unive rsity of PFIZER VACCINE 00:00:00 [facility] Branch SARS-COV-2 COVID-19 2020-08-15 Completed Unive rsity of PFIZER VACCINE 00:00:00 [facility] Branch SARS-COV-2 COVID-19 2020-08-15 Completed Unive rsity of PFIZER VACCINE 00:00:00 [facility] Branch SARS-COV-2 COVID-19 2020-08-15 Completed Unive rsity of PFIZER VACCINE 00:00:00 [facility] Branch SARS-COV-2 COVID-19 2020-08-15 Completed Unive rsity of PFIZER VACCINE 00:00:00 [facility] Branch SARS-COV-2 COVID-19 2020-07-25 Completed Unive rsity of PFIZER VACCINE 00:00:00 [facility] Branch SARS-COV-2 COVID-19 2020-07-25 Completed Unive rsity of PFIZER VACCINE 00:00:00 [facility] Branch SARS-COV-2 COVID-19 2020-07-25 Completed Unive rsity of PFIZER VACCINE 00:00:00 [facility] Branch SARS-COV-2 COVID-19 2020-07-25 Completed Unive rsity of PFIZER VACCINE 00:00:00 [facility] Branch SARS-COV-2 COVID-19 2020-07-25 Completed Unive rsity of PFIZER VACCINE 00:00:00 [facility] Branch SARS-COV-2 COVID-19 2020-07-25 Completed Unive rsity of PFIZER VACCINE 00:00:00 [facility] Branch SARS-COV-2 COVID-19 2020-07-25 Completed Unive rsity of PFIZER VACCINE 00:00:00 [facility] Branch SARS-COV-2 COVID-19 2020-07-25 Completed Unive rsity of PFIZER VACCINE 00:00:00 [facility] Branch SARS-COV-2 COVID-19 2020-07-25 Completed Unive rsity of PFIZER VACCINE 00:00:00 [facility] Branch SARS-COV-2 COVID-19 2020-07-25 Completed Unive rsity of PFIZER VACCINE 00:00:00 [facility] SARS-COV-2 COVID-19 2020-07-25 Completed Unive rsity of PFIZER VACCINE 00:00:00 [facility] SARS-COV-2 COVID-19 2020-07-25 Completed Unive rsity of PFIZER VACCINE 00:00:00 [facility] SARS-COV-2 COVID-19 2020-07-25 Completed Unive rsity of PFIZER VACCINE 00:00:00 [facility] SARS-COV-2 COVID-19 2020-07-25 Completed Unive rsity of PFIZER VACCINE 00:00:00 [facility] SARS-COV-2 COVID-19 2020-07-25 Completed Unive rsity of PFIZER VACCINE 00:00:00 [facility] SARS-COV-2 COVID-19 2020-07-25 Completed Unive rsity of PFIZER VACCINE 00:00:00 [facility] SARS-COV-2 COVID-19 2020-07-25 Completed Unive rsity of PFIZER VACCINE 00:00:00 [facility] SARS-COV-2 COVID-19 2020-07-25 Completed Unive rsity of PFIZER VACCINE 00:00:00 [facility] SARS-COV-2 COVID-19 2020-07-25 Completed Unive rsity of PFIZER VACCINE 00:00:00 [facility] SARS-COV-2 COVID-19 2020-07-25 Completed Unive rsity of PFIZER VACCINE 00:00:00 [facility] Vital Signs Vital Name Observation Time Observation Value Comments Source WEIGHT 2020-01-26 123.741 kg 00:00:00 HEIGHT 2020-01-26 160 cm 00:00:00 Systolic blood 2020-09-14 138 mm[Hg] University of pressure 16:09:00 [facility] Diastolic blood 2020-09-14 85 mm[Hg] [place] o f pressure 16:09:00 [facility] Heart rate 2020-09-14 87 /min [facility] 16:04:00 [facility] Respiratory rate 2020-09-14 20 /min [facility] 16:04:00 [facility] Body height 2020-09-14 160 cm [facility] 16:04:00 [facility] Body weight 2020-09-14 114.08 kg [facility] 16:04:00 [facility] BMI 2020-09-14 44.55 kg/m2 [facility] 16:04:00 [facility] Oxygen saturation 2020-09-14 98 /min [facility] in Arterial blood 16:04:00 [facility] by Pulse oximetry Branch Systolic blood 2020-09-14 141 mm[Hg] University of pressure 14:52:00 [facility] Diastolic blood 2020-09-14 49 mm[Hg] University o f pressure 14:52:00 [facility] Heart rate 2020-09-14 91 /min University 14:52:00 [facility] Respiratory rate 2020-09-14 16 /min University 14:52:00 [facility] Body height 2020-09-14 160 cm University 14:52:00 [facility] Body weight 2020-09-14 115.123 kg University 14:52:00 [facility] BMI 2020-09-14 44.96 kg/m2 University 14:52:00 [facility] Oxygen saturation 2020-09-14 97 /min [facility] in Arterial blood 14:52:00 [facility] by Pulse oximetry Branch Systolic blood 2020-05-13 125 mm[Hg] University of pressure 17:10:00 [facility] Diastolic blood 2020-05-13 62 mm[Hg] University o f pressure 17:10:00 [facility] Heart rate 2020-05-13 82 /min University 17:10:00 [facility] Body temperature 2020-05-13 36.5 Kiara University 17:10:00 [facility] Respiratory rate 2020-05-13 16 /min University 17:10:00 [facility] Oxygen saturation 2020-05-13 96 /min [facility] in Arterial blood 17:10:00 [facility] by Pulse oximetry Branch Body weight 2020-05-13 112.22 kg actual wt on University 10:35:00 regular scale [facility] BMI 2020-05-13 43.82 kg/m2 University 10:35:00 [facility] Body height 2020-05-12 160 cm [facility] 06:21:00 [facility] HEIGHT 2020-02-24 160 cm 00:00:00 WEIGHT 2020-02-24 120.657 kg 00:00:00 WEIGHT 2020-01-26 123.741 kg 00:00:00 HEIGHT 2020-01-26 160 cm 00:00:00 Procedures Procedure Date / Time Performing Clinician Source Performed EXTERNAL PROVIDER - ADC 2020-09-28 05:01:00 Doctor Unassigned, N o [facility] CARDIOLOGY Name Medical Branch ASSIGNMENT OF BENEFITS 2020-09-14 14:26:34 Doctor Unassigned, No [facility] Name Medical Branch DNR 2020-06-05 06:01:00 Doctor Unassigned, No [facility] MAGNESIUM 2020-05-13 10:43:00 Aubrie [facility] [place] [facility] BASIC METABOLIC PANEL 2020-05-13 10:43:00 Aubrie [facility] (NA, K, CL, CO2, Medical Branch GLUCOSE, BUN, CREATININE, CA) CBC WITH DIFF 2020-05-13 10:43:00 Aubrie [facility] [place] [facility] ECHO ROUTINE W/DOPPLER 2020-05-12 16:44:23 Tonia Crain [facility] COLOR [facility] TROPONIN I 2020-05-12 15:39:00 Aubrie [facility] [place] [facility] TROPONIN I 2020-05-12 07:56:00 Aubrie [facility] [place] [facility] LIPID PANEL 2020-05-12 07:56:00 Aubrie [facility] ([id number])(TOTAL [facility] CHOLESTEROL, TRIGLYCERIDES, HDL) XR CHEST 1 VW 2020-05-12 02:39:04 Álvaro Bravo [facility] CT CHEST PULMONARY 2020-05-12 02:28:47 Álvaro Bravo [facility] ANGIOGRAM Medical Branch URINALYSIS 2020-05-12 02:03:00 Álvaro Bravo [facility] ADC,CLC OR LCC ONLY - 2020-05-12 02:03:00 Álvaro Bravo [facility] INFLUENZA A & B DIRECT Medical B ranch ANTIGEN COVID-19 (ID NOW RAPID 2020-05-12 02:03:00 Álvaro Bravo [facility] TESTING) Medical Branch LIPASE 2020-05-12 01:10:00 Álvaro Bravo Tina [facility] MAGNESIUM 2020-05-12 01:10:00 Álvaro Bravo [facility] TROPONIN I 2020-05-12 01:10:00 Álvaro Bravo Tina [facility] THYROID STIMULATING 2020-05-12 01:10:00 AlfredMaria De Jesus denis [facility] HORMONE [facility] Branch COMP. METABOLIC PANEL 2020-05-12 01:10:00 Álvaro Bravo [facility] ([id number]) Medical Branch CBC WITH DIFF 2020-05-12 01:10:00 Álvaro Bravo Tina [place] o f [facility] GLYCOSYLATED HEMOGLOBIN 2020-05-12 01:10:[address] [facility] (A1C) [facility] D-DIMER 2020-05-12 01:10:00 Álvaro Bravo [place] o f [facility] N-TERMINAL PRO-BNP 2020-05-12 01:10:00 Álvaro Bravo [facility] HB ECG ROUTINE & RHYTHM 2020-05-12 00:51:09 Álvaro Bravo Tina [facility] Encounters Start End Encounter Admission Attending Care Care Encounter Source Date/Time Date/Time Type Type Clinicians Facility Department ID 2020-01-26 Inpatient DARIC QUICK [facility] Cardiology [id number] [facility] 19:06:00 2021-05-11 2021-05-11 [facility] [id number] Univers 00:00:00 00:00:00 Sara PRIMARY [id number] it y [id number] [phone] [address] 2021-04-17 2021-04-17 Refmadalyn Villavicencio [facility] [id number] Univers 00:00:00 00:00:00 Sara PRIMARY [id number] it y of [id number] [phone] [facility] [address] 2021-03-09 2021-03-09 Refmadalyn Guardado [facility] [id number] Univers 00:00:00 00:00:00 Wondiful A Health [id number] ity of [place] [id number] [place] as Professio [phone] [address] Office Building One 2021-02-22 2021-02-22 Telephone [facility] [id number] Univers 00:00:00 00:00:00 Sara Health [id number] it y of [place] [id number] [place] as Rian?Blea [phone] Md allison howard [address] [place] [address] Office [facility] 2021-02-17 2021-02-17 Refmadalyn Guardado [facility] [id number] Univers 00:00:00 00:00:00 Wondiful [facility] Health [id number] ity of [place] [id number] [place] as Professio [phone] Md stephaniwi nal [address] [place] [address] Office [facility] One 2021-01-23 2021-01-23 Telephone [facility] [id number] Univers 00:00:00 00:00:00 Sara Health [id number] it y of [place] [id number] [place] Professio [phone] [address] One 2021-01-10 2021-01-10 [facility] [id number] Univers 00:00:00 00:00:00 Sara Health [id number] it y of [place] [id number] [place] as Professio [phone] Md stephani[address] One 2020-12-14 2020-12-14 Outpatient Natanael MCNEILL [facility] [id number] Univers 09:30:00 09:30:00 SENDIL [id number] ity [facility] 2020-12-14 2020-12-14 Outpatient Natanael MCNEILL [facility] [id number] Univers 09:30:00 09:30:00 [facility] [place] [facility] 2020-10-24 2020-10-24 [facility]adalyn [facility] [id number] Univers 00:00:00 00:00:00 Sara Health [id number] it y of [place] [id number] [place] as Professio [phone] Me dical nal [address] Office [facility] One 2020-10-20 2020-10-20 Telephone [facility] [id number] Univers 00:00:00 00:00:00 Sara Health [id number] it y of [place] [id number] [place] Professio [phone] Md dical nal 044 [facility] One 2020-10-13 2020-10-13 Telephone [facility] [id number] Univers 00:00:00 00:00:00 Sara Health [id number] it y of [place] [id number] [place] Professio [phone] Md dical nal 044 [facility] One 2020-09-28 2020-09-28 Orders Doctor LAMBERT [id number] Univers 00:00:00 00:00:00 Only Unassigned, BERTRAND [id number] ity of [place] [facility] [id number] [place] as [phone] [address] 2020-09-14 2020-09-14 Office Osito [facility] [id number] Univers 10:49:08 11:47:31 Visit Wilfred Martinez [place] [id number] ity of [place] [id number] Profess[place] [phone] [facility] 059 [facility] 2020-09-14 2020-09-14 Outpatient R OSITO [facility] [id number] Univers 11:30:00 11:30:00 SENDIL ity of [facility] 2020-09-14 2020-09-14 Office [facility] [id number] Univers 09:28:30 10:25:34 [facility] [id number] it y of [place] [id number] [place] Professio [phone] [facility] nal 044 [facility] 2020-09-14 2020-09-14 Orders Doctor FAUSTO [id number] Univers 00:00:00 00:00:00 Only Unassigned, BERTRAND [id number] ity of [place] [facility] [id number] [place] as [phone] [facility] 009 Branch 2020-08-15 2020-08-15 Outpatient Natanael PINK [facility] [id number] Univers 08:10:00 07:50:59 ROSENDA ity of [facility] 2020-06-05 2020-06-05 Orders Doctor LAMBERT [id number] Univers 00:00:00 00:00:00 Only Unassigned, BERTRAND [id number] ity of [place] [facility] [id number] [place] as [phone] [facility] 009 Branch 2020-05-15 2020-05-15 Transition Stepan Galarza 1.2.840.114 [id number] Univers 00:00:00 00:00:00 of Care Blessing Valverde [id number] ity of [place] [id number] [phone] [facility] 403 Branch 2020-05-11 2020-05-13 Hospital Álvaro Bravo [id number] Univers 17:56:00 16:30:00 Encounter Christian Isabel [place] [id number] ity of [facility] [id number] [place] [phone] [facility] 090 Branch 2020-05-13 2020-05-13 Jose Hutchins [facility] [id number] Univers 00:00:00 00:00:00 (Out) Salman PRIMARY [id number] it [id number] [phone] [facility] Branch 2020-05-11 2020-05-11 Emergency X Álvaro BRAVO [facility] ERT [id number] Univers 17:56:00 17:56:00 ity of [facility] 2020-02-24 2020-02-24 Outpatient SVETLANA BENNETT [facility] [id number] SLE 00:00:00 00:00:00 VAUGHN 2020-02-24 2020-02-24 Outpatient [facility] [id number] SLE 00:00:00 00:00:00 DARRYN 2020-02-24 2020-02-24 Outpatient JENISE [facility] [id number] SLE 00:00:00 00:00:00 DARRYN 2020-02-22 2020-02-22 Outpatient MIKAL [facility] [id number] SLE 00:00:00 00:00:00 FAMILIA 2020-02-22 2020-02-22 Outpatient JENISE OLIVERA [facility] [id number] SLE 00:00:00 00:00:00 DARRYN 2020-02-17 2020-02-17 Outpatient DONALD [facility] [id number] SLE 00:00:00 00:00:00 VAUGHN 2020-02-15 2020-02-15 Outpatient MIKAL [facility] [id number] SLE 00:00:00 00:00:00 FAMILIA 2020-02-03 2020-02-03 Outpatient JENISE REN [facility] [id number] SLE 00:00:00 00:00:00 FAMILIA Results Test Description Test Time Test Comments Results Result Comments Source Basic Metabolic Panel (NA, K, CL, CO2, GLUCOSE, BUN, 2020-05 11:51:00 CREATININE, CA) Test Item Value Reference Range Interpretation Comme nts NA (test code = 6925003255) 134 mmol/L 135-145 L K (test code = 6942160800) 3.8 mmol/L 3.5-5 CL (test code = 8807360698) 100 mmol/L 98-108 CO2 TOTAL (test code = 9873385259) 22 mmol/L 23-31 L AGAP (test code = 2713265310) 2-16 BUN (test code = 7631965898) 26 mg/dL 7-23 H GLUCOSE (test code = 5583647589) 108 mg/dL 70-110 CREATININE (test code = 0.74 mg/dL 0.5-1.04 2227118945) CALCIUM (test code = 0499874171) 9.4 mg/dL 8.6-10.6 eGFR Calculation (Non- mL/min/1.73m2 [place] Citizen) (test code = 6248466181) eGFR Calculation ( mL/min/1.73m2 [place] Citizen) (test code = 1183598639) SAMUEL (test code = SAMUEL) Association of Glomerular Filtration Rate (GFR) and Staging of Kidney Disease* + +-------- + ------+| GFR (mL/min/1.73 m2) ?| With Kidney Damage ?| ?Without Kidney Damage+ +-- + +| ?>90 ?| ?Stage one ?| ? Normal ?+ +------- + -------+| ?60-89 ?| ?Stage two ?| ? Decreased GFR ? + +-------- + ------+| ?30-59 ?| ?Stage three ?| ? Stage three ? + +-------- + ------+| ?15-29 ?| ?Stage four ? | ? Stage four ?+ +------- + -------+| ?<15 (or dialysis) ? ?| ?Stage five ? | ? Stage five ?+ +------- + -------+ *Each stage assumes the associated GFR level has been in effect for at least three months. ?Stages 1 to 5, with or without kidney disease, indicate chronic kidney disease. Notes: Determination of stages one and two (with eGFR >59mL/min/1.73 m2) requires estimation of kidney damage for at least three months as defined by structural or functional abnormalities of the kidney, manifested by either:Pathological abnormalities or Markers of kidney damage (including abnormalities in the composition of the blood or urine or abnormalities in imaging tests). Lab Interpretation (test code = Abnormal 67253-5) [id number] 11:51:00 Test Item Value Reference Range Interpretation Comments MAGNESIUM (test code = 6434242702) 2.1 mg/dL 1.7-2.4 Lab Interpretation (test code = Normal 93553-0) [facility] [id number] 11:13:00 Test Item Value Reference Range Interpretation Comments WBC (test code = See_Comment [Automated 1890-2) message] The sy stem which generated this result transmitted reference range : 4.30 - 11.10 10*3/?L. The reference range was not used to interpret this result as normal/abnormal . RBC (test code = See_Comment L [Automated 789-8) message] The sy stem which generated this result transmitted reference range : 3.93 - 5.25 10*6/?L. The reference range was not used to interpret this result as normal/abnormal . HGB (test code = 10.6 g/dL 11.6-15 L 718-7) HCT (test code = 32.7 % 35.7-45.2 L 4544-3) MCV (test code = 83.4 fL 80.6-95.5 787-2) MCH (test code = 27.0 pg 25.9-32.8 785-6) MCHC (test code = 32.4 g/dL 31.6-35.1 786-4) RDW-SD (test code = 54.4 fL 39-49.9 H 59230-0) RDW-CV (test code = 17.9 % 12-15.5 H 788-0) PLT (test code = See_Comment H [Automated 777-3) message] The sy stem which generated this result transmitted reference range : 166 - 358 10*3/ ?L. The reference r bernardo was not used to interpret this result as normal/abnormal . MPV (test code = 9.9 fL 9.5-12.9 63448-8) NRBC/100 WBC (test See_Comment [Automat ed code = 0027720794) message] The system which generated this result transmitted reference range : 0.0 - 10.0 /100 WBCs. The refer ence range was not u sed to interpret th is result as normal/abnormal . NRBC x10^3 (test code <0.01 See_Comment [Auto mated = 1844212981) message] The s ystem which generated this result transmitted reference range : 10*3/?L. The reference range was not used to interpret this result as normal/abnormal . GRAN MAT (NEUT) % 67.9 % (test code = 770-8) IMM GRAN % (test code 0.40 % = 2983010671) LYMPH % (test code = 24.3 % 736-9) MONO % (test code = 6.5 % 5905-5) EOS % (test code = 0.5 % 713-8) BASO % (test code = 0.4 % 706-2) GRAN MAT x10^3(ANC) 6.50 10*3/uL 1.88-7.09 (test code = 7348999296) IMM GRAN x10^3 (test 0.04 10*3/uL 0-0.06 code = 1926199463) LYMPH x10^3 (test code 2.33 10*3/uL 1.32-3.29 = 731-0) MONO x10^3 (test code 0.62 10*3/uL 0.33-0.92 = 742-7) EOS x10^3 (test code = 0.05 10*3/uL 0.03-0.39 711-2) BASO x10^3 (test code 0.04 10*3/uL 0.01-0.07 = 704-7) Lab Interpretation Abnormal (test code = 72473-7) [facility] [id number] 16:23:00 Test Item Value Reference Range Interpretation Comments TROPONIN I (test 0.015 ng/mL See_Comment [Automated code = 5592519643) message] The system which generated this result transmitted reference range : <=0.034. The reference range was not used to interpret this result as normal/abnormal . SAMUEL (test code = Equal or Less than SAMUEL) 0.034 ng/ml---Normal ?Note: Cardiac troponin begins to rise 3-4 hours after the onset of ischemia. Repeat in 4-6 hours if the sample was drawn within 3-4 hours of the onset of the symptom and found normal. Between 0.035 and 0.120 ng/mL--- Borderline. Questionable myocardial injury or necrosis ? ?Note: Serial measurement may be necessary to confirm or exclude the diagnosis of myocardial injury or necrosis; Clinical correlation (symptoms, EKGs, imaging studies, and others) required; Repeat in 4-6 hours if clinically indicated. ? Equal or Higher than 0.121 ng/mL---Abnormal. Myocardial Injury or Necrosis Likely ? Biotin has been reported to cause a negative bias, interpret results relative to patient's use of biotin. ? Lab Interpretation Normal (test code = 10099-3) [facility] 1 [id number] 15:00:49 Small left pleural effusion. Preliminary Report Dictated by Resident: René Hawkins MD., have reviewed this study and agree with theabove report.EXAM: XR CHEST 1 VW CLINICAL INDICATION: chest pain and sob COMPARISON: None TECHNIQUE: A frontal view of the chest was obtained FINDINGS: There is a median sternotomy. Blunting of the left costophrenic angle likely represents a trace effusionwith adjacent atelectasis. No focal consolidation or pneumothorax. Heart size is normal to mildly enlarged. No acute osseous abnormality. [facility], Radiant Results Inft User - 05/12/2020 9:01 AM CSTEXAM: XR CHEST 1 VWCLINICAL INDICATION: chest pain and sob COMPARISON: NoneTECHNIQUE: A frontal view of the chest was obtainedFINDINGS:There is a median sternotomy.Blunting of the left costophrenic angle likely represents a trace effusionwith adjacent atelectasis. No focal consolidation or pneumothorax.Heart size is normal to mildly enlarged.No acute osseous abnormality. IMPRESSIONSmall left pleural ef fusion.Preliminary Report Dictated by Resident: René Diaz MD., have reviewedthis study and agree with theabove report. [facility] [id number] 10:23:00 Test Item Value Reference Range Interpretation Comments TSH (test code = See_Comment Biotin has been 2248771547) reported to cau se a negative bias, interpret resul ts relative to pat ient's use of biotin. [Automated mess age] The system Mulu generated this result transmitted ref erence range: 0.45 - 4 .70 mIU/L. The refe rence range was not u sed to interpret this result as normal/abnor mal. Lab Interpretation (test Normal code = 01404-4) [facility]GLYCOSYLATED HEMOGLOBIN (A1C)2020-05-12 09:54:00 Test Item Value Reference Range Interpretation Comments HGB A1C (test code = 5.1 % 4-6 4548-4) SAMUEL (test code = SAMUEL) %A1C (NGSP) Interpretation (ADA)4.8-5.6 ? ? Normal or (Non-Diabetic Range)5.7-6.4 ? ? Increased Risk (Pre-Diabetic)>6.5 ?Diabetes Indicated Lab Interpretation Normal (test code = 05408-6) [facility]TR[facility] [id number] 08:47:00 Test Item Value Reference Range Interpretation Comments TROPONIN I (test 0.044 ng/mL See_Comment H [Automated code = 4244431319) message] The system which generated this result transmitted reference range : <=0.034. The reference range was not used to interpret this result as normal/abnormal . SAMUEL (test code = Equal or Less than SAMUEL) 0.034 ng/ml---Normal ?Note: Cardiac troponin begins to rise 3-4 hours after the onset of ischemia. Repeat in 4-6 hours if the sample was drawn within 3-4 hours of the onset of the symptom and found normal. Between 0.035 and 0.120 ng/mL--- Borderline. Questionable myocardial injury or necrosis ? ?Note: Serial measurement may be necessary to confirm or exclude the diagnosis of myocardial injury or necrosis; Clinical correlation (symptoms, EKGs, imaging studies, and others) required; Repeat in 4-6 hours if clinically indicated. ? Equal or Higher than 0.121 ng/mL---Abnormal. Myocardial Injury or Necrosis Likely ? Biotin has been reported to cause a negative bias, interpret results relative to patient's use of biotin. ? Lab Interpretation Abnormal (test code = 10884-2) [facility] HospitalLIPID PANEL (58781)(TOTAL CHOLESTEROL, TRIGLYCERIDES, HDL)2020-05-12 08:35:00 Test Item Value Reference Range Interpretation Comments CHOL (test code = 206 mg/dL 120-200 H 4891519394) HDL (test code = 41 mg/dL >50 L 8215864051) HDLC RATIO (test code = See_Comment H [Au tomated message] 5788809802) The system Mulu generated this result transmit poornima reference range : <=4.5. The refe rence range was not u sed to interpret th is result as normal/abnormal . TRIG (test code = 97 mg/dL 30-170 5456887441) LDL CHOL (test code = 146 mg/dL See_Comment [Auto mated message] 87794-8) The system Mulu generated this result transmit poornima reference range : <=160. The refe rence range was not u sed to interpret th is result as normal/abnormal . VLDL (test code = 19 mg/dL 5-60 3849791943) Lab Interpretation (test Abnormal code = 56199-9) [facility] CHEST PULMONARY [id number] 03:59:34 1. No pulmonary emboli or dissection.2. Mild interstitial edema.3. Small pericardial effusion. Thiscould be related to the recentpostsurgical state, however pericarditis cannot be ruled out. Pleasecorrelate clinically as well as timing of surgery.4. Small left-sided pleural effusion. This could also be related to therecent postsurgical state. RL: 135 ORDERING PHYSICIAN: ?K ?LAWRENCE HISTORY: Chest pain COMPARISON: none TECHNIQUE: ?CT angiogram of the chest with IV contrast. Multiplanar 2Dreformatted images were obtained. This study was performed according toALARA principle for radiation dose reduction. Additional 3D volume renderedimages were obtained. FINDINGS: There is mild interstitial edema. No distinct focal infiltrates or areasofairspace consolidation are seen. Small left-sided pleural effusion ispresent. There is associated atelectasis in the left lower lobe. There isno pneumothorax. No suspicious endobronchial lesions are seen in thecentral airways. Postsurgical changes of midline sternotomy are seen. The heart is normal insize. There is a small pericardial effusion. No distinct mediastinalhematoma is seen. Aorta is normal in caliber without evidence ofdissection. Pulmonary arteries are also normal in caliber. No fillingdefects are seen to suggest the presence of pulmonary emboli. Limited visualization of the upper abdominal structures shows no evidenceof acute abnormalities. No suspicious focal osseous lesions are seen. [facility], Radiant Results Inft User - 05/11/2020 10:00 PM CSTORDERING PHYSICIAN: Álvaro BRAVO HISTORY: Chest painCOMPARISON: noneTECHNIQUE: CT angiogram of the chest with IV contrast. Multiplanar 2Dreformatted images were obtained. This study was performed according toALARA principle for radiation dose reduction. Additional 3D volume renderedimages were obtained.FINDINGS:There is mild interstitial edema. No distinct focal infiltrates or areas ofairspace consolidation are seen. Small left-sided pleural effusion ispresent. There is associated atelectasis in the left lower lobe. There isno pneumothorax. Nosuspicious endobronchial lesions are seen in thecentral airways.Postsurgical changes of midline sternotomy are seen. The heart is normal insize. There is a small pericardial effusion. No distinct mediastinalhematoma is seen. Aorta is normal in caliber without evidence ofdissection. Pulmonary arteries are also normal in caliber. No fillingdefects are seen to suggest the presence of pulmonary emboli.Limited visualization of the upper abdominal structures shows no evidenceof acute abnormalities. No susp icious focal osseous lesions are seen. IMPRESSION1. No pulmonary emboli or dissection.2. Mild interstitial edema.3. Small pericardial effusion. This could be related to the recentpostsurgical state, however pericarditis cannot be ruled out. Pleasecorrelate clinically as well as timing of surgery.4. Small left-sided pleural effusion. This could also be related to therecent postsurgical state.RL: 135 [facility] [id number] 02:48:00 Test Item Value Reference Range Interpretation Comments APPEARANCE (test code = Clear Clear 2000610590) COLOR (test code = Straw Yellow A 7569607917) PH (test code = 4.8-8.0 0733555494) SP GRAVITY (test code = 1.003-1.030 5375925914) GLU U QUAL (test code = Normal Normal 5264646561) BLOOD (test code = Negative Negative 1268631145) KETONES (test code = Negative Negative 9696316318) PROTEIN (test code = Negative Negative 2887-8) UROBILIN (test code = Normal Normal 5419482624) BILIRUBIN (test code = Negative Negative 1778326198) NITRITE (test code = Negative Negative 3071837696) LEUK SORIN (test code = 250/uL Negative A 4609429901) RBC/HPF (test code = See_Comment [Autom ated message] 1523186181) The system Mulu generated this result transmitted ref erence range: 0 - 3 HP F. The reference range was not used to int erpret this result as normal/abnormal . WBC/HPF (test code = See_Comment [Autom ated message] 0118616409) The system Mulu generated this result transmitted ref erence range: 0 - 5 HP F. The reference range was not used to int erpret this result as normal/abnormal . BACTERIA (test code = Few Negative A 1612460456) MUCOUS (test code = Slight Negative LPF A 1652215054) SQ EPITH (test code = <1 HPF 4267069998) Lab Interpretation (test Abnormal code = 73018-8) [facility] HospitalAD,CLC OR L[facility] ONLY - INFLUENZA A & B DIRECT [id number] 02:43:00 Test Item Value Reference Range Interpretation Comments Influenza A (test code = 80364-4) Negative Negative Influenza B (test code = 86153-3) Negative Negative Lab Interpretation (test code = Normal 03937-6) [facility] HospitalCOVID[facility] (ID NOW RAPID TESTING)2020-05-12 02:39:00 Test Item Value Reference Range Interpretation Comments SARS-CoV-2 Rapid ID NOW Not Detected Not Detected (test code = 85440-5) SAMUEL (test code = SAMUEL) ID NOW COVID-19 Assay is an isothermal nucleic acid amplification test intended for the qualitative detection of nucleic acid from SARS-CoV-2 viral RNA in nasopharyngeal (SPECIALIZED DEVELOPER) specimens. It is used under Emergency Use Authorization (EUA) by FDA. The limit of detection (LOD) of the assay is 125 Genome Equivalents/mL. A positive result is indicative of the presence of SARS-CoV-2 RNA. ?Clinical correlation with patient history and other diagnostic information is necessary to determine patient infection status. A negative (Not Detected) result does not preclude SARS-CoV-2 infection. In patients with clinical symptoms and other tests that are consistent with SARS-CoV-2 infection, negative results should be treated as presumptive negative and a new specimen should be tested with alternative PCR molecular test. Invalid: Please collect a new specimen for repeat patient testing if clinically indicated. Lab Interpretation Normal (test code = 49792-0) [facility] HospitalTROP[facility]IN [id number] 01:47:00 Test Item Value Reference Range Interpretation Comments TROPONIN I (test <0.012 See_Comment [Automated code = 0648066215) message] The system which generated this result transmitted reference range : <=0.034 ng/mL. The reference range was not used to interpr et this result as normal/abnormal . SAMUEL (test code = Equal or Less than SAMUEL) 0.034 ng/ml---Normal ?Note: Cardiac troponin begins to rise 3-4 hours after the onset of ischemia. Repeat in 4-6 hours if the sample was drawn within 3-4 hours of the onset of the symptom and found normal. Between 0.035 and 0.120 ng/mL--- Borderline. Questionable myocardial injury or necrosis ? ?Note: Serial measurement may be necessary to confirm or exclude the diagnosis of myocardial injury or necrosis; Clinical correlation (symptoms, EKGs, imaging studies, and others) required; Repeat in 4-6 hours if clinically indicated. ? Equal or Higher than 0.121 ng/mL---Abnormal. Myocardial Injury or Necrosis Likely ? Biotin has been reported to cause a negative bias, interpret results relative to patient's use of biotin. ? Lab Interpretation Normal (test code = 06412-3) [facility] HospitalN-TERMINAL [id number] 01:44:00 Test Item Value Reference Range Interpretation Comments NT-proBNP (test code 1330 pg/mL See_Comment H [Autom ated = 6321284971) message] The system which generated this result transmitted reference range : <=125. The reference range was not used to interpret this result as normal/abnormal . SAMUEL (test code = SAMUEL) Biotin has been reported to cause a negative bias, interpret results relative to patient's use of biotin. Lab Interpretation Abnormal (test code = 93789-7) [facility] HospitalMAG[facility]IUM2020-12-11 01:37:00 Test Item Value Reference Range Interpretation Comments MAGNESIUM (test code = 4289426347) 2.0 mg/dL 1.7-2.4 Lab Interpretation (test code = Normal 26087-3) [facility]. METABOLIC PANEL (57784)2020-05-12 01:36:00 Test Item Value Reference Range Interpretation Comments NA (test code = 130 mmol/L 135-145 L 6317246679) K (test code = 4.3 mmol/L 3.5-5 4058946145) CL (test code = 97 mmol/L 98-108 L 7799941388) CO2 TOTAL (test code = 23 mmol/L 23-31 7485320369) AGAP (test code = 2-16 8872700552) BUN (test code = 19 mg/dL 7-23 2995884050) GLUCOSE (test code = 115 mg/dL 70-110 H 0691422181) CREATININE (test code = 0.79 mg/dL 0.5-1.04 3575257313) TOTAL BILI (test code = 0.6 mg/dL 0.1-1.3 5071598489) CALCIUM (test code = 9.4 mg/dL 8.6-10.6 5569300368) T PROTEIN (test code = 7.3 g/dL 6.3-8.2 0875295837) ALBUMIN (test code = 4.1 g/dL 3.5-5 8364943434) ALK PHOS (test code = 146 U/L 34-122 H 8609442563) ALTv (test code = 16 U/L 5-35 1742-6) AST(SGOT) (test code = 25 U/L 13-40 8771678751) eGFR Calculation mL/min/1.73m2 (Non-) (test code = 9352944471) eGFR Calculation mL/min/1.73m2 () (test code = 1365318509) SAMUEL (test code = SAMUEL) Association of Glomerular Filtration Rate (GFR) and Staging of Kidney Disease* + --+ --+ ------+| GFR (mL/min/1.73 m2) ?| With Kidney Damage ?| ?Without Kidney Damage+ --------+ --------+ +| ?>90 ?| ?Stage one ?| ? Normal ?+ ---+ ---+ -------+| ?60-89 ?| ?Stage two ?| ? Decreased GFR ? + --+ --+ ------+| ?30-59 ?| ?Stage three ?| ? Stage three ? + --+ --+ ------+| ?15-29 ?| ?Stage four ? | ? Stage four ?+ ---+ ---+ -------+| ?<15 (or dialysis) ? ?| ?Stage five ? | ? Stage five ?+ ---+ ---+ -------+ *Each stage assumes the associated GFR level has been in effect for at least three months. ?Stages 1 to 5, with or without kidney disease, indicate chronic kidney disease. Notes: Determination of stages one and two (with eGFR >59mL/min/1.73 m2) requires estimation of kidney damage for at least three months as defined by structural or functional abnormalities of the kidney, manifested by either:Pathological abnormalities or Markers of kidney damage (including abnormalities in the composition of the blood or urine or abnormalities in imaging tests). Lab Interpretation Abnormal (test code = 64332-9) [facility] HospitalLIPASE2020-12-11 01:36:00 Test Item Value Reference Range Interpretation Comments LIPASE (test code = 5539654321) 35 U/L 0-220 Lab Interpretation (test code = Normal 73973-5) [facility] HospitalD-[id number] 01:34:00 Test Item Value Reference Interpretation Comments Range D-DIMER (test code = See_Comment H [Autom ated 4686513361) message] The system which generated this result transmitted reference range : <0.41 ?g/mL (FEU). The reference range was not used to interpret this result as normal/abnormal . SAMUEL (test code = This test may be SAMUEL) used in conjunction with a clinical pretest probability (PTP) assessment model to exclude venous thromboembolism (VTE) in patients suspected of deep venous thrombosis (DVT) and pulmonary embolism (PE) A D-Dimer value less than 0.50 ?g/ml (FEU) has a negative predicative value of 96 to 100% (95% CI)and 97 to 100% (95% CI) as an aid in the diagnosis of deep vein thrombosis (DVT) and pulmonary embolism when there is low or moderate pretest probability of PE or DVT. D-Dimer values are expressed in initial fibrinogen equivalent units (FEU)" The assay results should be used with other information, including the clinical context, in forming a diagnosis. Lab Interpretation Abnormal (test code = 74723-0) [facility] WITH [id number] 01:24:00 Test Item Value Reference Range Interpretation Comments WBC (test code = See_Comment [Automated 7690-2) message] The sy stem which generated this result transmitted reference range : 4.30 - 11.10 10*3/?L. The reference range was not used to interpret this result as normal/abnormal . RBC (test code = See_Comment L [Automated 789-8) message] The sy stem which generated this result transmitted reference range : 3.93 - 5.25 10*6/?L. The reference range was not used to interpret this result as normal/abnormal . HGB (test code = 10.0 g/dL 11.6-15 L 718-7) HCT (test code = 31.0 % 35.7-45.2 L 4544-3) MCV (test code = 83.1 fL 80.6-95.5 787-2) MCH (test code = 26.8 pg 25.9-32.8 785-6) MCHC (test code = 32.3 g/dL 31.6-35.1 786-4) RDW-SD (test code = 54.2 fL 39-49.9 H 18662-7) RDW-CV (test code = 17.8 % 12-15.5 H 788-0) PLT (test code = See_Comment [Automated 777-3) message] The sy stem which generated this result transmitted reference range : 166 - 358 10*3/ ?L. The reference r bernardo was not used to interpret this result as normal/abnormal . MPV (test code = 10.3 fL 9.5-12.9 12590-7) NRBC/100 WBC (test See_Comment [Automat ed code = 5693678158) message] The system which generated this result transmitted reference range : 0.0 - 10.0 /100 WBCs. The refer ence range was not u sed to interpret th is result as normal/abnormal . NRBC x10^3 (test code <0.01 See_Comment [Auto mated = 1454147870) message] The s ystem which generated this result transmitted reference range : 10*3/?L. The reference range was not used to interpret this result as normal/abnormal . GRAN MAT (NEUT) % 74.6 % (test code = 770-8) IMM GRAN % (test code 0.50 % = 3533641897) LYMPH % (test code = 17.0 % 736-9) MONO % (test code = 6.8 % 5905-5) EOS % (test code = 0.9 % 713-8) BASO % (test code = 0.2 % 706-2) GRAN MAT x10^3(ANC) 7.24 10*3/uL 1.88-7.09 H (test code = 4046534205) IMM GRAN x10^3 (test 0.05 10*3/uL 0-0.06 code = 3954377610) LYMPH x10^3 (test code 1.65 10*3/uL 1.32-3.29 = 731-0) MONO x10^3 (test code 0.66 10*3/uL 0.33-0.92 = 742-7) EOS x10^3 (test code = 0.09 10*3/uL 0.03-0.39 711-2) BASO x10^3 (test code <0.03 0.01-0.07 = 704-7) Lab Interpretation Abnormal (test code = 49890-9) [facility]2020-09-14 17:38:00 Test Item Value Reference Range Interpretation Comments MAGNESIUM (BEAKER) (test code = 1.9 mg/dL 1.6-2.6 627) Cargo Supervisor ID - FSEBASIC METABOLIC [id number] 17:38:00 Test Item Value Reference Range Interpretation [...] 697) EGFR (BEAKER) (test 69 mL/min/1.73 ESTIMA POORNIMA GFR IS code = 1092) sq m NOT ACCURATE CREATININE CLEARANCE IN PREDICTING GLOMERULAR FILTRATION RATE . ESTIMATED GFR I S NOT APPLICABLE FOR DIALYSIS PATIEN TS. Cargo Supervisor ID - FSERAD, CHEST, 1 VIEW, NON [id number] 10:54:00Reason for exam:->feverShould this be performed at [...] by technique with sternotomy wires. Signed: [facility] Verified Date/Time: 02/14/2020 10:54:04 ReadingLocation: [facility] Reading Room POCT-GLUCOSE METER 2020-02-13 22:31:00 Test Item Value Reference Range Interpretation Comments POC-GLUCOSE METER 106 mg/dL 70-110 : TESTED A T [facility] 6720 (BEAKER) (test code = MAURIZIOJOCELYNE Santoyo [facility], 1538) [address]: Cargo Supervisor/Techni arin ID = [id number] for TIKA BECKER CBC (HEMOGRAM ONLY)2020-02-13 03:48:00 Test Item Value Reference [...] WBC 0-0 (BEAKER) (test code = 413) [id number] 07:13:00 Test Item Value Reference Range Interpretation Comments PHOSPHORUS (BEAKER) (test code = 3.8 mg/dL 2.3-4.7 604) Cargo Supervisor ID - BABITA [id number] 07:13:00 Test Item Value Reference Range Interpretation Comments MAGNESIUM (BEAKER) (test code = 1.9 mg/dL 1.6-2.6 627) Cargo Supervisor ID - BABITA MBASIC METABOLIC [id number] 07:13:00 Test Item Value Reference Range Interpretation [...] 697) EGFR (BEAKER) (test 73 mL/min/1.73 ESTIMA POORNIMA GFR IS code = 1092) sq m NOT ACCURATE CREATININE CLEARANCE IN PREDICTING GLOMERULAR FILTRATION RATE . ESTIMATED GFR I S NOT APPLICABLE FOR DIALYSIS PATIEN TS. Cargo Supervisor JOSEP JC MCBC (HEMOGRAM ONLY)2020-02-12 05:42:00 Test Item Value [...] WBC 0-0 (BEAKER) (test code = 413) [id number] 08:49:00 Test Item Value Reference Range Interpretation Comments PHOSPHORUS (BEAKER) (test code = 3.4 mg/dL 2.3-4.7 604) Cargo Supervisor ID Vandana EVAN [id number] 08:49:00 Test Item Value Reference Range Interpretation Comments MAGNESIUM (BEAKER) (test code = 2.1 mg/dL 1.6-2.6 627) Cargo Supervisor ID Vandana EVAN FBASIC METABOLIC [id number] 08:49:00 Test Item Value Reference Range Interpretation [...] 697) EGFR (BEAKER) (test 80 mL/min/1.73 ESTIMA POORNIMA GFR IS code = 1092) sq m NOT ACCURATE CREATININE CLEARANCE IN PREDICTING GLOMERULAR FILTRATION RATE . ESTIMATED GFR I S NOT APPLICABLE FOR DIALYSIS PATIEN TS. Cargo Supervisor ID - MERRICK FPOCT-GLUCOSE [id number] 07:12:00 Test Item Value Reference Range Interpretation Comments POC-GLUCOSE METER 109 mg/dL 70-110 : Notified RN/MD: (BEAKER) (test code = TESTED AT [facility] [id number]) [facility], [address]: Cargo Supervisor/Techni arin ID = [id number] for SHRUTHI SOUSA CBC (HEMOGRAM ONLY)2020-02-11 06:39:00 [...] 0-0 (BEAKER) (test code = 413) POCT-GLUCOSE [id number] 21:34:00 Test Item Value Reference Range Interpretation Comments POC-GLUCOSE METER 122 mg/dL 70-110 H : TESTED A T [facility] 6720 ([facility]) (test code = SARABJIT Natanael [place], 1538) [address]: Cargo Supervisor/Techni arin ID = [id number] for Luiza Donald TISSUE [id number] 17:05:00Surgical Pathology Report Case: [id number] Authorizing Provider: Darryn Olivera MD Collected: 02/05/2020 01:35 PM Ordering Location: [address] Received: 02/08/2020 08:28 AM Service Pathologist: Steve Walker MD Specimen: Aortic Valve, AORTIC VALVE LEAFLET HEART, AORTIC VALVE, VALVULECTOMY:TWO FUSED LEAFLETS WITH NODULAR CALCIFIC ATHEROSCLEROTIC THICKENINGONE SEPARATE LEAFLET WITH FOCAL FENESTRATION AND NODULAR CALCIFIC ATHEROSCLEROTIC THICKENING Signing Pathologist Direct Phone Line: [phone] signed by Steve Walker MD on 02/10/2020 at 5:05 [id number]; [id number] valve stenosis, etiology of cardiac valve disease unspecified, coronary artery disease with angina pectorisAortic valveReceived in formalin labeled with the patient's name, accession number and "aortic valve leaflet" are two fused aortic cusps measuring 3.0 x 1.3 x 0.2 cm, and a 2.2 x 1.2 x 0.3cm unfused aortic cusp displaying a 0.3 cm fenestration. The surface is smooth to focally nodular and devoid of vegetations. The cut surface is abernathy- yellow, focally calcified and fibrous. Event Crew Technician sections are submitted in A1 following decalcification. PA/pl PerformedPOCT-GLUCOSE [id number] 15:57:00 Test Item Value Reference Range Interpretation Comments POC-GLUCOSE METER 144 mg/dL 70-110 H : TESTED A T [facility] 6720 (BEAKER) (test code = SARABJIT [place], 1538) [address]: Cargo Supervisor/Techni arin ID = [id number] for HELEN GARCIA [id number] 11:22:00 Test Item Value Reference Range Interpretation Comments MAGNESIUM (BEAKER) (test code = 2.0 mg/dL 1.6-2.6 627) Cargo Supervisor ID - [id number] 11:22:00 Test Item Value Reference Range Interpretation Comments PHOSPHORUS (BEAKER) (test code = 2.8 mg/dL 2.3-4.7 604) Cargo Supervisor ID - EDASIOperator ID - AAHAMIDBASIC METABOLIC [id number] 11:22:00 Test Item Value Reference Range Interpretation [...] 697) EGFR (BEAKER) (test 74 mL/min/1.73 ESTIMA POORNIMA GFR IS code = 1092) sq m NOT ACCURATE CREATININE CLEARANCE IN PREDICTING GLOMERULAR FILTRATION RATE . ESTIMATED GFR I S NOT APPLICABLE FOR DIALYSIS PATIEN TS. Cargo Supervisor ID - EDASIOperator ID - AAHAMIDPOCT-GLUCOSE [id number] 11:15:00 Test Item Value Reference Range Interpretation Comments POC-GLUCOSE METER 106 mg/dL 70-110 : TESTED A T [facility] 6720 (BEAKER) (test code = SARABJIT [place], 1538) [address]: Cargo Supervisor/Techni arin ID = [id number] for HELEN GARCIA SARS-COV2/RT-PCR ([facility])2020-02-10 09:53:00 Test Item Value Reference Range Interpretation Comments SARS-COV2/RT-PCR (test Negative Not Detected, Negative, code = 2171384) See external report for linked test SARS-COV-2 PERFORMING LAB [facility] (test code = 4834015) Negative result for this test determines that [...] individuals suspected of COVID-19 by their healthcare provider.This test [...] justifying the authorization of the emergency use ofin vitro diagnostic tests for detection and/or diagnosis of COVID-19 is terminated under Section 564(b)(2) of the Act or the EUA is revoked under Section 564(g) of the Act.Fact Sheet for Healthcare Prov iders:https://www.[employer].com/sites/default/files/product/documents/Fact_Sheet_HC _Rdshhsvoi_Drwq_BLKS-IoI-2.pdfFact Sheet for Healthcare Patients:https://www.[employer].com/sites/default/files/product/docume nts/Sijo_Awfwv_Rzpjngkw_Rijx_XQYG-EyU-7.pdfPerforming Laboratory:[facility], [place] [address]ZGDG-HAFQACQ METER 2020-02-10 08:13:00 Test Item Value Reference Range Interpretation Comments POC-GLUCOSE METER 120 mg/dL 70-110 H : TESTED A T [facility] 6720 (BEAKER) (test code = SARABJIT Santoyo [facility], 1538) [address]: Cargo Supervisor/Techni arin ID = [id number] for HELEN GARCIA CBC (HEMOGRAM ONLY)2020-02-10 06:44:00 [...] 0-0 (BEAKER) (test code = 413) POCT-GLUCOSE [id number] 23:46:00 Test Item Value Reference Range Interpretation Comments POC-GLUCOSE METER 124 mg/dL 70-110 H : TESTED A T [facility] 6720 (BEAKER) (test code = [facility], 1538) [address]: Cargo Supervisor/Techni arin ID = [id number] for TIKA BECKER POCT-GLUCOSE [id number] 17:59:00 Test Item Value Reference Range Interpretation Comments POC-GLUCOSE METER 111 mg/dL 70-110 H : TESTED A T [facility] 6720 (BEAKER) (test code = [facility], 1538) [address]: Cargo Supervisor/Techni arin ID = [id number] for GAINES SARA LEONG POCT-GLUCOSE [id number] 13:07:00 Test Item Value Reference Range Interpretation Comments POC-GLUCOSE METER 114 mg/dL 70-110 H : TESTED A T [facility] 6720 (BEAKER) (test code = [facility], 1538) [address]: Cargo Supervisor/Techni arin ID = [id number] for GAINES SARA LEONG [id number] 08:53:00 Test Item Value Reference Range Interpretation Comments PHOSPHORUS (BEAKER) (test code = 3.0 mg/dL 2.3-4.7 604) Cargo Supervisor ID - VERENICE [id number] 08:53:00 Test Item Value Reference Range Interpretation Comments MAGNESIUM (BEAKER) (test code = 2.0 mg/dL 1.6-2.6 627) Cargo Supervisor ID - VERENICE LBASIC METABOLIC [id number] 08:53:00 Test Item Value Reference Range Interpretation [...] 697) EGFR (BEAKER) (test 70 mL/min/1.73 ESTIMA POORNIMA GFR IS code = 1092) sq m NOT ACCURATE CREATININE CLEARANCE IN PREDICTING GLOMERULAR FILTRATION RATE . ESTIMATED GFR I S NOT APPLICABLE FOR DIALYSIS PATIEN TS. Cargo Supervisor ID - PIAYA LPOCT-GLUCOSE [id number] 08:05:00 Test Item Value Reference Range Interpretation Comments POC-GLUCOSE METER 110 mg/dL 70-110 : TESTED A T [facility] 6720 (BEAKER) (test code = [facility], 1538) [address]: Cargo Supervisor/Techni arin ID = [id number] for SARA PUTNAM CBC (HEMOGRAM ONLY)2020-02-09 05:59:00 [...] 0-0 (BEAKER) (test code = 413) POCT-GLUCOSE [id number] 22:14:00 Test Item Value Reference Range Interpretation Comments POC-GLUCOSE METER 132 mg/dL 70-110 H : TESTED A T [facility] 6720 (BEAKER) (test code = [facility], 1538) [address]: Cargo Supervisor/Techni arin ID = [id number] for Iza Hussein POCT-GLUCOSE [id number] 17:05:00 Test Item Value Reference Range Interpretation Comments POC-GLUCOSE METER 109 mg/dL 70-110 : TESTED A T [facility] 6720 (BEAKER) (test code = [facility], 1538) [address]: Cargo Supervisor/Techni arin ID = [id number] for Enid Mondragon (contrac t) POCT-GLUCOSE [id number] 11:56:00 Test Item Value Reference Range Interpretation Comments POC-GLUCOSE METER 130 mg/dL 70-110 H : TESTED A T [facility] 6720 (BEAKER) (test code = [facility], 1538) [address]: Cargo Supervisor/Techni arin ID = [id number] for Lida lerner [place] (contrac t) POCT-GLUCOSE [id number] 08:18:00 Test Item Value Reference Range Interpretation Comments POC-GLUCOSE METER 120 mg/dL 70-110 H : TESTED A T [facility] 6720 (BEAKER) (test code = [facility], 1538) [address]: Cargo Supervisor/Techni arin ID = [id number] for Lida lerner [place] (contrac t) POCT-GLUCOSE [id number] 06:12:00 Test Item Value Reference Range Interpretation Comments POC-GLUCOSE METER 123 mg/dL 70-110 H : TESTED A T [facility] 6720 (BEAKER) (test code = [facility], 1538) [address]: Cargo Supervisor/Techni arin ID = [id number] for Paty hamilton Josetimothylukasz (contra ct) [id number] 03:59:00 Test Item Value Reference Range Interpretation Comments PHOSPHORUS (BEAKER) (test code = 3.8 mg/dL 2.3-4.7 604) Cargo Supervisor ID - VERENICE [id number] 03:59:00 Test Item Value Reference Range Interpretation Comments MAGNESIUM (BEAKER) (test code = 2.1 mg/dL 1.6-2.6 627) Cargo Supervisor ID - VERENICE LBASIC METABOLIC [id number] 03:59:00 Test Item Value Reference Range Interpretation [...] 697) EGFR (BEAKER) (test 54 mL/min/1.73 ESTIMA POORNIMA GFR IS code = 1092) sq m NOT ACCURATE CREATININE CLEARANCE IN PREDICTING GLOMERULAR FILTRATION RATE . ESTIMATED GFR I S NOT APPLICABLE FOR DIALYSIS PATIEN TS. Cargo Supervisor ID - PIAYA LCBC (HEMOGRAM ONLY)2020-02-08 03:49:00 [...] (BEAKER) (test code = 413) BLOOD GAS, [id number] 03:10:00 Test Item Value Reference Range Interpretation [...] (test code = 1819) 32.0 % CALCIUM, [id number] 03:10:00 Test Item Value Reference Range Interpretation Comments CALCIUM IONIZED (BEAKER) (test 1.10 mmol/L 1.12-1.27 L code = 698) PH, BLOOD (BEAKER) (test code = 7.48 1810) RAD, CHEST, 1 VIEW, NON [id number] 02:16:00while patient is intubated or has chest tubes.Reason for exam:->Status post CV SurgeryShould thisbe performed at the bedside?->YesFINAL REPORT RAD, CHEST, 1 VIEW, NON DEPT INDICATION: Status post CV Surgery COMPARISON: Prior day's exam FINDINGS: Portable frontal view of the chest. IMPRESSION: Support Lines: Interval removal of left-sided chest tube. Lungs and pleura: Unchanged airspace and pleural opacities.No pneumothorax.Heart and mediastinum: Stable contours. Additional findings: None. Signed: Sivakumar Chinchilla Verified Date/Time: 02/08/2020 02:16:52 POCT-GLUCOSE [id number] 13:50:00 Test Item Value Reference Range Interpretation Comments POC-GLUCOSE METER 118 mg/dL 70-110 H : TESTED A T [facility] 6720 (BEAKER) (test code = SARABJIT [place], 1538) [address]: Cargo Supervisor/Techni arin ID = [id number] for Mimi Álvarez CT, CTANGIO [id number] 12:38:00Unlisted Reason for Exam - Click Yes and Enter Reason Below->YesUnlisted Reason for Exam->new stroke symptomsFINAL REPORT CLINICAL HISTORY: Unlisted Reason for Examnew stroke symptoms TECHNIQUE: Contiguous contrast-enhanced axial images through the neck followed by axial images through the head with coronal and sagittal reformations to assess the arterial circulation. 3-D reconstructionswere performed using a volume rendered technique separately [...] right internal carotid artery. Atherosclerosis at the bifurcationresults in less than 50% focal stenosis. No significant stenosis of the left ICA. Vertebral arteries: No occlusion or high-grade stenosis. No fracture or suspicious osseous lesion. There has been a recent sternotomy with overlying soft tissue air. Small left apical pneumothorax. Bilateral pleural effusions. IMPRESSION:1.No proximal branch arterial occlusion or high-grade focal stenosis.2.Recent sternotomy with small left apical pneumothorax. Signed: Doemnica Patino Verified Date/Time: 02/07/2020 12:38:47 CT, CAROTID, [id number] 12:38:00Unlisted Reason for Exam - Click Yes and Enter Reason Below->YesUnlisted Reason for Exam->CVA symptomsFINAL REPORT CLINICAL HISTORY: Unlisted Reason for Examnew stroke symptoms TECHNIQUE: Contiguous contrast- enhanced axial images through the neck followed by axial images through the head with coronal and sagittal reformations to assess the arterial circulation. 3-D reconstructionswere performed using a volume rendered technique separately [...] intact. There is no evidence of intracranial aneury sm. No major branch vessel occlusion or high-grade focal stenosis. Atherosclerosis of the bilateral cavernous and paraclinoid ICAs without flow- limiting stenosis. The major intradural venous sinuses are patent. CTA neck:Great vessel origins: No occlusion or high-grade stenosis. Carotid arteries: Medialized retropharyngeal course of the right internal carotid artery. Atherosclerosis at the bifurcationresults in less than 50% focal stenosis. No significant stenosis of the left ICA. Vertebral arteries: No occlusion or high-grade stenosis. No fracture or suspicious osseous lesion. There has been a recent sternotomy with overlying soft tissue air. Small left apical pneumothorax. Bilateral pleural effusions. IMPRESSION:1.No proximal branch arterial occlusion or high-grade focal stenosis.2.Recent sternotomy with small left apical pneumothorax. Signed: Domenica Patinonorwalk hospital Verified Date/Time: 02/07/2020 12:38:47 CT, BRAIN/STROKE [id number] 12:26:[address], BRAIN/STROKE PROTOCOL INDICATION: Ataxia, [...] recommended for further characterization. The findings were d iscussed with the neurology resident on 02/07/2020 12:26 PM. Signed: Domenica Patino Verified Date/Time: 02/07/2020 12:26:21 [id number] 05:37:00 Test Item Value Reference Range Interpretation Comments PHOSPHORUS (BEAKER) (test code = 5.5 mg/dL 2.3-4.7 H 604) Cargo Supervisor ID - BABITA [id number] 05:37:00 Test Item Value Reference Range Interpretation Comments MAGNESIUM (BEAKER) (test code = 2.2 mg/dL 1.6-2.6 627) Cargo Supervisor ID - BABITA MBASIC METABOLIC [id number] 05:37:00 Test Item Value Reference Range Interpretation [...] 697) EGFR (BEAKER) (test 57 mL/min/1.73 ESTIMA POORNIMA GFR IS code = 1092) sq m NOT ACCURATE CREATININE CLEARANCE IN PREDICTING GLOMERULAR FILTRATION RATE . ESTIMATED GFR I S NOT APPLICABLE FOR DIALYSIS PATIEN TS. Cargo Supervisor ID - BABITA MC (HEMOGRAM ONLY)2020-02-07 05:08:00 Test Item Value Reference [...] 0-0 (BEAKER) (test code = 413) CALCIUM, [id number] 05:01:00 Test Item Value Reference Range Interpretation Comments CALCIUM IONIZED (BEAKER) (test 1.15 mmol/L 1.12-1.27 code = 698) PH, BLOOD (BEAKER) (test code = 7.40 1810) BLOOD GAS, [id number] 04:59:00 Test Item Value Reference Range Interpretation [...] 100.0 % RAD, CHEST, 1 VIEW, NON [id number] 03:17:00while patient is intubated or has chest tubes.Reason for exam:->Status post CV SurgeryShould thisbe performed at the bedside?->YesFINAL REPORT CLINICAL INDICATION: Postop Comparison: 02/06/2020 The cardiomediastinal contours are stable. The lung volumes remain low. Central pulmonary vascular prominence and bilateral parenchymal opacities are unchanged. There is no pneumothorax. There is persistent subcutaneousgas in the left chest wall. Support lines are stable. Signed: Valeria Rush MDReport Verified Date/Time: 02/07/2020 03:17:11 POCT- GLUCOSE [id number] 18:24:00 Test Item Value Reference Range Interpretation Comments POC-GLUCOSE METER 146 mg/dL 70-110 H : TESTED A T [facility] 6720 (BEAKER) (test code = [facility] Natanael [facility], 1538) 85[address]: Cargo Supervisor/Techni arin ID = [id number] for EVARISTO DIEZIA POCT-GLUCOSE [id number] 16:08:00 Test Item Value Reference Range Interpretation Comments POC-GLUCOSE METER 130 mg/dL 70-110 H : TESTED A T [facility] 6720 (BEAKER) (test code = [facility] Natanael [facility], 1538) [address]: Cargo Supervisor/Techni arin ID = [id number] for EL ARCENION, RORY [id number] 14:39:00 Test Item Value Reference Range Interpretation Comments MAGNESIUM (BEAKER) (test code = 2.2 mg/dL 1.6-2.6 627) Cargo Supervisor ID - MERRICK FBASIC METABOLIC [id number] 14:39:00 Test Item Value Reference Range Interpretation [...] 697) EGFR (BEAKER) (test 60 mL/min/1.73 ESTIMA POORNIMA GFR IS code = 1092) sq m NOT ACCURATE CREATININE CLEARANCE IN PREDICTING GLOMERULAR FILTRATION RATE . ESTIMATED GFR I S NOT APPLICABLE FOR DIALYSIS PATIEN TS. Cargo Supervisor ID - [facility] (HEMOGRAM ONLY)2020-02-06 14:21:00 Test Item Value Reference [...] 0-0 (BEAKER) (test code = 413) CBC W/PLT COUNT & AUTO [id number] 05:32:00 Test Item Value Reference Range Interpretation [...] 0-1 PERCENT (BEAKER) (test code = 2801) [id number] 05:12:00 Test Item Value Reference Range Interpretation Comments PHOSPHORUS (BEAKER) (test code = 4.6 mg/dL 2.3-4.7 604) Cargo Supervisor ID - BABITA [id number] 05:12:00 Test Item Value Reference Range Interpretation Comments MAGNESIUM (BEAKER) (test code = 1.9 mg/dL 1.6-2.6 627) Cargo Supervisor ID - BABITA MBASIC METABOLIC [id number] 05:12:00 Test Item Value Reference Range Interpretation [...] 697) EGFR (BEAKER) (test 57 mL/min/1.73 ESTIMA POORNIMA GFR IS code = 1092) sq m NOT ACCURATE CREATININE CLEARANCE IN PREDICTING GLOMERULAR FILTRATION RATE . ESTIMATED GFR I S NOT APPLICABLE FOR DIALYSIS PATIEN TS. Cargo Supervisor ID - BABITA MBLOOD GAS, [id number] 05:06:00 Test Item Value Reference Range Interpretation [...] (test code = 1819) 100.0 % CALCIUM, [id number] 04:57:00 Test Item Value Reference Range Interpretation Comments CALCIUM IONIZED (BEAKER) (test 1.20 mmol/L 1.12-1.27 code = 698) PH, BLOOD (BEAKER) (test code = 7.43 1810) RAD, CHEST, 1 VIEW, NON [id number] 00:57:00while patient is intubated or has chest tubes.Reason for exam:->Status post CV SurgeryShould thisbe performed at the bedside?->YesFINAL REPORT CLINICAL INDICATION: Postop Comparison: 02/05/2020 The cardiomediastinal contours are stable. The lung volumes are low but stable after extubation. Bilateral parenchymalopacities are unchanged. There is no pneumothorax. There is a small amount of subcutaneous gas in the left chest wall. Remaining support lines are stable. Signed: Valeria Rush MDReport Verified Date/Time: 02/06/2020 00:57:33 [id number] 23:37:00 Test Item Value Reference Range Interpretation Comments MAGNESIUM (BEAKER) 2.0 mg/dL 1.6-2.6 Specimen slightly (test code = 627) hemolyzed Cargo Supervisor ID - DBBASIC METABOLIC [id number] 23:37:00 Test Item Value Reference Range Interpretation [...] 697) EGFR (BEAKER) (test 54 mL/min/1.73 ESTIMA POORNIMA GFR IS code = 1092) sq m NOT ACCURATE CREATININE CLEARANCE IN PREDICTING GLOMERULAR FILTRATION RATE . ESTIMATED GFR I S NOT APPLICABLE FOR DIALYSIS PATIEN TS. Cargo Supervisor ID - DBLACTIC ACID, [id number] 23:28:00 Test Item Value Reference Range Interpretation Comments LACTATE BLOOD 0.9 mmol/L 0.5-2.2 Specimen sligh tly ARTERIAL (2) (BEAKER) hemoly zed (test code = 2874) Cargo Supervisor ID - DBCALCIUM, [id number] 22:32:00 Test Item Value Reference Range Interpretation Comments CALCIUM IONIZED (BEAKER) (test 1.23 mmol/L 1.12-1.27 code = 698) PH, BLOOD (BEAKER) (test code = 7.40 1810) BLOOD GAS, [id number] 22:32:00 Test Item Value Reference Range Interpretation [...] code = 1819) 40.0 % BLOOD GAS, [id number] 20:50:00 Test Item Value Reference Range Interpretation [...] code = 1819) 40.0 % LACTIC ACID, [id number] 20:08:00 Test Item Value Reference Range Interpretation Comments LACTATE BLOOD ARTERIAL (2) 2.2 mmol/L 0.5-2.2 (BEAKER) (test code = 2874) Cargo Supervisor ID - [id number] 19:40:00 Test Item Value Reference Range Interpretation [...] is 2.5-3.5 for patients wiht mechanical heart valves.OXYGEN SATURATION, [id number] 19:28:00 Test Item Value Reference Range Interpretation Comments O2 SATURATION (MEASURED) (BEAKER) 53.9 % (test code = 1455) CALCIUM, [id number] 19:28:00 Test Item Value Reference Range Interpretation Comments CALCIUM IONIZED (BEAKER) (test 1.10 mmol/L 1.12-1.27 L code = 698) PH, BLOOD (BEAKER) (test code = 7.42 1810) BLOOD GAS, [id number] 19:28:00 Test Item Value Reference Range Interpretation [...] (test code = 1819) 40.0 % GLUCOSE-STAT [id number] 19:28:00 Test Item Value Reference Range Interpretation Comments GLUCOSE RANDOM (BEAKER) (test code 139 mg/dL 70-110 H = 652) HGB/HCT (H&H) - STAT [id number] 19:28:00 Test Item Value Reference Range Interpretation Comments HEMOGLOBIN (BEAKER) (test code = 8.7 g/dL 12.0-15.0 L 410) HEMATOCRIT (BEAKER) (test code = 26.0 % 36.0-45.0 L 411) SODIUM NA-STAT [id number] 19:27:00 Test Item Value Reference Range Interpretation Comments SODIUM (BEAKER) (test code = 381) 136 meq/L 136-145 POTASSIUM-STAT [id number] 19:27:00 Test Item Value Reference Range Interpretation Comments POTASSIUM (BEAKER) (test code = 5.0 meq/L 3.6-5.5 379) RAD, CHEST, 1 VIEW, NON [id number] 16:30:00Reason for exam:->Status post CV Surgery post op day 0Should this be performed at the bedside?->YesFINAL REPORT TECHNIQUE: Frontal view of the chest. INDICATION: 59-year-old woman after cardiovascular surgery. COMPARISON: Chest radiograph 02/03/2020. FINDINGS: LINES/TUBES: Endotracheal tube terminates proximal by 2.7 cm above the mike. Right internal jugular central venous catheter terminates over the expected region of the mid superior vena cava. Chest tubes project over the right cardiac silhouette and left apex. Partially visualized nasogastric/orogastric tube courses overthe expected region of the gastric body. Additional apparent tube appears to terminate at the midline over the T9 vertebral body. LUNGS: Low lung volumes. No consolidation or pulmonary edema. Mild linear atelectasis in the right upper lung zone. PLEURA: No pneumothorax or significant pleural effusion.HEART AND MEDIASTINUM: Cardiac silhouette appears mildly prominent, likely in part due to AP technique and low lung volumes. New prosthetic cardiac valve. BONES AND SOFT TISSUES: Intact median sternotomy wires. Soft tissues are unremarkable. IMPRESSION:Lines/tubes and postsurgical changes as above. Apparent tube appears to terminate at the midline over the T9 vertebral body and may represent a mediastinal drain or possibly the nasogastric/orogastric tube tip coiled in the distal esophagus. Consider further evaluation with abdominal radiographs. No acute cardiopulmonary abnormalities. Signed: Judy Benitez MDReport Verified Date/Time: 02/05/2020 16:30:44 Reading Location: [address] Body Reading Room [id number] 16:21:00 Test Item Value Reference Range Interpretation Comments MAGNESIUM (BEAKER) 1.7 mg/dL 1.6-2.6 Specimen slightly (test code = 627) hemolyzed Cargo Supervisor ID - [id number] 16:21:00 Test Item Value Reference Range Interpretation Comments PHOSPHORUS (BEAKER) 4.8 mg/dL 2.3-4.7 H Specimen slightly (test code = 604) hemolyzed Cargo Supervisor ID - DBBASIC METABOLIC [id number] 16:21:00 Test Item Value Reference Range Interpretation [...] 697) EGFR (BEAKER) (test 74 mL/min/1.73 ESTIMA POORNIMA GFR IS code = 1092) sq m NOT ACCURATE CREATININE CLEARANCE IN PREDICTING GLOMERULAR FILTRATION RATE . ESTIMATED GFR I S NOT APPLICABLE FOR DIALYSIS PATIEN TS. Cargo Supervisor ID - DBLACTIC ACID, [id number] 16:18:00 Test Item Value Reference Range Interpretation Comments LACTATE BLOOD 1.0 mmol/L 0.5-2.2 Specimen sligh tly ARTERIAL (2) (BEAKER) hemoly zed (test code = 2874) Cargo Supervisor ID - [id number] 16:08:00 Test Item Value Reference Range Interpretation Comments PARTIAL THROMBOPLASTIN TIME 53.9 seconds 22.5-36.0 H (BEAKER) (test code = 760) PROTHROMBIN TIME/[id number] 16:07:00 Test Item Value Reference Range Interpretation [...] is 2.5-3.5 for patients wiht mechanical heart valves.[id number] 16:07:00 Test Item Value Reference Range Interpretation [...] 0-0 (BEAKER) (test code = 413) CALCIUM, [id number] 15:53:00 Test Item Value Reference Range Interpretation Comments CALCIUM IONIZED (BEAKER) (test 1.25 mmol/L 1.12-1.27 code = 698) PH, BLOOD (BEAKER) (test code = 7.45 1810) BLOOD GAS, [id number] 15:52:00 Test Item Value Reference Range Interpretation [...] code = 1819) 60.0 % OXYGEN SATURATION, [id number] 15:52:00 Test Item Value Reference Range Interpretation Comments O2 SATURATION (MEASURED) (BEAKER) 50.4 % (test code = 1455) CBC W/PLT COUNT & AUTO [id number] 15:18:00 Test Item Value Reference Range Interpretation [...] H PERCENT (BEAKER) (test code = 2801) [id number] 14:44:00 Test Item Value Reference Range Interpretation Comments ACTIVATED CLOTTING TIME 125 sec : 74 -137 seconds, (BEAKER) (test code = Drissi ne: TESTED AT 441) [facility] 6720 [facility] [place], [address]: Cargo Supervisor/Techni arin ID = [id number] for JOHANNA DIXON BLOOD GAS, [id number] 14:24:00 Test Item Value Reference Range Interpretation [...] (test code = 1819) 100.0 % GLUCOSE-STAT [id number] 14:24:00 Test Item Value Reference Range Interpretation Comments GLUCOSE RANDOM (BEAKER) (test code 147 mg/dL 70-110 H = 652) HGB/HCT (H&H) - STAT [id number] 14:24:00 Test Item Value Reference Range Interpretation Comments HEMOGLOBIN (BEAKER) (test code = 8.1 g/dL 12.0-15.0 L 410) HEMATOCRIT (BEAKER) (test code = 24.0 % 36.0-45.0 L 411) CALCIUM, [id number] 14:24:00 Test Item Value Reference Range Interpretation Comments CALCIUM IONIZED (BEAKER) (test 1.23 mmol/L 1.12-1.27 code = 698) PH, BLOOD (BEAKER) (test code = 7.48 1810) SODIUM NA-STAT [id number] 14:22:00 Test Item Value Reference Range Interpretation Comments SODIUM (BEAKER) (test code = 381) 137 meq/L 136-145 POTASSIUM-STAT [id number] 14:22:00 Test Item Value Reference Range Interpretation Comments POTASSIUM (BEAKER) (test code = 4.1 meq/L 3.6-5.5 379) THROMBOELASTOGRAPH (TEG)2020-02-05 14:17:00 Test Item Value Reference Range [...] MM 55.0-65.0 H (test code = 1413) [id number] 14:08:00 Test Item Value Reference Range Interpretation Comments FIBRINOGEN LEVEL (BEAKER) (test 412 mg/dl 225-434 code = 658) [id number] 13:58:00 Test Item Value Reference Range Interpretation Comments PARTIAL THROMBOPLASTIN TIME 81.1 seconds 22.5-36.0 H (BEAKER) (test code = 760) PROTHROMBIN [id number] 13:57:00 Test Item Value Reference Range Interpretation [...] is 2.5-3.5 for patients wiht mechanical heart valves.[id number] 13:54:00 Test Item Value Reference Range Interpretation Comments ACTIVATED CLOTTING TIME 131 sec : 74 -137 seconds, (BEAKER) (test code = Baseli ne: TESTED AT 441) [place] [address] 30: Cargo Supervisor/Techni arin ID = [id number] for NG CECI, JOHANNA [id number] 13:54:00 Test Item Value Reference Range Interpretation Comments ACTIVATED CLOTTING TIME 450 sec : 74 -137 seconds, (BEAKER) (test code = Baseli ne: TESTED AT 441) [place] [address] 30: Cargo Supervisor/Techni arin ID = [id number] for NG CECI, JOHANNA [id number] 13:54:00 Test Item Value Reference Range Interpretation Comments ACTIVATED CLOTTING TIME 472 sec : 74 -137 seconds, (BEAKER) (test code = Baseli ne: TESTED AT 441) [place] [address] 30: Cargo Supervisor/Techni arin ID = [id number] for NG CECI, JOHANNA [id number] 13:54:00 Test Item Value Reference Range Interpretation Comments ACTIVATED CLOTTING TIME 599 sec : 74 -137 seconds, (BEAKER) (test code = Baseli ne: TESTED AT 441) [place] [address] 30: Cargo Supervisor/Techni arin ID = [id number] for NG CECI, JOHANNA [id number] 13:54:00 Test Item Value Reference Range Interpretation Comments ACTIVATED CLOTTING TIME 412 sec : 74 -137 seconds, (BEAKER) (test code = Baseli ne: TESTED AT 441) [place] [address] 30: Cargo Supervisor/Techni arin ID = [id number] for NG CECI, JOHANNA [id number] 13:53:00 Test Item Value Reference Range Interpretation Comments ACTIVATED CLOTTING TIME 599 sec : 74 -137 seconds, (BEAKER) (test code = Baseli ne: TESTED AT 441) [address], [facility] 30: Cargo Supervisor/Techni arin ID = [id number] for NG CECI, JOHANNA [id number] 13:53:00 Test Item Value Reference Range Interpretation Comments ACTIVATED CLOTTING TIME 571 sec : 74 -137 seconds, (BEAKER) (test code = Baseli ne: TESTED AT 441) [address], [facility] 30: Cargo Supervisor/Techni arin ID = [id number] for NG CECI, JOHANNA [id number] 13:53:00 Test Item Value Reference Range Interpretation Comments ACTIVATED CLOTTING TIME 472 sec : 74 -137 seconds, (BEAKER) (test code = Baseli ne: TESTED AT 441) [address], [facility] 30: Cargo Supervisor/Techni arin ID = [id number] for NG CECI, JOHANNA PLATELET [id number] 13:43:00 Test Item Value Reference Range Interpretation Comments PLATELET COUNT (BEAKER) (test 253 K/CU MM 150-450 code = 756) Cargo Supervisor ID - [id number]-STAT [id number] 13:41:00 Test Item Value Reference Range Interpretation Comments POTASSIUM (BEAKER) (test code = 4.3 meq/L 3.6-5.5 379) BLOOD GAS, [id number] 13:41:00 Test Item Value Reference Range Interpretation [...] code = 1819) 100.0 % SODIUM NA-STAT [id number] 13:41:00 Test Item Value Reference Range Interpretation Comments SODIUM (BEAKER) (test code = 381) 134 meq/L 136-145 L GLUCOSE-STAT [id number] 13:41:00 Test Item Value Reference Range Interpretation Comments GLUCOSE RANDOM (BEAKER) (test code 196 mg/dL 70-110 H = 652) HGB/HCT (H&H) - STAT [id number] 13:41:00 Test Item Value Reference Range Interpretation Comments HEMOGLOBIN (BEAKER) (test code = 7.1 g/dL 12.0-15.0 L 410) HEMATOCRIT (BEAKER) (test code = 21.0 % 36.0-45.0 L 411) CALCIUM, [id number] 13:41:00 Test Item Value Reference Range Interpretation Comments CALCIUM IONIZED (BEAKER) (test 1.00 mmol/L 1.12-1.27 L code = 698) PH, BLOOD (BEAKER) (test code = 7.39 1810) POTASSIUM-STAT [id number] 12:45:00 Test Item Value Reference Range Interpretation Comments POTASSIUM (BEAKER) (test code = 6.2 meq/L 3.6-5.5 HH 379) BLOOD GAS, [id number] 12:44:00 Test Item Value Reference Range Interpretation [...] code = 1819) 70.0 % SODIUM NA-STAT [id number] 12:44:00 Test Item Value Reference Range Interpretation Comments SODIUM (BEAKER) (test code = 381) 132 meq/L 136-145 L GLUCOSE-STAT [id number] 12:44:00 Test Item Value Reference Range Interpretation Comments GLUCOSE RANDOM (BEAKER) (test code 219 mg/dL 70-110 H = 652) HGB/HCT (H&H) - STAT [id number] 12:44:00 Test Item Value Reference Range Interpretation Comments HEMOGLOBIN (BEAKER) (test code = 7.4 g/dL 12.0-15.0 L 410) HEMATOCRIT (BEAKER) (test code = 22.0 % 36.0-45.0 L 411) BLOOD GAS, [id number] 12:18:00 Test Item Value Reference Range Interpretation [...] code = 1819) 60.0 % SODIUM NA-STAT [id number] 12:18:00 Test Item Value Reference Range Interpretation Comments SODIUM (BEAKER) (test code = 381) 133 meq/L 136-145 L GLUCOSE-STAT [id number] 12:18:00 Test Item Value Reference Range Interpretation Comments GLUCOSE RANDOM (BEAKER) (test code 218 mg/dL 70-110 H = 652) HGB/HCT (H&H) - STAT [id number] 12:18:00 Test Item Value Reference Range Interpretation Comments HEMOGLOBIN (BEAKER) (test code = 7.7 g/dL 12.0-15.0 L 410) HEMATOCRIT (BEAKER) (test code = 23.0 % 36.0-45.0 L 411) POTASSIUM-STAT [id number] 12:17:00 Test Item Value Reference Range Interpretation Comments POTASSIUM (BEAKER) (test code = 5.4 meq/L 3.6-5.5 379) POTASSIUM-STAT [id number] 11:48:00 Test Item Value Reference Range Interpretation Comments POTASSIUM (BEAKER) (test code = 5.0 meq/L 3.6-5.5 379) BLOOD GAS, [id number] 11:48:00 Test Item Value Reference Range Interpretation [...] code = 1819) 60.0 % SODIUM NA-STAT [id number] 11:48:00 Test Item Value Reference Range Interpretation Comments SODIUM (BEAKER) (test code = 381) 134 meq/L 136-145 L GLUCOSE-STAT [id number] 11:48:00 Test Item Value Reference Range Interpretation Comments GLUCOSE RANDOM (BEAKER) (test code 217 mg/dL 70-110 H = 652) HGB/HCT (H&H) - STAT [id number] 11:48:00 Test Item Value Reference Range Interpretation Comments HEMOGLOBIN (BEAKER) (test code = 7.4 g/dL 12.0-15.0 L 410) HEMATOCRIT (BEAKER) (test code = 22.0 % 36.0-45.0 L 411) POTASSIUM-STAT [id number] 11:14:00 Test Item Value Reference Range Interpretation Comments POTASSIUM (BEAKER) (test code = 4.7 meq/L 3.6-5.5 379) BLOOD GAS, [id number] 11:14:00 Test Item Value Reference Range Interpretation [...] code = 1819) 60.0 % SODIUM NA-STAT [id number] 11:14:00 Test Item Value Reference Range Interpretation Comments SODIUM (BEAKER) (test code = 381) 134 meq/L 136-145 L GLUCOSE-STAT [id number] 11:14:00 Test Item Value Reference Range Interpretation Comments GLUCOSE RANDOM (BEAKER) (test code 203 mg/dL 70-110 H = 652) HGB/HCT (H&H) - STAT [id number] 11:14:00 Test Item Value Reference Range Interpretation Comments HEMOGLOBIN (BEAKER) (test code = 7.0 g/dL 12.0-15.0 L 410) HEMATOCRIT (BEAKER) (test code = 21.0 % 36.0-45.0 L 411) BLOOD GAS, [id number] 10:47:00 Test Item Value Reference Range Interpretation [...] code = 1819) 80.0 % SODIUM NA-STAT [id number] 10:47:00 Test Item Value Reference Range Interpretation Comments SODIUM (BEAKER) (test code = 381) 133 meq/L 136-145 L GLUCOSE-STAT [id number] 10:47:00 Test Item Value Reference Range Interpretation Comments GLUCOSE RANDOM (BEAKER) (test code 131 mg/dL 70-110 H = 652) HGB/HCT (H&H) - STAT [id number] 10:47:00 Test Item Value Reference Range Interpretation Comments HEMOGLOBIN (BEAKER) (test code = 8.2 g/dL 12.0-15.0 L 410) HEMATOCRIT (BEAKER) (test code = 24.0 % 36.0-45.0 L 411) POTASSIUM-STAT [id number] 10:44:00 Test Item Value Reference Range Interpretation Comments POTASSIUM (BEAKER) (test code = 4.4 meq/L 3.6-5.5 379) CALCIUM, [id number] 09:33:00 Test Item Value Reference Range Interpretation Comments CALCIUM IONIZED (BEAKER) (test 1.09 mmol/L 1.12-1.27 L code = 698) PH, BLOOD (BEAKER) (test code = 7.47 1810) BLOOD GAS, [id number] 09:33:00 Test Item Value Reference Range Interpretation [...] (test code = 1819) 100.0 % GLUCOSE-STAT [id number] 09:33:00 Test Item Value Reference Range Interpretation Comments GLUCOSE RANDOM (BEAKER) (test code 121 mg/dL 70-110 H = 652) HGB/HCT (H&H) - STAT [id number] 09:33:00 Test Item Value Reference Range Interpretation Comments HEMOGLOBIN (BEAKER) (test code = 9.9 g/dL 12.0-15.0 L 410) HEMATOCRIT (BEAKER) (test code = 29.0 % 36.0-45.0 L 411) SODIUM NA-STAT [id number] 09:32:00 Test Item Value Reference Range Interpretation Comments SODIUM (BEAKER) (test code = 381) 138 meq/L 136-145 POTASSIUM-STAT [id number] 09:32:00 Test Item Value Reference Range Interpretation Comments POTASSIUM (BEAKER) (test code = 3.9 meq/L 3.6-5.5 379) [id number] 08:40:00 Test Item Value Reference Range Interpretation Comments MAGNESIUM (BEAKER) 1.8 mg/dL 1.6-2.6 Specimen slightly (test code = 627) hemolyzed Cargo Supervisor ID - PIAYA [id number] 08:40:00 Test Item Value Reference Range Interpretation Comments PHOSPHORUS (BEAKER) 4.8 mg/dL 2.3-4.7 H Specimen slightly (test code = 604) hemolyzed Cargo Supervisor ID - PIAYA LBASIC METABOLIC [id number] 08:40:00 Test Item Value Reference Range Interpretation [...] 697) EGFR (BEAKER) (test 70 mL/min/1.73 ESTIMA POORNIMA GFR IS code = 1092) sq m NOT ACCURATE CREATININE CLEARANCE IN PREDICTING GLOMERULAR FILTRATION RATE . ESTIMATED GFR I S NOT APPLICABLE FOR DIALYSIS PATIEN TS. Cargo Supervisor ID - PIAYA LPREGNANCY SCREEN, [id number] 07:04:00 Test Item Value Reference Range Interpretation Comments TEST URINE (BEAKER) (test Negative code = 583) CBC W/PLT COUNT & AUTO [id number] 04:22:00 Test Item Value Reference Range Interpretation [...] (BEAKER) (test code = 2801) SARS-COV2/RT-PCR ([facility])2020-02-04 22:48:00 Test Item Value Reference Range Interpretation Comments SARS-COV2/RT-PCR (test Negative Not Detected, Negative, code = 6625182) See external report for linked test SARS-COV-2 PERFORMING LAB [facility] (test code = 8440259) Negative result for this test determines that [...] individuals suspected of COVID-19 by their healthcare provider.This test [...] justifying the authorization of the emergency use ofin vitro diagnostic tests for detection and/or diagnosis of COVID-19 is terminated under Section 564(b)(2) of the Act or the EUA is revoked under Section 564(g) of the Act.Fact Sheet for Healthcare Prov iders:https://www.[employer]/sites/default/files/product/documents/Fact_Sheet_HC _Bdfzlledp_Sryz_NEUU-UdL-7.pdfFact Sheet for Healthcare Patients:https://www.[employer]/sites/default/files/product/docume nts/Birz_Rdcoe_Sevaytxa_Dqeg_RWMK-NcZ-5.pdfPerforming Laboratory:[place] [address] [place] [place], [place] [address]DZVLTLXGCX [id number] 17:49:00 Test Item Value Reference Range Interpretation Comments HEMOGLOBIN A1C (BEAKER) (test code = 5.8 % 4.3-6.1 368) LIPID [id number] 15:04:00 Test Item Value Reference Range Interpretation Comments TRIGLYCERIDES (BEAKER) (test code = 169 mg/dL 540) CHOLESTEROL (BEAKER) (test code = 143 mg/dL 631) HDL CHOLESTEROL (BEAKER) (test code 30 mg/dL = 976) LDL CHOLESTEROL CALCULATED (BEAKER) 79 mg/dL (test code = 633) Triglyceride Reference Range: Low Risk <150 Borderline 150-199 High Risk 200- 499 Very High Risk >=500Cholesterol Reference Range: Low Risk <200 Borderline 200-239 High Risk >240HDL Cholesterol Reference Range: Low Risk >=60 High Risk <40LDL Cholesterol Reference Range: Optimal <100 Near Optimal 100-129 Borderline 130-159 High 160-189 Very High >=190 Cargo Supervisor ID - [id number] 14:48:00 Test Item Value Reference Range Interpretation Comments PARTIAL THROMBOPLASTIN TIME 37.9 seconds 22.5-36.0 H (BEAKER) (test code = 760) PROTHROMBIN [id number] 14:47:00 Test Item Value Reference Range Interpretation [...] is 2.5-3.5 for patients wiht mechanical heart valves.[id number] 05:55:00 Test Item Value Reference Range Interpretation Comments PHOSPHORUS (BEAKER) (test code = 4.3 mg/dL 2.3-4.7 604) Cargo Supervisor ID - VERENICE [id number] 05:55:00 Test Item Value Reference Range Interpretation Comments MAGNESIUM (BEAKER) (test code = 1.8 mg/dL 1.6-2.6 627) Cargo Supervisor ID - VERENICE LBASIC METABOLIC [id number] 05:55:00 Test Item Value Reference Range Interpretation [...] 697) EGFR (BEAKER) (test 73 mL/min/1.73 ESTIMA POORNIMA GFR IS code = 1092) sq m NOT ACCURATE CREATININE CLEARANCE IN PREDICTING GLOMERULAR FILTRATION RATE . ESTIMATED GFR I S NOT APPLICABLE FOR DIALYSIS PATIEN TS. Cargo Supervisor ID - VERENICE LCBC W/PLT COUNT & AUTO [id number] 05:13:00 Test Item Value Reference Range Interpretation [...] H PERCENT (BEAKER) (test code = 2801) TISSUE [id number] 16:10:00Surgical Pathology Report Case: [id number] Authorizing Provider: Darryn Olivera MD Collected: 01/31/2020 03:39 PM Ordering Location: [facility] Received: 02/01/2020 09:57 AM PERIOPERATIVE S ERIN Pathologist: Steve Walker MD Specimen: Plaque, LEFT CAROTID PLAQUE ARTERY, LEFT CAROTID,ENDARTERECTOMY:CALCIFIC ATHEROSCLEROTIC PLAQUE Signing Pathologist Direct Phone Line: [phone] signed by Steve Walker MD on 02/03/2020 at 4:10 [id number]; [id number] diagnosis: Aortic valve stenosis, etiology of cardiac valve disease unspecified, coronary artery disease involving [place] coronary artery of [place] heart without angina pectoris.PlaqueReceived in formalin labeled with the patient's name, accession number and "left carotid plaque" is a 2.5 cm in length x 0.5 cm in diameter rodriguez- yellow bifurcated, tubular piece of focally calcified plaque. Event Crew Technician sections are submitted in A1 following decalcification. PA/pl PerformedTROPONIN [id number] 12:20:00 Test Item Value Reference Range Interpretation [...] failure, acidosis, acute neurological disease, and persistent tachyarrhythmia.Cargo Supervisor ID - [id number] 12:14:00 Test Item Value Reference Range Interpretation Comments MAGNESIUM (BEAKER) 1.8 mg/dL 1.6-2.6 Specimen slightly (test code = 627) hemolyzed Cargo Supervisor ID - NTPBASIC METABOLIC [id number] 12:14:00 Test Item Value Reference Range Interpretation [...] 697) EGFR (BEAKER) (test 77 mL/min/1.73 ESTIMA POORNIMA GFR IS code = 1092) sq m NOT ACCURATE CREATININE CLEARANCE IN PREDICTING GLOMERULAR FILTRATION RATE . ESTIMATED GFR I S NOT APPLICABLE FOR DIALYSIS PATIEN TS. Cargo Supervisor ID - NTPCBC W/PLT COUNT & AUTO [id number] 12:11:00 Test Item Value Reference Range Interpretation [...] = 2801) RAD, CHEST, 1 VIEW, NON [id number] 06:48:00Reason for exam:->post cardiac surgeryFINAL REPORT CLINICAL INDICATION: Postop Comparison: 02/02/2020 The cardiomediastinal contours are stable. There is no focal consolidation, pneumothorax, large pleural effusion or evidence of overt pulmonary edema. Signed: Valeria Rush [facility] Verified Date/Time: 02/03/2020 06:48:10 ONIN [id number] 09:13:00 Test Item Value Reference Range Interpretation [...] failure, acidosis, acute neurological disease, and persistent tachyarrhythmia.Cargo Supervisor ID - NTPRAD, CHEST, 1 VIEW, NON [id number] 05:32:00Reason for exam:->post cardiac surgeryFINAL REPORT Chest one view. Clinical history: post cardiac surgery Comparison:Chest radiograph 02/01/2020. Technique: A single frontal view of the chest was obtained. Findings: Thecardiomediastinal contours are stable. There is no focal pulmonary consolidation, pleural effusion or pneumothorax. There is no pulmonary edema. The osseous structures are unremarkable. Signed: Km Zavaleta MDReport Verified Date/Time: 02/02/2020 05:32:20 LACTIC ACID, [id number] 05:10:00 Test Item Value Reference Range Interpretation Comments LACTATE BLOOD ARTERIAL (2) 0.6 mmol/L 0.5-2.2 (BEAKER) (test code = 2874) Cargo Supervisor ID - EDASITROPONIN [id number] 03:01:00 Test Item Value Reference Range Interpretation [...] failure, acidosis, acute neurological disease, and persistent tachyarrhythmia.Cargo Supervisor ID - MARK WPHOSPHORUS 2020-02-02 02:53:00 Test Item Value Reference Range Interpretation Comments PHOSPHORUS (BEAKER) (test code = 3.7 mg/dL 2.3-4.7 604) Cargo Supervisor ID - MARK [id number] 02:53:00 Test Item Value Reference Range Interpretation Comments MAGNESIUM (BEAKER) (test code = 2.1 mg/dL 1.6-2.6 627) Cargo Supervisor ID - MARK WBASIC METABOLIC [id number] 02:53:00 Test Item Value Reference Range Interpretation [...] 697) EGFR (BEAKER) (test 61 mL/min/1.73 ESTIMA POORNIMA GFR IS code = 1092) sq m NOT ACCURATE CREATININE CLEARANCE IN PREDICTING GLOMERULAR FILTRATION RATE . ESTIMATED GFR I S NOT APPLICABLE FOR DIALYSIS PATIEN TS. Cargo Supervisor ID - MARK WCBC W/PLT COUNT & AUTO [id number] 02:24:00 Test Item Value Reference Range Interpretation [...] PERCENT (BEAKER) (test code = 2801) CALCIUM, [id number] 02:07:00 Test Item Value Reference Range Interpretation Comments CALCIUM IONIZED (BEAKER) (test 1.05 mmol/L 1.12-1.27 L code = 698) PH, BLOOD (BEAKER) (test code = 7.41 1810) TROPONIN [id number] 18:32:00 Test Item Value Reference Range Interpretation [...] failure, acidosis, acute neurological disease, and persistent tachyarrhythmia.Cargo Supervisor ID - BSCBC W/PLT COUNT & AUTO [id number] 07:41:00 Test Item Value Reference Range Interpretation [...] CONCENTRATION Increased (CELLAVISION)(BEAKER) (test code = 3438) Cargo Supervisor ID - Antony Vernon comments: Slide comments:RAD, CHEST, 1 VIEW, NON [id number] 05:33:00Reason for exam:->post cardiac surgeryFINAL REPORT Chest one view. Clinical history: post cardiac surgery Comparison:Chest radiograph 01/27/2020. Technique: A single frontal view of the chest was obtained. Findings: The cardiomediastinal contours are normal. There is no focal pulmonary consolidation, pleural effusion or pneumothorax. There is no pulmonary edema. The osseous structures are unremarkable. Signed: Km Zavaleta Verified Date/Time: 02/01/2020 05:33:50 [id number] 04:14:00 Test Item Value Reference Range Interpretation Comments PHOSPHORUS (BEAKER) (test code = 4.7 mg/dL 2.3-4.7 604) Cargo Supervisor ID - [id number] 04:14:00 Test Item Value Reference Range Interpretation Comments MAGNESIUM (BEAKER) (test code = 2.5 mg/dL 1.6-2.6 627) Cargo Supervisor ID - EDASIBASIC METABOLIC [id number] 04:14:00 Test Item Value Reference Range Interpretation [...] 697) EGFR (BEAKER) (test 75 mL/min/1.73 ESTIMA POORNIMA GFR IS code = 1092) sq m NOT ACCURATE CREATININE CLEARANCE IN PREDICTING GLOMERULAR FILTRATION RATE . ESTIMATED GFR I S NOT APPLICABLE FOR DIALYSIS PATIEN TS. Cargo Supervisor ID - EDASIBLOOD GAS, [id number] 04:00:00 Test Item Value Reference Range Interpretation [...] (test code = 1819) 100.0 % CALCIUM, [id number] 04:00:00 Test Item Value Reference Range Interpretation Comments CALCIUM IONIZED (BEAKER) (test 1.10 mmol/L 1.12-1.27 L code = 698) PH, BLOOD (BEAKER) (test code = 7.39 1810) LACTIC ACID, [id number] 03:59:00 Test Item Value Reference Range Interpretation Comments LACTATE BLOOD ARTERIAL (2) 0.5 mmol/L 0.5-2.2 (BEAKER) (test code = 2874) Cargo Supervisor ID - EDASIPOCT-GLUCOSE [id number] 01:05:00 Test Item Value Reference Range Interpretation Comments POC-GLUCOSE METER 117 mg/dL 70-110 H : TESTED Rupal Malone [facility] 6720 (BEAKER) (test code = SARABJIT VARGAS [place], 1538) [address]: Cargo Supervisor/Techni arin ID = [id number] for Dinesh Bonds (CELLAVISION MANUAL DIFF)2020-01-31 19:19:00 [...] CONCENTRATION Increased (CELLAVISION)(BEAKER) (test code = 3438) Cargo Supervisor ID - StepNaeser comments: Slide comments:[id number] 18:51:00 Test Item Value Reference Range Interpretation Comments MAGNESIUM (BEAKER) 1.8 mg/dL 1.6-2.6 Specimen slightly (test code = 627) hemolyzed Cargo Supervisor ID - [id number] 18:51:00 Test Item Value Reference Range Interpretation Comments PHOSPHORUS (BEAKER) 4.5 mg/dL 2.3-4.7 Specimen slightly (test code = 604) hemolyzed Cargo Supervisor ID - BSBASIC METABOLIC [id number] 18:51:00 Test Item Value Reference Range Interpretation [...] 697) EGFR (BEAKER) (test 70 mL/min/1.73 ESTIMA POORNIMA GFR IS code = 1092) sq m NOT ACCURATE CREATININE CLEARANCE IN PREDICTING GLOMERULAR FILTRATION RATE . ESTIMATED GFR I S NOT APPLICABLE FOR DIALYSIS PATIEN TS. Cargo Supervisor ID - [id number]/[id number] 18:43:00 Test Item Value Reference Range Interpretation [...] is 2.5-3.5 for patients wiht mechanical heart valves.CBC W/PLT COUNT & AUTO [id number] 18:36:00 Test Item Value Reference Range Interpretation [...] (BEAKER) (test code = 413) BLOOD GAS, [id number] 18:29:00 Test Item Value Reference Range Interpretation [...] (test code = 1819) 40.0 % CALCIUM, [id number] 18:29:00 Test Item Value Reference Range Interpretation Comments CALCIUM IONIZED (BEAKER) (test 1.05 mmol/L 1.12-1.27 L code = 698) PH, BLOOD (BEAKER) (test code = 7.97 1810) [id number] 17:35:00 Test Item Value Reference Range Interpretation Comments PHOSPHORUS (BEAKER) (test code = 4.7 mg/dL 2.3-4.7 604) Cargo Supervisor ID - [id number] 17:35:00 Test Item Value Reference Range Interpretation Comments MAGNESIUM (BEAKER) (test code = 1.9 mg/dL 1.6-2.6 627) Cargo Supervisor ID - DBBASIC METABOLIC [id number] 04:51:00 Test Item Value Reference Range Interpretation Comments SODIUM (BEAKER) 138 meq/L 136-145 (test code = 381) POTASSIUM (BEAKER) 3.9 meq/L 3.5-5.1 (test code = 379) CHLORIDE (BEAKER) 105 meq/L 98-107 (test code = 382) CO2 (BEAKER) (test 23 meq/L code = 355) BLOOD UREA NITROGEN 7 mg/dL 7-21 (BEAKER) (test code = 354) CREATININE (BEAKER) 0.77 mg/dL 0.57-1.25 (test code = 358) GLUCOSE RANDOM 112 mg/dL 70-105 H (BEAKER) (test code = 652) CALCIUM (BEAKER) 8.9 mg/dL 8.4-10.2 (test code = 697) EGFR (BEAKER) (test 76 mL/min/1.73 ESTIMA POORNIMA GFR IS code = 1092) sq m NOT ACCURATE CREATININE CLEARANCE IN PREDICTING GLOMERULAR FILTRATION RATE . ESTIMATED GFR I S NOT APPLICABLE FOR DIALYSIS PATIEN TS. Cargo Supervisor ID - PIAYA [id number] 04:37:00 Test Item Value Reference Range Interpretation Comments PARTIAL THROMBOPLASTIN TIME 87.0 seconds 22.5-36.0 H (BEAKER) (test code = 760) HEMOGLOBIN [id number] 22:13:00 Test Item Value Reference Range Interpretation Comments HEMOGLOBIN A1C (BEAKER) (test code = 6.0 % 4.3-6.1 368) [id number] 18:55:00 Test Item Value Reference Range Interpretation Comments MAGNESIUM (BEAKER) (test code = 1.8 mg/dL 1.6-2.6 627) Cargo Supervisor ID - DBCOMPREHENSIVE METABOLIC [id number] 18:55:00 Test Item Value Reference Range Interpretation [...] 347) EGFR (BEAKER) (test 75 mL/min/1.73 ESTIMA POORNIMA GFR IS code = 1092) sq m NOT ACCURATE CREATININE CLEARANCE IN PREDICTING GLOMERULAR FILTRATION RATE . ESTIMATED GFR I S NOT APPLICABLE FOR DIALYSIS PATIEN TS. Cargo Supervisor ID - DBLIPID [id number] 18:55:00 Test Item Value Reference Range Interpretation Comments TRIGLYCERIDES (BEAKER) (test code = 196 mg/dL 540) CHOLESTEROL (BEAKER) (test code = 132 mg/dL 631) HDL CHOLESTEROL (BEAKER) (test code 27 mg/dL = 976) LDL CHOLESTEROL CALCULATED (BEAKER) 66 mg/dL (test code = 633) Triglyceride Reference Range: Low Risk <150 Borderline 150-199 High Risk 200- 499 Very High Risk >=500Cholesterol Reference Range: Low Risk <200 Borderline 200-239 High Risk >240HDL Cholesterol Reference Range: Low Risk >=60 High Risk <40LDL Cholesterol Reference Range: Optimal <100 Near Optimal 100-129 Borderline 130-159 High 160-189 Very High >=190 Cargo Supervisor ID - [id number] 18:47:00 Test Item Value Reference Range Interpretation Comments PARTIAL THROMBOPLASTIN TIME 66.6 seconds 22.5-36.0 H (BEAKER) (test code = 760) PROTHROMBIN [id number] 18:46:00 Test Item Value Reference Range Interpretation [...] is 2.5-3.5 for patients wiht mechanical heart valves.CBC W/PLT COUNT & AUTO [id number] 18:42:00 Test Item Value Reference Range Interpretation [...] (BEAKER) (test code = 2801) SARS-COV2/RT-PCR ([facility])2020-01-30 10:39:00 Test Item Value Reference Range Interpretation Comments SARS-COV2/RT-PCR (test Negative Not Detected, Negative, code = 8724663) See external report for linked test SARS-COV-2 PERFORMING LAB [facility] (test code = 4693137) Negative result for this test determines that [...] individuals suspected of COVID-19 by their healthcare provider.This test [...] justifying the authorization of the emergency use ofin vitro diagnostic tests for detection and/or diagnosis of COVID-19 is terminated under Section 564(b)(2) of the Act or the EUA is revoked under Section 564(g) of the Act.Fact Sheet for Healthcare Prov iders:https://www.[employer]/sites/default/files/product/documents/Fact_Sheet_HC _Bsktspjxp_Mkgq_TLMN-TbV-9.pdfFact Sheet for Healthcare Patients:https://www.[employer]/sites/default/files/product/docume nts/Gamu_Ystjg_Uxnnxlmt_Jsma_UFLK-TcW-4.pdfPerforming Laboratory:[facility], [place] [address]AWORJ METABOLIC PANEL 2020-01-30 05:22:00 Test Item Value [...] 697) EGFR (BEAKER) (test 81 mL/min/1.73 ESTIMA POORNIMA GFR IS code = 1092) sq m NOT ACCURATE CREATININE CLEARANCE IN PREDICTING GLOMERULAR FILTRATION RATE . ESTIMATED GFR I S NOT APPLICABLE FOR DIALYSIS PATIEN TS. Cargo Supervisor ID - PIAYA [id number] 05:08:00 Test Item Value Reference Range Interpretation Comments PARTIAL THROMBOPLASTIN TIME 82.6 seconds 22.5-36.0 H (BEAKER) (test code = 760) [id number] 20:47:00 Test Item Value Reference Range Interpretation Comments PARTIAL THROMBOPLASTIN TIME 75.1 seconds 22.5-36.0 H (BEAKER) (test code = 760) [id number] 14:59:00 Test Item Value Reference Range Interpretation Comments PARTIAL THROMBOPLASTIN TIME 72.3 seconds 22.5-36.0 H (BEAKER) (test code = 760) CT, CAROTID, [id number] 10:29:00Unlisted Reason for Exam - Click Yes and Enter Reason Below->YesUnlisted Reason for Exam->severe carotid stenosis and impending cardiac surgeryAnesthesia:->NoneFINAL REPORT CTA Neck and upper chest Clinical history: severe carotid stenosisand impending cardiac surgery TECHNIQUE: Contiguous axial images [...] hard and ulcerated soft plaque results in 99%stenosis of the proximal left internal carotid artery by NASCET criteria. Mixed hard and ulcerated soft plaque results in at least 75% stenosis of the proximal right internal carotid artery by NASCET criteria. The bilateral vertebral artery origins are patent but not well characterized due to streak artifact from patient body habitus. The cervical vertebral artery segments are otherwise patent without focal stenosis. There is moderate stenosis of the left intradural segment. The partially visualizedintracranial circulation does not demonstrate definitive evidence for a [place] large vessel occlusion. There is [...] internal carotid artery by NASCET criteria. Signed: oJlly Ferguson MDReport Verified Date/Time: 01/29/202010:29:31 Reading Location: [address] Neuro Reading Room CBC W/PLT COUNT & AUTO DIFFERENTIAL 2020-01-29 06:49:00 Test Item Value Reference Range Interpretation Comments WHITE BLOOD CELL COUNT (TRIP) 8.1 K/ L 3.5-10.5 (test code = [...] (BEAKER) (test code = 2801) BASIC METABOLIC [id number] 06:45:00 Test Item Value Reference Range Interpretation [...] 697) EGFR (BEAKER) (test 76 mL/min/1.73 ESTIMA POORNIMA GFR IS code = 1092) sq m NOT ACCURATE CREATININE CLEARANCE IN PREDICTING GLOMERULAR FILTRATION RATE . ESTIMATED GFR I S NOT APPLICABLE FOR DIALYSIS PATIEN TS. Cargo Supervisor ID - BABITA [id number] 06:29:00 Test Item Value Reference Range Interpretation Comments PARTIAL THROMBOPLASTIN TIME 58.0 seconds 22.5-36.0 H (BEAKER) (test code = 760) SODIUM, RANDOM [id number] 16:40:00 Test Item Value Reference Range Interpretation Comments SODIUM URINE (BEAKER) (test code = 21 meq/L 243) Reference Range: No NormalsOperator ID - DBCREATININE, RANDOM [id number] 16:38:00 Test Item Value Reference Range Interpretation Comments CREATININE URINE (BEAKER) (test 37.6 mg/dL code = 375) Reference Range: No NormalsOperator ID - DBOSMOLALITY, [id number] 15:22:00 Test Item Value Reference Range Interpretation Comments OSMOLALITY URINE (BEAKER) (test 159 mOsm/kg 50-1,200 mOsm/kg code = 614) OSMOLALITY, [id number] 15:22:00 Test Item Value Reference Range Interpretation Comments OSMOLALITY, SERUM (BEAKER) (test 272 mOsm/kg 275-295 L code = 615) [id number] 07:31:00 Test Item Value Reference Range Interpretation Comments PARTIAL THROMBOPLASTIN TIME 77.4 seconds 22.5-36.0 H (BEAKER) (test code = 760) [id number] 02:02:00 Test Item Value Reference Range Interpretation Comments MAGNESIUM (BEAKER) (test code = 1.9 mg/dL 1.6-2.6 627) Cargo Supervisor ID - BABITA MBASIC METABOLIC [id number] 02:02:00 Test Item Value Reference Range Interpretation [...] 697) EGFR (BEAKER) (test 65 mL/min/1.73 ESTIMA POORNIMA GFR IS code = 1092) sq m NOT ACCURATE CREATININE CLEARANCE IN PREDICTING GLOMERULAR FILTRATION RATE . ESTIMATED GFR I S NOT APPLICABLE FOR DIALYSIS PATIEN TS. Cargo Supervisor ID - BABITA [id number] 01:59:00 Test Item Value Reference Range Interpretation Comments PARTIAL THROMBOPLASTIN TIME 69.4 seconds 22.5-36.0 H (BEAKER) (test code = 760) CBC W/PLT COUNT & AUTO [id number] 01:49:00 Test Item Value Reference Range Interpretation [...] (BEAKER) (test code = 2801) U/S, RENAL, [id number] 01:06:00Reason for exam:->left flank painFINAL REPORT Ultrasound of the Kidneys Clinical History: left flank pain Comparison: None. Discussion: Sonographic evaluation of the kidneys was performed. Right kidney: 11.9 x 4.4x 4.9 cm cm, with cortical thickness of [...] otherwise unremarkable. Impression: Unremarkable exam. Signed: Km Zavaletaeport Verified Date/Time: 01/28/2020 01:06:30 RAD, CHEST, 1 VIEW, NON [id number] 19:53:00Reason for exam:->dyspneaShould this be performed at the bedside?->YesFINAL REPORT INDICATION: dyspnea COMPARISON: None TECHNIQUE: Single frontal view of the chest. IMPRESSION: Lungs and pleura: There is pulmonary venous congestion without consolidation or effusion. No pneumothorax.Heart and mediastinum: Heart size is magnified by technique. Unremarkable mediastinal contours.Osseous structures: No acute abnormality.Other: None. Signed: Darryn Chouort Verified Date/Time: 01/27/2020 19:53:07 [id number] 18:30:00 Test Item Value Reference Range Interpretation Comments PARTIAL THROMBOPLASTIN TIME 58.9 seconds 22.5-36.0 H (Remind) (test code = 760) TSH/FREE T4 IF [id number] 17:50:00 Test Item Value Reference Range Interpretation Comments THYROID STIMULATING HORMONE 2.001 uIU/mL 0.350-4.940 (Remind) (test code = 772) Cargo Supervisor ID - NTPPLATELET AGGREGATION: FUNCTION [id number] 17:26:00 Test Item Value Reference Range Interpretation Comments [id number] Braden Gonzalez M.D. (Remind) (test code = (electonic signature) 4897) PLATELET COUNT AGG 275 K/CU MM 150-450 (Remind) (test code = 5146) ADP (BEAKER) (test code 65 % 62-100 = 4654) PLATELET RICH 300 k/cu mm 200-300 PLASMA(BEAKER) (test code = 2134) PLATELET FUNCTION SCREEN Normal aggregation INTERPRETATION (BEAKER) results with ADP. No (test code = 4655) evidence of platelet dysfunction or P2Y12 inhibitor effect. Platelet Function Screen results may be falsely low with platelet counts<75,000/cu mm.Cargo Supervisor ID- [id number] 11:23:00 Test Item Value Reference Range Interpretation Comments PARTIAL THROMBOPLASTIN TIME 64.4 seconds 22.5-36.0 H (BEAKER) (test code = 760) SARS-COV2/RT-PCR ([facility])2020-01-27 11:07:00 Test Item Value Reference Range Interpretation Comments SARS-COV2/RT-PCR (test Negative Not Detected, Negative, code = 9059030) See external report for linked test SARS-COV-2 PERFORMING LAB [facility] (test code = 3047231) Negative result for this test determines that [...] individuals suspected of COVID-19 by their healthcare provider.This test [...] justifying the authorization of the emergency use ofin vitro diagnostic tests for detection and/or diagnosis of COVID-19 is terminated under Section 564(b)(2) of the Act or the EUA is revoked under Section 564(g) of the Act.Fact Sheet for Healthcare Prov iders:https://www.[employer]/sites/default/files/product/documents/Fact_Sheet_HC _Ilxjdapcn_Flck_PIDQ-CeK-6.pdfFact Sheet for Healthcare Patients:https://www.[employer]/sites/default/files/product/docume nts/Ufwv_Wwfjp_Gwffrlwa_Vapi_DJMG-EgH-5.pdfPerforming Laboratory:[place] [address], [place] [address]MZQOFBBYQE [id number] 08:14:00 Test Item Value Reference Range Interpretation Comments HEMOGLOBIN A1C (BEAKER) (test code = 5.8 % 4.3-6.1 368) [id number] 05:23:00 Test Item Value Reference Range Interpretation Comments FERRITIN (BEAKER) (test code = 709.39 ng/mL 5.00-275.00 H 361) Cargo Supervisor ID - NTPVITAMIN B12 AND [id number] 05:23:00 Test Item Value Reference Range Interpretation Comments VITAMIN B12 (BEAKER) (test code = 563 pg/mL 213-816 774) FOLATE (BEAKER) (test code = 362) 15.50 ng/mL >=7.00 Cargo Supervisor ID - NTPTROPONIN [id number] 04:53:00 Test Item Value Reference Range Interpretation [...] failure, acidosis, acute neurological disease, and persistent tachyarrhythmia.Cargo Supervisor ID - NTPIRON, TIBC, % SAT. (WITHOUT FERRITIN)2020-01-27 04:47:00 Test Item Value Reference Range Interpretation Comments IRON (BEAKER) (test code = 547) 25.0 ug/dL 40.0-160.0 L TOTAL IRON BINDING CAPACITY 179 ug/dL 250-450 L (BEAKER) (test code = 769) IRON % SATURATION (2) (BEAKER) 14 % 20-55 L (test code = 2590) Cargo Supervisor ID - [id number] 04:46:00 Test Item Value Reference Range Interpretation Comments MAGNESIUM (BEAKER) (test code = 2.1 mg/dL 1.6-2.6 627) Cargo Supervisor ID - NTPBASIC METABOLIC [id number] 04:46:00 Test Item Value Reference Range Interpretation [...] 697) EGFR (BEAKER) (test 69 mL/min/1.73 ESTIMA POORNIMA GFR IS code = 1092) sq m NOT ACCURATE CREATININE CLEARANCE IN PREDICTING GLOMERULAR FILTRATION RATE . ESTIMATED GFR I S NOT APPLICABLE FOR DIALYSIS PATIEN TS. Cargo Supervisor ID - NTPLIPID [id number] 04:46:00 Test Item Value Reference Range Interpretation Comments TRIGLYCERIDES (BEAKER) (test code = 223 mg/dL 540) CHOLESTEROL (BEAKER) (test code = 148 mg/dL 631) HDL CHOLESTEROL (BEAKER) (test code 16 mg/dL = 976) LDL CHOLESTEROL CALCULATED (BEAKER) 87 mg/dL (test code = 633) Triglyceride Reference Range: Low Risk <150 Borderline 150-199 High Risk 200- 499 Very High Risk >=500Cholesterol Reference Range: Low Risk <200 Borderline 200-239 High Risk >240HDL Cholesterol Reference Range: Low Risk >=60 High Risk <40LDL Cholesterol Reference Range: Optimal <100 Near Optimal 100-129 Borderline 130-159 High 160-189 Very High >=190 Cargo Supervisor ID - [id number] 04:29:00 Test Item Value Reference Range Interpretation Comments PARTIAL THROMBOPLASTIN TIME 62.6 seconds 22.5-36.0 H (BEAKER) (test code = 760) PROTHROMBIN [id number] 04:28:00 Test Item Value Reference Range Interpretation [...] is 2.5-3.5 for patients wiht mechanical heart valves.CBC W/PLT COUNT & AUTO [id number] 04:18:00 Test Item Value Reference Range Interpretation [...] H PERCENT (BEAKER) (test code = 2801) URINALYSIS W/ REFLEX URINE [id number] 23:09:00 Test Item Value Reference Range Interpretation [...] = 516) SOURCE(BEAKER) (test code = 2795) Cargo Supervisor ID - [auto]Cargo Supervisor ID - Anitra [id number] 21:39:00 Test Item Value Reference Range Interpretation [...] failure, acidosis, acute neurological disease, and persistent tachyarrhythmia.Cargo Supervisor ID - MARK [id number] 21:32:00 Test Item Value Reference Range Interpretation Comments MAGNESIUM (BEAKER) 2.0 mg/dL 1.6-2.6 Specimen slightly (test code = 627) hemolyzed Cargo Supervisor ID - MARK WBASIC METABOLIC [id number] 21:32:00 Test Item Value Reference Range Interpretation [...] hemolyzed GLUCOSE RANDOM 143 mg/dL 70-105 H (TRIP) (test code = 652) CALCIUM (CORDELIAAKER) 8.4 mg/dL 8.4-10.2 (test code = 697) EGFR (TRIP) (test 58 mL/min/1.73 ESTIMA POORNIMA GFR IS code = 1092) sq m NOT ACCURATE CREATININE CLEARANCE IN PREDICTING GLOMERULAR FILTRATION RATE . ESTIMATED GFR I S NOT APPLICABLE FOR DIALYSIS PATIEN TS. Cargo Supervisor ID - MARK [id number] 21:25:00 Test Item Value Reference Range Interpretation Comments PARTIAL THROMBOPLASTIN TIME 46.2 seconds 22.5-36.0 H (TRIP) (test code = 760) Prior to initiating heparin
[2022-03-05 14:43] LABS: Absolute Lymphocytes (CBC) 1.8 K/uL (0.7-4.9); Hematocrit 40.5 % (36.0-45.0); Lymphocytes % 25.8 % (15.3-44.8); MCV 89.4 fL (80-100); MPV 7.7 fL (7.6-11.3); RBC Red Blood Cell Count 4.53 M/uL (3.86-4.86)
[2022-03-05 14:50] LABS: Protime INR 1.07
--- NOTE | 2022-03-05 15:07 | RAD REPORT ---
EXAM DESCRIPTION: RAD - Chest Single View - 03/05/2022 3:00 pm CLINICAL HISTORY: CHEST PAIN Chest pain. COMPARISON: Chest Single View dated 01/24/2020; Chest Single View dated 10/07/2018; Chest Pa And Lat (2 Views) dated 03/24/2017; CHEST SINGLE VIEW dated 07/10/2015 FINDINGS: Portable technique limits examination quality. The lungs are grossly clear. The heart is mildly prominent with changes of a prior CABG. No displaced fractures. IMPRESSION: No acute intrathoracic process suspected.
[2022-03-05 15:31] LABS: ALT/SGPT 39 U/L (12-78); AST/SGOT 22 U/L (15-37); Alkaline Phosphatase 156 U/L (45-117); BUN Blood Urea Nitrogen 20 mg/dL (7-18); Bicarbonate 27 mmol/L (21-32); Bilirubin Total 0.4 mg/dL (0.2-1.0); Glomerular Filtration Rate 59 ml/min (=/>90); Glucose Level 107 mg/dL (74-106); Magnesium 2.1 mg/dL (1.8-2.4); NT PRO-BNP 137 pg/mL (<125); Potassium 3.6 mmol/L (3.5-5.1); Protein, Total 8.3 g/dL (6.4-8.2); Sodium Level 134 mmol/L (136-145); Troponin High Sensitivity 3.8 pg/mL (<58.9)
[2022-03-05 15:37] LABS: Bilirubin Direct < 0.1 mg/dL (0-0.2)
--- NOTE | 2022-03-05 15:56 | EDPHYS ---
Physician Documentation [facility] Name: Rena Santiago Age: 62 yrs Sex: Female : 1960 Arrival Date: 03/05/2022 Time: 13:51 Bed 25 Private MD: ED Physician Warren Graham HPI: 03/05 15:21 This 62 yrs old Female presents to ER via EMS with complaints of Chest Pain. kb 15:21 The patient or guardian reports chest pain that is located primarily in the substernal kb area, anterior chest wall, left. Onset: 1 hour(s) ago. The pain does not radiate. Associated signs and symptoms: Pertinent positives: shortness of breath. The chest pain is described as a heaviness, a pressure. Duration: The patient or guardian reports a single episode, that is still ongoing. Modifying factors: The symptoms are alleviated by nothing. the symptoms are aggravated by nothing. Severity of pain: At its worst the pain was moderate in the emergency department the pain is unchanged. The patient has not experienced similar symptoms in the past. The patient has not recently seen a physician. 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 Reports shortness of kb breath and fatigue as well. States she has not been taking her prescribed medications. Reports valve replacement and bypass 2 years ago and has not followed up with cardiology since then. Historical: - Allergies: 14:01 No Known Allergies; ss - Home Meds: 21:29 amlodipine 10 mg tab 1 tab once daily [Active]; hydroxyzine HCl 25 mg Oral tab 1 tab ha1 BID [Active]; lisinopril-hydrochlorothiazide 10-12.5 mg Oral tab 1 tab once daily [Active]; lovastatin 20 mg Oral tab 1 tab once daily [Active]; meloxicam 15 mg Oral tab 1 tab once daily [Active]; sertraline 100 mg Oral tab 2 tabs once daily [Active]; - PMHx: 14:01 Anxiety; Depression; Hyperlipidemia; Hypertension; ss - PSHx: 14:01 CABG; Valve replacement; ss - Immunization history:: Client reports receiving the 2nd dose of the Covid vaccine. - Social history:: Smoking status: Patient denies any tobacco usage or history of. ROS: 15:20 Constitutional: Negative for fever, chills, and weight loss. kb 15:20 Cardiovascular: Positive for chest pain, Negative for edema, orthopnea, palpitations, paroxysmal nocturnal dyspnea. 15:20 Constitutional: Positive for fatigue. kb 15:20 Respiratory: Positive for shortness of breath. 15:20 All other systems are negative. kb Exam: 15:20 Constitutional: This is a well developed, well nourished patient who is awake, alert, kb and in no acute distress. Head/Face: Normocephalic, atraumatic. ENT: Moist Mucous membranes Cardiovascular: Regular rate and rhythm with a normal S1 and S2. No gallops, murmurs, or rubs. No pulse deficits. Respiratory: Respirations even and unlabored. No increased work of breathing. Talking in full sentences Abdomen/GI: Soft, non-tender. No distention Skin: Warm, dry with normal turgor. Normal color. MS/ Extremity: Pulses equal, no cyanosis. Neurovascular intact. Full, normal range of motion. Neuro: Awake and alert, GCS 15, oriented to person, place, time, and situation. Moves all extremities. Normal gait. Psych: Awake, alert, with orientation to person, place and time. Behavior, mood, and affect are within normal limits. 15:20 ECG was reviewed by the Attending Physician. Vital Signs: 13:59 BP 165 / 88; Pulse 95; Resp 18; Temp 97.9(O); Pulse Ox 100% on R/A; Weight 113.4 kg; ss Height 5 ft. 3 in. (160.02 cm); Pain 8/10; 14:00 BP 159 / 69; Pulse 95; Pulse Ox 10% ; ko1 15:15 BP 192 / 82; Pulse 92; Pulse Ox 99% ; ko1 15:30 BP 176 / 96; Pulse 93; Pulse Ox 100% ; Pain 0/10; ko1 16:30 BP 183 / 86; Pulse 89; ko1 17:30 BP 166 / 78; Pulse 97; ko1 21:14 BP 145 / 83; Pulse 89; Resp 18 S; Pulse Ox 98% on R/A; ha1 13:59 Body Mass Index 44.29 (113.40 kg, 160.02 cm) ss MDM: 13:51 Patient medically screened. kb 15:20 Data reviewed: vital signs, nurses notes. Data interpreted: Pulse oximetry: on room air kb is 100 %. Interpretation: normal. Counseling: I had a detailed discussion with the patient and/or guardian regarding: the historical points, exam findings, and any diagnostic results supporting the discharge/admit diagnosis, lab results, radiology results, the need for further work-up and treatment in the hospital. 15:55 The patient was not given aspirin in the Emergency Department. Administered by EMS. kb 03/05 13:52 Order name: Basic Metabolic Panel kb 03/05 13:52 Order name: CBC with Diff kb 03/05 13:52 Order name: LFT's kb 03/05 13:52 Order name: Magnesium kb 03/05 13:52 Order name: NT PRO-BNP kb 03/05 13:52 Order name: PT-INR kb 03/05 13:52 Order name: Troponin HS kb 03/05 14:49 Order name: CBC with Automated Diff; Complete Time: 14:53 EDMS 03/05 14:50 Order name: Protime (+INR); Complete Time: 14:53 EDMS 03/05 15:38 Order name: Basic Metabolic Panel; Complete Time: 15:38 EDMS 03/05 15:38 Order name: Liver (Hepatic) Function; Complete Time: 15:38 EDMS 03/05 15:38 Order name: Troponin High Sensitivity; Complete Time: 15:38 EDMS 03/05 15:38 Order name: NT PRO-BNP; Complete Time: 15:38 EDMS 03/05 15:38 Order name: Magnesium; Complete Time: 15:38 EDMS 03/05 13:52 Order name: XRAY Chest (1 view) kb 03/05 13:52 Order name: EKG; Complete Time: 13:53 kb 03/05 15:08 Order name: RAD; Complete Time: 15:10 EDMS 03/05 16:41 Order name: SARS RAPID kj1 03/05 17:39 Order name: SARS-COV-2 Antigen Rapid; Complete Time: 17:49 EDMS 03/05 19:17 Order name: Protime (+INR) EDMS 03/05 19:37 Order name: Phosphorus EDMS 03/05 19:37 Order name: Creatine Phosphokinase EDMS 03/05 19:37 Order name: Troponin High Sensitivity EDMS 03/05 19:37 Order name: NT PRO-BNP EDMS 03/05 19:37 Order name: T4 Free EDMS 03/05 19:37 Order name: Magnesium EDWV 03/05 19:37 Order name: Thyroid Stimulating Hormone EDWV 03/06 01:01 Order name: Troponin High Sensitivity EDWV 03/05 13:52 Order name: Cardiac monitoring; Complete Time: 14:10 kb 03/05 13:52 Order name: EKG - Nurse/Tech; Complete Time: 14:28 kb 03/05 13:52 Order name: IV Saline Lock; Complete Time: 14:28 kb 03/05 13:52 Order name: Labs collected and sent; Complete Time: 14:28 kb 03/05 13:52 Order name: O2 Per Protocol; Complete Time: 14:10 kb 03/05 13:52 Order name: O2 Sat Monitoring; Complete Time: 14:10 kb EC:20 Rate is 101 beats/min. Rhythm is regular. QRS [place] is Normal. [place] interval is normal at kb 160 msec. QRS interval is normal at 94 msec. QT interval is normal at 453 msec. Administered Medications: 14:28 Drug: Zofran (Ondansetron) 4 mg Route: IVP; Site: left antecubital; ko1 14:30 Drug: morphine 4 mg Route: IVP; Infused Over: 4 mins; Site: left antecubital; ko1 Disposition: 16:32 PA/SCRIPT ARTIST's history reviewed, patient interviewed, and examined. I agree with assessment jr11 and care plan and confirm the diagnosis (es) above. Attestation: The patient's history, exam findings, diagnostics, and a summary of any interventions or procedures was reviewed in detail with Deb MULLIGAN. Disposition Summary: 03/05/22 15:55 Hospitalization Ordered Hospitalization Status: Observation kb Provider: Crystal Campbell Condition: Stable kb Problem: new kb Symptoms: are unchanged kb Bed/Room Type: Standard kb Location: Telemetry/MedSurg (observation)(03/06/22 03:43) cg Room Assignment: [facility](03/06/22 03:48) Diagnosis - Chest pain, unspecified kb Forms: - Medication Reconciliation Form kb - SBAR form kb Signatures: Dispatcher [employer] Deb Cummings FNP-C FNP-Ckb Smirch, Shelby, RN RN Meli Garcia RN RN Warren Graham MD MD jr11 Imelda Dolan RN RN ha1 Brianna Brown RN RN ko1 Corrections: (The following items were deleted from the chart) 15:35 15:20 All other systems are negative, kb kb 15:36 15:21 Associated signs and symptoms: The patient has no apparent associated signs or kb symptoms, kb 15:36 15:22 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 States she has kb not been taking her prescribed medications. Reports valve replacement and bypass 2 years ago and has not followed up with cardiology since then. kb 19:40 15:55 Telemetry/MedSurg (observation) kb cg 19:40 15:55 kb cg 21:30 14:01 Home Meds: None; ss ha1 03/06 03:43 03/05 19:40 [facility] ER HOLD cg cg 03/06 03:43 03/05 19:40 ERHOLD- cg cg 03/06 03:48 03:43 cg cg
--- NOTE | 2022-03-05 15:56 | ER ---
Nurse's Notes [facility] Name: Rena Santiago Age: 62 yrs Sex: Female : 1960 Arrival Date: 03/05/2022 Time: 13:51 Bed 25 Private MD: Diagnosis: Chest pain, unspecified Presentation: 03/05 13:59 Chief complaint: Patient states: Chest tightness that began 1 hour ago. Pt states, "Now ss that I think about it, I have been feeling really tired for the past few days.". Coronavirus screen: Client denies travel out of the [place] in the last 14 days. Ebola Screen: Patient denies exposure to infectious person. Patient denies travel to an Ebola-affected area in the 21 days before illness onset. Initial Sepsis Screen: Does the patient meet any 2 criteria? No. Patient's initial sepsis screen is negative. Does the patient have a suspected source of infection? No. Patient's initial sepsis screen is negative. Risk Assessment: Do you want to hurt yourself or someone else? Patient reports no desire to harm self or others. Onset of symptoms was March 05, 2022. Care prior to arrival: Medication(s) given: ASA, 81 mg, x 4, Nitroglycerin, 0.4 mg SL x 2. 13:59 Method Of Arrival: EMS: [facility] 13:59 Acuity: JAYDA 2 ss Historical: - Allergies: 14:01 No Known Allergies; ss - Home Meds: 21:29 amlodipine 10 mg tab 1 tab once daily [Active]; hydroxyzine HCl 25 mg Oral tab 1 tab ha1 BID [Active]; lisinopril-hydrochlorothiazide 10-12.5 mg Oral tab 1 tab once daily [Active]; lovastatin 20 mg Oral tab 1 tab once daily [Active]; meloxicam 15 mg Oral tab 1 tab once daily [Active]; sertraline 100 mg Oral tab 2 tabs once daily [Active]; - PMHx: 14:01 Anxiety; Depression; Hyperlipidemia; Hypertension; ss - PSHx: 14:01 CABG; Valve replacement; ss - Immunization history:: Client reports receiving the 2nd dose of the Covid vaccine. - Social history:: Smoking status: Patient denies any tobacco usage or history of. Screenin:15 Abuse screen: Denies threats or abuse. Denies injuries from another. Nutritional ko1 screening: No deficits noted. Tuberculosis screening: No symptoms or risk factors identified. Fall Risk None identified. Assessment: 14:15 Pain: Pain does not radiate. Pain. Cardiovascular: Reports chest pain. ko1 21:11 General: Appears comfortable, Behavior is calm, cooperative. Pain: Complains of pain in ha1 chest Pain does not radiate. Pain currently is 5 out of 10 on a pain scale. Is intermittent. Neuro: Level of Consciousness is awake, alert, obeys commands, Oriented to person, place, time, situation. Cardiovascular: Chest pain. Cardiovascular: Capillary refill < 3 seconds Patient's skin is warm and dry. Respiratory: Airway is patent Trachea midline Respiratory effort is even, unlabored, Respiratory pattern is regular, symmetrical. Vital Signs: 13:59 BP 165 / 88; Pulse 95; Resp 18; Temp 97.9(O); Pulse Ox 100% on R/A; Weight 113.4 kg; ss Height 5 ft. 3 in. (160.02 cm); Pain 8/10; 14:00 BP 159 / 69; Pulse 95; Pulse Ox 10% ; ko1 15:15 BP 192 / 82; Pulse 92; Pulse Ox 99% ; ko1 15:30 BP 176 / 96; Pulse 93; Pulse Ox 100% ; Pain 0/10; ko1 16:30 BP 183 / 86; Pulse 89; ko1 17:30 BP 166 / 78; Pulse 97; ko1 21:14 BP 145 / 83; Pulse 89; Resp 18 S; Pulse Ox 98% on R/A; ha1 13:59 Body Mass Index 44.29 (113.40 kg, 160.02 cm) ED Course: 13:51 Patient arrived in ED. kb 13:51 [facility]aird [facility]C [facility] kb 13:51 Warren Graham MD is Attending Physician. kb 13:53 Brianna Brown, JACQUELINE is Primary Nurse. ko1 14:01 Triage completed. ss 14:01 Arm band placed on right wrist. ss 14:15 Patient has correct armband on for positive identification. Bed in low position. Call ko1 light in reach. Side rails up X 1. Client placed on continuous cardiac and pulse oximetry monitoring. NIBP monitoring applied. conveyor monitor on. 14:15 No provider procedures requiring assistance completed. Inserted saline lock: 22 gauge ko1 in left antecubital area, using aseptic technique. Blood collected. Patient maintains SpO2 saturation greater than 95% on room air. 14:28 Basic Metabolic Panel Sent. ko1 14:28 CBC with Diff Sent. ko1 14:28 LFT's Sent. ko1 14:28 Magnesium Sent. ko1 14:28 NT PRO-BNP Sent. ko1 14:28 PT-INR Sent. ko1 14:28 Troponin HS Sent. ko1 15:55 Crystal Campbell MD is Hospitalizing Provider. kb 17:54 SARS RAPID Sent. ko1 21:28 Patient admitted, IV remains in place. ha1 Administered Medications: 14:28 Drug: Zofran (Ondansetron) 4 mg Route: IVP; Site: left antecubital; ko1 14:30 Drug: morphine 4 mg Route: IVP; Infused Over: 4 mins; Site: left antecubital; ko1 Medication: 14:15 VIS not applicable for this client. ko1 Outcome: 15:55 Decision to Hospitalize by Provider. kb 21:28 Admitted to ER Hold. [facility]. ha1 21:28 Condition: stable 21:28 Instructed on the need for admit, Demonstrated understanding of instructions. 03/06 05:32 Patient left the ED. kd3 Signatures: Deb Baird, [employer]-C [employer]-Ckb Ciera Bagley RN RN Autumn Herrera RN RN kd3 Imelda Dolan RN RN ha1 Brianna Brown RN RN ko1 Corrections: (The following items were deleted from the chart) 03/05 21:30 14:01 Home Meds: None; ha1
[2022-03-05 17:38] LABS: SARS-CoV-2 Antigen Rapid Res Negative (Negative)
[2022-03-05] MEDS ORDERED: HYDROCODONE/APAP 10/325 TAB PO PRN (17:42)
[2022-03-05] MEDS ORDERED: ONDANSETRON 4 MG/2 ML VIAL IV PRN (17:42)
[2022-03-05] MEDS ORDERED: ACETAMINOPHEN 500 MG TAB PO PRN (17:42)
[2022-03-05] MEDS ORDERED: LABETALOL 20 MG/4ML SYRINGE IV PRN (17:43)
[2022-03-05] MEDS ORDERED: HOME MED 1 EA UNK (Hydroxyzine Hcl [Atarax] 10 MG Tablet) PO PRN (17:45)
[2022-03-05] MEDS ORDERED: CYCLOBENZAPRINE 10 MG TAB PO PRN (17:45)
--- NOTE | 2022-03-05 17:48 | P.HP ---
Certification for Inpatient Patient admitted to: Observation With expected LOS: <2 Midnights Patient will require the following post-hospital care: None Practitioner: I am a practitioner with admitting privileges, knowledge of patient current condition, hospital course, and medical plan of care. Services: Services provided to patient in accordance with Admission requirements found in Title 42 Section 412.3 of the Code of Federal Regulations Patient History Date of Service: 03/05/22 Reason for admission: Chest pain History of Present Illness: Patient is a 62-year-old female with a past medical history significant for hypertension, hyperlipidemia, depression, anxiety disorder, CABG who presents with complaint of chest pain located in the substernal chest area onset this afternoon. Patient reported that chest pain radiates to her left shoulder. Patient indicated that she has been fatigued for the past 2 days. Patient rated pain as 10/10 in severity and described pain as pressure\tenderness in quality. Patient reported associated signs and symptoms of shortness of breath with exertion. Patient denies any other signs or symptoms. Symptoms are aggravated or relieved by nothing. Patient said to present to the hospital due to worsening symptoms. 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 Patient also reported that she has not been compliant with her home medications for the past 8 months due to personal issues. Allergies No Known Allergies Allergy (Verified 07/10/15 17:42) Home Medications: Amlodipine [Norvasc] 10 mg PO DAILY 10/08/18 Aspirin [Aspirin EC 81 MG] 81 mg PO DAILY 10/08/18 Cyclobenzaprine [Flexeril] 5 mg PO TID PRN 10/08/18 Hydroxyzine HCl [Atarax] 25 mg PO DAILY PRN 10/08/18 Lovastatin 20 mg PO BEDTIME 10/08/18 Meloxicam [Mobic] 15 mg PO DAILY 10/08/18 Multivitamin [Daily Multiple Vitamin] 1 each PO DAILY 10/08/18 Omeprazole [Prilosec] 20 mg PO DAILY 10/08/18 Sertraline [Zoloft] 100 mg PO DAILY 10/08/18 - Past Medical/Surgical History Diabetic: No -: htn -: high cholesterol -: Obesity -: Anxiety -: Depression -: ovarian cyst removal -: appendectomy -: tonsillectomy -: Aortic Valve replacement - Family History Mother -: Hypertension, Cancer, Other (see notes) Notes: esophageal cancer Father -: Hypertension, Diabetes, Other (see notes) (MDS) Notes: mds - Social History Smoking Status: Never smoker Alcohol use: Yes CD- Drugs: No Caffeine use: Yes Place of Residence: Home Review of Systems General: Other (Fatigue ) Eyes: Unremarkable ENT: Unremarkable Respiratory: Shortness of Breath, SOB with Excertion Cardiovascular: Chest Pain Gastrointestinal: Unremarkable Genitourinary: Unremarkable Musculoskeletal: Shoulder Pain Integumentary: Unremarkable Neurological: Unremarkable Physical Examination - Physical Exam General: Alert, Oriented x3 HEENT: Normocephalic, PERRLA Neck: Supple, 2+ carotid pulse no bruit, JVD not distended Respiratory: Clear to auscultation bilaterally, Normal air movement Cardiovascular: No edema, Normal pulses, Normal S1 S2 Capillary refill: >2 Seconds Gastrointestinal: Normal bowel sounds, Soft and benign Musculoskeletal: No clubbing, No swelling, No contractures, No erythema Integumentary: No rashes, No breakdown, No significant lesion, No tenderness/swelling, No erythema Neurological: Normal speech, Normal strength at 5/5 x4 extr, Normal tone, Normal affect Lymphatics: No axilla or inguinal lymphadenopathy - Studies Laboratory Data (last 24 hrs) 03/05/22 14:25: PT 11.8, INR 1.07 03/05/22 14:25: WBC 7.00, Hgb 13.7, Hct 40.5, Plt Count 332 03/05/22 14:25: Sodium 134 L, Potassium 3.6, BUN 20 H, Creatinine 1.05, Glucose 107 H, Magnesium 2.1, Total Bilirubin 0.4, AST 22, ALT 39, Alkaline Phosphatase 156 H Assessment and Plan - Plan -- Chest pain. To rule out ACS. Will trend serial troponins--so far negative. Cardiology consulted. Echocardiogram pending. Telemetry to monitor for any significant arrhythmia. We will await further recommendation from tire builder operator. -- Hypertension. Poorly controlled. Continue home medications and labetalol as needed. --Anxiety disorder\depression. Continue home medications. --History of SD and CABG. Continue aspirin and statin. --GERD. Continue home medication. --CKD 3A. Improvement in renal functions noted compared to levels 2 years ago. We will continue to monitor renal functions. --Hyperlipidemia. Continue statin. --Class III obesity. Likely secondary to excess calories intake. Patient counseled on weight reduction, diet and exercise therapy. --Acute pain. We will manage pain with current pain medication regimen. --DVT prophylaxis with Lovenox subQ. Discharge Plan: Home Plan to discharge in: 48 Hours - Advance Directives Does patient have a Living Will: No Does patient have a Durable POA for Healthcare: No - Code Status/Comfort Care Code Status Assessed: Yes Code Status: Full Code Physician Review: Patient Assessed, Agree with Above Assessment and Plan Critical Care: No
[2022-03-05] MEDS: ENOXAPARIN 40 MG/0.4 ML SQ SCH (18:00)
[2022-03-05] MEDS: ASPIRIN 325 MG TAB PO SCH (18:00)
[2022-03-05] MEDS ORDERED: hydrOXYzine HCL 25 MG TAB PO PRN (18:04)
[2022-03-05 19:16] LABS: Protime INR 1.07
[2022-03-05 19:36] LABS: Magnesium 2.1 mg/dL (1.8-2.4); Thyroid Stimulating Hormone 3.04 uIU/mL (0.360-3.740); Troponin High Sensitivity 5.5 pg/mL (<58.9)
[2022-03-05] MEDS ORDERED: HOME MED 1 EA UNK (Lovastatin [Lovastatin] 20 MG Tablet) PO SCH (21:00)
[2022-03-05] MEDS ORDERED: ATORVASTATIN 10 MG TAB PO SCH (21:00)
[2022-03-05] MEDS ORDERED: ATORVASTATIN 20 MG TAB ONE (23:25)
[2022-03-05] MEDS ORDERED: ENOXAPARIN 40 MG/0.4 ML SQ ONE (23:25)
[2022-03-05] MEDS ORDERED: ASPIRIN EC 325 MG TABLET PO ONE (23:25)
[2022-03-06 03:08] VITALS: BMI 39.5
[2022-03-06 05:54] LABS: Albumin 3.5 g/dL (3.4-5.0); Bilirubin Total 0.4 mg/dL (0.2-1.0); Protein, Total 7.3 g/dL (6.4-8.2)
--- NOTE | 2022-03-06 07:51 | EKG ---
Test Date: 2022-03-05 Test Time: 14:19:05 Agricultural Equipment Operator: GREGORIO MEASUREMENT RESULTS: Intervals: Rate: 101 MT: 160 QRSD: 94 QT: 350 QTc: 453 [place]: P: 16 MT: 160 QRS: 54 T: 89 INTERPRETIVE STATEMENTS: Sinus tachycardia Incomplete right bundle branch block Anteroseptal infarct, age undetermined Abnormal ECG Compared to ECG 01/24/2020 09:29:12 Myocardial infarct finding now present Sinus rhythm no longer present Electronically Signed On 03-06-22 07:48:15 CDT by Jason Haynes
[2022-03-06] MEDS ORDERED: PNEUMOCOCCAL VACCINE 0.5 ML IMVAC ONE (08:00)
[2022-03-06] MEDS: ASPIRIN 325 MG TAB PO SCH (08:28)
[2022-03-06] MEDS: ENOXAPARIN 40 MG/0.4 ML SQ SCH (08:30)
[2022-03-06] MEDS ORDERED: MULTIVITAMIN PO SCH (09:00)
[2022-03-06] MEDS ORDERED: PANTOPRAZOLE 40MG TABLET PO SCH (09:00)
[2022-03-06] MEDS ORDERED: AMLODIPINE 10 MG TAB PO SCH (09:00)
[2022-03-06] MEDS ORDERED: SERTRALINE HCL 100 MG TAB PO SCH (09:00)
[2022-03-06] MEDS ORDERED: MULTIVITAMIN TAB PO SCH (09:00)
[2022-03-06] MEDS ORDERED: HOME MED 1 EA UNK (Omeprazole [Prilosec] 40 MG Capsule.Dr) PO SCH (09:00)
[2022-03-06 13:39] VITALS: O2SAT 96
[2022-03-06 16:56] VITALS: BP 178/83; TEMP 98.8
--- NOTE | 2022-03-07 08:45 | ECHO ---
HEIGHT: 5 ft 3 in WEIGHT: 245 lb 0 oz DATE OF STUDY: 03/06/[address]: Rachael Baltazar 2-DIMENSIONAL: YES M.MODE: YES DOPPLER: YES COLOR FLOW: YES TDS: NO PORTABLE: YES DEFINITY: NO BUBBLE STUDY: NO DIAGNOSIS: CHEST PAIN CARDIAC HISTORY: CATHERIZATION:YES SURGERY: YES PROSTHETIC VALVE: YES PACEMAKER: NO MEASUREMENTS (cm) DIASTOLIC (NORMALS) SYSTOLIC (NORMALS) IVSd 1.3 (0.6-1.2) LA Diam 2.6 (1.9-4.0) LVEF 63% LVIDd 3.0 (3.5-5.7) LVIDs 2.0 (2.0-3.5) %FS 33% LVPWd 1.3 (0.6-1.2) Ao Diam 2.4 (2.0-3.7) 2 DIMENSIONAL ASSESSMENT: RIGHT ATRIUM: NORMAL LEFT ATRIUM: NORMAL RIGHT VENTRICLE: NORMAL LEFT VENTRICLE: NORMAL TRICUSPID VALVE: NORMAL MITRAL VALVE: MITRAL ANNLUAR CALCIFICATION PULMONIC VALVE: NORMAL AORTIC VALVE: NORMAL PERICARDIAL EFFUSION: NONE AORTIC ROOT: NORMAL LEFT VENTRICULAR WALL MOTION: NORMAL DOPPLER/COLOR FLOW: NORMAL COMMENTS: MITRAL ANNLUAR CALCIFICATION. NORMAL LEFT VENTRICULAR SIZE AND FUNCTION. NO WALL MOTION ABORMALITY. TECHNOLOGIST: Rodrigue HAWKINS
--- NOTE | 2022-03-07 13:52 | CON ---
Date of Consultation: 03/06/2022 Reason For Consultation: Chest pain. History Of Present Illness: Ms. Santiago is 62. Has had a history of CABG in 2020 with CULVER to the LAD . Has been under a lot of stress, her just recently. Came in with atypical ches t pain, more dull, ache. No nausea, vomiting, diaphoresis, PND, orthopnea, pedal edema, palpitations , or syncope. Pain lasted for about a day or 2. No radiation, not exertional. No fever. No chills . Workup so far has been negative. Past Medical History: Includes history of CABG, history of chronic diastolic congestive heart failur e, dyslipidemia, hypertension, neuropathy, and depression. Allergies: NONE. Review of Systems: Negative. Social History: Negative. Family History: Negative. Medications: Include aspirin, Lasix, Lipitor, Norvasc, Plavix, Neurontin, lisinopril, metoprolol, po tassium, lovastatin, and Zoloft. Physical Examination: Vital Signs: Stable, afebrile, sinus rhythm. HEENT: Negative. Neck: Supple without any bruit, lymphadenopathy, JVD, or thyromegaly. Chest: Clear to auscultation and percussion. Cardiac: Revealed a regular rhythm and rate. No murmurs, gallops, or rubs. Abdomen: Benign. Extremities: Revealed no clubbing, cyanosis, or edema. Diagnostic Data: Normal. Impression And Plan: Atypical chest pain in a patient with history of coronary artery bypass graft, multiple cardiac risk factors including hypertension, dyslipidemia. Ms. Santiago is requesting to go ho me and I agree with that since she is ruled out. Echocardiogram is pending. I will make plans for [facility] to have an outpatient Lexiscan in the near future. Continue her present regimen. Case was discus sed with Dr. Campbell. Her blood pressure and dyslipidemia are well controlled at this point. WALESKA/MACHELLE Voice ID: [id number] Report ID: [id number]
== END 2022-03-06 17:35 | disposition home or self-care (01) | DRG 313 ==
LOC: ER 13:47 → ERHOLD 17:36 → OBSVTOIN 19:51 → 4TH 03-06 04:02
PROVIDERS: ADMIT Hospitalist; ATTEND Hospitalist
DX: R07.89 Other chest pain (principal); I50.32 Chronic diastolic (congestive) heart failure; I13.0 Hypertensive heart and chronic kidney disease with heart failure and stage 1 through stage 4 chronic kidney disease, or unspecified chronic kidney disease; Z68.41 Body mass index [BMI] 40.0-44.9, adult; N18.31 Chronic kidney disease, stage 3a; E66.09 Other obesity due to excess calories; F41.9 Anxiety disorder, unspecified; F32.A Depression, unspecified; K21.9 Gastro-esophageal reflux disease without esophagitis; E78.5 Hyperlipidemia, unspecified; I25.2 Old myocardial infarction; Z23 Encounter for immunization; Z63.4 Disappearance and death of family member; Z95.1 Presence of aortocoronary bypass graft; Z95.2 Presence of prosthetic heart valve; Z90.49 Acquired absence of other specified parts of digestive tract; Z79.82 Long term (current) use of aspirin; Z79.02 Long term (current) use of antithrombotics/antiplatelets; Z79.899 Other long term (current) drug therapy; Z20.822 Contact with and (suspected) exposure to COVID-19
CPT/HCPCS: 36415; 71045; 80048; 80053; 80076; 82550; 83735; 83880; 84100; 84439; 84443; 84484; 85025; 85610; 87811; 90471; 90732; 93005; 93306; G0378; J1650; J2405